=== PATIENT | female | born 1950 | race Hispanic/Latino ===

== ENCOUNTER 2017-04-10 12:55 | Day surgery (SDC) | payer MEDICARE, OTHER ==
[2017-04-10 13:43] LABS: ADD MANUAL DIFF? NO
[2017-04-10 13:45] LABS: BASO # 0.03 [, K/mm3] (0.0-2.0); BASO % 0.2 % (0.0-3.0); EOS # 0.1 (0.0-0.7); EOS % 0.6 % (1.5-5.0); GRAN # 14.48 (1.4-6.5); GRAN % 84.6 % (50.0-68.0); LYMPH # 0.8 (1.2-3.4); LYMPH % 4.8 % (22.0-35.0); MEAN CELL VOLUME 92.8 fL (80.0-105.0); MEAN CORPUSCULAR HEMOGLOBIN 30.5 pg (25.0-35.0); MEAN CORPUSCULAR HGB CONC 32.9 g/dl (31.0-37.0); MEAN PLATELET VOLUME 10.5 fl (7.0-11.0); MONO # 1.7 (0.1-0.6); MONO % 9.8 % (1.0-6.0); PLATELET COUNT 160 [, 10^3/uL] (120.0-450.0); WHITE BLOOD COUNT 17.1 [, 10^3/ul] (4.5-11.0)
[2017-04-10 13:48] VITALS: RESP 20; O2SAT 99
[2017-04-10 13:55] LABS: CALCIUM 8.4 mg/dL (8.4-10.5)
[2017-04-10 13:56] LABS: INR 1.18 (0.93-1.08)
[2017-04-10 16:37] VITALS: BMI 39.4
[2017-04-10 17:22] VITALS: PULSE 102; TEMP 97
--- NOTE | 2017-04-10 18:04 | US ---
PROCEDURE: Ultrasound guided paracentesis. HISTORY: Metastatic breast CA. New onset ascites. Evaluate for malignancy. Abdominal pain and distension. PHYSICIAN(S): Wilner Madrid MD. TECHNIQUE: The relative risks and indications for the procedure were explained to the patient and informed written consent obtained. Sonography of the abdomen was performed in a supine position. This revealed a moderate to large amount of non-loculated ascites, greatest in the right mid abdomen. A puncture site was selected and the area was prepped and draped in the usual sterile fashion. 1% Xylocaine was used to anesthetize the skin and soft tissues. A 7 Hungarian paracentesis catheter was trocared into the right mid abdomenand 9100 cc of yellow/green fluid aspirated. Cytology specimen was sent. IMPRESSION: Ultrasound-guided paracentesis in the right mid abdomen. 9100 cc of yellow green fluid was aspirated
[2017-04-10 19:03] VITALS: BP 142/68
== END 2017-04-10 19:00 | disposition home or self-care (01) ==
LOC: OPSURG 12:55
PROVIDERS: ATTEND Radiology Vascular & Interventional Radiology
DX: R18.8 Other ascites (principal); C50.919 Malignant neoplasm of unspecified site of unspecified female breast; I10 Essential (primary) hypertension; R10.9 Unspecified abdominal pain; R14.0 Abdominal distension (gaseous)

== ENCOUNTER 2017-04-19 08:24 | Day surgery (SDC) | payer MEDICARE, OTHER ==
[2017-04-19 09:04] VITALS: BMI 42.5
[2017-04-19 09:29] LABS: HEMATOCRIT 32.3 % (36.0-48.0); MEAN CELL VOLUME 93.4 fL (80.0-105.0); MEAN CORPUSCULAR HEMOGLOBIN 30.9 pg (25.0-35.0); MEAN CORPUSCULAR HGB CONC 33.1 g/dl (31.0-37.0); MEAN PLATELET VOLUME 10.6 fl (7.0-11.0); RED CELL DISTRIBUTION WIDTH 16.2 % (11.5-14.5); WHITE BLOOD COUNT 9.9 10^3/ul (4.5-11.0)
[2017-04-19 09:32] LABS: INR 1.09 (0.93-1.08); PARTIAL THROMBOPLASTIN TIME 28.9 Seconds (23.7-30.8)
--- NOTE | 2017-04-19 09:40 | CP.SDSHP ---
Same Day Surgery H & P - History Proposed Procedure: Ultrasound guided Paracentesis Pre-Op Diagnosis: Ascites - Previous Medical/Surgical History Cardiac: Hypertension Endocrine/Metabolic: Thyroid Disease (Hypothyroidism), Diabetes Misc: Other (Hypercholesterolemia,Breast Ca,crrently on chemo every 3 weeks) Pain: 0. No Pain Previous Surgical History: Appendectomy. R chest wall portacath. Breast biopsy. Paracentesis(last week) - Allergies Allergies: Allergies banana Allergy (Severe, Verified 12/05/16 12:59) RASH - Physical Exam General Appearance: Well nourished female Mental Status: Alert & Oriented x3 Neuro: WNL Heart: WNL Lungs: WNL - {Optional Preform as Required} Abdomen: Other (Distendid,Ascites+++) Other Pertinent Findings: bilateral 1+ pitting pedal edema noted - Impression Impression: Ascites - Date & Time Date: 04/19/17 Time: 09:40 Short Stay Discharge - Short Stay Discharge Admitting Diagnosis/Reason for Visit: ASCITES R18.8 Disposition: HOME/ ROUTINE Referrals: Yahir Love MD [Primary Care Provider] -
[2017-04-19 09:56] LABS: POTASSIUM 4.8 mmol/L (3.6-5.0)
[2017-04-19] MEDS ORDERED: Oxycodone/Acetaminophen 5/325 mg Tab PO PRN (11:08)
[2017-04-19 11:40] VITALS: RESP 20; TEMP 98; O2SAT 98
[2017-04-19 12:19] VITALS: BP 110/65; PULSE 94
--- NOTE | 2017-04-23 19:55 | US ---
PROCEDURE: Ultrasound guided paracentesis. HISTORY: Metastatic breast CA. Recurrent malignant ascites with abdominal pain and distension. Needs repeat paracentesis PHYSICIAN(S): Wilner Madrid MD. TECHNIQUE: The relative risks and indications for the procedure were explained to the patient and informed written consent obtained. Sonography of the abdomen was performed in a supine position. This revealed a moderate to large amount of non-loculated ascites, greatest in the right mid abdomen. A puncture site was selected and the area was prepped and draped in the usual sterile fashion. 1% Xylocaine was used to anesthetize the skin and soft tissues. A 7 Indonesian paracentesis catheter was trocared into the right mid abdomenand 7000 cc of aleman fluid aspirated. A cytology specimen was sent IMPRESSION: Ultrasound-guided paracentesis in the right mid abdomen. 7000 cc of fluid were aspirated. A cytology specimen was sent.
== END 2017-04-19 12:50 | disposition home or self-care (01) ==
LOC: OPSURG 08:24
PROVIDERS: ATTEND Internal Medicine Hematology & Oncology
DX: R18.8 Other ascites (principal); I10 Essential (primary) hypertension; E11.9 Type 2 diabetes mellitus without complications; E03.9 Hypothyroidism, unspecified; E78.00 Pure hypercholesterolemia, unspecified; C50.919 Malignant neoplasm of unspecified site of unspecified female breast

== ENCOUNTER 2017-05-05 13:00 | Inpatient (IN) | payer MEDICARE, OTHER ==
[2017-05-05] MEDS ORDERED: Sodium Chloride 0.9% 1,000 ML IV STA ×3 (13:52→17:05)
--- NOTE | 2017-05-05 13:53 | ED PDOC ---
Arrival/HPI - General Chief Complaint: Abdominal Pain Time Seen by Provider: 05/05/17 13:22 Historian: Patient - Critical Care Critical Care Minutes: 30 minutes - History of Present Illness Narrative History of Present Illness (Text): 05/05/17 13:56 A 67 year old female, whose past medical history includes diabetes, hypertension , and breast cancer presents to the emergency department complaining of vomiting since yesterday and diarrhea for the past week. Patient also reports to chest discomfort today, worse with deep breathing as well as sob. Patient also reports chemotherapy for breast cancer, last session on 04/24/17. Patient denies fever, chills, abdominal pain, runny nose or any other complaints at this time. She said she had an outpatient CT chest/abd/pelvis yesterday in [place] with IV contrast. PMD: Dr. Love Oncology: Dr. Cook Symptom Onset: Sudden Symptom Course: Unchanged Activities at Onset: Rest Context: Home Past Medical History - Provider Review Nursing Documentation Reviewed: Yes - Infectious Disease Hx of Infectious Diseases: None - Reproductive Menopause: Yes - Cardiac Hx Cardiac Disorders: Yes Hx Hypertension: Yes - Pulmonary Hx Respiratory Disorders: No - Neurological Hx Neurological Disorder: Yes Hx Dizziness: Yes Hx Paralysis: No - HEENT Hx HEENT Disorder: Yes Other/Comment: glasses - Renal Hx Renal Disorder: No - Endocrine/Metabolic Hx Endocrine Disorders: Yes Hx Diabetes Mellitus Type 2: Yes - Hematological/Oncological Hx Blood Transfusions: No Hx Blood Transfusion Reaction: No Hx Cancer: Yes (L sided) Hx Chemotherapy: Yes (last was 04/10/2017) - Integumentary Hx Dermatological Disorder: No - Musculoskeletal/Rheumatological Hx Musculoskeletal Disorders: Yes - Gastrointestinal Hx Gastrointestinal Disorders: No - Genitourinary/Gynecological Hx Genitourinary Disorders: No - Psychiatric Hx Psychophysiologic Disorder: No Hx Emotional Abuse: No Hx Physical Abuse: No Hx Substance Use: No - Surgical History Hx Appendectomy: Yes Other/Comment: Port in R chest, - Anesthesia Hx Anesthesia: Yes Hx Anesthesia Reactions: No Hx Malignant Hyperthermia: No - Suicidal Assessment Feels Threatened In Home Enviroment: No Family/Social History - Physician Review Nursing Documentation Reviewed: Yes Family/Social History: No Known Family HX Smoking Status: Never Smoked Hx Alcohol Use: No Hx Substance Use: No Allergies/Home Meds Allergies/Adverse Reactions: Allergies banana Allergy (Severe, Verified 05/05/17 13:13) RASH Home Medications: Home Meds Medication Instructions Recorded Confirmed Aspirin [Ecotrin] 81 mg PO DAILY 12/05/16 05/05/17 Cholecalciferol (Vitamin D3) 2,000 unit PO DAILY 12/05/16 05/05/17 [Vitamin D3] Exenatide Microspheres [Bydureon 2 mg SC SUN 12/05/16 05/05/17 Pen] Insulin Regular [HumuLIN R] 13 unit SC ACLD 12/05/16 05/05/17 Insulin Regular [HumuLIN R] 15 unit SC ACB 12/05/16 05/05/17 Levothyroxine [Synthroid] 50 mcg PO DAILY 12/05/16 05/05/17 Simvastatin 40 mg PO DAILY 12/05/16 05/05/17 Valsartan [Diovan] 160 mg PO DAILY 12/05/16 05/05/17 Ciprofloxacin [Cipro] 500 mg PO BID 05/05/17 05/05/17 Review of Systems - Physician Review All systems were reviewed & negative as marked: Yes - Review of Systems Constitutional: absent: Fevers, Other (chills) Eyes: absent: Vision Changes ENT: absent: Rhinorrhea Respiratory: SOB Cardiovascular: Chest Pain (discomfort) Gastrointestinal: Diarrhea, Vomiting. absent: Abdominal Pain Genitourinary Female: absent: Dysuria Skin: absent: Rash Neurological: absent: Headache, Dizziness Physical Exam Vital Signs Reviewed: Yes Vital Signs Temp Pulse Resp BP Pulse Ox 05/05/17 16:00 74 18 113/59 L 96 05/05/17 13:30 115 H 05/05/17 13:19 97.7 F 211 H 18 91/66 L 96 Temperature: Afebrile Blood Pressure: Hypotensive Pulse: Tachycardic Respiratory Rate: Tachypneic Appearance: Positive for: Ill-Appearing, Other (Patient with tremor) Pain Distress: None Mental Status: Positive for: Alert and Oriented X 3 - Systems Exam Head: Present: Atraumatic, Normocephalic Pupils: Present: PERRL Conjunctiva: Present: Normal Mouth: Present: Dry Pharnyx: Present: Normal. No: ERYTHEMA, EXUDATE Neck: Present: Normal Range of Motion Respiratory/Chest: Present: Clear to Auscultation, Good Air Exchange. No: Respiratory Distress, Accessory Muscle Use Cardiovascular: Present: Murmurs, Normal S1, S2, Tachycardic Abdomen: Present: Distention, Normal Bowel Sounds. No: Tenderness, Peritoneal Signs Back: Present: Normal Inspection Upper Extremity: Present: Normal Inspection. No: Cyanosis, Edema Lower Extremity: Present: Normal Inspection. No: Edema Neurological: Present: GCS=15, CN II-XII Intact, Speech Normal Skin: Present: Warm, Dry, Normal Color. No: Rashes Psychiatric: Present: Alert, Oriented x 3, Normal Concentration Medical Decision Making ED Course and Treatment: 05/05/17 13:51 Impression: A 67 year old female with vomiting and diarrhea with history of breast CA Differential: Dehydration due to gastroenteritis vs. sepsis with possible neutropenia vs. PE vs electrolyte abdnormality vs ACS Plan: -- EKG -- US lower extremity -- chest xray -- labs -- Urinalysis -- Protonix, IV fluids, Zofran, Zosyn, Vancomycin, Heparin -- Reassess and disposition Progress Notes: Patient with noted history. Initial BP low with tachycardia. WBC is 2.0 and lactic acid is 2.4. 05/05/17 14:28 Code sepsis called. IVF ordered to give a total of 3 liters, per protocol as well as iv antibiotics. EKG: Ordered, reviewed, and independently interpreted the EKG. Rate : 115 BPM Rhythm : Sinus tachycardic Interpretation : left axis deviation, poor R wave progression, normal intervals , no ST/T changes Comparison : No previous EKG for comparison. Chest xray: Creator : Flynn Sullivan MD 05/05/2017 15:19 IMPRESSION: No active disease. Extremity Ultrasound: Creator : Wilner Serna MD 05/05/2017 15:16 FINDINGS: There is acute occlusive thrombus in the left popliteal vein and visualized left tibial veins. The left femoral vein and left common femoral vein are patent and compressible. There is no sonographic evidence for deep venous thrombosis in the visualized segments of the right lower extremity. IMPRESSION: Acute, occlusive thrombus in left popliteal and visualized tibial veins Addendum created by Benton Garcia MD on 05/05/2017 4:56 PM Eastern Time ([place] & [place]) Addendum: THIS REPORT CONTAINS FINDINGS THAT MAY BE CRITICAL TO PATIENT CARE. The findings were verbally communicated via telephone conference with Faheem Nava at 4:55 PM EDT on 05/05/2017. The findings were acknowledged and understood. Initial Report created on 05/05/2017 4:44 PM Eastern Time ([place] & [place]) NM Lung Perfusion and Ventilation Scan FINDINGS: Ventilation: The ventilation scan is heterogeneous with trapping of radionucleotide in the central airways. Perfusion: Moderate to large segmental mismatched perfusion defects in the bilateral upper and lower lobes. The chest x-ray demonstrates no airspace disease or pleural effusion. IMPRESSION: High probability scan for pulmonary embolism. Dictated and Authenticated by: Benton Garcia MD 05/05/2017 4:44 PM Eastern Time ([place] & [place]) Patient's vitals have stabilized after IVF and abx. Findings as above showing PE as well as the neutropenia with likely sepsis. Spoke with Dr. Cleveland, ICU attending, who will evaluate patient. Case discussed with Dr. Rivas for admission under Dr. Ngo's service. 05/05/17 17:59 The case was accepted by Dr. Demarco for ICU admission. - Lab Interpretations Lab Results: 05/05/17 14:00 05/05/17 14:00 Lab Results 05/05/17 14:00: Lipase 35 05/05/17 14:00: pO2 66 H, VBG pH 7.29 L, VBG pCO2 33.0 L, VBG HCO3 15.9 L, VBG Total CO2 16.9 L, VBG O2 Sat (Calc) 95.9 H, VBG Base Excess -9.7 L, VBG Potassium 5.1, Sodium 133.0, Chloride 104.0, Glucose 231 H, Lactate 2.4 H, FiO2 21.0, Venous Blood Potassium 5.1 05/05/17 14:00: Sodium 132, Chloride 104, Potassium 4.9, Carbon Dioxide 15 L, Anion Gap 18, BUN 40 H, Creatinine 1.4, Est GFR ( Amer) 45, Est GFR (Non- Af Amer) 38, Random Glucose 211 H, Calcium 7.9 L, Magnesium 1.7, Total Bilirubin 1.1, AST 29, ALT 33, Alkaline Phosphatase 76, Lactate Dehydrogenase 484, Total Creatine Kinase 65, Troponin I 0.07, Total Protein 6.2, Albumin 2.6 L , Globulin 3.6, Albumin/Globulin Ratio 0.7 L 05/05/17 14:00: PT 14.0 H, INR 1.30 H, APTT 34.8 H 05/05/17 14:00: WBC 2.0 L* D, RBC 3.17 L, Hgb 9.7 L, Hct 28.5 L, MCV 89.9, MCH 30.6, MCHC 34.0, RDW 14.8 H, Plt Count 114 L, MPV 10.2, Neutrophils % (Manual) 27 L, Lymphocytes % (Manual) 35, Monocytes % (Manual) 38 H 05/05/17 13:29: POC Glucose (mg/dL) 250 H I have reviewed the lab results: Yes - RAD Interpretation Radiology Orders: 05/05/17 13:50 CHEST PORTABLE [RAD] Stat DUPLEX LOWER EXTRM VEIN BILAT [US] Stat 05/05/17 15:01 LUNG PERF & VENT SCAN [NM] Stat - EKG Interpretation Interpreted by ED Physician: Yes Type: 12 lead EKG - Medication Orders Current Medication Orders: Sodium Chloride (Sodium Chloride 0.9%) 1,000 mls @ 999 mls/hr IV .Q1H1M STA Stop: 05/05/17 18:05 Last Admin: 05/05/17 17:54 Dose: 999 mls/hr Heparin Sodium/Sodium Chloride (Heparin 73219 Units/250ml 1/2 Normal Saline) 25 ,000 units in 250 mls @ 18.06 mls/hr IV .[id number] PRN; Protocol; 18 UNITS/KG/HR PRN Reason: ADJUST RATE PER PROTOCOL Discontinued Medications Heparin Sodium (Porcine) (Heparin) 8,200 units 80 units/kg (8200 units) IV ONCE ONE PRN Reason: Protocol Stop: 05/05/17 15:00 Last Admin: 05/05/17 16:28 Dose: 8,200 units Sodium Chloride (Sodium Chloride 0.9%) 1,000 mls @ 999 mls/hr IV .Q1H1M STA Stop: 05/05/17 14:52 Last Admin: 05/05/17 14:00 Dose: 999 mls/hr Vancomycin HCl 1 gm/ Sodium (Chloride) 250 mls @ 133.333 mls/hr IV STAT STA PRN Reason: Protocol Stop: 05/05/17 16:19 Last Admin: 05/05/17 15:27 Dose: 133.333 mls/hr Piperacillin Sod/Tazobactam Sod (Zosyn 3.375 In Ns 100ml) 100 mls @ 200 mls/hr IVPB STAT STA PRN Reason: Protocol Stop: 05/05/17 14:55 Last Admin: 05/05/17 15:00 Dose: 200 mls/hr Sodium Chloride (Sodium Chloride 0.9%) 1,000 mls @ 999 mls/hr IV .Q1H1M STA Stop: 05/05/17 15:27 Last Admin: 05/05/17 15:21 Dose: 999 mls/hr Heparin Sodium/Sodium Chloride (Heparin 82109 Units/250ml 1/2 Normal Saline) 25 ,000 units in 250 mls @ 18.37 mls/hr IV .[id number] PRN; Protocol; 18 UNITS/KG/HR PRN Reason: ADJUST RATE PER PROTOCOL Heparin Sodium/Sodium Chloride (Heparin 18626 Units/250ml 1/2 Normal Saline) 25 ,000 units in 250 mls @ 18.06 mls/hr IV .[id number] PRN; Protocol; 18 UNITS/KG/HR PRN Reason: ADJUST RATE PER PROTOCOL Last Titration: 05/05/17 17:46 Dose: 18 units/kg/hr, 18.06 mls/hr Ondansetron HCl (Zofran Inj) 4 mg IVP STAT STA Stop: 05/05/17 13:52 Last Admin: 05/05/17 13:59 Dose: 4 mg Pantoprazole Sodium (Protonix Inj) 40 mg IVP ONCE STA Stop: 05/05/17 13:52 Last Admin: 05/05/17 13:59 Dose: 40 mg - Scribe Statement The provider has reviewed the documentation as recorded by the Varsha Madrigal Provider Scribe Attestation: All medical record entries made by the Varsha were at my direction and personally dictated by me. I have reviewed the chart and agree that the record accurately reflects my personal performance of the history, physical exam, medical decision making, and the department course for this patient. I have also personally directed, reviewed, and agree with the discharge instructions and disposition. Disposition/Present on Arrival - Present on Arrival Any Indicators Present on Arrival: Yes History of DVT/PE: No History of Uncontrolled Diabetes: Yes Urinary Catheter: No History of Decub. Ulcer: No History Surgical Site Infection Following: None - Disposition Have Diagnosis and Disposition been Completed?: Yes Diagnosis: Neutropenia, Sepsis, Pulmonary embolism Disposition: HOSPITALIZED Disposition Time: 16:37 Patient Plan: Admission, ICU Patient Problems: Current Active Problems Problem Status Onset Neutropenia Acute Pulmonary embolism Acute Sepsis Acute Condition: CRITICAL
[2017-05-05 14:06] LABS: HEMATOCRIT 28.5 % (36.0-48.0); MEAN CELL VOLUME 89.9 fL (80.0-105.0); MEAN CORPUSCULAR HEMOGLOBIN 30.6 pg (25.0-35.0); MEAN PLATELET VOLUME 10.2 fl (7.0-11.0); PLATELET COUNT 114 10^3/uL (120.0-450.0); RED CELL DISTRIBUTION WIDTH 14.8 % (11.5-14.5); VENOUS BLOOD GAS BASE EXCESS -9.7 mmol/L (0.0-2.0); VENOUS BLOOD PH 7.29 (7.32-7.43)
[2017-05-05 14:11] LABS: ADD MANUAL DIFF? YES
[2017-05-05 14:15] LABS: INR 1.3 (0.93-1.08); PARTIAL THROMBOPLASTIN TIME 34.8 Seconds (23.7-30.8)
[2017-05-05 14:16] LABS: ALB/GLOB RATIO 0.7 (1.1-1.8); BILIRUBIN,TOTAL 1.1 mg/dL (0.2-1.3); CALCIUM 7.9 mg/dL (8.4-10.5); MAGNESIUM 1.7 mg/dL (1.7-2.2); POTASSIUM 4.9 mmol/L (3.6-5.0); TOTAL PROTEIN 6.2 g/dL (5.8-8.3)
[2017-05-05] MEDS ORDERED: Piperacillin/Tazobact 3.375 gm 100 ML IVPB STA (14:26)
[2017-05-05 14:27] LABS: TROPONIN I 0.07 ng/mL
[2017-05-05 14:33] LABS: NEUTROPHIL 27 % (50.0-70.0)
[2017-05-05] MEDS ORDERED: Heparin25000 units/250ml 1/2NS 25,000 UNITS/250 ML BAG IV PRN ×2 (14:59→15:28)
--- NOTE | 2017-05-05 15:14 | US ---
HISTORY: Leg pain and swelling. Evaluate for DVT PHYSICIAN(S): Wilner Madrid MD. TECHNIQUE: Duplex sonography and color-flow Doppler with graded compression were used to evaluate the deep venous systems of both lower extremities. FINDINGS: There is acute occlusive thrombus in the left popliteal vein and visualized left tibial veins. The left femoral vein and left common femoral vein are patent and compressible. There is no sonographic evidence for deep venous thrombosis in the visualized segments of the right lower extremity. IMPRESSION: Acute, occlusive thrombus in left popliteal and visualized tibial veins
--- NOTE | 2017-05-05 15:18 | RAD ---
HISTORY: chest pain COMPARISON: No prior. FINDINGS: LUNGS: No active pulmonary disease. PLEURA: No significant pleural effusion identified, no pneumothorax apparent. CARDIOVASCULAR: Normal. OSSEOUS STRUCTURES: No significant abnormalities. VISUALIZED UPPER ABDOMEN: Normal. OTHER FINDINGS: Right CVP line with tip overlying the right atrium. IMPRESSION: No active disease.
[2017-05-05] MEDS ORDERED: Enoxaparin 100 mg Syringe SC STA (17:04)
[2017-05-05 17:46] LABS: VENOUS BLOOD GAS BASE EXCESS -9.6 mmol/L (0.0-2.0); VENOUS BLOOD PH 7.29 (7.32-7.43)
[2017-05-05] MEDS: Heparin25000 units/250ml 1/2NS 25,000 UNITS/250 ML BAG IV PRN (17:46)
--- NOTE | 2017-05-05 18:12 | PCM.SEPTIC ---
Sepsis Progress Note - Reassessment Type Reassessment Type: Non-invasive reassessment - Non Invasive Reassessment Were the most recent vital sign reviewed: Yes Vital Sign (Latest): Temp Pulse Resp BP Pulse Ox 97.7 F 74 18 113/59 L 96 05/05/17 13:19 05/05/17 16:00 05/05/17 16:00 05/05/17 16:00 05/05/17 16:00 Cardiovascular: Yes: Regular Rate, Rhythm Respiratory: Yes: Normal Breath Sounds Capillary Refill: Delayed Pulses: Decreased Radial, Decreased Dorsalis Pedis, Decreased Posterior Tibialis Skin: Normal Color
[2017-05-05 18:14] VITALS: BMI 39.1
--- NOTE | 2017-05-05 18:48 | CARD ---
APPROVED REPORT EKG Measurement Heart [id number] TN 126P2 [id number] <Conclusion> Sinus tachycardia Low voltage QRS Possible Anterolateral infarct, age undetermined Abnormal ECG
[2017-05-05] MEDS: Albumin Human 25% (12.5 gm/50 ml) IV SCH ×2 (18:52→22:20)
--- NOTE | 2017-05-05 19:44 | CON ---
DATE: 05/05/2017 HISTORY OF PRESENT ILLNESS: This is a 67-year-old lady with history of hypothyroidism, hypertension, diabetes, breast cancer, status post chemotherapy , of which last cycle was on 04/24 (11 days ago) who presented this time with 1 week duration of non-bloody diarrhea. The patient had about 3-4 bowel movements a day, copious amount. Initially, patient also had nausea and vomiting and vomited about 3 times a day as well which, however, improved afterward and returned yesterday. The patient also had some pleuritic chest pain as well. She also noted increased shortness of breath on exertion. No fever, no chills, no sweats. PAST MEDICAL HISTORY: Diabetes, hypertension, hypothyroidism, breast cancer, ascites, status post paracentesis several times of a large amount. Of note, patient was worked up for potential ovarian cancer; however, results of this workup are not back yet. The patient did have PET scan on Saturday and again results of this PET scan is not available. ALLERGIES: NKDA. SOCIAL HISTORY: The patient is a lifelong nonsmoker, no alcohol or illicit drug abuse. No tobacco smoking. MEDICATIONS AT HOME: Losartan, simvastatin, Synthroid, insulin, Cipro, vitamin D, exenatide. FAMILY HISTORY: The patient has daughter with ovarian cancer. REVIEW OF SYSTEMS: Review of 12 organ system other than mentioned in history of present illness is negative. PHYSICAL EXAMINATION: VITAL SIGNS: Heart rate 74, temperature 97.7, blood pressure 113/59, respiratory rate 18, oxygen saturation 96% on room air. HEAD AND NECK: Atraumatic. LUNGS: Clear to auscultation bilaterally. HEART: Regular rate and rhythm. S1, S2 normal. ABDOMEN: Soft, distended with a shift to dullness. EXTREMITIES: 1-2+ bilateral pedal edema, left more than right, and left ankle tender on palpation. SKIN: Moist. PSYCHOLOGIC: The patient is alert and oriented x 3, comfortable. LABORATORY DATA: Sodium 132, potassium 4.9, chloride 104, carbon dioxide 15, BUN 40, creatinine 1.4, glucose 211, calcium 7.9. AST 29, ALT 33, lipase 35. Albumin 2.6. VBG showed pH 7.29, lactic acid 1.5. WBC 2, hemoglobin 9.7, platelet count 114. INR 1.3. VQ scan was positive for high probability for PE. Extremity ultrasound preliminary report positive for left popliteal DVT. EKG showed no specific ischemic changes and chest x-ray showed no active pulmonary disease. Port in the right atrium. ASSESSMENT AND PLAN: This is a 67-year-old lady with history of breast cancer on chemotherapy, last cycle on 04/24, who presented with neutropenia and severe diarrhea. Initially, she was found to be hypotensive and dehydrated. She received IV fluid boluses and her lactic acid improved substantially. At present time, she is hemodynamically stable. Septic workup was initiated, blood culture, urine culture, procalcitonin were sent. The patient was started on broad-spectrum antibiotics. ID consult was requested. CAT scan of the abdomen and pelvis will be done. The patient probably has large ascites which will be tapped. In terms of the patient at present time, we will be on heparin drip until paracentesis is performed and then will be switched to Lovenox. It was discussed with Dr. Cook who agreed. The patient will be started on granulocyte colony stimulating factor. Dr. Cook will be following her from that perspective as well. We will continue to target euvolemia, euglycemia, normothermia and oxygen saturation more than 90%. We will continue with deep venous thrombosis and gastrointestinal prophylaxis. We will continue with therapeutic anticoagulation, echocardiogram. ccm time 40 min Rainer Demarco MD cc: [id number] TT: 05/05/2017 19:43:31 Confirmation # [id number] Dictation # [id number] angelina ALEXANDER
[2017-05-05] MEDS: Meropenem 1g/NS 100mL IVPB 1 GM/100 ML PIGGYBACK IVPB SCH (22:26)
--- NOTE | 2017-05-05 22:35 | PCM.SEPTIC ---
<Taylor Sandoval - Last Filed: 05/05/17 22:34> Sepsis Progress Note - Reassessment Type Date of Evaluation: 05/05/17 Time of Evaluation: 22:00 Reassessment Type: Non-invasive reassessment - Non Invasive Reassessment Were the most recent vital sign reviewed: Yes Vital Sign (Latest): Temp Pulse Resp BP Pulse Ox 97.7 F 88 18 120/58 L 98 05/05/17 13:19 05/05/17 19:57 05/05/17 19:57 05/05/17 19:57 05/05/17 19:57 Cardiovascular: Yes: Regular Rate, Rhythm. No: Murmur Respiratory: Yes: Normal Breath Sounds. No: Respiratory Distress Capillary Refill: Delayed Skin: Normal Color, Dry <Stefan Wheatley - Last Filed: 05/06/17 03:18> Sepsis Progress Note - Non Invasive Reassessment Vital Sign (Latest): Temp Pulse Resp BP Pulse Ox 98.2 F 93 H 16 104/50 L 96 05/06/17 00:00 05/06/17 01:20 05/06/17 01:20 05/06/17 01:00 05/06/17 01:20 Attending/Attestation - Attestation I have personally seen and examined this patient.: Yes I have fully participated in the care of the patient.: Yes I have reviewed all pertinent clinical information, including history, physical exam and plan: Yes Notes (Text): 05/06/17 03:[address] Vazquez.
--- NOTE | 2017-05-05 23:12 | CT ---
EXAM: CT Chest Without Intravenous Contrast CLINICAL HISTORY: 67 years old, female; Pain; Abdominal pain; Acute; Chest pain; Type not specified; Additional info: Neutropenia, diarrhea, ascitis, breast cancer TECHNIQUE: Axial computed tomography images of the chest without intravenous contrast. This CT exam was performed using one or more of the following dose reduction techniques: automated exposure control, adjustment of the mA and/or kV according to patient size, and/or use of iterative reconstruction technique. Coronal and sagittal reformatted images were created and reviewed. COMPARISON: There are no prior studies for comparison. FINDINGS: Lungs and pleural spaces: Trachea and main bronchi are patent. There small bilateral pleural effusions. There is elevation of both hemidiaphragms. Lung volumes are are low. There is compressive atelectasis in the right middle lobe. There is subsegmental atelectasis in the lower lobes right greater than left. There is patchy airspace disease at both lung bases. Heart: The heart is mildly enlarged.There is fluid in the pericardial recesses. There are coronary artery calcifications. Aorta and main pulmonary artery are normal in caliber. There are calcifications in the aortic wall. Mediastinum: There is a hiatal hernia. Esophagus is unremarkable. There are no pathologically enlarged mediastinal nodes.Kika are not optimally evaluated without contrast material. Thyroid: Thyroid is not optimally demonstrated. Bones/joints: There are degenerative changes in the osseus structures. Soft tissues: unremarkable Upper abdomen: Please refer to following report for abdominal findings Tubes, lines and devices: There is a Port-A-Cath in the right chest wall. Catheter tip is in the low superior vena cava. IMPRESSION: Low lung volumes with atelectasis at both lung bases and small effusions; mild cardiomegaly and atherosclerotic disease; Port-A-Cath EXAM: CT Abdomen and Pelvis Without Intravenous Contrast CLINICAL HISTORY: 67 years old, female; Pain; Abdominal pain; Acute; Chest pain; Type not specified; Additional info: Neutropenia, diarrhea, ascitis, breast cancer TECHNIQUE: Axial computed tomography images of the abdomen and pelvis without intravenous contrast. This CT exam was performed using one or more of the following dose reduction techniques: automated exposure control, adjustment of the mA and/or kV according to patient size, and/or use of iterative reconstruction technique. Coronal and sagittal reformatted images were created and reviewed. EXAM DATE/TIME: 05/05/2017 8:28 PM COMPARISON: There are no prior studies for comparison. FINDINGS: Lower thorax: Refer to prior report for chest findings ABDOMEN: Liver: Hepatic contours are nodular. There is prominence of the left and caudate lobes. Gallbladder and bile ducts: Gallbladder is distended. There are small stones. Common bile duct is difficult to identify. Pancreas: Pancreas is atrophic. Spleen: Spleen is normal in size. Adrenals: unremarkable Kidneys and ureters: unremarkable Stomach and bowel: Stomach is incompletely distended. Bowel rotation is normal. There are mildly distended small bowel loops in the right upper quadrant with mild wall and fold thickening. There is no obstruction. There is mild terminal ileal wall thickening.Appendix is not visualized.Colon is incompletely distended which limits evaluation. Appendix: See stomach and bowel PELVIS: Bladder: Bladder is partially distended. Reproductive: The uterus and adnexa ABDOMEN and PELVIS: Intraperitoneal space: There is no free air. There is large volume ascites in the abdomen and pelvis. There is ascites and an umbilical hernia Bones/joints: Bony structures are osteopenic.There are degenerative changes in the osseus structures. Soft tissues: There is a an umbilical hernia containing ascitic fluid. There is body wall edema. Vasculature: There are vascular calcifications. Lymph nodes: There is no pathologic adenopathy. IMPRESSION: Large volume ascites; possible cirrhosis, limited evaluation of liver due to lack of contrast material; possible gallstones; possible enteritis, no obstruction; no focal colonic abnormality Additional findings as described above.
[2017-05-05] MEDS: Sodium Chloride 0.45% 1,000 ML IV SCH (23:35)
[2017-05-06] MEDS: Insulin Regular 1 UNITS/0.01 ML ML SC SCH ×2 (00:16→06:15)
[2017-05-06] MEDS: Albumin Human 25% (12.5 gm/50 ml) IV SCH ×6 (01:57→22:13)
[2017-05-06 06:36] LABS: CALCIUM 7.4 mg/dL (8.4-10.5); MAGNESIUM 1.7 mg/dL (1.7-2.2); PHOSPHOROUS 3.2 mg/dL (2.5-4.5); POTASSIUM 4.5 mmol/L (3.6-5.0)
[2017-05-06 06:41] LABS: MEAN CELL VOLUME 89.5 fL (80.0-105.0); MEAN CORPUSCULAR HEMOGLOBIN 29.7 pg (25.0-35.0); MEAN CORPUSCULAR HGB CONC 33.2 g/dl (31.0-37.0); MEAN PLATELET VOLUME 11.1 fl (7.0-11.0); PLATELET COUNT 71 10^3/uL (120.0-450.0); RED CELL DISTRIBUTION WIDTH 14.9 % (11.5-14.5)
[2017-05-06 06:47] LABS: ADD MANUAL DIFF? YES; HEMATOCRIT 22.9 % (36.0-48.0); WHITE BLOOD COUNT 1.8 10^3/ul (4.5-11.0)
[2017-05-06 08:47] LABS: BAND 1 % (0-2); NEUTROPHIL 40 % (50.0-70.0)
[2017-05-06 08:48] LABS: ATYPICAL LYMPHOCYTE 2 % (0.0-0.0); METAMYELOCYTE 1 %; PLATELET ESTIMATE LOW (NORMAL)
[2017-05-06 08:49] LABS: ANISOCYTOSIS 1+; HYPOCHROMIA 2+; OVALOCYTES SLIGHT; POIKILOCYTOSIS SLIGHT; POLYCHROMASIA 1+; TEAR DROP CELLS SLIGHT
--- NOTE | 2017-05-06 08:58 | CP.PCM.CON ---
History of Present Illness - History of Present Illness History of Present Illness: 67 year old female with PMH of HTN, DM, breast cancer with last chemotherapy session on April 24, 2017, S/P right port-a-cath placement, obesity with BMI 39 came in to [facility] because of episodes of nausea, vomiting and loose bowel movement for about a week, with associated generalized weakness which has worsened over the past day. She denies fever or chills, no headache or dizziness, no chest pain, no SOB, has some abdominal pain, no dysuria, no sore throat, no cough or colds. She denies travel outside of [place] in the past 3 months[address] She had a CT chest, abdomen and pelvis yesterday which showed large volume abdominal ascites as well as possible enteritis. Infectious diseases consult is requested to further evaluate and manage. Review of Systems - Review of Systems All systems: reviewed and no additional remarkable complaints except (as per HPI ) Past Patient History - Infectious Disease Hx of Infectious Diseases: None - Past Social History Smoking Status: Never Smoked - CARDIAC Hx Cardiac Disorders: Yes Hx Hypertension: Yes - PULMONARY Hx Respiratory Disorders: No - NEUROLOGICAL Hx Neurological Disorder: Yes Hx Dizziness: Yes - HEENT Hx HEENT Problems: Yes Other/Comment: glasses - RENAL Hx Chronic Kidney Disease: No - ENDOCRINE/METABOLIC Hx Endocrine Disorders: Yes Hx Diabetes Mellitus Type 2: Yes - HEMATOLOGICAL/ONCOLOGICAL Hx Cancer: Yes (L sided) Hx Chemotherapy: Yes (last was 04/10/2017) - INTEGUMENTARY Hx Dermatological Problems: No - MUSCULOSKELETAL/RHEUMATOLOGICAL Hx Musculoskeletal Disorders: Yes - GASTROINTESTINAL Hx Gastrointestinal Disorders: No - GENITOURINARY/GYNECOLOGICAL Hx Genitourinary Disorders: No - PSYCHIATRIC Hx Psychophysiologic Disorder: No Hx Emotional Abuse: No Hx Physical Abuse: No - SURGICAL HISTORY Hx Appendectomy: Yes Other/Comment: Port in R chest, - ANESTHESIA Hx Anesthesia: Yes Hx Anesthesia Reactions: No Hx Malignant Hyperthermia: No Meds Allergies/Adverse Reactions: Allergies Allergy/AdvReac Type Severity Reaction Status Date / Time banana Allergy Severe RASH Verified 05/05/17 13:13 - Medications Medications: Current Medications Albumin Human (Albumin Human 25% (12.5 Gm/50 Ml)) 12.5 gm IV Q4H [facility] Last Admin: 05/06/17 01:57 Dose: 12.5 gm Aspirin (Ecotrin) 81 mg PO DAILY [facility] Atorvastatin Calcium (Lipitor) 20 mg PO HS [facility] Heparin Sodium/Sodium Chloride (Heparin 14633 Units/250ml 1/2 Normal Saline) 25 ,000 units in 250 mls @ 18.06 mls/hr IV .[id number] PRN; Protocol; 18 UNITS/KG/HR PRN Reason: ADJUST RATE PER PROTOCOL Last Admin: 05/05/17 17:46 Dose: 18 units/kg/hr, 18.06 mls/hr Meropenem 1g/NS 100mL IVPB (Meropenem 1g/Ns 100ml Ivpb) 1 gm in 100 mls @ 100 mls/hr IVPB Q12 [facility] PRN Reason: Protocol Stop: 05/12/17 22:01 Last Admin: 05/05/17 22:26 Dose: 100 mls/hr Vancomycin HCl (Vancomycin 1gm) 1 gm in 250 mls @ 167 mls/hr IVPB DAILY [facility] PRN Reason: Protocol Sodium Chloride (Sodium Chloride 0.45%) 1,000 mls @ 80 mls/hr IV .[id number] [facility] Last Admin: 05/05/17 23:35 Dose: 80 mls/hr Insulin Human Regular (Humulin R) 0 units SC Q6 [facility] PRN Reason: Protocol Last Admin: 05/06/17 00:16 Dose: Not Given Levothyroxine Sodium (Synthroid) 50 mcg PO ACB [facility] Physical Exam - Constitutional Appears: Non-toxic, No Acute Distress - Head Exam Head Exam: NORMAL INSPECTION - ENT Exam ENT Exam: Mucous Membranes Moist - Neck Exam Neck exam: Negative for: Lymphadenopathy, Meningismus - Respiratory Exam Respiratory Exam: Decreased Breath Sounds Additional comments: right anterior chest wall port-a-cath site clean, intact and non-tender - Cardiovascular Exam Cardiovascular Exam: +S1, +S2 - GI/Abdominal Exam GI & Abdominal Exam: Distended, Soft, Tenderness (diffuse). absent: Firm, Guarding, Rigid Results - Vital Signs Recent Vital Signs: Last Vital Signs Temp 98.5 F 05/06/17 04:00 Pulse 90 05/06/17 04:20 Resp 15 05/06/17 04:20 BP 112/57 L 05/06/17 04:00 Pulse Ox 95 05/06/17 04:20 - Labs Result Diagrams: 05/06/17 05:45 05/06/17 05:45 Labs: Laboratory Results - last 24 hr 05/05/17 05/05/17 17:10 23:48 APTT > 180.0 H* pO2 145 H VBG pH 7.29 L VBG pCO2 33.0 L VBG HCO3 15.9 L VBG Total CO2 16.9 L VBG O2 Sat (Calc) 99.4 H VBG Base Excess -9.6 L VBG Potassium 5.2 Sodium 133.0 Chloride 106.0 Glucose 215 H Lactate 1.5 FiO2 21.0 Venous Blood Potassium 5.2 Assessment & Plan - Assessment and Plan (Free Text) Plan: Assessment Consider severe sepsis with leukopenia and acute renal failure, consider due to acute enteritis R/O spontaneous bacterial peritonitis HTN DM breast cancer with last chemotherapy session on April 24, 2017 S/P right port-a-cath placement obesity with BMI 39 Plan Follow up blood cx, urine cx, PCT; reviewed CT chest, abdomen and pelvis; would recommend paracentesis for ascitic fluid analysis and cultures when feasible Will monitor clinically
--- NOTE | 2017-05-06 09:05 | CP.PCM.PN ---
<Lian Duenas - Last Filed: 05/06/17 12:33> Subjective - Date & Time of Evaluation Date of Evaluation: 05/06/17 Time of Evaluation: 09:02 - Subjective Subjective: ICU Progress Note This is a 67Y F with PMH HTN, DM, hypothyroidism, breast cancer s/p chemotherapy 04/24/17 and ascites s/p drainage 2 weeks ago. Here for pancytopenia , ascites, diarrhea, and L lower extremity DVT. Patient seen and examined at beside. There were no acute overnight events. Patient reports having diffuse abdominal pain and diarrhea. She reports her diarrhea has improved since yesterday. She denies CP, SOB, n/v/d, numbness/tingling, fever or chills. Patient reports having some dysphagia after regular diet. Objective - Vital Signs/Intake and Output Vital Signs (last 24 hours): Temp Pulse Resp BP Pulse Ox 98.5 F 101 H 20 141/72 97 05/06/17 04:00 05/06/17 08:30 05/06/17 08:30 05/06/17 08:03 05/06/17 08:30 Intake and Output: 05/06/17 05/06/17 06:59 18:59 Intake Total 1210 Balance 1210 - Medications Medications: Current Medications Albumin Human (Albumin Human 25% (12.5 Gm/50 Ml)) 12.5 gm IV Q4H [facility] Last Admin: 05/06/17 06:15 Dose: 12.5 gm Aspirin (Ecotrin) 81 mg PO DAILY [facility] Atorvastatin Calcium (Lipitor) 20 mg PO HS [facility] Heparin Sodium/Sodium Chloride (Heparin 60320 Units/250ml 1/2 Normal Saline) 25 ,000 units in 250 mls @ 18.06 mls/hr IV .[id number] PRN; Protocol; 18 UNITS/KG/HR PRN Reason: ADJUST RATE PER PROTOCOL Last Admin: 05/05/17 17:46 Dose: 18 units/kg/hr, 18.06 mls/hr Meropenem 1g/NS 100mL IVPB (Meropenem 1g/Ns 100ml Ivpb) 1 gm in 100 mls @ 100 mls/hr IVPB Q12 [facility] PRN Reason: Protocol Stop: 05/12/17 22:01 Last Admin: 05/05/17 22:26 Dose: 100 mls/hr Vancomycin HCl (Vancomycin 1gm) 1 gm in 250 mls @ 167 mls/hr IVPB DAILY [facility] PRN Reason: Protocol Sodium Chloride (Sodium Chloride 0.45%) 1,000 mls @ 80 mls/hr IV .[id number] [facility] Last Admin: 05/05/17 23:35 Dose: 80 mls/hr Insulin Human Regular (Humulin R) 0 units SC Q6 [facility] PRN Reason: Protocol Last Admin: 05/06/17 06:15 Dose: Not Given Insulin Human Regular (Humulin R Low) 0 units SC ACHS [facility] PRN Reason: Protocol Levothyroxine Sodium (Synthroid) 50 mcg PO ACB [facility] - Labs Labs: 05/06/17 05:45 05/06/17 05:45 PT 14.0 Seconds (9.9-11.8) H 05/05/17 14:00 INR 1.30 (0.93-1.08) H 05/05/17 14:00 APTT > 180.0 Seconds (23.7-30.8) H* 05/05/17 23:48 - Constitutional Appears: No Acute Distress, Chronically Ill - Head Exam Head Exam: ATRAUMATIC, NORMAL INSPECTION, NORMOCEPHALIC - Eye Exam Eye Exam: EOMI, Normal appearance, PERRL Pupil Exam: NORMAL ACCOMODATION, PERRL - ENT Exam ENT Exam: Mucous Membranes Moist - Neck Exam Neck Exam: Full ROM - Respiratory Exam Respiratory Exam: Clear to Ausculation Bilateral, NORMAL BREATHING PATTERN. absent: Rales, Rhonchi, Wheezes - Cardiovascular Exam Cardiovascular Exam: Tachycardia, REGULAR RHYTHM, +S1, +S2. absent: Gallop, Rubs, Murmur - GI/Abdominal Exam GI & Abdominal Exam: Distended, Tenderness (diffuse), Diminished Bowel Sounds. absent: Guarding, Rigid, Mass - Extremities Exam Extremities Exam: Full ROM, Pedal Edema (bilaterally ), Tenderness (L lower extremity) - Neurological Exam Neurological Exam: Alert, Awake, CN II-XII Intact, Oriented x3 - Psychiatric Exam Psychiatric exam: Normal Affect, Normal Mood - Skin Skin Exam: Dry, Intact, Normal Color, Warm Assessment and Plan - Assessment and Plan (Free Text) Assessment: This is a 67Y F with PMH HTN, DM, hypothyroidism, breast cancer s/p chemotherapy 04/24/17 and ascites s/p drainage 2 weeks ago. Here for pancytopenia , ascites, diarrhea, and L lower extremity DVT. Plan: Neuro: Patient A&O x 3. Resting comfortably. Maintain normothermia CV: Maintain MAP>65 Continue IV fluids Echo ordered Resp: V/Q scan showed high probability for PE On Heparin drip Maintain SpO2>90% GI: Patient noted to have recurrent ascites IR consulted for drainage Absolute neutrophil count <600, will want paracentesis when neutrophil count improves Will analyze peritoneal fluid for metastasis and peritonitis versus cirrhosis GI consulted- Dr. Prieto Abdominal U/S ordered as per GI Pt noted to have dysphagia-switched to Full liquid diet Nystatin swish and swallow added Renal: Continue to monitor I&O Continue to monitor electrolytes and will replace as needed. Heme: Pancytopenia Hgb: 7.6 Ordered 2U PRBC Folate ordered Heme consulted-Dr. Cook- will follow up with PET Scan results L LE DVT- on Heparin drip Continue to monitor CBC ID: ID consulted- Dr. Hicks Blood culture, urine culture pending Will obtain peritoneal culture once pt has paracentesis Stool studies (including C.diff pending) PCT noted to be 0.62 Continue Merrem and Vanc Endo: on ISS Continue BGM ACHS Maintain euglycemia PPX: DVT: on Heparin Drip GI: Protonix Dispo: Prognosis is guarded. Palliative care consulted. Case seen, discussed and reviewed with attending. Leeann Duenas PGY1 <Lars GONZALES,Brennamaster - Last Filed: 05/06/17 15:10> Objective - Vital Signs/Intake and Output Vital Signs (last 24 hours): Temp Pulse Resp BP Pulse Ox 97 F L 95 H 24 110/61 96 05/06/17 08:00 05/06/17 12:00 05/06/17 12:00 05/06/17 12:00 05/06/17 12:00 Intake and Output: 05/06/17 05/06/17 06:59 18:59 Intake Total 1210 250 Balance 1210 250 - Medications Medications: Current Medications Albumin Human (Albumin Human 25% (12.5 Gm/50 Ml)) 12.5 gm IV Q4H [facility] Last Admin: 05/06/17 11:55 Dose: 12.5 gm Aspirin (Ecotrin) 81 mg PO DAILY [facility] Last Admin: 05/06/17 09:50 Dose: 81 mg Atorvastatin Calcium (Lipitor) 20 mg PO HS [facility] Heparin Sodium/Sodium Chloride (Heparin 15996 Units/250ml 1/2 Normal Saline) 25 ,000 units in 250 mls @ 18.06 mls/hr IV .[id number] PRN; Protocol; 18 UNITS/KG/HR PRN Reason: ADJUST RATE PER PROTOCOL Last Titration: 05/06/17 10:11 Dose: 15 units/kg/hr, 15.05 mls/hr Meropenem 1g/NS 100mL IVPB (Meropenem 1g/Ns 100ml Ivpb) 1 gm in 100 mls @ 100 mls/hr IVPB Q12 [facility] PRN Reason: Protocol Stop: 05/12/17 22:01 Last Admin: 05/06/17 10:06 Dose: 100 mls/hr Vancomycin HCl (Vancomycin 1gm) 1 gm in 250 mls @ 167 mls/hr IVPB DAILY [facility] PRN Reason: Protocol Last Admin: 05/06/17 10:07 Dose: 167 mls/hr Sodium Chloride (Sodium Chloride 0.45%) 1,000 mls @ 80 mls/hr IV .[id number] [facility] Last Admin: 05/05/17 23:35 Dose: 80 mls/hr Insulin Human Regular (Humulin R Low) 0 units SC ACHS [facility] PRN Reason: Protocol Last Admin: 05/06/17 11:53 Dose: Not Given Levothyroxine Sodium (Synthroid) 50 mcg PO ACB [facility] Last Admin: 05/06/17 09:11 Dose: 50 mcg Nystatin (Nystatin Oral Susp) 5 ml PO QID [facility] Pantoprazole Sodium (Protonix Ec Tab) 40 mg PO ACB [facility] - Labs Labs: 05/06/17 05:45 05/06/17 05:45 PT 14.5 Seconds (9.9-11.8) H 05/06/17 11:45 INR 1.34 (0.93-1.08) H 05/06/17 11:45 APTT 122.0 Seconds (23.7-30.8) H* 05/06/17 11:45 Attending/Attestation - Attestation I have personally seen and examined this patient.: Yes I have fully participated in the care of the patient.: Yes I have reviewed all pertinent clinical information, including history, physical exam and plan: Yes Notes (Text): 05/06/17 15:06 67 y/o F w/ Presumed Breast CA w/ new onset ascites w/ pancytopenia Found to have Increased abdominal size w/o resp distress or ACS w/ decreased urine output Keep Platelets> 20k, INR < 2 and HGB >7 Plan for paracentesis w/ IR. d/w GI reccs waiting ntil ANC is improved. . Will need all diagnostic studies to be sent including cytology . Heparin drip will need to be stopped 4 hrs prior. Need to review new ECHO to find cause for liver congestion and possible ascites , if malignancy isn't found. Clinically improving today w/o any distress. Plans for supportive care w/ Oncologist's plans . New VTE on heparin drip w/o any new hemodynamic instability . ppi cc time 55 min
[2017-05-06] MEDS: Levothyroxine 50 MCG TAB PO SCH (09:11)
[2017-05-06] MEDS: Heparin25000 units/250ml 1/2NS 25,000 UNITS/250 ML BAG IV PRN (09:12)
--- NOTE | 2017-05-06 09:23 | NM ---
COMPARISON: May 05, 2017. Lower extremity Venous Doppler study. Summary of findings on the comparison examination: Acute, occlusive thrombus in left popliteal and visualized tibial veins May 05, 2017. CT chest abdomen and pelvis. Summary of findings on the comparison examination: Low lung volumes with atelectasis at both lung bases and small effusions; mild cardiomegaly and atherosclerotic disease; Port-A-Cath TECHNIQUE: 33.0 mCi technetium 99-m DTPA aerosol. 5.3 mCI technetium 99-m MAA administered intravenously. FINDINGS: VENTILATION COMPONENT: Mildly heterogeneous ventilation particularly of the right lung. PERFUSION COMPONENT: Peripheral wedge-shaped defects left lower lobe right upper lobe IMPRESSION: High probability ventilation perfusion scan for pulmonary embolism. Concordant results (preliminary interpretation) provided by [facility]. Procedure Completed: 16:05. Preliminary ([facility]) Report: Dictated and Authenticated: 16:44. Final Interpretation: 09:21. May 06, 2017.
[2017-05-06] MEDS: Meropenem 1g/NS 100mL IVPB 1 GM/100 ML PIGGYBACK IVPB SCH ×2 (10:06→22:12)
[2017-05-06] MEDS: Vancomycin 1gm in NS 250ml 1 GM/250 ML BAG IVPB SCH (10:07)
--- NOTE | 2017-05-06 10:45 | CON ---
DATE: 05/06/2017 This is a 67-year-old woman who presented with left breast cancer, ER/NV negative, HER negative. Cig arettes negative, alcohol negative. The patient's daughter has ovarian cancer, she is about 37 years old, BRCA negative, and has been treated for this. The patient developed her breast cancer under Dr Linh Berman and it was felt that we would give her neoadjuvant chemotherapy first followed by lumpectomy and radiation therapy. She took the Cytoxan and Adriamycin every 3 weeks x 4 with reasonable blood counts and was doing well, and we were about to start her on Taxotere when only about 3 weeks ago she started developing ascites. In retrospect, the son says maybe a week or 2, he could notice her abdo nithya girth was growing; she says maybe for a couple of days. Dr. Berman happened to see her in the office 3 weeks ago and noted the ascites. When I saw her, it was rather very, very obvious and so fo r the last 3 weeks we did peritoneal tap 2 times, each time taking out about 5 and the other time 8 l iters worth of fluid, and it grew right back again. The cytology was negative in both cases. Fredrick r, her CA-125 was 500. At this point, I spoke with the patient and the daughter and I explained that my suspicion is that this is an ovarian cancer, but we cannot operate on her. We will do a CAT/PET scan, but in the meantime we are going to give her Taxotere, so I gave her attenuated doses of Taxote re and carboplatin about a week and a half ago to start the chemotherapy while we were waiting for re sults. However, she continues to get weaker and weaker. She has been having a diarrhea; this is non bloody, no melena. She is not eating well and the ascites just grows very rapidly. I spoke to her o n Saturday and I told her she would probably have to be in the hospital, but she was going for a CAT/PE T scan on Saturday. So she went for CAT/PET scan on Saturday, drinking a lot of fluids and then real ized she could not; she was getting weaker and came in to the hospital. PHYSICAL EXAMINATION: SKIN: No petechiae, no bruises. GENERAL: The patient is completely alert. HEENT: Anicteric. NODES: None palpable in the axillary, cervical, supraclavicular or inguinal regions. BREAST: Shows no mass in the breast. LUNGS: At present are pretty clear. No wheezing, no rhonchi, no rales, and no rubs. HEART: S1, S2. ABDOMEN: Shows massive ascites. This is double to triple the amount that she had only a week ago. EXTREMITIES: Show some edema. No tenderness in the legs. Homans' negative. CENTRAL NERVOUS SYSTEM: No focal finding. IMPRESSION: So at present, we have multiple problems: 1. We have the phlebitis shown. It is unclear to me whether it traveled to the lungs as a pulmonary embolism because she has so much atelectasis in the lungs; however, she was started on heparin as of yesterday. 2. The problem of the pancytopenia. Her white count is down to about 1.8, hemoglobin 7.6, platelet count is 71. However, I do not really think the chemotherapy is the cause of this; it has been about a week and a half ago. These were very much lower doses of the chemo and she was able to tolerate t he Cytoxan and Adriamycin very well, 4 cycles, however. So I spoke to the residents; they should cer tainly give folic acid and consider giving the Neupogen and transfuse to keep the hemoglobin above 8 and closer to 9, so we will transfuse her as well as give her the folic acid and the Neupogen daily f or at least 3-5 days. 3. Third of all is the abdomen. She is developing a very rapid onset of ascites and massive ascites . It is almost as soon as you take it out, it gets put back in again. The CAT scan, interestingly e nough, shows some nodularity in the contours of the liver which imply cirrhosis but without hypersple nism. But even with cirrhosis, that would not usually account for such massive and rapid onset of as cites, so it is not clear what the diagnosis is here, and a CA-125 can be cause for any peritoneal di sease. But, in view of the fact that the chemotherapy worked for the breast cancer, it is hard to be lieve that the breast cancer is metastatic to the peritoneum and yet resolved in the breast itself on the chemotherapy. She has the diarrhea and so we have to rule out an infection and consider GI cons ultation for that. She will go for interventional radiology to have the ascites removed because she is in so much discomfort and it is causing so much atelectasis in the lungs, and we will send it off for cytology as well. Her prognosis is very poor. She has rapidly deteriorating overall condition f or the last 3 weeks. I started talking to the patient about that and how that she is very, very sick , we will have to have some conversations about prognosis once we have more information as to the asc ites and the other consultants. Garrett Joyce GONZALES cc: [id number] TT: 05/06/2017 10:44:41 Confirmation # [id number] Dictation # [id number] mn
--- NOTE | 2017-05-06 11:07 | HP ---
CHIEF COMPLAINT AND HISTORY OF PRESENT ILLNESS: This is a 67-year-old female who is coming into the hospital with a past medical history of breast cancer, hypothyroidism, hypertension. She has been ge tting treatment for her breast cancer with chemotherapy by Dr. Cook. Her last chemotherapy treatmen t was on 04/24/2017. She said that over the last week she has been having nonbloody diarrhea. She kelley s not been able to eat. She has been having nausea and vomiting as well that mostly started the day before coming into the hospital. She said that she had a paracentesis done by Dr. Wilner Madrid about 3 weeks ago. This was the second paracentesis. She does have abdominal pain. She has no fevers, no chills, no nausea, no dysuria, no frequency, no nocturia. She does have difficulty walking. She do es complain of abdominal distention. The pain in the abdomen is diffuse and mild. It is about 3/10. REVIEW OF SYMPTOMS: All others are within normal limits except as mentioned. ALLERGIES: BANANA. HOME MEDICATIONS: Aspirin, vitamin D, exenatide, insulin Humulin 13 units at dinner and 15 units at breakfast, Synthroid, simvastatin, valsartan. SOCIAL HISTORY: The patient does not smoke. She denies alcohol or drug use. She has 3 children. S he lives at home with her son. She has no advanced directives. FAMILY HISTORY: The patient's daughter had ovarian cancer. Mother had Alzheimer's and at 78. Father was an alcoholic and also had throat cancer, at 69. PAST MEDICAL HISTORY: 1. As above. 2. Diabetes type 2. 3. Hypertension. 4. Osteoarthritis. 5. Breast cancer. 6. Ascites. PAST SURGICAL HISTORY: 1. Appendectomy. 2. Right port insertion. PHYSICAL EXAMINATION: VITAL SIGNS: Temperature is 98.5, pulse of 96, blood pressure is 137/72, respirations 19, O2 saturat ion 96%. Height is 5 feet 3 inches, weight is 221 pounds, BMI is 39.1. GENERAL: The patient lying in bed, flat, and in no apparent distress. HEAD AND NECK EXAM: Atraumatic, normocephalic. Conjunctivae are pink. Throat clear and mouth with moist mucosa. Oropharynx benign. EYES: Extraocular movements are intact. PERRLA. NECK: Supple. No JVD, thyromegaly, or adenopathy. No bruits. HEART: S1 and S2 regular rate and rhythm. No murmurs, rubs, or gallops. LUNGS: Clear to auscultation bilaterally. No wheezing rales or rhonchi appreciated. No retraction s on exam. ABDOMEN: Bowel sounds are positive. She is distended. She has a thrill in the abdomen secondary to ascites. She has diffuse abdominal pain on palpation. She has no rebound, no guarding. No hepatos plenomegaly due to the abdominal distention can be palpated. EXTREMITIES: There is trace edema. No cyanosis, clubbing. NEUROLOGIC: No facial asymmetry, tongue is midline, no uvula deviation. Power is 5/5 in upper extr emity and 5/5 in lower extremity. Sensation is normal in upper extremity and lower extremity. PSYCHIATRIC: Awake, alert, oriented x 3. No anxiety or depression symptoms. Good insight. Jazmine l affect. GENITOURINARY: No CVA tenderness VASCULAR: 2+ pulses in carotid and pedal pulses. SKIN: No erythema or abnormal nodules noted. SPINE: Normal curvature. LYMPHADENOPATHY: No anterior cervical or posterior cervical adenopathy. No inguinal adenopathy. LABORATORIES: White count of 2.0, hemoglobin 9.7, repeat is 7.6, platelet count is 114, repeat is 71 . INR is 1.3. ABG done shows a pH of 7.29, a pCO2 of 33, PaO2 of 66. The patient's bicarb is 15. The anion gap is 18. Sodium 132, potassium is 4.9, calcium is 7.9, albumin is 2.6. Procalcitonin 0. 62. Lung scan nuclear is pending. Lower extremity Dopplers shows acute occlusive thrombus in the left po pliteal. CT of the chest, abdomen and pelvis done shows large volume ascites. There is possible cirrhosis. T here is a small effusion, mild cardiomegaly. There is a port that is in place. ASSESSMENT: 1. Abdominal pain. 2. Diabetes type 2. 3. Hypertension. 4. Breast cancer. 5. Chronic diarrhea. 6. Ascites. 7. Right Port-A-Cath. 8. Anemia. 9. Neutropenia. 10. Thrombocytopenia. 11. Left leg deep venous thrombosis. PLAN: The patient is going to be admitted to the hospital. She has a deep venous thrombosis with br east cancer. She has been started on heparin. She will need further evaluation by Dr. Cook, who is her oncologist. I will get Dr. Crum to evaluate for sepsis. Dr. Prieto will see the patien t for the ascites. The patient is on IV fluids, is going to be on Lipitor for dyslipidemia. She was given multiple bags of normal saline. She is on Synthroid for hypothyroidism. The patient has a VQ scan that is pending. An echo has been ordered. She is currently in the ICU. She is going to need physical therapy. I will also get evaluation by palliative care for advanced directives. Will cont inue following closely. Overall, prognosis is guarded. Rangel Ngo MD cc: [id number] TT: 05/06/2017 11:06:54 en
[2017-05-06] MEDS: Insulin Reg-LOW-Coverage SC SCH ×3 (11:53→22:04)
[2017-05-06 12:17] LABS: INR 1.34 (0.93-1.08)
--- NOTE | 2017-05-06 15:56 | CON ---
DATE: 05/06/2017 Seen and examined at the bedside earlier today. The chart was reviewed. REQUEST FOR CONSULT: Chemo enteritis. HISTORY OF PRESENT ILLNESS: This is a 67-year-old female with a past medical history of breast cance r, hypertension and hypothyroidism, currently receiving chemotherapy with Dr. Cook. The patient com plains over the last week of nonbloody diarrhea and decreased appetite. She has been having nausea a nd vomiting as well. The patient apparently had a paracentesis about [address] Madrid. Brigette gonzalez initially had a paracentesis on 04/10 for ascites and 9000 mL of straw color fluid was removed. She then had one on 04/22 and at that time had 7000 clear and very yellowish fluid removed. The patient denies any current nausea, vomiting. No fever or chills. She is complaining of abdominal distention and painful swallowing. She had a CT scan of her chest, abdomen and pelvis done on admission and th at showed large volume ascites, possible cirrhosis but it is limited evaluation due to lack of contra st material. Possible gallstones, enteritis. No obstruction or no focal colonic abnormality. She d oes recall having a colonoscopy a few years ago. She had an endoscopy on 03/05/2012 and gastric and esophageal biopsies were negative for H. pylori and negative for fungus with minimal squamous mucosa inflammation. Colonoscopy was 01/2012, found to have a tubular adenoma, ascending polyp which was neg ative for high-grade dysplasia. PAST MEDICAL HISTORY: As stated above, includes osteoarthritis, hypertension, diabetes mellitus type 2. SURGICAL HISTORY: She had a right port insertion and an appendectomy. FAMILY HISTORY: Mother with Alzheimer disease. Father was an alcoholic and had throat cancer and he r daughter has had ovarian cancer. SOCIAL HISTORY: Denies smoking, ETOH, or substance abuse. ALLERGIES: BANANA. MEDICATIONS: Reviewed as per MAR. REVIEW OF SYSTEMS: Systems reviewed with positive findings, see HPI. VITAL SIGNS: Temperature is 97, blood pressure is 103/46, pulse is 98, respirations 23, 98 on room a ir. LABORATORY DATA: WBC is 1.8. Her hemoglobin is 7.6, hematocrit is 22.9, platelets of 71. PT is 14. 5, INR is 1.34, PTT is 122. Her sodium is 134, K 4.5, BUN 41, creatinine is 1.4, mag is 1.7. Liver enzymes from 05/05 were all within normal limits. She had a lung scan and that showed a high probabili ty of ventilation perfusion scan for PE. She also had extremity ultrasound and that showed acute occ lusive thrombus in the left popliteal and visualized tibial veins. The patient is currently on hepar in drip. PHYSICAL EXAMINATION: HEENT: Sclera is anicteric. NECK: Supple. CARDIAC: S1, S2. LUNGS: Sounds with decreased breath sounds but good air entry. No rales or wheeze. ABDOMEN: With bowel sounds. Positive distention, positive ascites with some diffuse tenderness. No rebound, guarding. EXTREMITIES: Have trace edema positive. NEUROLOGIC: Awake, alert, and oriented. ASSESSMENT: The patient came with abdominal pain, is being treated for breast cancer, has ascites, h istory of 2 previous paracentesis done in April, thrombocytopenia. It looks like she has a probable pu lmonary embolism and she has a left leg deep venous thrombosis. The patient is also noticed to be an emic, neutropenic and with thrombocytopenia. The patient is also complaining of throat discomfort. Could be esophagitis or ____ esophagitis. PLAN: The patient is on heparin drip per protocol. We will request for a hepatitis panel as well as an abdominal ultrasound and also abdominal Doppler to check the portal vein and request for a parace ntesis when patient is more optimal to go and request for ascitic cytology and labs. The patient is on albumin, aspirin, on IV antibiotics as per ID. The patient's diet has been changed to a liquid di et for now and start patient on nystatin. Thank you for this consult and for allowing us to participate in your patient's care. We will make f urther recommendations based upon patient's clinical course. The patient was seen and case discussed with Dr. Prieto. Also discussed with ICU team. Lindsay PARDO cc: [id number] TT: 05/06/2017 15:55:38 Confirmation # [id number] Dictation # [id number] sn
[2017-05-06] MEDS: Nystatin 100,000 Units/ml Oral Susp 5 ml UD PO SCH ×3 (17:48→22:12)
--- NOTE | 2017-05-06 18:08 | US ---
HISTORY: Elevated LFT and sepsis. COMPARISON: 11/02/2016. TECHNIQUE: Sonographic evaluation of the abdomen. FINDINGS: LIVER: Measures 8.7 x 15.1 cm. Hepatopedal blood flow. Fatty infiltration manifest ultrasonographically as increased echogenicity of the liver parenchyma. No mass. No intrahepatic bile duct dilatation. GALLBLADDER: Cholelithiasis and gallbladder wall edema. Negative sonographic Rhodes's sign. COMMON BILE DUCT: Measures 3.4 mm. No stones. No dilatation. PANCREAS: Unremarkable as visualized. No mass. No ductal dilatation. RIGHT KIDNEY: Measures 4.6 x 11.4cm. Normal echogenicity. No calculus, mass, or hydronephrosis. LEFT KIDNEY: Measures 5.3 x 10.5cm. Normal echogenicity. No calculus, mass, or hydronephrosis. SPLEEN: Splenomegaly. Cephalocaudal dimension 13.7 cm and orthogonal dimension 5.1 cm. AORTA: No aneurysmal dilatation. IVC: Unremarkable. OTHER FINDINGS: None. IMPRESSION: Hepatic steatosis common normal size liver on the current study. Stable splenomegaly. Cholelithiasis/ gallbladder wall edema a suggestive of acute cholecystitis.
--- NOTE | 2017-05-06 18:44 | US ---
PROCEDURE: Portal vein duplex ultrasound. CLINICAL HISTORY: Cirrhosis. Deteriorating liver function. Evaluate for portal vein thrombosis. PHYSICIAN(S): Wilner Madrid M.D. FINDINGS: The liver parenchyma is heterogeneous with a nodular contour. There is a moderate amount of ascites in the upper abdomen. The extrahepatic portal vein is patent with hepatopetal flow. The hepatic artery is enlarged and patent. The spleen is enlarged. IMPRESSION: 1. Patent portal vein with hepatopetal flow.
[2017-05-07] MEDS: Albumin Human 25% (12.5 gm/50 ml) IV SCH ×6 (02:02→22:09)
[2017-05-07] MEDS: Sodium Chloride 0.45% 1,000 ML IV SCH ×2 (02:05→17:30)
[2017-05-07 06:39] LABS: ADD MANUAL DIFF? NO
[2017-05-07 06:44] LABS: BASO # 0.03 K/mm3 (0.0-2.0); BASO % 0.3 % (0.0-3.0); GRAN # 7.93 (1.4-6.5); GRAN % 77.5 % (50.0-68.0); HEMATOCRIT 24.3 % (36.0-48.0); LYMPH # 0.8 (1.2-3.4); LYMPH % 7.9 % (22.0-35.0); MEAN CELL VOLUME 91.4 fL (80.0-105.0); MEAN CORPUSCULAR HEMOGLOBIN 30.1 pg (25.0-35.0); MEAN CORPUSCULAR HGB CONC 32.9 g/dl (31.0-37.0); MEAN PLATELET VOLUME 10.6 fl (7.0-11.0); MONO # 1.5 (0.1-0.6); MONO % 14.3 % (1.0-6.0); PLATELET COUNT 80 10^3/uL (120.0-450.0); RED CELL DISTRIBUTION WIDTH 15.3 % (11.5-14.5); WHITE BLOOD COUNT 10.2 10^3/ul (4.5-11.0)
--- NOTE | 2017-05-07 06:44 | CON ---
DATE: 05/06/2017 This patient was seen and evaluated earlier today. This is an addendum to the GI consultation report dictated by Lindsay Macedo APN. This 67-year-old patient with breast cancer, status post chemotherapy, admitted with severe diarrhea and also complains of abdominal discomfort. The patient also has developed increased ascites. She had twice paracentesis done last month. First initially as per the patient 9 L of fluid taken out. Second, another 7 L of fluid taken out. The fluid was sent for cytology which was negative and also tumor marker studies that were also negative. I did review the CT. The patient has recurrence of ascites again and plan to have another paracentesis now. The patient is on neutropenic precautions with ANC now only. CT scan was reviewed. It is ____ and cirrhotic appearance. I did review Dr. Cook's notes and the patient's CEA 125 is elevated. The possibility of ovarian cancer also should be considered in this situation. The patient's ANCA , absolute neutrophil count earlier was only around 700. PHYSICAL EXAMINATION: VITAL SIGNS: Stable. ABDOMEN: Distended with large ascites present. IMPRESSION: This 67-year-old patient with recurrent large volume of the recent arthritis. Twice large volume paracentesis done, has increased CEA 123 elevated. The patient also is status post chemotherapy for breast cancer. The patient also has liver appearance more suggestive of cirrhotic pattern. Would recommend at this point: 1. Hepatitis profile. 2. Doppler of the abdomen to evaluate the portal and hepatic vein. 3. Would recommend to have the fluid sent for SAAG ratio. We will continue to closely FU the ascitic fluid paracentesis until the absolute neutrophil count improves. Thank you very much for allowing us to participate in the care of the patient. Lea Prieto MD cc: [id number] TT: 05/07/2017 06:43:07 Confirmation # [id number] Dictation # [id number] tracee ALEXANDER
[2017-05-07 07:01] LABS: BILIRUBIN,TOTAL 0.9 mg/dL (0.2-1.3); CALCIUM 7.9 mg/dL (8.4-10.5); POTASSIUM 4.2 mmol/L (3.6-5.0); TOTAL PROTEIN 5.4 g/dL (5.8-8.3)
[2017-05-07 07:03] LABS: INR 1.29 (0.93-1.08)
[2017-05-07 07:15] LABS: PARTIAL THROMBOPLASTIN TIME 81.6 Seconds (23.7-30.8)
[2017-05-07] MEDS: Heparin25000 units/250ml 1/2NS 25,000 UNITS/250 ML BAG IV PRN (07:51)
[2017-05-07] MEDS: Insulin Reg-LOW-Coverage SC SCH ×4 (07:57→22:22)
[2017-05-07] MEDS: Pantoprazole 40 mg EC Tab PO SCH (07:58)
[2017-05-07] MEDS: Levothyroxine 50 MCG TAB PO SCH (07:58)
--- NOTE | 2017-05-07 08:44 | CP.PCM.PN ---
<HenriqueLian - Last Filed: 05/07/17 10:49> Subjective - Date & Time of Evaluation Date of Evaluation: 05/07/17 Time of Evaluation: 08:41 - Subjective Subjective: ICU Progress Note Patient seen and examined at bedside. There were no acute overnight events. Patient reports she feels better today. She has some abdominal pain, but denies n/v/d, fever, chills, CP, SOB, numbness/tingling. It is noted that there were multiple attempts to start an IV line without success. Patient did not receive PRBC because of this. PICC line will be needed. Objective - Vital Signs/Intake and Output Vital Signs (last 24 hours): Temp Pulse Resp BP Pulse Ox 98.1 F 102 H 20 128/65 96 05/07/17 08:00 05/07/17 08:30 05/07/17 08:30 05/07/17 08:02 05/07/17 08:30 Intake and Output: 05/07/17 05/07/17 06:59 18:59 Intake Total 1752 100 Balance 1752 100 - Medications Medications: Current Medications Albumin Human (Albumin Human 25% (12.5 Gm/50 Ml)) 12.5 gm IV Q4H [facility] Last Admin: 05/07/17 05:25 Dose: 12.5 gm Aspirin (Ecotrin) 81 mg PO DAILY [facility] Last Admin: 05/06/17 09:50 Dose: 81 mg Atorvastatin Calcium (Lipitor) 20 mg PO HS [facility] Last Admin: 05/06/17 22:12 Dose: 20 mg Heparin Sodium/Sodium Chloride (Heparin 33901 Units/250ml 1/2 Normal Saline) 25 ,000 units in 250 mls @ 18.06 mls/hr IV .[id number] PRN; Protocol; 18 UNITS/KG/HR PRN Reason: ADJUST RATE PER PROTOCOL Last Admin: 05/07/17 07:51 Dose: 9 units/kg/hr, 9.03 mls/hr Meropenem 1g/NS 100mL IVPB (Meropenem 1g/Ns 100ml Ivpb) 1 gm in 100 mls @ 100 mls/hr IVPB Q12 [facility]THA PRN Reason: Protocol Stop: 05/12/17 22:01 Last Admin: 05/06/17 22:12 Dose: 100 mls/hr Vancomycin HCl (Vancomycin 1gm) 1 gm in 250 mls @ 167 mls/hr IVPB DAILY [facility] PRN Reason: Protocol Last Admin: 05/06/17 10:07 Dose: 167 mls/hr Sodium Chloride (Sodium Chloride 0.45%) 1,000 mls @ 80 mls/hr IV .[id number] [facility] Last Admin: 05/07/17 02:05 Dose: 80 mls/hr Insulin Human Regular (Humulin R Low) 0 units SC ACHS [facility] PRN Reason: Protocol Last Admin: 05/07/17 07:57 Dose: Not Given Levothyroxine Sodium (Synthroid) 50 mcg PO ACB [facility] Last Admin: 05/07/17 07:58 Dose: 50 mcg Nystatin (Nystatin Oral Susp) 5 ml PO QID [facility] Last Admin: 05/06/17 22:12 Dose: 5 ml Pantoprazole Sodium (Protonix Ec Tab) 40 mg PO ACB [facility] Last Admin: 05/07/17 07:58 Dose: 40 mg - Labs Labs: 05/07/17 06:20 05/07/17 06:20 PT 13.9 Seconds (9.9-11.8) H 05/07/17 06:20 INR 1.29 (0.93-1.08) H 05/07/17 06:20 APTT 81.6 Seconds (23.7-30.8) H* 05/07/17 06:20 - Constitutional Appears: No Acute Distress, Chronically Ill - Head Exam Head Exam: ATRAUMATIC, NORMAL INSPECTION, NORMOCEPHALIC - Eye Exam Eye Exam: Normal appearance Pupil Exam: NORMAL ACCOMODATION - ENT Exam ENT Exam: Mucous Membranes Moist - Neck Exam Neck Exam: Full ROM - Respiratory Exam Respiratory Exam: Clear to Ausculation Bilateral, NORMAL BREATHING PATTERN. absent: Rales, Rhonchi, Wheezes, Stridor - Cardiovascular Exam Cardiovascular Exam: REGULAR RHYTHM, +S1, +S2. absent: Gallop, Rubs, Murmur - GI/Abdominal Exam GI & Abdominal Exam: Distended, Soft, Normal Bowel Sounds. absent: Guarding, Tenderness, Mass, Rebound - Extremities Exam Extremities Exam: Full ROM, Pedal Edema (+ 3 bilaterally ) - Neurological Exam Neurological Exam: Alert, Awake, CN II-XII Intact, Oriented x3 - Psychiatric Exam Psychiatric exam: Normal Affect, Normal Mood - Skin Skin Exam: Dry, Intact, Normal Color, Warm Assessment and Plan - Assessment and Plan (Free Text) Assessment: This is a 67Y F with PMH HTN, DM, hypothyroidism, breast cancer s/p chemotherapy 04/24/17 and ascites s/p drainage 2 weeks ago. Here for pancytopenia , ascites, diarrhea, and L lower extremity DVT. Plan: Neuro: Patient A&O x 3. Continue to maintain normothermia CV: Echo done- final report pending Maintain MAP>65 Continue IV fluids Resp: Resting comfortably. Not in respiratory distress Pt suspected to have PE Continue Heparin drip Maintain SpO2>90% GI: Patient noted to have recurrent ascites IR consulted for drainage Absolute neutrophil count improved to 8000 Paracentesis pending- will stop heparin drip 4hrs prior to procedure Will analyze peritoneal fluid for SAAG score GI consulted- Dr. Prieto Abdominal U/S showed patent portal vein, hepatic steatosis, stable splenomegaly, gallbladder wall edema consistent with cholecystitis Nystatin swish and swallow Full liquid diet Hep panel negative Renal: Continue to monitor electrolytes and will replace as needed. Heme: Pancytopenia- slightly improved Hgb: 8.0, PLT: 71, INR: 1.3 Maintain Hgb >7, Platelets >20, INR <2 PRBC ordered to give once PICC is placed Heme consulted-Dr. Joyce METZGER DVT Continue Heparin drip Continue to monitor CBC ID: ID consulted- recs appreciated. Blood culture, urine culture pending Will obtain peritoneal culture with Paracentesis Diarrhea improved- stool studies pending Continue Merrem and Vanc Endo: Continue ISS Continue BGM ACHS Maintain euglycemia PPX: DVT: Heparin Drip GI: Protonix Dispo: Prognosis is guarded and palliative care consulted. Patient stable and will be transferred to med/surg floor. Case seen, discussed and reviewed with attending. Leeann Duenas PGY1 <Rainer Demarco - Last Filed: 05/07/17 17:23> Objective - Vital Signs/Intake and Output Vital Signs (last 24 hours): Temp Pulse Resp BP Pulse Ox 97.9 F 96 H 18 129/60 99 05/07/17 12:00 05/07/17 16:30 05/07/17 16:30 05/07/17 16:08 05/07/17 16:30 Intake and Output: 05/07/17 05/07/17 06:59 18:59 Intake Total 1752 100 Balance 1752 100 - Medications Medications: Current Medications Albumin Human (Albumin Human 25% (12.5 Gm/50 Ml)) 12.5 gm IV Q4H [facility] Last Admin: 05/07/17 14:37 Dose: 12.5 gm Aspirin (Ecotrin) 81 mg PO DAILY [facility]THA Last Admin: 05/07/17 10:16 Dose: 81 mg Atorvastatin Calcium (Lipitor) 20 mg PO HS [facility] Last Admin: 05/06/17 22:12 Dose: 20 mg Heparin Sodium/Sodium Chloride (Heparin 54397 Units/250ml 1/2 Normal Saline) 25 ,000 units in 250 mls @ 18.06 mls/hr IV .[id number] PRN; Protocol; 18 UNITS/KG/HR PRN Reason: ADJUST RATE PER PROTOCOL Last Admin: 05/07/17 07:51 Dose: 9 units/kg/hr, 9.03 mls/hr Meropenem 1g/NS 100mL IVPB (Meropenem 1g/Ns 100ml Ivpb) 1 gm in 100 mls @ 100 mls/hr IVPB Q12 [facility] PRN Reason: Protocol Stop: 05/12/17 22:01 Last Admin: 05/07/17 10:17 Dose: 100 mls/hr Vancomycin HCl (Vancomycin 1gm) 1 gm in 250 mls @ 167 mls/hr IVPB DAILY [facility] PRN Reason: Protocol Last Admin: 05/07/17 11:30 Dose: 167 mls/hr Sodium Chloride (Sodium Chloride 0.45%) 1,000 mls @ 80 mls/hr IV .[id number] [facility] Last Admin: 05/07/17 02:05 Dose: 80 mls/hr Insulin Human Regular (Humulin R Low) 0 units SC ACHS [facility] PRN Reason: Protocol Last Admin: 05/07/17 12:00 Dose: 1 units Levothyroxine Sodium (Synthroid) 50 mcg PO ACB [facility] Last Admin: 05/07/17 07:58 Dose: 50 mcg Nystatin (Nystatin Oral Susp) 5 ml PO QID [facility] Last Admin: 05/07/17 14:17 Dose: 5 ml Pantoprazole Sodium (Protonix Ec Tab) 40 mg PO ACB [facility] Last Admin: 05/07/17 07:58 Dose: 40 mg - Labs Labs: 05/07/17 06:20 05/07/17 06:20 PT 13.9 Seconds (9.9-11.8) H 05/07/17 06:20 INR 1.29 (0.93-1.08) H 05/07/17 06:20 APTT 70.2 Seconds (23.7-30.8) H* 05/07/17 14:17 Addendum Addendum: 05/07/17 17:20 patient was seen, examined and discussed at bedside with Dr. Feliz. Her note reflects my exam, assessment and plan, except as below. meds/Labs/ONE reviewed. 67 yo female with breast CA, s/p chemo complicated by pancytopenia, now with enteritis/colitis. Rebound her wbc, cont abx, ivf, tolerated oral nutrition. hemodynamically and respiratory stable. ok to downgrade to medsurg. Therapeutic AC for VTE, therapeutic thoracenthesis, idiopathic cirrhosis workup, GI follow up ccm time 40 min
[2017-05-07 08:47] LABS: NEUTROPHIL 70 % (50.0-70.0)
[2017-05-07 08:48] LABS: ANISOCYTOSIS 1+; BAND 11 % (0-2); HYPOCHROMIA 1+; OVALOCYTES SLIGHT; PLATELET ESTIMATE LOW (NORMAL); POIKILOCYTOSIS SLIGHT; POLYCHROMASIA SLIGHT; TEAR DROP CELLS SLIGHT; TOXIC GRANULATION 1+
--- NOTE | 2017-05-07 09:02 | CON ---
DATE: 05/07/2017 Today she feels much better. She is lying in bed flat and reading the paper. She is smiling. She i s feeling somewhat better. She, today, will probably get her abdominal tap and she will get a unit o f blood today. Her hemoglobin is about 8. We are still unclear as to the nature of this ascites. I will put into the chart the PET scan that she had done on 05/04/2017, but basically what shows is t he following. On the prior exam, the hypermetabolic mass in the left breast has completely resolved. On prior exam, the multiple hypermetabolic lymph nodes demonstrated in the left axillary region have completely resolved, and the small hypermetabolic lymph nodes in the left side of the superior media stinum and left internal mammary chain have also completely resolved. There are no spots in the lung . There are no lesions in the liver. The gallbladder, pancreas, adrenal glands, aorta and kidneys w ere unremarkable. There were no enlarged or hypermetabolic lymph nodes in the abdomen or pelvis. Es ophagus, stomach, small bowel and colon are unremarkable. There is a large ametabolic cyst at the pe lvis, the largest located in the right measures up to 9 cm in diameter. The margins of the cyst are obscured by the increased amount of free fluid, so it is unclear what the nature of the cyst is. The re are degenerative changes of the spine; no obvious destructive lesions. We may want to get a medical microbiologist to see and evaluate this cystic mass. Perhaps it is ovarian tumor, although the BRCA has been negative. Regardless, the chemotherapy has caused a complete response to the breast cancer. The nature of this ascites is unclear. Could it be from that cyst, could it be Budd-Chiari with a blood clot to the portal vessels? Unclear. She may need an MRI of the pancreatic liver region. So, in summary, I will put this in the chart. I would advise possibly having a gynecology evaluation for that cystic lesion. Garrett Cook MD cc: [id number] TT: 05/07/2017 09:01:51 Confirmation # [id number] Dictation # [id number] mn
--- NOTE | 2017-05-07 09:25 | CARD ---
APPROVED REPORT EXAM: Two-dimensional and M-mode echocardiogram with Doppler and color Doppler. Other Information Quality : PoorRhythm : INDICATION Infection:Rule out subacute bacterial endocarditis 2D DIMENSIONS Left Atrium (2D)4.0 (1.6-4.0cm)IVSd1.2 (0.7-1.1cm) LVDd4.5 (3.9-5.9cm)PWd1.2 (0.7-1.1cm) LVDs3.3 (2.5-4.0cm)FS (%) 26.2 % LVEF (%)51.0 (>50%) M-Mode DIMENSIONS Aortic Root2.20 (2.2-3.7cm)Aortic Cusp Exc.1.60 (1.5-2.0cm) Aortic Valve AoV Peak Whxctcwq626.0cm/s Mitral Valve MV E Fdzwoqlm77.5cm/sMV A Ybdmvqrv65.2cm/sE/A ratio0.9 TDI E/Lateral E'0.0E/Medial E'0.0 Tricuspid Valve TR Peak [id number]/sRAP [id number] Peak Gr.34mmHg [id number] LEFT VENTRICLE The left ventricle is normal size. There is normal left ventricular wall thickness. The left ventricular function is normal. The left ventricular ejection fraction is within the normal range. There is normal LV segmental wall motion. RIGHT VENTRICLE The right ventricle is normal size. ATRIA The left atrium size is normal. The right atrium size is normal. AORTIC VALVE The aortic valve is normal in structure. MITRAL VALVE The mitral valve is normal in structure. Mitral regurgitation is mild. TRICUSPID VALVE The tricuspid valve is normal in structure. There is trace to mild tricuspid regurgitation. PULMONIC VALVE The pulmonic valve is not well visualized. GREAT VESSELS The aortic root is normal in size. PERICARDIAL EFFUSION There is no pericardial effusion. <Conclusion> Very Limited Study. The left ventricle is normal size. There is normal left ventricular wall thickness. The left ventricular function is normal. Mitral regurgitation is mild. There is trace to mild tricuspid regurgitation.
--- NOTE | 2017-05-07 10:12 | CP.PCM.PN ---
Subjective - Date & Time of Evaluation Date of Evaluation: 05/07/17 Time of Evaluation: 08:20 - Subjective Subjective: Patient has less pain in the abdomen, no diarrhea, no nausea currently, no fevers overnight. Objective - Vital Signs/Intake and Output Vital Signs (last 24 hours): Temp Pulse Resp BP Pulse Ox 98.7 F 96 H 34 H 114/51 L 96 05/07/17 04:00 05/07/17 07:30 05/07/17 07:30 05/07/17 07:00 05/07/17 07:30 Intake and Output: 05/07/17 05/07/17 06:59 18:59 Intake Total 1352 100 Balance 1352 100 - Medications Medications: Current Medications Albumin Human (Albumin Human 25% (12.5 Gm/50 Ml)) 12.5 gm IV Q4H [facility] Last Admin: 05/07/17 05:25 Dose: 12.5 gm Aspirin (Ecotrin) 81 mg PO DAILY [facility] Last Admin: 05/06/17 09:50 Dose: 81 mg Atorvastatin Calcium (Lipitor) 20 mg PO HS [facility] Last Admin: 05/06/17 22:12 Dose: 20 mg Heparin Sodium/Sodium Chloride (Heparin 59308 Units/250ml 1/2 Normal Saline) 25 ,000 units in 250 mls @ 18.06 mls/hr IV .[id number] PRN; Protocol; 18 UNITS/KG/HR PRN Reason: ADJUST RATE PER PROTOCOL Last Admin: 05/07/17 07:51 Dose: 9 units/kg/hr, 9.03 mls/hr Meropenem 1g/NS 100mL IVPB (Meropenem 1g/Ns 100ml Ivpb) 1 gm in 100 mls @ 100 mls/hr IVPB Q12 [facility] PRN Reason: Protocol Stop: 05/12/17 22:01 Last Admin: 05/06/17 22:12 Dose: 100 mls/hr Vancomycin HCl (Vancomycin 1gm) 1 gm in 250 mls @ 167 mls/hr IVPB DAILY [facility] PRN Reason: Protocol Last Admin: 05/06/17 10:07 Dose: 167 mls/hr Sodium Chloride (Sodium Chloride 0.45%) 1,000 mls @ 80 mls/hr IV .[id number] [facility] Last Admin: 05/07/17 02:05 Dose: 80 mls/hr Insulin Human Regular (Humulin R Low) 0 units SC ACHS [facility] PRN Reason: Protocol Last Admin: 05/06/17 22:04 Dose: Not Given Levothyroxine Sodium (Synthroid) 50 mcg PO ACB [facility] Last Admin: 05/06/17 09:11 Dose: 50 mcg Nystatin (Nystatin Oral Susp) 5 ml PO QID [facility] Last Admin: 05/06/17 22:12 Dose: 5 ml Pantoprazole Sodium (Protonix Ec Tab) 40 mg PO ACB [facility] - Labs Labs: 05/07/17 06:20 05/07/17 06:20 PT 13.9 Seconds (9.9-11.8) H 05/07/17 06:20 INR 1.29 (0.93-1.08) H 05/07/17 06:20 APTT 81.6 Seconds (23.7-30.8) H* 05/07/17 06:20 - Constitutional Appears: Non-toxic, No Acute Distress - Head Exam Head Exam: NORMAL INSPECTION - ENT Exam ENT Exam: Mucous Membranes Moist - Neck Exam Neck Exam: absent: Lymphadenopathy, Meningismus - Respiratory Exam Respiratory Exam: Decreased Breath Sounds Additional comments: right anterior chest wall port site clean and non-tender - Cardiovascular Exam Cardiovascular Exam: +S1, +S2 - GI/Abdominal Exam GI & Abdominal Exam: Distended, Soft, Tenderness (mild). absent: Guarding, Rigid, Rebound Assessment and Plan - Assessment and Plan (Free Text) Plan: Assessment Consider severe sepsis with leukopenia and acute renal failure, consider due to acute enteritis, possible acute cholecystitis R/O spontaneous bacterial peritonitis HTN DM breast cancer with last chemotherapy session on April 24, 2017 S/P right port-a-cath placement obesity with BMI 39 Plan blood cx are negative x 1 day, follow up urine cx; reviewed CT chest, abdomen and pelvis and ultrasound of the abdomen; would recommend paracentesis for ascitic fluid analysis and cultures when feasible Will continue to monitor clinically
[2017-05-07] MEDS: Nystatin 100,000 Units/ml Oral Susp 5 ml UD PO SCH ×4 (10:16→21:21)
[2017-05-07] MEDS: Meropenem 1g/NS 100mL IVPB 1 GM/100 ML PIGGYBACK IVPB SCH ×2 (10:17→21:20)
[2017-05-07] MEDS: Vancomycin 1gm in NS 250ml 1 GM/250 ML BAG IVPB SCH (11:30)
[2017-05-07 11:48] LABS: CA 19-9 24.6 U/mL (0-37)
--- NOTE | 2017-05-07 13:40 | PN ---
DATE: 05/07/2017 SUBJECTIVE: The patient has no complaints of any chest pain, no shortness of breath, no headaches. PHYSICAL EXAMINATION: VITAL SIGNS: Temperature is 97.9, pulse of 98, blood pressure is 115/63, respirations 20. GENERAL: The patient comfortable, in no acute distress. HEENT: Anicteric sclerae. Moist mucosa. NECK: No JVD or adenopathy. CARDIAC: S1/S2. No murmurs. No rubs. Regular. RESPIRATORY: Clear to auscultation bilaterally. No wheezes, rales, or rhonchi. Good air entry. ABDOMEN: Bowel sounds are positive, soft, nontender, and nondistended. EXTREMITIES: No edema. Has 1+ pulses. LABORATORIES: White count of 10.2, hemoglobin of 8. Creatinine 1.3. Abdominal ultrasound done shows a patent portal vein with hepatic flow. There is hepatic steatosis. Common, normal sized liver on the current study. ASSESSMENT: 1. Sepsis. 2. Diabetes type 2. 3. Hypotension. 4. Enteritis. 5. Ascites. 6. Chronic diarrhea. 7. Right Port-A-Cath. 8. Anemia. 9. Neutropenia, improved. 10. Thrombocytopenia. 11. Left leg deep venous thrombosis. 12. Breast Ca PLAN: The patient is currently comfortable. Blood cultures have been negative. The patient is receiving antibiotics, being followed by Dr. Hicks from ID. She is also being followed by Dr. Cook from heme/onc. The patient has a large cystic lesions in the pelvis, the largest located in the right measuring up to 9 cm. This is according to the notes from Dr. Cook. This was seen on a PET scan that was done on 05/04/2017. The patient is going to be transferred out of the ICU, is on vancomycin, is going to continue with Synthroid for hypothyroidism, is on Protonix daily. The patient is on Lipitor for dyslipidemia. Rangel Ngo MD cc: [id number] TT: 05/07/2017 13:39:39 Confirmation # [id number] Dictation # [id number] en MTDD
[2017-05-07] MEDS ORDERED: Lidocaine 2% Inj (20ml) ONE (14:08)
--- NOTE | 2017-05-07 16:04 | CP.PCM.PN ---
Subjective - Date & Time of Evaluation Date of Evaluation: 05/07/17 Time of Evaluation: 10:20 - Subjective Subjective: Seen and examined earlier today. Tolerating liquids, throat discomfort better, started on Nystatin. No N/V, SOB or CP. Abdominal discomfort with distention. Had formed BM, no overt GI bleed. No acute overnight events. Abdominal doppler: patent protal vein Abdominal US: GB stone, GB wall edema, ? acute cholecystitis Objective - Vital Signs/Intake and Output Vital Signs (last 24 hours): Temp Pulse Resp BP Pulse Ox 97.9 F 104 H 32 H 119/58 L 97 05/07/17 12:00 05/07/17 14:30 05/07/17 14:30 05/07/17 14:00 05/07/17 14:30 Intake and Output: 05/07/17 05/07/17 06:59 18:59 Intake Total 1752 100 Balance 1752 100 - Medications Medications: Current Medications Albumin Human (Albumin Human 25% (12.5 Gm/50 Ml)) 12.5 gm IV Q4H [facility] Last Admin: 05/07/17 14:37 Dose: 12.5 gm Aspirin (Ecotrin) 81 mg PO DAILY [facility] Last Admin: 05/07/17 10:16 Dose: 81 mg Atorvastatin Calcium (Lipitor) 20 mg PO HS [facility] Last Admin: 05/06/17 22:12 Dose: 20 mg Heparin Sodium/Sodium Chloride (Heparin 20074 Units/250ml 1/2 Normal Saline) 25 ,000 units in 250 mls @ 18.06 mls/hr IV .[id number] PRN; Protocol; 18 UNITS/KG/HR PRN Reason: ADJUST RATE PER PROTOCOL Last Admin: 05/07/17 07:51 Dose: 9 units/kg/hr, 9.03 mls/hr Meropenem 1g/NS 100mL IVPB (Meropenem 1g/Ns 100ml Ivpb) 1 gm in 100 mls @ 100 mls/hr IVPB Q12 [facility] PRN Reason: Protocol Stop: 05/12/17 22:01 Last Admin: 05/07/17 10:17 Dose: 100 mls/hr Vancomycin HCl (Vancomycin 1gm) 1 gm in 250 mls @ 167 mls/hr IVPB DAILY [facility] PRN Reason: Protocol Last Admin: 05/07/17 11:30 Dose: 167 mls/hr Sodium Chloride (Sodium Chloride 0.45%) 1,000 mls @ 80 mls/hr IV .[id number] [facility] Last Admin: 05/07/17 02:05 Dose: 80 mls/hr Insulin Human Regular (Humulin R Low) 0 units SC ACHS [facility] PRN Reason: Protocol Last Admin: 05/07/17 12:00 Dose: 1 units Levothyroxine Sodium (Synthroid) 50 mcg PO ACB [facility] Last Admin: 05/07/17 07:58 Dose: 50 mcg Nystatin (Nystatin Oral Susp) 5 ml PO QID [facility] Last Admin: 05/07/17 14:17 Dose: 5 ml Pantoprazole Sodium (Protonix Ec Tab) 40 mg PO ACB [facility] Last Admin: 05/07/17 07:58 Dose: 40 mg - Labs Labs: 05/07/17 06:20 05/07/17 06:20 PT 13.9 Seconds (9.9-11.8) H 05/07/17 06:20 INR 1.29 (0.93-1.08) H 05/07/17 06:20 APTT 70.2 Seconds (23.7-30.8) H* 05/07/17 14:17 - Constitutional Appears: No Acute Distress - Head Exam Head Exam: NORMOCEPHALIC - Eye Exam Eye Exam: Normal appearance. absent: Scleral icterus - ENT Exam ENT Exam: Mucous Membranes Moist - Neck Exam Neck Exam: Normal Inspection - Respiratory Exam Respiratory Exam: Clear to Ausculation Bilateral, NORMAL BREATHING PATTERN. absent: Respiratory Distress - Cardiovascular Exam Cardiovascular Exam: +S1 - GI/Abdominal Exam GI & Abdominal Exam: Distended, Soft, Tenderness, Normal Bowel Sounds. absent: Guarding (difuse tenderness from ascites), Rebound - Extremities Exam Extremities Exam: Pedal Edema. absent: Calf Tenderness - Neurological Exam Neurological Exam: Alert, Awake, Oriented x3 - Skin Skin Exam: Dry, Warm Assessment and Plan - Assessment and Plan (Free Text) Assessment: ASSESSMENT: Breast cancer Abdominal Ascites, h/o recent paracentesis Thrombocytopenia DVT, left leg High probablity of PE Anemia Esophagitis, monilial, improved Elevated CEA, Ca125 s/p Neutropenia Cholelithiasis, abdominal US GB wall edema,? acute cholecystitis maybe secondary to low albumin level, pt clinically ok, will monitor PLAN: Heparin drip per protocol Paracentesis when optimal, with fluid analysis on clear liquid, advance diet to soft diet on Albumin on IV antibiotic as per oncology Seen and discuss with Dr. Prieto.
--- NOTE | 2017-05-07 18:25 | US ---
PROCEDURE: Ultrasound guided paracentesis. HISTORY: Breast CA. Recurrent ascites with abdominal distention. No history liver disease P PHYSICIAN(S): Wilner Madrid MD. TECHNIQUE: The relative risks and indications for the procedure were explained to the patient and informed written consent obtained. Sonography of the abdomen was performed in a supine position. This revealed a moderate amount of non-loculated ascites, greatest in the right lower quadrant. A puncture site was selected and the area was prepped and draped in the usual sterile fashion. 1% Xylocaine was used to anesthetize the skin and soft tissues. A 7 [place] paracentesis catheter was trocared into the right lower quadrantand 6200 cc of clear, straw-colored aspirated. The requested labs were sent. IMPRESSION: Ultrasound-guided paracentesis in the right lower quadrant. 6200 cc of fluid were aspirated. Labs were sent
[2017-05-07 18:56] LABS: BODY FLUID TYPE PERITONEAL/ASCITES
[2017-05-07 19:06] LABS: BF GROSS APPEARANCE CLEAR (CLEAR); BODY FLUID TOTAL COUNT 100 (0-0)
--- NOTE | 2017-05-07 19:25 | PN ---
DATE: 05/07/2017 SUBJECTIVE: This patient was seen and evaluated earlier. This is an addendum to the GI progress report dictated by the Lindsay Macedo APN. The patient's ANC count has improved. Her diarrhea has improved. The patient still has significant ascites and the patient is due to have a PICC line and also a paracentesis. I requested the IR to se nd the ascitic fluid for albumin to evaluate SAAG ratio. This is a 67-year-old patient who has breast cancer status post chemo with pancytopenia, admitted wit h colitis. The patient did have a large ascites and had an elevated CA 125 before, but the cytology fluid analysis was negative for malignancy. Clinically, was suspected to have a possible ovarian car cinoma, however, clinically. I did review the CT of the abdomen, but the liver contour also appears irregular; need to rule out even underlying chronic liver disease. It is reasonable to request for a hepatitis profile. Also, ultrasound scan of the abdomen with Doppler done, which showed a patent po rtal vein. The gallbladder wall showed some thickening. This could be due to low hypoalbuminemia. The patient also has gallstones. Clinically, the patient does not have any tenderness. The likely c ause for the gallbladder wall thickening is due to the edema. The patient is already on broad spectr um antibiotic coverage as per ID. I will continue to closely follow up her care. Thank you very much for allowing us to participate in the care of the patient. Lea Prieto MD cc: [id number] TT: 05/07/2017 19:24:54 Confirmation # [id number] Dictation # [id number] leslie
[2017-05-08] MEDS: Albumin Human 25% (12.5 gm/50 ml) IV SCH ×4 (02:40→05:17)
[2017-05-08 07:18] LABS: BASO # 0.07 K/mm3 (0.0-2.0); BASO % 0.3 % (0.0-3.0); GRAN # 23.81 (1.4-6.5); GRAN % 90.2 % (50.0-68.0); HEMATOCRIT 32.1 % (36.0-48.0); LYMPH # 0.9 (1.2-3.4); LYMPH % 3.2 % (22.0-35.0); MEAN CELL VOLUME 89.2 fL (80.0-105.0); MEAN CORPUSCULAR HEMOGLOBIN 28.9 pg (25.0-35.0); MEAN CORPUSCULAR HGB CONC 32.4 g/dl (31.0-37.0); MEAN PLATELET VOLUME 10.7 fl (7.0-11.0); MONO # 1.7 (0.1-0.6); MONO % 6.3 % (1.0-6.0); PLATELET COUNT 77 10^3/uL (120.0-450.0)
--- NOTE | 2017-05-08 07:19 | PN ---
DATE: 05/08/2017 SUBJECTIVE: The patient has no complaints of any chest pain or shortness of breath, no headaches or dizziness. PHYSICAL EXAMINATION: VITAL SIGNS: Temperature is 98.9, pulse of 88, blood pressure 102/50, respirations 20. GENERAL: The patient comfortable, in no acute distress. HEENT: Anicteric sclerae. Moist mucosa. NECK: No JVD or adenopathy. CARDIAC: S1/S2. No murmurs. No rubs. Regular. RESPIRATORY: Clear to auscultation bilaterally. No wheezes, rales, or rhonchi. Good air entry. ABDOMEN: Bowel sounds are positive, soft, nontender, and nondistended. EXTREMITIES: No edema. Has 1+ pulses. LABORATORY DATA: Yesterday, creatinine was 1.3. Hemoglobin was 8.0. ASSESSMENT: 1. Sepsis. 2. Ascites, status post paracentesis of 6.2 L. 3. Diabetes type 2. 4. Hypertension. 5. Enteritis, improving. 6. Chronic diarrhea, improving. 7. Right Port-A-Cath. 8. Anemia. 9. Neutropenia, improved. 10. Thrombocytopenia. 11. Acute anemia secondary to chemotherapy for breast cancer status, post transfusion of 2 units of packed red blood cells. 12. Left leg deep venous thrombosis, on anticoagulation. PLAN: The patient is currently comfortable. She is on the medical floor at this time. Her ascites is better. The patient had blood cultures done which were negative. She is on IV fluids. I will di scontinue the patient's IV fluid at this point. She is tolerating her diet. The patient is on aspir in. This will be continued. She is on heparin for anticoagulation. She is on Lipitor for dyslipide kendall. She is going to be on meropenem for antibiotics. She is on Synthroid for hypothyroidism. I wi ll advance her diet to a regular diet. The patient was seen by physical therapy and the patient may go home with services. Rangel Ngo MD cc: [id number] TT: 05/08/2017 07:18:15 Confirmation # [id number] Dictation # [id number] tn
[2017-05-08 07:23] LABS: ADD MANUAL DIFF? NO
[2017-05-08 07:30] LABS: WHITE BLOOD COUNT 26.4 10^3/ul (4.5-11.0)
[2017-05-08 08:05] LABS: ALB/GLOB RATIO 1.1 (1.1-1.8); BILIRUBIN,TOTAL 1.3 mg/dL (0.2-1.3); CALCIUM 7.9 mg/dL (8.4-10.5); POTASSIUM 4.2 mmol/L (3.6-5.0); TOTAL PROTEIN 5.2 g/dL (5.8-8.3)
[2017-05-08] MEDS: Levothyroxine 50 MCG TAB PO SCH (09:06)
[2017-05-08] MEDS: Vancomycin 1gm in NS 250ml 1 GM/250 ML BAG IVPB SCH (09:06)
[2017-05-08] MEDS: Nystatin 100,000 Units/ml Oral Susp 5 ml UD PO SCH ×4 (09:06→21:49)
[2017-05-08] MEDS: Pantoprazole 40 mg EC Tab PO SCH (09:06)
[2017-05-08] MEDS: Insulin Reg-LOW-Coverage SC SCH ×4 (09:07→21:47)
[2017-05-08 09:08] LABS: BODY FLUID TYPE PERITONEAL/ASCITES
[2017-05-08 09:36] LABS: BF GROSS APPEARANCE CLEAR (CLEAR)
[2017-05-08 09:37] LABS: BODY FLUID TOTAL COUNT 100 (0-0)
[2017-05-08] MEDS: Heparin25000 units/250ml 1/2NS 25,000 UNITS/250 ML BAG IV PRN (09:39)
--- NOTE | 2017-05-08 10:09 | PN ---
DATE: 05/08/2017 Seen and examined at the bedside earlier this morning. The patient had a paracentesis and 6200 mL was removed and labs sent. The patient does report improved abdominal distention. Denies abdominal pain, no nausea or vomiting. Throat discomfort is much improved, requesting increase in diet. VITAL SIGNS: Temperature is 98.8, blood pressure is 117/59, pulse rate 98, respirations 18, 95 O2 saturation. LABORATORY DATA: WBC is 26.4, hemoglobin 10.4, hematocrit is 32.1, platelets of 77. Her sodium is 135, K is 4.2, BUN is 27, creatinine is 1.1. LFTs are within normal limits. Peritoneal fluid WBC is 28.0. That is okay. No RBCs noted. Total cell count is 100. Fluid neutrophils are 35.7 and fluid lymphocytes are 64.3. PHYSICAL EXAMINATION: HEENT: Sclerae are anicteric. NECK: Supple. CARDIAC: S1, S2. LUNGS: Clear, no rales or wheeze. ABDOMEN: With bowel sounds, soft. It is notable less distention, status post paracentesis. The pressure dressing site is dry and intact. EXTREMITIES: No edema. NEUROLOGIC: Awake, alert, and oriented. ASSESSMENT: The patient with abdominal distention secondary to ascites, status post paracentesis, sepsis. The patient is status post neutropenia. The patient has breast cancer, anemia likely secondary to the chemotherapy. She is status post blood transfusion. Deep venous thrombosis on left leg, on heparin drip. Thrombocytopenia and improving enteritis. PLAN: Diet has been advanced. Follow up paracentesis fluid analysis, albumin, amylase, cell count. Multiple other tests are pending. The patient is on a heparin drip. She is on IV antibiotics. Continue the ____ and continue PPI. Seen and discussed w/ Dr. Prieto. Lindsay PARDO cc: [id number] TT: 05/08/2017 10:09:08 Confirmation # [id number] Dictation # [id number] tracee ALEXANDER
--- NOTE | 2017-05-08 10:51 | CP.PCM.CON ---
History of Present Illness - History of Present Illness History of Present Illness: Palliative consult requested by Dr Kylah Ngo Reason: advance care planning 67 year old female who presented with complaints of abdominal distention, weakness and diarrhea. She has a history of breast cancer (ER/IN negative/HER2 negative) for which she is undergoing chemotherapy treatment. The ascites developed over the past few weeks. She's had the fluid tapped twice as an out patient, cytology reports were negative. Her CA125 was elevated(500).The patient had PET scan(05/04/17) prior to admission. Dr. Cook reports these findings; the hypermetabolc mass in left breast, left axillary region, left internal mammary chain and mediastinum completely resolved. There is a large ametobolic cyst in the pelvis measuring 9cm. The margins of the cyst obscured by free fluid. During this admission she was found to be pancytopenic,septic. Left lower extremity duplex was positive for acute occlusive thombus in the popliteal and tibial veins. Ventilation perfusion scan showed high probability of PE. She is receiving heparin therapy. PMHx: triple negative breast cancer, HTN,HLD,DM, hyothyroidism,ascites. Family History: Daughter was treated for ovarian cancer, (BRCA negative) Social History: Non smoker, no alcohol or drug use. Lives with her son. Advance Care Planning: The patient states she has an Advance Directive at home. Review of Systems: Weakness, abdominal distention, all other systems reviewed and are negative. Past Patient History - Infectious Disease Hx of Infectious Diseases: None - Past Social History Smoking Status: Never Smoked - CARDIAC Hx Cardiac Disorders: Yes Hx Hypertension: Yes - PULMONARY Hx Respiratory Disorders: No - NEUROLOGICAL Hx Neurological Disorder: Yes Hx Dizziness: Yes - HEENT Hx HEENT Problems: Yes Other/Comment: glasses - RENAL Hx Chronic Kidney Disease: No - ENDOCRINE/METABOLIC Hx Diabetes Mellitus Type 2: Yes - HEMATOLOGICAL/ONCOLOGICAL Hx Cancer: Yes (L sided) Hx Chemotherapy: Yes (last was 04/10/2017) - INTEGUMENTARY Hx Dermatological Problems: No - MUSCULOSKELETAL/RHEUMATOLOGICAL Hx Musculoskeletal Disorders: Yes - GASTROINTESTINAL Hx Gastrointestinal Disorders: No - GENITOURINARY/GYNECOLOGICAL Hx Genitourinary Disorders: No - PSYCHIATRIC Hx Psychophysiologic Disorder: No Hx Emotional Abuse: No Hx Physical Abuse: No - SURGICAL HISTORY Hx Appendectomy: Yes Other/Comment: Port in R chest, - ANESTHESIA Hx Anesthesia: Yes Hx Anesthesia Reactions: No Hx Malignant Hyperthermia: No Meds Allergies/Adverse Reactions: Allergies Allergy/AdvReac Type Severity Reaction Status Date / Time banana Allergy Severe RASH Verified 05/05/17 13:13 - Medications Medications: Current Medications Albumin Human (Albumin Human 25% (12.5 Gm/50 Ml)) 12.5 gm IV Q4H [facility] Last Admin: 05/08/17 05:17 Dose: Not Given Aspirin (Ecotrin) 81 mg PO DAILY [facility] Last Admin: 05/08/17 09:06 Dose: 81 mg Atorvastatin Calcium (Lipitor) 20 mg PO HS [facility] Last Admin: 05/07/17 21:22 Dose: 20 mg Heparin Sodium/Sodium Chloride (Heparin 86436 Units/250ml 1/2 Normal Saline) 25 ,000 units in 250 mls @ 18.06 mls/hr IV .[id number] PRN; Protocol; 18 UNITS/KG/HR PRN Reason: ADJUST RATE PER PROTOCOL Last Admin: 05/08/17 09:39 Dose: 9 units/kg/hr, 9.03 mls/hr Meropenem 1g/NS 100mL IVPB (Meropenem 1g/Ns 100ml Ivpb) 1 gm in 100 mls @ 100 mls/hr IVPB Q12 [facility] PRN Reason: Protocol Stop: 05/12/17 22:01 Last Admin: 05/07/17 21:20 Dose: 100 mls/hr Vancomycin HCl (Vancomycin 1gm) 1 gm in 250 mls @ 167 mls/hr IVPB DAILY [facility] PRN Reason: Protocol Last Admin: 05/08/17 09:06 Dose: 167 mls/hr Insulin Human Regular (Humulin R Low) 0 units SC ACHS [facility] PRN Reason: Protocol Last Admin: 05/08/17 09:07 Dose: Not Given Levothyroxine Sodium (Synthroid) 50 mcg PO ACB [facility] Last Admin: 05/08/17 09:06 Dose: 50 mcg Nystatin (Nystatin Oral Susp) 5 ml PO QID [facility] Last Admin: 05/08/17 09:06 Dose: 5 ml Pantoprazole Sodium (Protonix Ec Tab) 40 mg PO ACB [facility] Last Admin: 05/08/17 09:06 Dose: 40 mg Physical Exam - Constitutional Appears: Chronically Ill - Head Exam Head Exam: NORMAL INSPECTION - Eye Exam Eye Exam: Normal appearance, PERRL - ENT Exam ENT Exam: Mucous Membranes Moist, Normal Oropharynx - Neck Exam Neck exam: Positive for: Normal Inspection - Respiratory Exam Respiratory Exam: Clear to Auscultation Bilateral, NORMAL BREATHING PATTERN Additional comments: right chest Port A Cath site dry, no redness or drainage - Cardiovascular Exam Cardiovascular Exam: REGULAR RHYTHM, +S1 - GI/Abdominal Exam GI & Abdominal Exam: Distended, Normal Bowel Sounds, Soft - Extremities Exam Extremities exam: Positive for: pedal pulses present (lwer e) - Neurological Exam Neurological exam: Alert, Oriented x3 - Skin Skin Exam: Dry, Pallor, Warm - Additional Findings Additional findings: Palliative performance scale rating 50 % Results - Vital Signs Recent Vital Signs: Last Vital Signs Temp 98.8 F 05/08/17 06:00 Pulse 98 H 05/08/17 06:00 Resp 18 05/08/17 06:00 BP 117/59 L 05/08/17 06:00 Pulse Ox 95 05/08/17 06:00 - Labs Result Diagrams: 05/08/17 05:00 05/08/17 05:00 Labs: Laboratory Results - last 24 hr 05/06/17 05/07/17 05/07/17 14:05 06:30 11:10 WBC RBC Hgb Hct MCV MCH MCHC RDW Plt Count MPV Gran % Lymph % (Auto) [place] % (Auto) Eos % (Auto) Baso % (Auto) Gran # Lymph # [place] # Eos # Baso # APTT Sodium Potassium Chloride Carbon Dioxide Anion Gap BUN Creatinine Est GFR ( Amer) Est GFR (Non-Af Amer) POC Glucose (mg/dL) Random Glucose Calcium Total Bilirubin AST ALT Alkaline Phosphatase Total Protein Albumin Globulin Albumin/Globulin Ratio Carcinoembryonic Ag 5.8 H CA 19-9 Antigen 24.6 CA 125 Antigen 222 H Fluid Source Fluid Appearance Fluid WBC Fluid RBC Fluid Tot Cell Count Fluid Neutrophils Fluid Lymphocytes Fld Monocyte/Macrophag Fluid Comment Thoracentesis Fluid pH Blood Type O POSITIVE Antibody Screen Negative Crossmatch See Detail BBK History Checked No verified bt 05/07/17 05/07/17 05/07/17 11:23 14:17 16:07 WBC RBC Hgb Hct MCV MCH MCHC RDW Plt Count MPV Gran % Lymph % (Auto) [place] % (Auto) Eos % (Auto) Baso % (Auto) Gran # Lymph # [place] # Eos # Baso # APTT 70.2 H* Sodium Potassium Chloride Carbon Dioxide Anion Gap BUN Creatinine Est GFR ( Amer) Est GFR (Non-Af Amer) POC Glucose (mg/dL) 160 H 157 H Random Glucose Calcium Total Bilirubin AST ALT Alkaline Phosphatase Total Protein Albumin Globulin Albumin/Globulin Ratio Carcinoembryonic Ag CA 19-9 Antigen CA 125 Antigen Fluid Source Fluid Appearance Fluid WBC Fluid RBC Fluid Tot Cell Count Fluid Neutrophils Fluid Lymphocytes Fld Monocyte/Macrophag Fluid Comment Thoracentesis Fluid pH Blood Type Antibody Screen Crossmatch BBK History Checked 05/07/17 05/07/17 05/07/17 16:55 16:55 21:37 WBC RBC Hgb Hct MCV MCH MCHC RDW Plt Count MPV Gran % Lymph % (Auto) [place] % (Auto) Eos % (Auto) Baso % (Auto) Gran # Lymph # [place] # Eos # Baso # APTT 52.5 H Sodium Potassium Chloride Carbon Dioxide Anion Gap BUN Creatinine Est GFR ( Amer) Est GFR (Non-Af Amer) POC Glucose (mg/dL) Random Glucose Calcium Total Bilirubin AST ALT Alkaline Phosphatase Total Protein Albumin Globulin Albumin/Globulin Ratio Carcinoembryonic Ag CA 19-9 Antigen CA 125 Antigen Fluid Source Peritoneal/ascites Fluid Appearance Clear Fluid WBC 135.0 Fluid RBC 0.0 Fluid Tot Cell Count 100 H Fluid Neutrophils 14.8 H Fluid Lymphocytes 85.2 H Fld Monocyte/Macrophag 0 Fluid Comment TEST NOT PERFORMED Thoracentesis Fluid pH 7.0 Blood Type Antibody Screen Crossmatch BBK History Checked 05/07/17 05/07/17 05/08/17 21:41 22:00 05:00 WBC 26.4 H* D RBC 3.60 Hgb 10.4 L Hct 32.1 L MCV 89.2 MCH 28.9 MCHC 32.4 RDW 16.0 H Plt Count 77 L MPV 10.7 Gran % 90.2 H Lymph % (Auto) 3.2 L [place] % (Auto) 6.3 H Eos % (Auto) 0.0 L Baso % (Auto) 0.3 Gran # 23.81 H Lymph # 0.9 L [place] # 1.7 H Eos # 0.0 Baso # 0.07 APTT Sodium Potassium Chloride Carbon Dioxide Anion Gap BUN Creatinine Est GFR ( Amer) Est GFR (Non-Af Amer) POC Glucose (mg/dL) 120 H Random Glucose Calcium Total Bilirubin AST ALT Alkaline Phosphatase Total Protein Albumin Globulin Albumin/Globulin Ratio Carcinoembryonic Ag CA 19-9 Antigen CA 125 Antigen Fluid Source Peritoneal/ascites Fluid Appearance Clear Fluid WBC 28.0 Fluid RBC 0.0 Fluid Tot Cell Count 100 H Fluid Neutrophils 35.7 H Fluid Lymphocytes 64.3 H Fld Monocyte/Macrophag 0 Fluid Comment TEST NOT PERFORMED Thoracentesis Fluid pH Blood Type Antibody Screen Crossmatch BBK History Checked 05/08/17 05/08/17 05:00 07:00 WBC RBC Hgb Hct MCV MCH MCHC RDW Plt Count MPV Gran % Lymph % (Auto) [place] % (Auto) Eos % (Auto) Baso % (Auto) Gran # Lymph # [place] # Eos # Baso # APTT 56.9 H Sodium 135 Potassium 4.2 Chloride 109 H Carbon Dioxide 19 L Anion Gap 11 BUN 27 H Creatinine 1.1 Est GFR ( Amer) 60 Est GFR (Non-Af Amer) 50 POC Glucose (mg/dL) Random Glucose 102 Calcium 7.9 L Total Bilirubin 1.3 AST 25 ALT 32 Alkaline Phosphatase 97 Total Protein 5.2 L Albumin 2.7 L Globulin 2.5 Albumin/Globulin Ratio 1.1 Carcinoembryonic Ag CA 19-9 Antigen CA 125 Antigen Fluid Source Fluid Appearance Fluid WBC Fluid RBC Fluid Tot Cell Count Fluid Neutrophils Fluid Lymphocytes Fld Monocyte/Macrophag Fluid Comment Thoracentesis Fluid pH Blood Type Antibody Screen Crossmatch BBK History Checked Assessment & Plan - Assessment and Plan (Free Text) Assessment: 76 year old female with history of breast cancer admitted with sepsis, ascites, pancytopenia, enteritis and left lower extremity DVT. The patient is alert, oriented and of pleasant demeanor. She denies pain, nausea , shortness of breath, diarrhea. She states she is feeling better and eating better after having fluid drained form her abdomen. She intends to continue treatment of her breast cancer. She understands that it is unknown as to what is causing the fluid in her abdomen to accumulate. She will follow up with her doctors in order to identify the cause once discharged. She is optimistic about the future and states she has a good support system of family and friends. When asked if she had an Advanced Directive, she stated that she did. There is a copy at home. She stated that she does not want aggressive resuscitation, meaning CPR/intubation if her condition worsens. Her children, Clara Trotter and Simone Florez are her health care proxy's. I explained the purpose of a POLST and offered to initiate one with her. She is considering this. I will follow up with her tomorrow. 30 minutes spent in goals of care discussion and advance care planning with patient. Plan: Advance care planning - Date & Time Date: 05/08/17 Time: 11:00
[2017-05-08] MEDS: Meropenem 1g/NS 100mL IVPB 1 GM/100 ML PIGGYBACK IVPB SCH ×2 (11:37→21:48)
--- NOTE | 2017-05-08 15:56 | CP.PCM.PN ---
Subjective - Date & Time of Evaluation Date of Evaluation: 05/08/17 Time of Evaluation: 10:05 - Subjective Subjective: Comfortable in bed, not in distress, no diarrhea, improved abdominal pain. The patient had paracentesis yesterday. No fevers overnight. Objective - Vital Signs/Intake and Output Vital Signs (last 24 hours): Temp Pulse Resp BP Pulse Ox 98.9 F 88 20 102/50 L 95 05/08/17 04:30 05/08/17 04:30 05/08/17 04:30 05/08/17 04:30 05/07/17 23:00 Intake and Output: 05/08/17 05/08/17 06:59 18:59 Intake Total 1118 Output Total 600 Balance 518 - Medications Medications: Current Medications Albumin Human (Albumin Human 25% (12.5 Gm/50 Ml)) 12.5 gm IV Q4H [facility] Last Admin: 05/08/17 05:17 Dose: Not Given Aspirin (Ecotrin) 81 mg PO DAILY [facility] Last Admin: 05/07/17 10:16 Dose: 81 mg Atorvastatin Calcium (Lipitor) 20 mg PO HS [facility] Last Admin: 05/07/17 21:22 Dose: 20 mg Heparin Sodium/Sodium Chloride (Heparin 29084 Units/250ml 1/2 Normal Saline) 25 ,000 units in 250 mls @ 18.06 mls/hr IV .[id number] PRN; Protocol; 18 UNITS/KG/HR PRN Reason: ADJUST RATE PER PROTOCOL Last Admin: 05/07/17 07:51 Dose: 9 units/kg/hr, 9.03 mls/hr Meropenem 1g/NS 100mL IVPB (Meropenem 1g/Ns 100ml Ivpb) 1 gm in 100 mls @ 100 mls/hr IVPB Q12 [facility] PRN Reason: Protocol Stop: 05/12/17 22:01 Last Admin: 05/07/17 21:20 Dose: 100 mls/hr Vancomycin HCl (Vancomycin 1gm) 1 gm in 250 mls @ 167 mls/hr IVPB DAILY [facility] PRN Reason: Protocol Last Admin: 05/07/17 11:30 Dose: 167 mls/hr Insulin Human Regular (Humulin R Low) 0 units SC ACHS [facility] PRN Reason: Protocol Last Admin: 05/07/17 22:22 Dose: Not Given Levothyroxine Sodium (Synthroid) 50 mcg PO ACB [facility] Last Admin: 05/07/17 07:58 Dose: 50 mcg Nystatin (Nystatin Oral Susp) 5 ml PO QID [facility] Last Admin: 05/07/17 21:21 Dose: 5 ml Pantoprazole Sodium (Protonix Ec Tab) 40 mg PO ACB [facility] Last Admin: 05/07/17 07:58 Dose: 40 mg - Labs Labs: 05/08/17 05:00 05/08/17 05:00 PT 13.9 Seconds (9.9-11.8) H 05/07/17 06:20 INR 1.29 (0.93-1.08) H 05/07/17 06:20 APTT 56.9 Seconds (23.7-30.8) H 05/08/17 07:00 - Constitutional Appears: Non-toxic, No Acute Distress - Head Exam Head Exam: NORMAL INSPECTION - ENT Exam ENT Exam: Mucous Membranes Moist - Neck Exam Neck Exam: absent: Meningismus - Respiratory Exam Respiratory Exam: Decreased Breath Sounds Additional comments: right anterior chest wall port-a-cath site clean, intact, non-tender, no discharge - Cardiovascular Exam Cardiovascular Exam: +S1, +S2 - GI/Abdominal Exam GI & Abdominal Exam: Soft. absent: Tenderness Assessment and Plan - Assessment and Plan (Free Text) Plan: Assessment Consider severe sepsis with leukopenia and acute renal failure, consider due to acute enteritis, less likely acute cholecystitis R/O spontaneous bacterial peritonitis HTN DM breast cancer with last chemotherapy session on April 24, 2017 S/P right port-a-cath placement obesity with BMI 39 Plan blood cx are negative x 1 day, follow up urine cx; follow up ascitic fluid analysis and cultures; reviewed CT chest, abdomen and pelvis and ultrasound of the abdomen; reviewed Dr. Prieto's evaluation of the gallbladder thickening ( which could just be from edema - clinically the patient does not have right upper quadrant tenderness) Will continue to monitor clinically
--- NOTE | 2017-05-08 18:01 | CON ---
DATE: 05/08/2017 This is a 67-year-old woman with breast cancer and several other issues. I spoke with the patient an d the 2 sons at the bedside today for about 45 minutes and several things: The patient feels better. She feels her leg is better. Her abdomen of course is better after the paracentesis and she is feel ing somewhat better no fevers and able to eat now without the diarrhea. I explained that there are 3 problems: 1. The breast cancer and in retrospect now the original PET scan showed that there were multiple axi llary lymph nodes, but there were some questionable lymph nodes in the internal mammary area and the left side of the superior mediastinum. These have all gone away, so the Adriamycin, Cytoxan treatmen t caused resolution of the triple negative cancer. 2. We have the blood clot in the leg and this is feeling better. She is on the Lovenox. I explain ed that we have 3 ways of treating this with either the Coumadin, new pills like Eliquis or the Loven ox. Now she is on the Coumadin. She is on Coumadin 500 one a day. She has diabetes and was able to take the Lovenox, but if she is on Coumadin we can give her the Coumadin as well. I prefer Lovenox because she will need continued paracenteses in the near future. Certainly by next week we are going to have to do the paracentesis again. She has been getting a paracentesis every week and they are t aking out about 9 liters worth of fluid. At this point, she can either get the Lovenox or continue t he Coumadin. What we are going to do, is I am going to give her prescription for the Lovenox, which she can take twice a day because she is on insulin, checking the dose now, but I believe it is 60 twi ce a day and send home without the Coumadin. 3. The third problem is rapid progression of ascites in her abdomen. In retrospect, they all agree d that she saw Dr. Berman about 3 weeks ago and that is when Dr. Berman picked it up, and I spoke to Dr. Berman today and she said she was pretty sure that it was ascites. She was not 100% sure. I am going to give her Lovenox 40 mg subcutaneous q. 12 hours. The third thing was the ascites, we all ag ree maybe a week before. She saw Dr. Berman 3 weeks ago. In any event, to this point it is rapidly progressive. She said that she has had weekly paracenteses. The first time 9 liters, the second elisa e 7 liters and yesterday 6 liters. She has tolerated this well, but it shows that it is rapidly prog ressive. The CAT/PET scan shows possible cirrhosis; however, this really does not make sense to me. She has never had any liver problems before and never drank, no hepatitis, etc. I am not so convinc ed that she has such a rapidly progressive, especially with normal liver function tests. Furthermore , there is a large cyst in the right pelvis about 9 cm in diameter. However, this is ametabolic and was ametabolic before. Before it was around 7.5 cm, but probably around the same size. There are no other lymph nodes. The gallbladder, pancreas, adrenal glands and the kidneys were unremarkable. Th ere are no lymph nodes anywhere. The stomach, small bowel and colon are unremarkable on the PET scan . It is not clear to me why she has this ascites and so I said to her that we want to get the opinio n of a gynecologic oncologist to evaluate and see if we have to go for surgery. Now I spoke with Dr. Berman today. I informed her of everything and sent her a note and advised that patient [facility] gynecologic oncologist who works in Dr. Berman's building and knows Dr. Berman and Dr. Berman know this doctor, Dr. Enamorado and her phone number is . I have asked the son to get the Lovenox 40 mg q. 12 and start giving it to mom and to call this Dr. Enamorado for an evaluation. I gave them a copy of the PET scan report. I will speak with them certainly by Saturday, although I sloan l be contract paralegal over the weekend and will certainly make arrangements for her to get a paracentesis some time next week as an outpatient while she is seeing a gynecologic oncologist. Garrett Joyce GONZALES cc: [phone] TT: 05/08/2017 18:00:14 Confirmation # [id number] Dictation # [id number] mn
--- NOTE | 2017-05-08 20:05 | PN ---
DATE: 05/08/2017 ADDENDUM This is an addendum to the GI progress report dictated by Lindsay Macedo APN. The patient did have large volume paracentesis done yesterday. The patient did have about 6200 mL of fluid drained. Fluid was sent for only the cell count, and the cell count was sent for albumin. I could not find the lab to calculate the SAAG ratio. This patient had large volume ascites. I did review Dr. Cook' s note. Radiology possible cirrhosis to be considered. However, even though I agree with him that transaminase is normal with total bilirubin, which can occur in cirrhosis of the liver also. We will with the prior lab regarding the SAAG ratio. If it is a malignant ascites the SAAG ratio should be less than 1.1. If it is about 1.1 is more suggestive of malignancy, other etiology can be considered. With the high SAAG ratio more than 1.1, cirrhosis should be strongly considered. The patient is also on Lovenox for DVT. Another problem is about the gallbladder wall thickening. The patient does not have any tenderness in the right upper quadrant area and the patient's albumin is low, that could be due to . CT does not show any inflammatory changes surrounding the gallbladder area. The patient is also on antibiotics, which cover at the present time. Thank you very much for allowing us to participate in the care of the patient. Lea Prieto MD cc: [phone] TT: 05/08/2017 20:04:39 Confirmation # [id number] Dictation # [id number] mn BENJAMIN
[2017-05-09 07:00] LABS: ALB/GLOB RATIO 0.9 (1.1-1.8); ALKALINE PHOSPHATASE 140 U/L (38-133); ALT/SGPT 30 U/L (7-56); AST/SGOT 27 U/L (15-39); BILIRUBIN,TOTAL 0.8 mg/dL (0.2-1.3); BLOOD UREA NITROGEN 25 mg/dL (7-21); CARBON DIOXIDE 20 mmol/L (21-33); CHLORIDE 110 mmol/L (98-107); GFR AFRICAN-AMERICAN > 60; GLUCOSE,RANDOM 155 mg/dL (70-110); POTASSIUM 4.1 mmol/L (3.6-5.0); SODIUM 136 mmol/L (132-148); TOTAL PROTEIN 5.2 g/dL (5.8-8.3)
[2017-05-09 07:08] LABS: HEMATOCRIT 33.5 % (36.0-48.0); MEAN CELL VOLUME 89.1 fL (80.0-105.0); MEAN CORPUSCULAR HEMOGLOBIN 29.3 pg (25.0-35.0); MEAN CORPUSCULAR HGB CONC 32.8 g/dl (31.0-37.0); MEAN PLATELET VOLUME 10.7 fl (7.0-11.0); PLATELET COUNT 75 10^3/uL (120.0-450.0); RED CELL DISTRIBUTION WIDTH 16.6 % (11.5-14.5)
[2017-05-09 07:21] LABS: WHITE BLOOD COUNT 31.1 10^3/ul (4.5-11.0)
[2017-05-09 07:34] LABS: ADD MANUAL DIFF? NO; GRAN # 28.32 (1.4-6.5); GRAN % 90.3 % (50.0-68.0); LYMPH % 3.3 % (22.0-35.0); MONO % 6.1 % (1.0-6.0)
[2017-05-09 07:35] LABS: BASO # 0.08 K/mm3 (0.0-2.0); BASO % 0.3 % (0.0-3.0); LYMPH # 1.1 (1.2-3.4); MONO # 1.9 (0.1-0.6)
[2017-05-09 07:59] VITALS: BP 124/79; PULSE 94; RESP 20; TEMP 98.2; O2SAT 97
[2017-05-09] MEDS: Insulin Reg-LOW-Coverage SC SCH (08:35)
[2017-05-09] MEDS: Pantoprazole 40 mg EC Tab PO SCH (09:21)
[2017-05-09] MEDS: Nystatin 100,000 Units/ml Oral Susp 5 ml UD PO SCH (09:21)
[2017-05-09] MEDS: Levothyroxine 50 MCG TAB PO SCH (09:22)
[2017-05-09] MEDS: Vancomycin 1gm in NS 250ml 1 GM/250 ML BAG IVPB SCH (09:22)
[2017-05-09] MEDS ORDERED: Enoxaparin 40 mg Syringe SC SCH (10:00)
--- NOTE | 2017-05-09 10:55 | DS ---
This is a 67-year-old female who came in to the hospital. The patient had initially come to the hosp ital with sepsis. She did not have any cultures that were positive. She had been on IV antibiotics. Her white count had increased after she was given medication to increase her white cell count. The patient had a paracentesis. She tolerated that well. She is eating better. She has no pain. She has a DVT that was diagnosed and was going to be started on Lovenox, as she may require frequent para centeses. We will see if ID is okay to clear the patient to go home. PHYSICAL EXAMINATION: VITAL SIGNS: Temperature is 98.2, pulse of 94. Blood pressure 124/79, respirations 20, O2 saturatio n 97% GENERAL: The patient is comfortable, in no acute distress. HEENT: Anicteric sclerae. Moist mucosa. NECK: No JVD or adenopathy. CARDIAC: S1/S2. No murmurs. No rubs. Regular. RESPIRATORY: Clear to auscultation bilaterally. No wheezes, rales, or rhonchi. Good air entry. ABDOMEN: Bowel sounds are positive, soft, nontender, and nondistended. EXTREMITIES: No edema. Has 1+ pulses. ASSESSMENT: 1. Sepsis, improved. 2. Ascites status post paracentesis of 6.2 liters. 3. Diabetes type 2. 4. Hypertension. 5. Enteritis. 6. Chronic diarrhea. 7. Right Port-A-Cath. 8. Anemia. 9. Neutropenia. 10. Thrombocytopenia. 11. Acute anemia, multifactorial, status post 2 units of packed red blood cells. 12. Left leg deep venous thrombosis, on Lovenox. PLAN: The patient is currently comfortable. I will discontinue the patient's Coumadin. Dr. Cook h as recommended the patient stay on Lovenox. I will discontinue the patient's heparin, so she can get Lovenox shots. DIET: A 2-gram sodium. ACTIVITIES: Increase as tolerated. She is on meropenem. She is going to continue with Lipitor for dyslipidemia. She is on Synthroid for hypothyroidism. She is going to follow up with Dr. Cook and her other consultants. She is going to see Dr. Berman and Dr. Enamorado. CONDITION: Stable. Rangel Ngo MD cc: [phone] TT: 05/09/2017 10:54:44 jn
--- NOTE | 2017-05-09 11:35 | CP.PCM.PN ---
Subjective - Date & Time of Evaluation Date of Evaluation: 05/09/17 Time of Evaluation: 11:00 - Subjective Subjective: Picc line removed per PMD's orders. Sterile dressing and local pressure applied. Objective - Vital Signs/Intake and Output Vital Signs (last 24 hours): Temp Pulse Resp BP Pulse Ox 98.2 F 94 H 20 124/79 97 05/09/17 07:58 05/09/17 07:58 05/09/17 07:58 05/09/17 07:58 05/09/17 07:58 Intake and Output: 05/09/17 05/09/17 06:59 18:59 Intake Total 360 Balance 360 - Medications Medications: Current Medications Aspirin (Ecotrin) 81 mg PO DAILY [facility] Last Admin: 05/09/17 09:15 Dose: 81 mg Atorvastatin Calcium (Lipitor) 20 mg PO HS [facility] Last Admin: 05/08/17 21:49 Dose: 20 mg Enoxaparin Sodium (Lovenox) 40 mg SC Q12 [facility] PRN Reason: Protocol Last Admin: 05/09/17 09:20 Dose: 40 mg Meropenem 1g/NS 100mL IVPB (Meropenem 1g/Ns 100ml Ivpb) 1 gm in 100 mls @ 100 mls/hr IVPB Q12 [facility] PRN Reason: Protocol Stop: 05/12/17 22:01 Last Admin: 05/08/17 21:48 Dose: 100 mls/hr Vancomycin HCl (Vancomycin 1gm) 1 gm in 250 mls @ 167 mls/hr IVPB DAILY [facility] PRN Reason: Protocol Last Admin: 05/09/17 09:22 Dose: 167 mls/hr Insulin Human Regular (Humulin R Low) 0 units SC ACHS [facility] PRN Reason: Protocol Last Admin: 05/09/17 08:35 Dose: 1 units Levothyroxine Sodium (Synthroid) 50 mcg PO ACB [facility] Last Admin: 05/09/17 09:22 Dose: 50 mcg Nystatin (Nystatin Oral Susp) 5 ml PO QID [facility] Last Admin: 05/09/17 09:21 Dose: 5 ml Pantoprazole Sodium (Protonix Ec Tab) 40 mg PO ACB [facility] Last Admin: 05/09/17 09:21 Dose: 40 mg - Labs Labs: 05/09/17 06:00 05/09/17 06:00 PT 13.9 Seconds (9.9-11.8) H 05/07/17 06:20 INR 1.29 (0.93-1.08) H 05/07/17 06:20 APTT 86.8 Seconds (23.7-30.8) H* 05/09/17 06:00
--- NOTE | 2017-05-09 11:52 | CP.PCM.PN ---
Subjective - Date & Time of Evaluation Date of Evaluation: 05/09/17 Time of Evaluation: 11:00 - Subjective Subjective: Alert, ambulating at will. No complaints Objective - Vital Signs/Intake and Output Vital Signs (last 24 hours): Temp Pulse Resp BP Pulse Ox 98.2 F 94 H 20 124/79 97 05/09/17 07:58 05/09/17 07:58 05/09/17 07:58 05/09/17 07:58 05/09/17 07:58 Intake and Output: 05/09/17 05/09/17 06:59 18:59 Intake Total 360 Balance 360 - Medications Medications: Current Medications Aspirin (Ecotrin) 81 mg PO DAILY ON LICENSE OF [facility] Last Admin: 05/09/17 09:15 Dose: 81 mg Atorvastatin Calcium (Lipitor) 20 mg PO HS ON LICENSE OF [facility] Last Admin: 05/08/17 21:49 Dose: 20 mg Enoxaparin Sodium (Lovenox) 40 mg SC Q12 MARTHA PRN Reason: Protocol Last Admin: 05/09/17 09:20 Dose: 40 mg Meropenem 1g/NS 100mL IVPB (Meropenem 1g/Ns 100ml Ivpb) 1 gm in 100 mls @ 100 mls/hr IVPB Q12 MARTHA PRN Reason: Protocol Stop: 05/12/17 22:01 Last Admin: 05/08/17 21:48 Dose: 100 mls/hr Vancomycin HCl (Vancomycin 1gm) 1 gm in 250 mls @ 167 mls/hr IVPB DAILY MARTHA PRN Reason: Protocol Last Admin: 05/09/17 09:22 Dose: 167 mls/hr Insulin Human Regular (Humulin R Low) 0 units SC ACHS MARTHA PRN Reason: Protocol Last Admin: 05/09/17 08:35 Dose: 1 units Levothyroxine Sodium (Synthroid) 50 mcg PO ACB MARTHA Last Admin: 05/09/17 09:22 Dose: 50 mcg Nystatin (Nystatin Oral Susp) 5 ml PO QID MARTHA Last Admin: 05/09/17 09:21 Dose: 5 ml Pantoprazole Sodium (Protonix Ec Tab) 40 mg PO ACB MARTHA Last Admin: 05/09/17 09:21 Dose: 40 mg - Labs Labs: 05/09/17 06:00 05/09/17 06:00 PT 13.9 Seconds (9.9-11.8) H 05/07/17 06:20 INR 1.29 (0.93-1.08) H 05/07/17 06:20 APTT 86.8 Seconds (23.7-30.8) H* 05/09/17 06:00 - Constitutional Appears: No Acute Distress, Chronically Ill - Eye Exam Eye Exam: Normal appearance, PERRL - ENT Exam ENT Exam: Mucous Membranes Moist - Respiratory Exam Respiratory Exam: Clear to Ausculation Bilateral, NORMAL BREATHING PATTERN - Cardiovascular Exam Cardiovascular Exam: REGULAR RHYTHM, +S1, +S2 - GI/Abdominal Exam GI & Abdominal Exam: Distended, Soft, Normal Bowel Sounds - Extremities Exam Extremities Exam: Pedal Edema - Back Exam Back Exam: NORMAL INSPECTION - Neurological Exam Neurological Exam: Alert, Oriented x3 - Skin Skin Exam: Dry, Pallor Assessment and Plan - Assessment and Plan (Free Text) Assessment: 67 year old female admitted with sepsis, ascites, DVT LLE. History of breast cancer. Offer no complaints.Patient discharged to home today. Advance care planning discussed at length. POLST explained to patient and son. Questions answered. POLST: DNR/DNI completed. Psychosocial support given. Time spent in advance care planning discussion with patient and son, 30 minutes Plan: POLST: DNR/DNI
--- NOTE | 2017-05-09 12:49 | PN ---
DATE: 05/09/2017 Seen and examined at the bedside earlier this morning. The patient denies any nausea, vomiting, no abdominal pain. She is tolerating oral intake and no complaints of difficulty swallowing or burning. No reports of any diarrhea. VITAL SIGNS: Temperature is 98.2, blood pressure is 124/79, pulse is 94, respirations 20, 97% room air. LABORATORIES: Sodium 136, K 4.1, BUN 25, creatinine is 1.0. Total bilirubin is 0.8, AST 27, ALT is 30, alkaline phosphatase is 140. PHYSICAL EXAMINATION: HEENT: Sclera is anicteric. NECK: Supple. CARDIAC: S1, S2. LUNG SOUNDS: With decreased breath sounds at the bases, but good air entry, no rales or wheeze. ABDOMEN: With bowel sounds, soft, less distended, no tenderness on palpation. EXTREMITIES: Positive pulses, trace edema. NEUROLOGIC: Awake, alert, oriented. ASSESSMENT: Improving sepsis. The patient came with increased distention, secondary to ascites, status post paracentesis, enteritis. We did abdominal Doppler, which was negative for any thrombosis. She was found to have a distended gallbladder. She was found to have some gallstones and gallbladder edema, question of acute cholecystitis. The patient is clinically doing well. No abdominal pain. Likely, that may be secondary to the low albumin. The patient did also have a CT scan, which did not report any inflammatory changes around the gallbladder. Breast cancer, anemia, status post blood transfusion, deep venous thrombosis of left leg, thrombocytopenia. Consider cirrhosis versus malignancy. PLAN: Continue diet as tolerated. The patient is going to follow up with , who is her oncologist. We are waiting for albumin of her peritoneal fluid. We will call the lab regarding this. The patient is discussed with Dr. Ngo. The patient is going to be discharged today and to follow up outpatient with Dr. Cook and Dr Ngo, and she is going to be discharged with Lovenox injections. The patient was seen and case discussed with Dr. Prieto. Lindsay PARDO cc: [id number] TT: 05/09/2017 12:48:43 Confirmation # [id number] Dictation # [id number] en [facility]Mary
[2017-05-09 18:06] LABS: CHOLESTEROL PERITONEAL FLUID 19 mg/dL (<48); GLUCOSE PERITONEAL FLUID 155 mg/dL; LDH PERITONEAL FLUID 61 U/L (<63); TOTAL PROTEIN PERITONEAL FLUID <3.0 g/dL; TRIGLYCERIDES PERITONEAL FLUID 21 mg/dL (<65)
--- NOTE | 2017-05-10 01:24 | PN ---
DATE: 05/09/2017 HISTORY OF PRESENT ILLNESS: The patient is seen earlier this morning in room 363, bed 1. No fevers, no chills. She is doing well. There is no abdominal pain, no diarrhea or constipation, no chest pa in. PHYSICAL EXAMINATION: VITAL SIGNS: Temperature is 98, blood pressure is 120/70, respiratory rate of 16. HEENT: Unremarkable. NECK: Supple. LUNGS: Have decreased breath sounds. HEART: Normal S1, S2. ABDOMEN: Soft, nontender. LABORATORY EXAMINATION: Reviewed. Dr. Ngo's discharge summary noted. Case was discussed with Dr. Ngo earlier this morning. ASSESSMENT AND PLAN: This is a 67-year-old female seen earlier this morning in 363, bed 1 with sever e sepsis with leukopenia, now with leukocytosis secondary to factors in a patient with hyperten lea and diabetes, breast cancer with chemotherapy and with negative blood cultures and complete ther apy with p.o. doxycycline and p.o. Augmentin as discussed with Dr. Ngo this morning. She is to follow up with primary medical doctor and the oncologist as outpatient. Arnaldo Crum MD cc: [id number] TT: 05/10/2017 01:23:41 Confirmation # [id number] Dictation # [id number] veronika
[2017-05-10 06:21] LABS: AMYLASE PERITONEAL FLUID <10 U/L
--- NOTE | 2017-05-10 08:11 | PN ---
DATE: 05/09/2017 This patient was seen and evaluated earlier today. The patient did have . I have discussed with Dr. Ngo earlier today. This is a patient with breast cancer with status post chemo, admitted with enteritis, sepsis, enteritis , sepsis. The patient had multiple episodes paracentesis with large ascites, status post large volume paracentesis done. The patient has mildly thickened gallbladder wall, appeared to be secondary to the hypoalbuminemia. The etiology of the ascites unclear, however, cirrhosis should be considered as a differential diagnosis in view of this nodularity of the liver area on the CAT scan and the ascitic fluid. Unfortunately, I am not able to still find the ascitic fluid, albumin to calculate the SAAG ratio. The patient is due to be followed up. The patient is planned to be discharged today and followed up with her oncologist. ADDENDUM: I did find the ascitic fluid total protein, which is less than 3, peritoneal total protein. I could not find the albumin, was still pending. We will follow up on that. Thank you very much for allowing us to participate in the care of the patient. Lea Prieto MD cc: [id number] TT: 05/10/2017 08:10:55 Confirmation # [id number] Dictation # [id number] en MTD[facility]
--- NOTE | 2017-05-22 15:51 | VASCULAR ---
PROCEDURE: Ultrasound and fluoroscopically placed left upper extremity PICC line. HISTORY: Sepsis. Long-term IV antibiotics. Needs PICC line PHYSICIAN(S): Wilner Madrid MD. TECHNIQUE: The relative risks and indications of the procedure were explained to the patient's family and consent obtained. The patient was placed supine on the arteriogram table and the left arm prepped and draped in the usual sterile fashion. A tourniquet was applied to the left axilla. 1% Xylocaine was used to anesthetize the skin and soft tissues at the puncture site above the elbow. The left basilic vein was punctured under direct ultrasound guidance with a micropuncture set. A 0.018 guidewire was advanced centrally and used to measure the length to the SVC/RA junction. A 5 Vietnamese dual lumen PICC line 41 cm long was advanced to the SVC/RA junction. The catheter was flushed and secured. The patient tolerated the procedure well. IMPRESSION: 1. Ultrasound and fluoroscopically placed left upper extremity PICC line. A 5 Vietnamese dual lumen PICC line 41 cm long was advanced to the SVC/RA junction.
== END 2017-05-09 14:02 | disposition home or self-care (01) | DRG 871 ==
LOC: ED 13:00 → ERH 16:37 → CCU 20:21 → 3RNO 05-07 22:42
PROVIDERS: ADMIT Internal Medicine Nephrology; ATTEND Internal Medicine Nephrology
PROC: 0W9G3ZX Drainage of Peritoneal Cavity, Percutaneous Approach, Diagnostic (ICD-10-PCS; principal; 2017-05-07)
PROC: 30233N1 Transfusion of Nonautologous Red Blood Cells into Peripheral Vein, Percutaneous Approach (ICD-10-PCS; 2017-05-07)
DX: A41.9 Sepsis, unspecified organism (principal); I26.99 Other pulmonary embolism without acute cor pulmonale; N17.9 Acute kidney failure, unspecified; D61.818 Other pancytopenia; B37.81 Candidal esophagitis; I82.432 Acute embolism and thrombosis of left popliteal vein; R18.8 Other ascites; K80.00 Calculus of gallbladder with acute cholecystitis without obstruction; I95.9 Hypotension, unspecified; C50.912 Malignant neoplasm of unspecified site of left female breast; D70.3 Neutropenia due to infection; R13.10 Dysphagia, unspecified; R65.20 Severe sepsis without septic shock; I10 Essential (primary) hypertension; E03.9 Hypothyroidism, unspecified; K52.9 Noninfective gastroenteritis and colitis, unspecified; E11.9 Type 2 diabetes mellitus without complications; M19.90 Unspecified osteoarthritis, unspecified site; D64.81 Anemia due to antineoplastic chemotherapy; T45.1X5A Adverse effect of antineoplastic and immunosuppressive drugs, initial encounter; E78.5 Hyperlipidemia, unspecified; Z66 Do not resuscitate; E86.0 Dehydration; E66.9 Obesity, unspecified; Z68.39 Body mass index [BMI] 39.0-39.9, adult; Z17.1 Estrogen receptor negative status [ER-]; Z79.01 Long term (current) use of anticoagulants; Z79.4 Long term (current) use of insulin; Z79.82 Long term (current) use of aspirin

== ENCOUNTER 2017-05-28 10:11 | Day surgery (SDC) | payer MEDICARE, OTHER ==
[2017-05-24 10:04] VITALS: BMI 40.5
[2017-05-28 10:50] LABS: ADD MANUAL DIFF? NO
[2017-05-28 10:58] LABS: BASO # 0.03 K/mm3 (0.0-2.0); BASO % 0.5 % (0.0-3.0); EOS # 0.2 (0.0-0.7); EOS % 3.2 % (1.5-5.0); GRAN # 4.01 (1.4-6.5); GRAN % 72.4 % (50.0-68.0); HEMATOCRIT 35.9 % (36.0-48.0); LYMPH # 0.8 (1.2-3.4); LYMPH % 14.2 % (22.0-35.0); MEAN CELL VOLUME 94.7 fL (80.0-105.0); MEAN CORPUSCULAR HEMOGLOBIN 30.1 pg (25.0-35.0); MEAN CORPUSCULAR HGB CONC 31.8 g/dl (31.0-37.0); MEAN PLATELET VOLUME 11.4 fl (7.0-11.0); MONO # 0.5 (0.1-0.6); MONO % 9.7 % (1.0-6.0); PLATELET COUNT 112 10^3/uL (120.0-450.0); RED CELL DISTRIBUTION WIDTH 17.2 % (11.5-14.5); WHITE BLOOD COUNT 5.6 10^3/ul (4.5-11.0)
[2017-05-28 11:05] LABS: POTASSIUM 4.8 mmol/L (3.6-5.0)
[2017-05-28 11:09] LABS: INR 1.13 (0.93-1.08); PARTIAL THROMBOPLASTIN TIME 31.2 Seconds (23.7-30.8)
--- NOTE | 2017-05-28 11:32 | CP.SDSHP ---
Same Day Surgery H & P - History Proposed Procedure: liver Bx and paracentesis. Pre-Op Diagnosis: liver cirrhosis, ascitis. - Previous Medical/Surgical History Cardiac: Hypertension Endocrine/Metabolic: Thyroid Disease, Diabetes, Obesity Neuro: Backaches Pain: 0. No Pain Previous Surgical History: BX left breast/paracentesis. - Allergies Allergies: Allergies banana Allergy (Severe, Verified 05/05/17 13:13) RASH - Physical Exam General Appearance: WNL. Vital Signs: Vital Signs 05/28/17 11:07 Temperature 97.8 F Pulse Rate 114 H Respiratory 22 Rate Blood Pressure 141/77 O2 Sat by Pulse 93 L Oximetry Mental Status: Alert & Oriented x3 Neuro: WNL Heart: WNL Lungs: WNL GI: Other (distended abdomen) - {Optional Preform as Required} Other Pertinent Findings: left breast cancer .hiatal hernia,pleural effusion. - Impression Impression: liver cirrhosis/large volume ascitis. - Date & Time Date: 05/28/17 Time: 11:30 Short Stay Discharge - Short Stay Discharge Admitting Diagnosis/Reason for Visit: BREAST CA C50.919 Disposition: HOME/ ROUTINE Referrals: Yahir Love MD [Primary Care Provider] -
[2017-05-28] MEDS ORDERED: Midazolam 2 MG/2 ML VIAL ONE (13:04)
[2017-05-28] MEDS ORDERED: Oxycodone/Acetaminophen 5/325 mg Tab PO PRN (13:45)
[2017-05-28] MEDS ORDERED: Sodium Chloride 0.45% 1,000 ML IV SCH (13:45)
--- NOTE | 2017-05-28 15:04 | CT ---
PROCEDURE: CT guided paracentesis HISTORY: Recurrent ascites with abdominal pain and distention. Cirrhosis. History breast CA. Needs paracentesis prior to liver biopsy. PHYSICIAN(S): Wilner Madrid MD. TECHNIQUE: The relative risks and indications of the procedure were explained to the patient and consent obtained. The patient was placed supine on the CT scanner and preliminary images through the lower abdomen obtained. A moderate amount of ascites is seen in the low abdomen. A right lateral approach was selected. The skin was prepped and draped usual sterile fashion. 1 percent xylocaine was used to anesthetize the skin soft tissues. A 7 Serbian paracentesis catheter was trocar into the peritoneal cavity in the right lower quadrant. Unfortunately, only 550 cc of clear yellow fluid was obtained. Presumably this is due to loculation in the lower abdomen. A specimen was sent for cytology. IMPRESSION: 1. CT guided paracentesis. Due to loculations, only 550 cc of clear yellow fluid was aspirated. A cytology specimen was sent.
--- NOTE | 2017-05-28 15:05 | CT ---
PROCEDURE: CT guided liver biopsy. 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 Needs liver biopsy. PHYSICIAN(S): Wilner Madrid MD. TECHNIQUE: The relative risks and indications of the procedure were explained to the patient and consent obtained. The patient was placed supine on the CT scanner and preliminary images through the liver obtained. Conscious sedation and monitoring were provided throughout the procedure by a nurse. The liver is shrunken and nodular in appearance, consistent with cirrhosis.. A subxyphoid approach was selected and the area prepped and draped in the usual sterile fashion. 1% Xylocaine was used to anesthetize the skin and soft tissues. A 17-gauge guiding needle was advanced into the lateral segment of the left lobe of the liver. Its position was confirmed with CT. Using coaxial technique, multiple core biopsies were obtained. The postprocedure images show no evidence of significant hemorrhage. IMPRESSION: 1. CT-guided liver biopsy as described above.
[2017-05-28 15:09] VITALS: TEMP 97.6
[2017-05-28 15:42] VITALS: BP 124/73; PULSE 99; RESP 20; O2SAT 97
== END 2017-05-28 16:20 | disposition home or self-care (01) ==
LOC: SDS 10:11
PROVIDERS: ATTEND Radiology Vascular & Interventional Radiology
DX: R18.8 Other ascites (principal); K74.69 Other cirrhosis of liver; Z85.3 Personal history of malignant neoplasm of breast; E11.9 Type 2 diabetes mellitus without complications; I10 Essential (primary) hypertension; E66.9 Obesity, unspecified; E07.9 Disorder of thyroid, unspecified; Z68.41 Body mass index [BMI] 40.0-44.9, adult; N83.9 Noninflammatory disorder of ovary, fallopian tube and broad ligament, unspecified
CPT/HCPCS: 36415; 47000; 49083; 77012; 80048; 85025; 85610; 85730; 88108; 88307; 88313; J1642; J2250; J2405; J3010; J7030

== ENCOUNTER 2017-07-10 11:49 | Day surgery (SDC) | payer MEDICARE, OTHER ==
[2017-05-24 10:04] VITALS: BMI 40.5
[2017-07-10 12:21] VITALS: RESP 18
[2017-07-10 15:54] VITALS: TEMP 97.6
[2017-07-10 16:13] VITALS: BP 114/59; PULSE 97; O2SAT 93
--- NOTE | 2017-07-10 17:25 | US ---
PROCEDURE: Ultrasound guided paracentesis. HISTORY: Metastatic breast CA. Cirrhosis related to PRO. Recurrent ascites with abdominal pain and distension. Needs paracentesis. PHYSICIAN(S): Wilner Madrid MD. TECHNIQUE: The relative risks and indications for the procedure were explained to the patient and informed written consent obtained. Sonography of the abdomen was performed in a supine position. This revealed a moderate to large amount of non-loculated ascites, greatest in the right mid abdomen. A puncture site was selected and the area was prepped and draped in the usual sterile fashion. 1% Xylocaine was used to anesthetize the skin and soft tissues. A 7 Italian paracentesis catheter was trocared into the right mid abdomenand 10,700 cc of clear, straw-colored fluid aspirated. No labs were sent. IMPRESSION: Ultrasound-guided paracentesis in the right mid abdomen. 10,700 cc of fluid was aspirated
== END 2017-07-10 17:15 | disposition home or self-care (01) ==
LOC: OPSURG 11:49
PROVIDERS: ATTEND Radiology Vascular & Interventional Radiology
DX: R18.8 Other ascites (principal); K75.81 Nonalcoholic steatohepatitis (NASH); K74.60 Unspecified cirrhosis of liver; C50.919 Malignant neoplasm of unspecified site of unspecified female breast

== ENCOUNTER 2017-08-06 13:03 | Day surgery (SDC) | payer MEDICARE, OTHER ==
[2017-08-06 13:44] VITALS: BMI 37.3
[2017-08-06 13:47] LABS: BASO # 0.02 K/mm3 (0.0-2.0); BASO % 0.8 % (0.0-3.0); GRAN # 1.86 (1.4-6.5); GRAN % 76.3 % (50.0-68.0); HEMATOCRIT 34.1 % (36.0-48.0); LYMPH # 0.5 (1.2-3.4); LYMPH % 21.7 % (22.0-35.0); MEAN CORPUSCULAR HEMOGLOBIN 29.8 pg (25.0-35.0); MEAN CORPUSCULAR HGB CONC 33.1 g/dl (31.0-37.0); MEAN PLATELET VOLUME 12.2 fl (7.0-11.0); MONO % 1.2 % (1.0-6.0); RED CELL DISTRIBUTION WIDTH 13.7 % (11.5-14.5)
[2017-08-06 13:48] VITALS: O2SAT 96
[2017-08-06 13:50] LABS: BLOOD UREA NITROGEN 27 mg/dL (7-21); CALCIUM 8.2 mg/dL (8.4-10.5); CARBON DIOXIDE 21 mmol/L (21-33); CHLORIDE 113 mmol/L (98-107); GFR AFRICAN-AMERICAN > 60; GLUCOSE,RANDOM 133 mg/dL (70-110); POTASSIUM 4.4 mmol/L (3.6-5.0); SODIUM 140 mmol/L (132-148)
[2017-08-06 13:57] LABS: WHITE BLOOD COUNT 2.4 10^3/ul (4.5-11.0)
[2017-08-06 14:02] LABS: INR 2.55 (0.93-1.08); PARTIAL THROMBOPLASTIN TIME 41.4 Seconds (23.7-30.8)
[2017-08-06 17:09] VITALS: BP 135/77; PULSE 96; RESP 20; TEMP 98.4
--- NOTE | 2017-08-06 17:14 | US ---
PROCEDURE: Ultrasound guided paracentesis. HISTORY: PRO cirrhosis metastatic breast carcinoma. Recurrent ascites with abdominal pain and distension. PHYSICIAN(S): Wilner Madrid MD. TECHNIQUE: The relative risks and indications for the procedure were explained to the patient and informed written consent obtained. Sonography of the abdomen was performed in a supine position. This revealed a moderate amount of non-loculated ascites, greatest in the right mid abdomen. A puncture site was selected and the area was prepped and draped in the usual sterile fashion. 1% Xylocaine was used to anesthetize the skin and soft tissues. A 7 Urdu paracentesis catheter was trocared into the right mid abdomenand 9200 cc of clear yellow fluid aspirated. No labs were sent. IMPRESSION: Ultrasound-guided paracentesis in the right mid abdomen. 9200 cc of fluid were aspirated.
== END 2017-08-06 17:50 | disposition home or self-care (01) ==
LOC: OPSURG 13:03
PROVIDERS: ATTEND Radiology Vascular & Interventional Radiology
DX: R18.8 Other ascites (principal); K75.81 Nonalcoholic steatohepatitis (NASH); K74.60 Unspecified cirrhosis of liver; C50.919 Malignant neoplasm of unspecified site of unspecified female breast

== ENCOUNTER 2017-08-23 11:18 | Day surgery (SDC) | payer MEDICARE, OTHER ==
[2017-08-23 11:52] VITALS: O2SAT 98
[2017-08-23 12:41] LABS: BASO # 0.06 K/mm3 (0.0-2.0); BASO % 0.2 % (0.0-3.0); EOS % 0.1 % (1.5-5.0); GRAN # 32.83 (1.4-6.5); GRAN % 97.1 % (50.0-68.0); HEMATOCRIT 34.3 % (36.0-48.0); LYMPH # 0.6 (1.2-3.4); LYMPH % 1.8 % (22.0-35.0); MEAN CELL VOLUME 89.1 fl (80.0-105.0); MEAN CORPUSCULAR HEMOGLOBIN 29.6 pg (25.0-35.0); MEAN CORPUSCULAR HGB CONC 33.2 g/dl (31.0-37.0); MEAN PLATELET VOLUME 11.5 fl (7.0-11.0); MONO # 0.3 (0.1-0.6); MONO % 0.8 % (1.0-6.0); PLATELET COUNT 78 10^3/uL (120.0-450.0); RED CELL DISTRIBUTION WIDTH 14.5 % (11.5-14.5)
[2017-08-23 12:42] LABS: CALCIUM 7.6 mg/dL (8.4-10.5); POTASSIUM 4.6 mmol/L (3.6-5.0)
[2017-08-23 12:43] LABS: INR 3.17 (0.93-1.08); PARTIAL THROMBOPLASTIN TIME 42.9 Seconds (23.7-30.8)
[2017-08-23 13:02] LABS: WHITE BLOOD COUNT 33.8 10^3/ul (4.5-11.0)
[2017-08-23 13:17] LABS: MYELOCYTE 3 %; NEUTROPHIL 95 % (50.0-70.0); PLATELET ESTIMATE LOW (NORMAL)
[2017-08-23 15:26] VITALS: BP 114/56; PULSE 111; RESP 96; TEMP 98
--- NOTE | 2017-08-23 17:58 | US ---
PROCEDURE: Ultrasound guided paracentesis. HISTORY: Metastatic breast CA. PRO cirrhosis. Recurrent ascites with abdominal pain and shortness of breath. Needs paracentesis. PHYSICIAN(S): Wilner Madrid MD. TECHNIQUE: The relative risks and indications for the procedure were explained to the patient and informed written consent obtained. Sonography of the abdomen was performed in a supine position. This revealed a moderate to large amount of non-loculated ascites, greatest in the right mid abdomen. A puncture site was selected and the area was prepped and draped in the usual sterile fashion. 1% Xylocaine was used to anesthetize the skin and soft tissues. A 7 Tunisian paracentesis catheter was trocared into the right mid abdomenand 12122 cc of slightly turbid yellow fluid aspirated. No labs were sent. IMPRESSION: Ultrasound-guided paracentesis in the right mid abdomen. 82988 cc of fluid were aspirated.
== END 2017-08-23 15:45 | disposition home or self-care (01) ==
LOC: OPSURG 11:18
PROVIDERS: ATTEND Radiology Vascular & Interventional Radiology
DX: K74.60 Unspecified cirrhosis of liver (principal); R18.8 Other ascites; C50.919 Malignant neoplasm of unspecified site of unspecified female breast; K75.81 Nonalcoholic steatohepatitis (NASH)

== ENCOUNTER 2017-09-17 07:55 | Emergency (ER) | payer MEDICARE, OTHER ==
[2017-09-17 08:06] VITALS: TEMP 98.7; O2SAT 100; BMI 37.5
[2017-09-17] MEDS ORDERED: Lidocaine/Epi 1% 1:100000 20 ML IJ ONE (08:13)
--- NOTE | 2017-09-17 08:32 | ED PDOC ---
Arrival/HPI - General Chief Complaint: Medical Clearance Time Seen by Provider: 09/17/17 08:08 Historian: Patient, Family - History of Present Illness Time/Duration: Other (Last night) Symptom Onset: Sudden Symptom Course: Worsening Severity Level: Moderate Activities at Onset: Rest Associated Symptoms (Text): 09/17/17 08:30 Patient had a left lower quadrant paracentesis 4 days ago for ascites. The wound began to leak ascitic fluid last night. No fever. No erythema. Past Medical History - Infectious Disease Hx of Infectious Diseases: None - Cardiac Hx Pacemaker: No - Pulmonary Hx Respiratory Disorders: No - Neurological Hx Paralysis: No - HEENT Hx HEENT Disorder: Yes Other/Comment: glasses - Renal Hx Renal Disorder: No - Endocrine/Metabolic Hx Diabetes Mellitus Type 2: Yes - Hematological/Oncological Hx Blood Transfusions: No Hx Blood Transfusion Reaction: No Other/Comment: breast and skin ca - Integumentary Hx Dermatological Disorder: No - Musculoskeletal/Rheumatological Hx Musculoskeletal Disorders: Yes - Gastrointestinal Hx Gastrointestinal Disorders: No - Genitourinary/Gynecological Hx Genitourinary Disorders: No - Psychiatric Hx Emotional Abuse: No Hx Physical Abuse: No Hx Substance Use: No - Surgical History Hx Appendectomy: Yes Other/Comment: Port in R chest, - Anesthesia Hx Anesthesia Reactions: No Hx Malignant Hyperthermia: No - Suicidal Assessment Feels Threatened In Home Enviroment: No Family/Social History - Physician Review Nursing Documentation Reviewed: Yes Family/Social History: Unknown Family HX Smoking Status: Never Smoked Hx Alcohol Use: No Hx Substance Use: No Allergies/Home Meds Allergies/Adverse Reactions: Allergies banana Allergy (Severe, Verified 05/05/17 13:13) RASH Home Medications: Home Meds Medication Instructions Recorded Confirmed Aspirin [Ecotrin] 81 mg PO DAILY 12/05/16 08/23/17 Cholecalciferol (Vitamin D3) 2,000 unit PO DAILY 12/05/16 08/23/17 [Vitamin D3] Insulin Regular [HumuLIN R] 10 unit SC ACB 12/05/16 08/23/17 Levothyroxine [Synthroid] 50 mcg PO DAILY 12/05/16 08/23/17 Simvastatin 40 mg PO DAILY 12/05/16 08/23/17 Warfarin [Coumadin] 3 mg PO DAILY 08/06/17 08/23/17 Insulin Human Regular [HumuLIN R] 5 units SC ACD 08/23/17 08/23/17 Insulin Human Regular [HumuLIN R] 9 units SC ACL 08/23/17 08/23/17 Review of Systems - Physician Review All systems were reviewed & negative as marked: Yes Physical Exam Vital Signs Temp Pulse Resp BP Pulse Ox 09/17/17 08:02 98.7 F 100 H 18 141/68 100 Temperature: Afebrile Blood Pressure: Normal Pulse: Regular Respiratory Rate: Normal Appearance: Positive for: Non-Toxic, Comfortable, Other (Chronically ill- appearing) Pain Distress: None Mental Status: Positive for: Alert and Oriented X 3 - Systems Exam Skin: Present: Warm, Dry, Normal Color, Other (Puncture wound left lower quadrant draining ascitic fluid. No erythema or signs of infection). No: Rashes Medical Decision Making ED Course and Treatment: 09/17/17 08:31 Wound closure. The puncture was prepped and draped in usual sterile fashion using Betadine and normal saline solution. One percent with epinephrine local lidocaine anesthesia was instilled. The puncture was closed with 2 5-0 Prolene sutures. Sterile pressure dressing was applied. The leakage was markedly diminished. Patient tolerated procedure well. - Medication Orders Current Medication Orders: Discontinued Medications Lidocaine/Epinephrine (Lidocaine/Epi 1% 1:752735 20 Ml) 0 ml IJ ONCE ONE Stop: 09/17/17 08:14 Last Admin: 09/17/17 08:20 Dose: 20 ml Comments: provided to ER MD Disposition/Present on Arrival - Present on Arrival Any Indicators Present on Arrival: No History of DVT/PE: No History of Uncontrolled Diabetes: Yes Urinary Catheter: No History of Decub. Ulcer: No History Surgical Site Infection Following: None - Disposition Have Diagnosis and Disposition been Completed?: Yes Diagnosis: Ascites, Delayed postoperative wound closure Disposition: HOME/ ROUTINE Disposition Time: 08:32 Patient Plan: Discharge Condition: IMPROVED Discharge Instructions (ExitCare): Care For Your Stitches (ED) Additional Instructions: Follow-up with PMD. Wound check in 2 days. Suture removal in 7-10 days.
[2017-09-17 08:39] VITALS: BP 125/83; PULSE 97; RESP 20
== END 2017-09-17 08:40 | disposition home or self-care (01) ==
LOC: ED 07:55
DX: Z48.1 Encounter for planned postprocedural wound closure (principal); R18.8 Other ascites; E11.9 Type 2 diabetes mellitus without complications; Z79.01 Long term (current) use of anticoagulants

== ENCOUNTER 2017-11-01 09:32 | Day surgery (SDC) | payer MEDICARE, OTHER ==
[2017-10-30 08:13] VITALS: BMI 40.0
[2017-11-01 10:32] LABS: INR 1.74 (0.93-1.08)
[2017-11-01 10:42] LABS: PARTIAL THROMBOPLASTIN TIME 150.6 Seconds (25.1-36.5)
[2017-11-01] MEDS ORDERED: Lidocaine 2% Inj (20ml) ONE (10:42)
[2017-11-01] MEDS ORDERED: Midazolam 2 MG/2 ML VIAL ONE ×3 (10:42→13:15)
[2017-11-01] MEDS ORDERED: Iodixanol 320 MG/ML 100 ML BOTTLE IV ONE (10:43)
[2017-11-01] MEDS ORDERED: Oxycodone/Acetaminophen 5/325 mg Tab PO PRN (13:40)
[2017-11-01] MEDS ORDERED: Sodium Chloride 0.45% 1,000 ML IV SCH (13:45)
[2017-11-01 14:38] VITALS: RESP 18; TEMP 98.1
[2017-11-01] MEDS ORDERED: Oxycodone/Acetaminophen 5/325 mg Tab ONE (15:00)
[2017-11-01 15:03] VITALS: BP 112/59; PULSE 91; O2SAT 100
--- NOTE | 2017-11-01 20:39 | VASCULAR ---
PROCEDURE: Ultrasound and fluoroscopic tunneled peritoneal catheter placement HISTORY: Metastatic breast CA. PRO with cirrhosis. Recurrent severe ascites with abdominal distention and shortness of breath. Multiple recent paracentesis. Needs tunneled catheter PHYSICIAN(S): Wilner Madrid MD. TECHNIQUE: The relative risks and indications for the procedure were explained to the patient and informed consent obtained. The patient was placed in a supine position on the arteriography table and preliminary sonography of the abdomen performed. This revealed a large amount of ascites and a puncture site was selected in the right mid abdomen. The area was prepped and draped in the usual sterile fashion. Conscious sedation monitoring were provided throughout the procedure by a nurse. Peritoneal cavity was punctured with a 19 gauge needle. A 0.035 glidewire was advanced posteriorly and superiorly. Sequential dilatation was performed with subsequent placement of a peel-away sheath. 15.5 Peruvian Aspira catheter was advanced over the Glidewire. The catheter was tunneled along the right abdomen. The catheter was secured. Paracentesis was performed. 91852 cc of turbid O fluid was removed. No labs were sent. IMPRESSION: 1. Ultrasound and fluoroscopically placed tunneled peritoneal catheter. 2. 13,500 cc of turbid yellow fluid were removed. 3. The patient should be drained once a week. Up to 2000 cc of fluid removed. Schedule can be adjusted accordingly
== END 2017-11-01 16:30 | disposition home or self-care (01) ==
LOC: SDSVAS 09:32
PROVIDERS: ATTEND Radiology Vascular & Interventional Radiology
DX: C50.919 Malignant neoplasm of unspecified site of unspecified female breast (principal); K74.60 Unspecified cirrhosis of liver; R18.8 Other ascites; K75.81 Nonalcoholic steatohepatitis (NASH)
CPT/HCPCS: 32550; 36415; 75989; 85610; 85730; 99152; 99153; C1760; C1769; J1642; J1644; J2250; J2405; J3010; J7030 ×2

== ENCOUNTER 2017-12-30 12:42 | Inpatient (IN) | payer MEDICARE, OTHER ==
[2017-12-30 12:54] VITALS: BMI 33.0
--- NOTE | 2017-12-30 13:29 | ED PDOC ---
Arrival/HPI - General Chief Complaint: GI Problem Time Seen by Provider: 12/30/17 12:52 Historian: Patient - History of Present Illness Narrative History of Present Illness (Text): 12/30/17 12:55 Terri Florez is a 67 year old female, whose past medical history includes Breast cancer on chemotherapy, hypertension, PE, Hypothyroid, chronic bilateral leg swelling, ascites, and diabetes, who presents to the emergency department complaining of generalized weakness and shortness of breath for 3-4 days. Patient states that she was upstairs getting her abdomen drained when she began to feel more short of breath, weak, and lightheadedness. Patient also notes that she also experiences nausea and vomiting for the past 2 days. Patient denies ant fever, body aches, nasal congestion, abdominal pain, or any other complaints at this time. PMD: Dr. Love Oncologist: Dr. Cook Past Medical History - Provider Review Nursing Documentation Reviewed: Yes - Infectious Disease Hx of Infectious Diseases: None - Cardiac Hx Pacemaker: No - Pulmonary Hx Respiratory Disorders: No - Neurological Hx Paralysis: No - HEENT Hx HEENT Disorder: Yes Other/Comment: glasses - Renal Hx Renal Disorder: No - Endocrine/Metabolic Hx Diabetes Mellitus Type 2: Yes - Hematological/Oncological Hx Blood Transfusions: No Hx Blood Transfusion Reaction: No Hx Cirrhosis: Yes - Integumentary Hx Dermatological Disorder: No - Musculoskeletal/Rheumatological Hx Musculoskeletal Disorders: Yes - Gastrointestinal Hx Gastrointestinal Disorders: No Other/Comment: Ascitis - Genitourinary/Gynecological Hx Genitourinary Disorders: No Other/Comment: Breast Cancer - Psychiatric Hx Emotional Abuse: No Hx Physical Abuse: No Hx Substance Use: No - Surgical History Hx Appendectomy: Yes Other/Comment: Port in R chest, - Anesthesia Hx Anesthesia Reactions: No Hx Malignant Hyperthermia: No - Suicidal Assessment Feels Threatened In Home Enviroment: No Family/Social History - Physician Review Nursing Documentation Reviewed: Yes Family/Social History: No Known Family HX Smoking Status: Never Smoked Hx Alcohol Use: No Hx Substance Use: No Allergies/Home Meds Allergies/Adverse Reactions: Allergies banana Allergy (Severe, Verified 12/30/17 12:54) RASH Home Medications: Home Meds Medication Instructions Recorded Confirmed Aspirin [Ecotrin] 81 mg PO DAILY 12/05/16 12/30/17 Cholecalciferol (Vitamin D3) 2,000 unit PO DAILY 12/05/16 12/30/17 [Vitamin D3] Insulin Regular [HumuLIN R] 10 unit SC ACB 12/05/16 12/30/17 Levothyroxine [Synthroid] 50 mcg PO DAILY 12/05/16 12/30/17 Simvastatin 40 mg PO DAILY 12/05/16 12/30/17 Warfarin [Coumadin] 3 mg PO DAILY 08/06/17 12/30/17 Insulin Human Regular [HumuLIN R] 5 units SC ACD 08/23/17 12/30/17 Insulin Human Regular [HumuLIN R] 9 units SC ACL 08/23/17 12/30/17 Ciprofloxacin [Cipro] 500 mg PO Q12 12/23/17 12/30/17 Home Med [Home Med] 1 unit PO PRN PRN 12/23/17 12/30/17 Silver Sulfadiazine 1% [Silvadene 1 unit TOP BID 12/23/17 12/30/17 1%] eriBULin Mesylate [Halaven] 1 gm IV QWK 12/23/17 12/30/17 Review of Systems - Physician Review All systems were reviewed & negative as marked: Yes - Review of Systems Constitutional: Other (generalized weakness, lightheaded and syncopal). absent : Fevers, Night Sweats Eyes: absent: Vision Changes ENT: absent: Hearing Changes Respiratory: SOB Cardiovascular: absent: Chest Pain Gastrointestinal: absent: Abdominal Pain Genitourinary Female: absent: Dysuria, Frequency Musculoskeletal: absent: Arthralgias Skin: absent: Rash, Pruritis Endocrine: absent: Diaphoresis, Polyuria Hemo/Lymphatic: absent: Adenopathy Psychiatric: absent: Anxiety, Depression Physical Exam Vital Signs Reviewed: Yes Vital Signs Temp Pulse Resp BP Pulse Ox 12/30/17 19:11 96 H 18 107/54 L 100 12/30/17 17:49 99 H 16 98/66 L 100 12/30/17 17:47 100 H 16 95/61 L 100 12/30/17 15:37 98 H 18 105/64 100 12/30/17 14:10 97.2 F L 12/30/17 13:10 100 H 18 115/62 100 Temperature: Afebrile Blood Pressure: Normal Pulse: Tachycardic Respiratory Rate: Normal Appearance: Positive for: Well-Appearing, Non-Toxic, Comfortable Pain Distress: None Mental Status: Positive for: Alert and Oriented X 3 - Systems Exam Head: Present: Atraumatic, Normocephalic Pupils: Present: PERRL Extroacular Muscles: Present: EOMI Conjunctiva: Present: Normal Mouth: Present: Moist Mucous Membranes Pharnyx: Present: Normal. No: ERYTHEMA, EXUDATE Neck: Present: Normal Range of Motion Respiratory/Chest: Present: Clear to Auscultation, Good Air Exchange. No: Respiratory Distress, Accessory Muscle Use Cardiovascular: Present: Regular Rate and Rhythm, Normal S1, S2. No: Murmurs Abdomen: Present: Tenderness (epigastric tenderness with mild guarding, no rebound), Distention Back: Present: Normal Inspection Upper Extremity: Present: Normal Inspection. No: Cyanosis, Edema Lower Extremity: Present: Edema (bilateral +2 pitting edema) Neurological: Present: GCS=15, CN II-XII Intact, Speech Normal Skin: Present: Warm, Dry, Normal Color. No: Rashes Psychiatric: Present: Alert, Oriented x 3, Normal Insight, Normal Concentration Medical Decision Making ED Course and Treatment: 12/30/17 13:32 Impression: 67 year old female complaining of generalized weakness and shortness of breath today. Differential Diagnosis included but are not limited to: Ascites with shortness of breath, r/o pneumonia; Lightheadednesss/Near Syncope Plan: -- EKG -- Chest X-ray -- VBG and Blood Culture -- Labs -- Reassess and disposition Prior Visits: Notes and results from previous visits were reviewed. Patient was last seen in the emergency department on 09/17/17 for a wound that began to leak ascitic fluid. Patient was discharged home. Progress Notes: EKG: Ordered, reviewed, and independently interpreted the EKG. Rate : 99 BPM Rhythm : NSR Interpretation : Q waves in anterior leads, low voltage. Non-specific ST changes. Comparison : No change from previous on 05/05/17 12/30/17 13:50 Chest X-ray: Creator : Eric Hassan MD FINDINGS: LUNGS:No active pulmonary disease. PLEURA:No significant pleural effusion identified. No pneumothorax apparent. CARDIOVASCULAR:Normal. OSSEOUS STRUCTURES:No significant abnormalities. VISUALIZED UPPER ABDOMEN:Normal. OTHER FINDINGS:None. IMPRESSION: No active disease. 12/30/17 15:34 CXR with no acute findings. Lungs clear. Glucose elevated with low pH, elevated BUN and elevated potassium. Will hydrated and give Insulin IV. Case was discussed with Dr. James who recommends Telemetry. Case discussed with Dr. Ngo who will accept the patient to his service. 12/30/17 17:51 Patient's glucose improved through ED stay. pH 7.27 on ABG. BMP was ordered and pending. Patient received Zofran IV for nausea x 2. 12/30/17 18:47 Labs improving. Glucose 310. Will give Regular insulin 10 units IV and IVF. Patient is stable. Lungs clear. 12/30/17 20:30 Patient's glucose with significant improvement. - Critical Care Critical Care Minutes: 60 minutes - Lab Interpretations Lab Results: 12/30/17 13:00 12/30/17 13:00 Lab Results 12/30/17 14:58: POC Glucose (mg/dL) 396 H 12/30/17 13:00: Serum Osmolality 321 H 12/30/17 13:00: Sodium 127 L, Chloride 105, Potassium 5.8 H* D, Carbon Dioxide 16 L, Anion Gap 12, BUN 79 H, Creatinine 2.1 H, Est GFR ( Amer) 28, Est GFR (Non-Af Amer) 23, Random Glucose 496 H* D, Calcium 8.5, Total Bilirubin 0.9 , AST 61 H, ALT 51, Alkaline Phosphatase 184 H, Lactate Dehydrogenase 590, Total Creatine Kinase 42, Troponin I < 0.01 D, NT-Pro-B Natriuret Pep 584 H, Total Protein 6.6, Albumin 2.5 L, Globulin 4.1, Albumin/Globulin Ratio 0.6 L, Lipase 98 12/30/17 13:00: pO2 28 L, VBG pH 7.16 L*, VBG pCO2 43.0, VBG HCO3 15.3 L, VBG Total CO2 16.6 L, VBG O2 Sat (Calc) 65.9 H, VBG Base Excess -13.0 L, VBG Potassium 5.9 H, Sodium 127.0 L, Chloride 101.0, Glucose TNP, Lactate 1.8, FiO2 21.0, Venous Blood Potassium 5.9 H 12/30/17 13:00: PT 15.4 H, INR 1.33 H, APTT 26.5 12/30/17 13:00: WBC 5.0 D, RBC 4.20, Hgb 12.6, Hct 37.4, MCV 89.0, MCH 30.0, MCHC 33.7, RDW 14.3, Plt Count 105 L, MPV 11.4 H, Gran % 70.2 H, Lymph % (Auto) 8.8 L, [place] % (Auto) 20.6 H, Eos % (Auto) 0.0 L, Baso % (Auto) 0.4, Gran # 3.52 , Lymph # 0.4 L, [place] # 1.0 H, Eos # 0.0, Baso # 0.02, Neutrophils % (Manual) 74 H, Lymphocytes % (Manual) 10 L, Monocytes % (Manual) 16 H 12/30/17 11:00: TSH 3rd Generation 4.83 H I have reviewed the lab results: Yes - RAD Interpretation Radiology Orders: 12/30/17 13:10 CHEST PORTABLE [RAD] Stat - Medication Orders Current Medication Orders: Aspirin (Ecotrin) 81 mg PO DAILY MARTHA Atorvastatin Calcium (Lipitor) 20 mg PO HS MARTHA Insulin Human Regular (Humulin R) 10 units SC ACB MARTHA Insulin Human Regular (Humulin R) 10 units SC AC MARTHA PRN Reason: Protocol Levothyroxine Sodium (Synthroid) 50 mcg PO DAILY MARTHA Discontinued Medications Sodium Chloride (Sodium Chloride 0.9%) 500 mls @ 999 mls/hr IV .Q31M STA Stop: 12/30/17 14:48 Last Admin: 12/30/17 14:29 Dose: Sodium Chloride (Sodium Chloride 0.9%) 1,000 mls @ 999 mls/hr IV .Q1H1M STA Stop: 12/30/17 15:26 Last Admin: 12/30/17 14:29 Dose: 999 mls/hr eMAR Start Stop Document 12/30/17 14:29 SE (Rec: 12/30/17 14:29 SE [id number]) Intravenous Solution Start Date 12/30/17 Start Time 14:29 Sodium Chloride (Sodium Chloride 0.9%) 1,000 mls @ 999 mls/hr IV .Q1H1M STA Stop: 12/30/17 16:23 Last Admin: 12/30/17 15:40 Dose: 999 mls/hr eMAR Start Stop Document 12/30/17 15:40 SE (Rec: 12/30/17 15:40 SE [id number]) Intravenous Solution Start Date 12/30/17 Start Time 15:40 Sodium Chloride (Sodium Chloride 0.9%) 1,000 mls @ 999 mls/hr IV .Q1H1M STA Stop: 12/30/17 19:46 Last Admin: 12/30/17 18:58 Dose: 999 mls/hr eMAR Start Stop Document 12/30/17 18:58 SE (Rec: 12/30/17 18:58 SE [id number]) Intravenous Solution Start Date 12/30/17 Start Time 18:58 Insulin Human Regular (Humulin R) 10 units IVP STAT STA Stop: 12/30/17 14:15 Last Admin: 12/30/17 14:21 Dose: 10 units MAR Blood Glucose Document 12/30/17 14:21 SE (Rec: 12/30/17 14:21 SE [id number]) Blood Glucose Finger Stick Blood Glucose (70-120) 445 IVP Administration Document 12/30/17 14:21 SE (Rec: 12/30/17 14:21 SE [id number]) Charges for Administration # of IVP Administrations 1 Insulin Human Regular (Humulin R) 10 units IVP STAT STA Stop: 12/30/17 16:50 Last Admin: 12/30/17 16:57 Dose: 10 units MAR Blood Glucose Document 12/30/17 16:57 SE (Rec: 12/30/17 16:57 SE [id number]) Blood Glucose Finger Stick Blood Glucose (70-120) 323 IVP Administration Document 12/30/17 16:57 SE (Rec: 12/30/17 16:57 SE [id number]) Charges for Administration # of IVP Administrations 1 Insulin Human Regular (Humulin R) 10 units IVP STAT STA Stop: 12/30/17 18:47 Last Admin: 12/30/17 18:58 Dose: 10 units MAR Blood Glucose Document 12/30/17 18:58 SE (Rec: 12/30/17 18:58 SE [id number]) Blood Glucose Finger Stick Blood Glucose (70-120) 299 IVP Administration Document 12/30/17 18:58 SE (Rec: 12/30/17 18:58 SE [id number]) Charges for Administration # of IVP Administrations 1 Ondansetron HCl (Zofran Inj) 4 mg IVP STAT STA Stop: 12/30/17 14:22 Last Admin: 12/30/17 14:25 Dose: 4 mg IVP Administration Document 12/30/17 14:25 SE (Rec: 12/30/17 14:25 SE [id number]) Charges for Administration # of IVP Administrations 1 Ondansetron HCl (Zofran Inj) 4 mg IVP STAT STA Stop: 12/30/17 17:04 Last Admin: 12/30/17 17:04 Dose: 4 mg IVP Administration Document 12/30/17 17:04 SE (Rec: 12/30/17 17:04 SE [id number]) Charges for Administration # of IVP Administrations 1 - Scribe Statement The provider has reviewed the documentation as recorded by the Scribe Gely Dahl Provider Scribe Attestation: All medical record entries made by the Scribe were at my direction and personally dictated by me. I have reviewed the chart and agree that the record accurately reflects my personal performance of the history, physical exam, medical decision making, and the department course for this patient. I have also personally directed, reviewed, and agree with the discharge instructions and disposition. Disposition/Present on Arrival - Present on Arrival Any Indicators Present on Arrival: Yes History of DVT/PE: No History of Uncontrolled Diabetes: Yes Urinary Catheter: No History of Decub. Ulcer: No History Surgical Site Infection Following: None - Disposition Have Diagnosis and Disposition been Completed?: Yes Diagnosis: Hyperglycemia, Acidosis due to secondary diabetes, Acidosis, Acute renal failure, Ascites Disposition: HOSPITALIZED Disposition Time: 15:34 Patient Plan: Admission Patient Problems: Current Active Problems Problem Status Onset Hyperglycemia Acute Acidosis due to secondary diabetes Acute Acidosis Acute Acute renal failure Acute Ascites Acute Condition: GUARDED
[2017-12-30 13:42] LABS: VENOUS BLOOD GAS PO2 28 mm/Hg (30-55)
[2017-12-30 13:43] LABS: BASO # 0.02 K/mm3 (0.0-2.0); BASO % 0.4 % (0.0-3.0); GRAN # 3.52 (1.4-6.5); GRAN % 70.2 % (50.0-68.0); HEMOGLOBIN 12.6 g/dL (12.0-16.0); LYMPH # 0.4 (1.2-3.4); LYMPH % 8.8 % (22.0-35.0); MEAN CORPUSCULAR HGB CONC 33.7 g/dl (31.0-37.0); MEAN PLATELET VOLUME 11.4 fl (7.0-11.0); MONO % 20.6 % (1.0-6.0); PLATELET COUNT 105 10^3/uL (120.0-450.0); RED CELL DISTRIBUTION WIDTH 14.3 % (11.5-14.5)
--- NOTE | 2017-12-30 13:50 | RAD ---
HISTORY: sob r/o pna vs chf COMPARISON: 05/05/2017 TECHNIQUE: Chest PA and lateral FINDINGS: LUNGS: No active pulmonary disease. PLEURA: No significant pleural effusion identified. No pneumothorax apparent. CARDIOVASCULAR: Normal. OSSEOUS STRUCTURES: No significant abnormalities. VISUALIZED UPPER ABDOMEN: Normal. OTHER FINDINGS: None. IMPRESSION: No active disease.
[2017-12-30 13:52] LABS: VENOUS BLOOD PH 7.16 (7.32-7.43)
[2017-12-30 13:59] LABS: INR 1.33 (0.93-1.08); PARTIAL THROMBOPLASTIN TIME 26.5 Seconds (25.1-36.5); PROTHROMBIN TIME 15.4 SECONDS (9.4-12.5)
[2017-12-30 14:11] LABS: ALB/GLOB RATIO 0.6 (1.1-1.8); ALBUMIN 2.5 g/dL (3.0-4.8); ALT/SGPT 51 U/L (7-56); AST/SGOT 61 U/L (14-36); BLOOD UREA NITROGEN 79 mg/dL (7-21); CALCIUM 8.5 mg/dL (8.4-10.5); GFR AFRICAN-AMERICAN 28; GFR NON-AFRICAN AMERICAN 23; LIPASE 98 U/L (23-300)
[2017-12-30] MEDS ORDERED: Insulin Regular 1 UNITS/0.01 ML ML IVP STA ×3 (14:14→18:46)
[2017-12-30 14:15] LABS: LYMPHOCYTE 10 % (22.0-35.0); MONOCYTE 16 % (1.0-6.0); NEUTROPHIL 74 % (50.0-70.0)
[2017-12-30] MEDS: Sodium Chloride 0.9% 500 ML IV STA ×2 (14:21→14:29)
[2017-12-30] MEDS ORDERED: Sodium Chloride 0.9% 1,000 ML IV STA ×3 (14:26→18:46)
--- NOTE | 2017-12-30 15:18 | CP.PCM.CON ---
<HenriqueLian - Last Filed: 12/30/17 14:59> History of Present Illness - History of Present Illness History of Present Illness: ICU consult for Leeann Leonard PGY2 Reason for consult: Hyperglycemia This is a 67yo female with PMH HTN, OA, hypothyroidism, HTN, breast cancer on chemotherapy, cirrhosis, recurrent ascites with regular paracentesis (twice per week) who came to ED for shortness of breath and weakness. Patient was getting her ascites drained in house when she started to feel and SOB. She had 5L drained from her abdomen today. As per patient and family, for the past 2 days she has been having nausea/vomiting and poor appetite. She was checking her blood sugar and it was in the 300s. Patient reports she was still taking her insulin at the time. Patient also reports having dysuria, but her nausea has improved after her abdomen was drained. Patient also states she has new numbness /tingling which can be secondary to her new chemotherapy. She was just started on Halaven 2 weeks ago. She denies chest pain, nausea/diarrhea, fever/chills, hematuria, headache or dizziness. In ED, patient was found to be acidotic with elevated blood glucose and AFUA. As per patient she said she was told she had issues with her kidney when she was admitted to [facility] last month, but is not sure of the exact diagnosis. PMH: HTN, OA, hypothyroidism, HTN, breast cancer on chemotherapy, cirrhosis, ascites PSH: appendectomy, R cath insertion Home meds: As per MAR All: Banana SH: Denies EtOH, drug or tobacco use. Lives with family PMD: Dr. Love Oncologist: Dr. Cook Review of Systems - Review of Systems All systems: reviewed and no additional remarkable complaints except Review of Systems: 12 point ROS reviewed as per HPI Past Patient History - Infectious Disease Hx of Infectious Diseases: None - Past Social History Smoking Status: Never Smoked - CARDIAC Hx Pacemaker: No - PULMONARY Hx Respiratory Disorders: No - NEUROLOGICAL Hx Paralysis: No - HEENT Hx HEENT Problems: Yes Other/Comment: glasses - RENAL Hx Chronic Kidney Disease: No - ENDOCRINE/METABOLIC Hx Diabetes Mellitus Type 2: Yes - HEMATOLOGICAL/ONCOLOGICAL Hx Blood Transfusions: No Hx Blood Transfusion Reaction: No Hx Cirrhosis: Yes - INTEGUMENTARY Hx Dermatological Problems: No - MUSCULOSKELETAL/RHEUMATOLOGICAL Hx Musculoskeletal Disorders: Yes - GASTROINTESTINAL Hx Gastrointestinal Disorders: No Other/Comment: Ascitis - GENITOURINARY/GYNECOLOGICAL Hx Genitourinary Disorders: No Other/Comment: Breast Cancer - PSYCHIATRIC Hx Emotional Abuse: No Hx Physical Abuse: No Hx Substance Use: No - SURGICAL HISTORY Hx Appendectomy: Yes Other/Comment: Port in R chest, - ANESTHESIA Hx Anesthesia Reactions: No Hx Malignant Hyperthermia: No Meds Allergies/Adverse Reactions: Allergies Allergy/AdvReac Type Severity Reaction Status Date / Time banana Allergy Severe RASH Verified 12/30/17 12:54 - Medications Medications: Current Medications Sodium Chloride (Sodium Chloride 0.9%) 1,000 mls @ 999 mls/hr IV .Q1H1M STA Stop: 12/30/17 15:26 Last Admin: 12/30/17 14:29 Dose: 999 mls/hr Physical Exam - Constitutional Appears: Chronically Ill - Head Exam Head Exam: ATRAUMATIC, NORMAL INSPECTION, NORMOCEPHALIC - Eye Exam Eye Exam: Normal appearance, PERRL Pupil Exam: NORMAL ACCOMODATION, PERRL - ENT Exam ENT Exam: Mucous Membranes Dry - Respiratory Exam Respiratory Exam: Clear to Auscultation Bilateral, NORMAL BREATHING PATTERN. absent: Rales, Rhonchi, Wheezes - Cardiovascular Exam Cardiovascular Exam: REGULAR RHYTHM, +S1, +S2. absent: Gallop, Rubs, Systolic Murmur - GI/Abdominal Exam GI & Abdominal Exam: Distended, Normal Bowel Sounds, Soft. absent: Rigid, Tenderness Additional comments: dressing in R abdomen in place s/p paracentesis- clean and dry - Extremities Exam Extremities exam: Positive for: pedal edema (+ 4 pedal edema bilaterally ) Additional comments: chronic wound on L ankle with dressing in place- draining serosanginous fluid - Neurological Exam Neurological exam: Alert, CN II-XII Intact, Oriented x3 - Psychiatric Exam Psychiatric exam: Normal Affect, Normal Mood - Skin Skin Exam: Dry, Warm Results - Vital Signs Recent Vital Signs: Last Vital Signs Temp 97.2 F L 12/30/17 14:10 Pulse 100 H 12/30/17 13:10 Resp 18 12/30/17 13:10 BP 115/62 12/30/17 13:10 Pulse Ox 100 12/30/17 13:10 - Labs Result Diagrams: 12/30/17 13:00 12/30/17 13:00 Labs: Laboratory Results - last 24 hr 12/30/17 12/30/17 12/30/17 13:00 13:00 13:00 WBC 5.0 D RBC 4.20 Hgb 12.6 Hct 37.4 MCV 89.0 MCH 30.0 MCHC 33.7 RDW 14.3 Plt Count 105 L MPV 11.4 H Gran % 70.2 H Lymph % (Auto) 8.8 L [place] % (Auto) 20.6 H Eos % (Auto) 0.0 L Baso % (Auto) 0.4 Gran # 3.52 Lymph # 0.4 L Turner # 1.0 H Eos # 0.0 Baso # 0.02 Neutrophils % (Manual) 74 H Lymphocytes % (Manual) 10 L Monocytes % (Manual) 16 H PT 15.4 H INR 1.33 H APTT 26.5 pO2 28 L VBG pH 7.16 L* VBG pCO2 43.0 VBG HCO3 15.3 L VBG Total CO2 16.6 L VBG O2 Sat (Calc) 65.9 H VBG Base Excess -13.0 L VBG Potassium 5.9 H Sodium 127.0 L Chloride 101.0 Glucose TNP Lactate 1.8 FiO2 21.0 Potassium Carbon Dioxide Anion Gap BUN Creatinine Est GFR ( Amer) Est GFR (Non-Af Amer) Random Glucose Calcium Total Bilirubin AST ALT Alkaline Phosphatase Lactate Dehydrogenase Total Creatine Kinase Total Protein Albumin Globulin Albumin/Globulin Ratio Lipase Venous Blood Potassium 5.9 H 12/30/17 13:00 WBC RBC Hgb Hct MCV MCH MCHC RDW Plt Count MPV Gran % Lymph % (Auto) [place] % (Auto) Eos % (Auto) Baso % (Auto) Gran # Lymph # Turner # Eos # Baso # Neutrophils % (Manual) Lymphocytes % (Manual) Monocytes % (Manual) PT INR APTT pO2 VBG pH VBG pCO2 VBG HCO3 VBG Total CO2 VBG O2 Sat (Calc) VBG Base Excess VBG Potassium Sodium 127 L Chloride 105 Glucose Lactate FiO2 Potassium 5.8 H* D Carbon Dioxide 16 L Anion Gap 12 BUN 79 H Creatinine 2.1 H Est GFR ( Amer) 28 Est GFR (Non-Af Amer) 23 Random Glucose 496 H* D Calcium 8.5 Total Bilirubin 0.9 AST 61 H ALT 51 Alkaline Phosphatase 184 H Lactate Dehydrogenase 590 Total Creatine Kinase 42 Total Protein 6.6 Albumin 2.5 L Globulin 4.1 Albumin/Globulin Ratio 0.6 L Lipase 98 Venous Blood Potassium Assessment & Plan - Assessment and Plan (Free Text) Assessment: This is a 67yo female with PMH HTN, OA, hypothyroidism, HTN, breast cancer on chemotherapy, cirrhosis, recurrent ascites with regular paracentesis (twice per week) who was found to weak and short of breath after outpatient paracentesis today. Patient was found to be hyperglycemic with non-anion gap acidosis and acute kidney injury secondary to dehydration and poor PO intake. It is recommended to hydrate patient with 2-3L of IV fluid, insulin SC as well as renal ultrasound. She is hemodynamically stable and spO2 is 100% on room air. She does not require ICU at this time. If patient's condition were to worsen, please call ICU for re-evaluation. Thank you for this consultation. Case seen, discussed and reviewed with attending. Leeann Duenas PGY2 <Rory James - Last Filed: 12/30/17 15:42> Meds - Medications Medications: Current Medications Sodium Chloride (Sodium Chloride 0.9%) 1,000 mls @ 999 mls/hr IV .Q1H1M STA Stop: 12/30/17 16:23 Results - Vital Signs Recent Vital Signs: Last Vital Signs Temp 97.2 F L 12/30/17 14:10 Pulse 98 H 12/30/17 15:37 Resp 18 12/30/17 15:37 BP 105/64 12/30/17 15:37 Pulse Ox 100 12/30/17 15:37 - Labs Result Diagrams: 12/30/17 13:00 12/30/17 13:00 Labs: Laboratory Results - last 24 hr 12/30/17 12/30/17 12/30/17 13:00 13:00 13:00 WBC 5.0 D RBC 4.20 Hgb 12.6 Hct 37.4 MCV 89.0 MCH 30.0 MCHC 33.7 RDW 14.3 Plt Count 105 L MPV 11.4 H Gran % 70.2 H Lymph % (Auto) 8.8 L [place] % (Auto) 20.6 H Eos % (Auto) 0.0 L Baso % (Auto) 0.4 Gran # 3.52 Lymph # 0.4 L Turner # 1.0 H Eos # 0.0 Baso # 0.02 Neutrophils % (Manual) 74 H Lymphocytes % (Manual) 10 L Monocytes % (Manual) 16 H PT 15.4 H INR 1.33 H APTT 26.5 pO2 28 L VBG pH 7.16 L* VBG pCO2 43.0 VBG HCO3 15.3 L VBG Total CO2 16.6 L VBG O2 Sat (Calc) 65.9 H VBG Base Excess -13.0 L VBG Potassium 5.9 H Sodium 127.0 L Chloride 101.0 Glucose TNP Lactate 1.8 FiO2 21.0 Potassium Carbon Dioxide Anion Gap BUN Creatinine Est GFR ( Amer) Est GFR (Non-Af Amer) Random Glucose Calcium Total Bilirubin AST ALT Alkaline Phosphatase Lactate Dehydrogenase Total Creatine Kinase Total Protein Albumin Globulin Albumin/Globulin Ratio Lipase Venous Blood Potassium 5.9 H 12/30/17 13:00 WBC RBC Hgb Hct MCV MCH MCHC RDW Plt Count MPV Gran % Lymph % (Auto) [place] % (Auto) Eos % (Auto) Baso % (Auto) Gran # Lymph # Turner # Eos # Baso # Neutrophils % (Manual) Lymphocytes % (Manual) Monocytes % (Manual) PT INR APTT pO2 VBG pH VBG pCO2 VBG HCO3 VBG Total CO2 VBG O2 Sat (Calc) VBG Base Excess VBG Potassium Sodium 127 L Chloride 105 Glucose Lactate FiO2 Potassium 5.8 H* D Carbon Dioxide 16 L Anion Gap 12 BUN 79 H Creatinine 2.1 H Est GFR ( Amer) 28 Est GFR (Non-Af Amer) 23 Random Glucose 496 H* D Calcium 8.5 Total Bilirubin 0.9 AST 61 H ALT 51 Alkaline Phosphatase 184 H Lactate Dehydrogenase 590 Total Creatine Kinase 42 Total Protein 6.6 Albumin 2.5 L Globulin 4.1 Albumin/Globulin Ratio 0.6 L Lipase 98 Venous Blood Potassium Attending/Attestation - Attestation I have personally seen and examined this patient.: Yes I have fully participated in the care of the patient.: Yes I have reviewed all pertinent clinical information: Yes Notes (Text): 12/30/17 15:38 The patient was seen and examined at the bedside. Patient care was discussed with resident Medical records, lab studies, and imaging were reviewed and management issues were discussed and formulated. Agree with above treatment plans as outlined in 's note with addition of the following: Uncontrolled DM \ AFUA \ Elevated LFT \ Hyperkalemia \ Dehydration \ -hemodynamic monitoring to maintain MAP>65; currently stable -f\u ECho to assess baseline LV function -o2 supplementation to maintain Spo2>90 Pao2>60; currently comfortable on room air -CXR reviewed , and shows no visible opacification -f\u Bun\Cr and U\o; IVF with NS; f\u repeat K+; renal team following -continue SQ Insulin and BGM monitoring -PO diet (diabetic) and aspiration precautions -f\u HbA1c -consider endocrine eval -f\u serial LFT -consider abdominal US -heme\onc eval -DVT prophylaxis CCM eval time 40min
[2017-12-30 15:55] LABS: ARTERIAL BLOOD GAS HCO3 11.5 mmol/L (21-28); ARTERIAL BLOOD GAS HEMOGLOBIN 11.5 g/dL (11.7-17.4); ARTERIAL BLOOD GAS O2 CAPACITY 15.8 mL/dl (16-24); ARTERIAL BLOOD GAS O2 CONTENT 15.7 ML/dl (15-23); ARTERIAL BLOOD GAS O2 SAT 99.3 % (95-98); ARTERIAL BLOOD GAS PCO2 25 mm/Hg (35-45); ARTERIAL BLOOD GAS PH 7.27 (7.35-7.45); ARTERIAL BLOOD GAS TCO2 12.3 mmol.L (22-28)
[2017-12-30 16:11] LABS: B-TYPE NATRIURETIC PEPTIDE 584 pg/mL (0-450); TROPONIN I < 0.01 ng/mL
--- NOTE | 2017-12-30 18:07 | CARD ---
APPROVED REPORT EKG Measurement Heart [id number] <Conclusion> Normal sinus rhythm Left axis deviation Low voltage QRS Septal infarct, age undetermined Possible Lateral infarct, age undetermined Abnormal ECG
[2017-12-30 18:28] LABS: CALCIUM 8.2 mg/dL (8.4-10.5)
[2017-12-30] MEDS ORDERED: Non Formulary Medication (Simvastatin [Simvastatin] 40 MG) PO SCH (22:00)
[2017-12-30] MEDS ORDERED: Influenza Vaccine 60 mcg/0.5 mL SYR (4YR UP) IM ONE (22:21)
[2017-12-30] MEDS ORDERED: Pneumococcal 23-Valent Vaccine IM ONE (22:21)
--- NOTE | 2017-12-31 01:55 | CON ---
DATE: ENDOCRINOLOGY CONSULTATION LOCATION: Room 271. HISTORY OF PRESENT ILLNESS: This is a 67-year-old female with known history of type 2 insulin-requiring diabetes presenting here with progressive shortness of breath and associated generalized body weakness and hypersomnolence and is now being referred for diabetic evaluation because of persistent hyperglycemic accelerations as noted thereof. PAST MEDICAL HISTORY: As mentioned above, history of type 2 insulin-requiring diabetes on Humulin regular insulin given 10 units a.c. breakfast, 9 units a.c. lunch and 5 units a.c. dinner as given. History of hypothyroidism on levothyroxine at 50 mcg once daily, history of hypertension and dyslipidemia, history of breast cancer currently with on going chemotherapy followed closely by oncologist. History of liver cirrhosis with progressively worsening ascites and multiple paracentesis procedures undertaken thereof. She is being followed closely at the liver [place] at [facility] in [place], [place]. FAMILY HISTORY: Positive for hypertension and heart disease. SOCIAL HISTORY: The patient has supportive family. No known substance use. REVIEW OF SYSTEMS: Admits to generalized body weakness with easy fatigability and tiredness and suboptimal energy level with recent bouts of hypersomnolence and lethargy. Also admits to visual blurring and bifrontal headaches with progressive bouts of dizziness and lightheadedness worse on the day of admission. No chest pains, but admits to progressive shortness of breath, initially on exertion and then at rest with paroxysmal nocturnal dyspnea. Her oral intake is very poor and suboptimal with variable oral intake as noted with nausea, dyspepsia and progressively worsening abdominal distention as noted. Also admits to marked polyuria and nocturia as noted. Also admits to lower extremity swelling and edema. PHYSICAL EXAMINATION: GENERAL: This is an overweight female in no apparent distress. VITAL SIGNS: Blood pressure of 140/80, pulse of 100 beats per minute regular, temperature 99, respirations 20, height is 5 feet 3 inches, weight is 186 pounds. HEENT: Head normocephalic. Eyes anicteric with pink conjunctivae. Funduscopy not possible at this time. Ears, nose and throat otherwise normal. NECK: Supple. Thyroid gland is normal in size. No carotid bruits or cervical adenopathy. CARDIOPULMONARY: Has some adynamic precordium. S1, S2 is rapid and regular. LUNGS: Showed bibasilar dullness with scattered rhonchi. ABDOMEN: Distended, firm and nontender with positive bowel sounds. EXTREMITIES: +2 bipedal edema. LABORATORY DATA: Chemistry showed a BUN of 78, sodium 130, potassium 5.5, chloride 108, CO2 15, glucose 310, creatinine 1.9. Her glucose levels have ranged from 275 to 299 and 396 mg/dL. ASSESSMENT: This is a 67-year-old female with uncontrolled and decompensated type 2 insulin-requiring diabetes with marked hyperglycemic accelerations clearly related to a subtherapeutic insulin regimen at this time as noted.. She also has diabetic microvascular complications of retinopathy and polyneuropathy and also nephropathy with diabetic microvascular complications of coronary artery disease and peripheral arterial disease and vasculopathy with significant history of liver cirrhosis with abdominal distention from recurrent ascites as noted. She also has ongoing chemotherapy for breast carcinoma as noted. PLAN OF MANAGEMENT: We will modify her current insulin regimen and switch her to a more physiologic basal and bolus insulin drug combination as ordered. We will start her with Levemir given as 24 units subcu at bedtime daily as ordered. We will also add Humalog given as 12 units subcu t.i.d. before meals as given. We will modify the coverage scale using low-dose Humalog to obviate hypoglycemia and detailed orders have been given. Hemoglobin A1c will be obtained to confirm her prior poor glycemic control and baseline thyroid function studies will be ordered. We will adjust her levothyroxine dose accordingly. We will also obtain a lipid panel and serial chemistries and supplement accordingly as needed. We will follow and advise accordingly. Dorcas Galvin MD
[2017-12-31 06:51] LABS: BASO # 0.02 K/mm3 (0.0-2.0); BASO % 0.3 % (0.0-3.0); GRAN # 4.15 (1.4-6.5); GRAN % 71.2 % (50.0-68.0); HEMOGLOBIN 11.8 g/dL (12.0-16.0); LYMPH # 0.7 (1.2-3.4); LYMPH % 12.2 % (22.0-35.0); MEAN CELL VOLUME 87.8 fl (80.0-105.0); MEAN CORPUSCULAR HEMOGLOBIN 29.4 pg (25.0-35.0); MEAN CORPUSCULAR HGB CONC 33.4 g/dl (31.0-37.0); MEAN PLATELET VOLUME 10.8 fl (7.0-11.0); MONO % 16.3 % (1.0-6.0); RBC 4.02 10^6/uL (3.5-6.1); RED CELL DISTRIBUTION WIDTH 14.2 % (11.5-14.5); WHITE BLOOD COUNT 5.8 10^3/ul (4.5-11.0)
[2017-12-31 07:19] LABS: ALB/GLOB RATIO 0.6 (1.1-1.8); ALBUMIN 2.2 g/dL (3.0-4.8); CALCIUM 7.8 mg/dL (8.4-10.5)
[2017-12-31 07:29] LABS: T4 5.8 ug/dL (5.5-11.0)
[2017-12-31] MEDS ORDERED: Insulin Regular 1 UNITS/0.01 ML ML SC SCH ×2 (07:30)
[2017-12-31] MEDS ORDERED: Insulin Lispro 1 UNITS/0.01 ML SC SCH (07:30)
[2017-12-31] MEDS ORDERED: Insulin Reg-MEDIUM-Coverage SC SCH (07:30)
[2017-12-31] MEDS: Insulin Lispro (humaLOG) LOW Coverage SC SCH ×3 (07:49→17:55)
[2017-12-31] MEDS: Insulin Lispro 1 UNITS/0.01 ML SC SCH ×3 (07:54→17:58)
[2017-12-31] MEDS ORDERED: Enoxaparin 80 mg Syringe SC SCH (08:15)
[2017-12-31] MEDS ORDERED: Levothyroxine 50 MCG TAB PO SCH (10:00)
[2017-12-31] MEDS ORDERED: Vancomycin 2 GM in Sodium Chloride 0.9% 500 ML IVPB ONE (11:22)
[2017-12-31] MEDS: Meropenem IV 1 gm in NS 50 ML IVPB SCH ×2 (12:32→22:31)
[2017-12-31] MEDS ORDERED: Sodium Chloride 0.9% 500 ML IV STA (13:28)
[2017-12-31] MEDS: Sodium Chloride 0.9% 1,000 ML IV SCH (13:41)
--- NOTE | 2017-12-31 15:00 | CP.PCM.CON ---
History of Present Illness - History of Present Illness History of Present Illness: GENERAL SURGERY CONSULT NOTE FOR DR. DAILEY Patient is 67 YO female with PMH of left breast cancer presents to the [facility] ED with generalized weakness, lightheadedness and SOB. Patient reports SOB started 4 days ago but symptoms became worse yesterday while she was having her peritoneal catheter drained on the 1st floor. Patient had peritoneal catheter placed by Dr. Madrid about 1 month ago for recurrent ascites secondary to PRO cirrhosis. Patient comes to [facility] twice a week for drainage. Due to her worsening symptoms patient went to ER and was admitted. GI consulted for cirrhosis and ascites. Surgery consulted today for left breast wound with watery sometimes bloody drainage. Patient has been applying silvadine BID outpatient. Patient seen at bedside. Currently patient is resting in bed. Patient first noticed wound a month ago. States the wound started as a small scab but has now spread to the entire breast and part of the axilla. She never had radiation to the area. Patient denies pain. Patient admits to nausea, and chills. Denies fever, pain, SOB, change in bowel habits. Case was discussed with Dr. Cook. Per Dr. Cook, the chest wall has been biopsied and was positive for cancer. PMH: Left breast CA currently on chemotherapy, DM, HTN, PE on wafarin, hypothyroid, B/L Lower extremity edema, ascites secondary to PRO cirrhosis PSHx: open appendectomy, R portacath, [facility] Allergies: NKDA Social hx: denies Review of Systems - Review of Systems All systems: reviewed and no additional remarkable complaints except (as per HPI ) Past Patient History - Infectious Disease Hx of Infectious Diseases: None - Past Medical History & Family History Past Medical History?: Yes - Past Social History Smoking Status: Never Smoked Alcohol: None Drugs: Denies - CARDIAC Hx Cardiac Disorders: No Hx Hypertension: Yes Hx Peripheral Edema: Yes (right +2 weeping pitting/ Left +3 weep/pitting) - PULMONARY Hx Respiratory Disorders: Yes Hx Pulmonary Embolism: Yes - NEUROLOGICAL Hx Neurological Disorder: No - HEENT Hx HEENT Problems: Yes Other/Comment: glasses - RENAL Hx Chronic Kidney Disease: No - ENDOCRINE/METABOLIC Hx Diabetes Mellitus Type 2: Yes Hx Hypothyroidism: Yes - HEMATOLOGICAL/ONCOLOGICAL Hx Cancer: Yes (breast cancer, dx 11/2016) Hx Chemotherapy: Yes (last chemo 2 wks ago) Hx Cirrhosis: Yes (ascites) Other/Comment: peritoneal drain to right abd for ascites, drained 2x's a week at infusion center - INTEGUMENTARY Hx Dermatological Problems: No - GASTROINTESTINAL Hx Gastrointestinal Disorders: Yes (cirrhosis , ascites ) Other/Comment: Ascitis - GENITOURINARY/GYNECOLOGICAL Hx Genitourinary Disorders: No Other/Comment: Breast Cancer - PSYCHIATRIC Hx Substance Use: No - SURGICAL HISTORY Hx Appendectomy: Yes (open ) Other/Comment: Port in R chest, - ANESTHESIA Hx Anesthesia Reactions: No Hx Malignant Hyperthermia: No Meds Allergies/Adverse Reactions: Allergies Allergy/AdvReac Type Severity Reaction Status Date / Time banana Allergy Severe RASH Verified 12/30/17 12:54 - Medications Medications: Current Medications Aspirin (Ecotrin) 81 mg PO DAILY [facility] Last Admin: 12/31/17 09:27 Dose: 81 mg Atorvastatin Calcium (Lipitor) 20 mg PO [facility] Last Admin: 12/30/17 22:56 Dose: 20 mg Enoxaparin Sodium (Lovenox) 80 mg SC DAILY [facility] PRN Reason: Protocol Meropenem (Merrem Iv 1 Gm Premix) 50 mls @ 100 mls/hr IVPB Q12 [facility] PRN Reason: Protocol Stop: 01/08/18 11:31 Last Admin: 12/31/17 12:32 Dose: 100 mls/hr Sodium Chloride (Sodium Chloride 0.9%) 1,000 mls @ 100 mls/hr IV .Q10H [facility] Last Admin: 12/31/17 13:41 Dose: 100 mls/hr Insulin Detemir (Levemir) 24 unit SC HS [facility] Insulin Human Lispro (Humalog Low) 0 units SC ACHS [facility] PRN Reason: Protocol Last Admin: 12/31/17 11:56 Dose: Not Given Insulin Human Lispro (Humalog) 14 units SC AC [facility] Levothyroxine Sodium (Synthroid) 50 mcg PO DAILY [facility] Last Admin: 12/31/17 09:27 Dose: 50 mcg Ondansetron HCl (Zofran Inj) 4 mg IVP Q4H [facility] PRN Reason: Nausea/Vomiting Sodium Bicarbonate (Sodium Bicarbonate Tab) 650 mg PO BID [facility] Last Admin: 12/31/17 09:27 Dose: 650 mg Warfarin Sodium (Coumadin) 4 mg PO HS [facility] PRN Reason: Protocol Physical Exam - Constitutional Appears: Non-toxic, No Acute Distress, Chronically Ill - Head Exam Head Exam: ATRAUMATIC, NORMOCEPHALIC - Eye Exam Eye Exam: Normal appearance - Neck Exam Additional comments: Right portacath. - Respiratory Exam Respiratory Exam: Clear to Auscultation Bilateral, NORMAL BREATHING PATTERN. absent: Accessory Muscle Use, Rales, Rhonchi, Wheezes, Respiratory Distress - Cardiovascular Exam Cardiovascular Exam: RRR, +S1, +S2. absent: Tachycardia - GI/Abdominal Exam GI & Abdominal Exam: Distended, Hernia (nontender reducible umbilical hernia ), Soft. absent: Firm, Guarding, Rebound, Rigid, Tenderness Additional comments: Peritoneal drainage catheter in place. Right lower quadrant open appendectomy scar well healed. - Extremities Exam Extremities exam: Positive for: pedal edema Additional comments: 2+ pitting edema B/L lower extremities - Neurological Exam Neurological exam: Alert, Oriented x3 - Psychiatric Exam Psychiatric exam: Normal Affect, Normal Mood - Skin Skin Exam: Normal Color, Warm Additional comments: Left large ulcerative breast lesion with small necrotic area. No drainage noted. Malodorous. Results - Vital Signs Recent Vital Signs: Last Vital Signs Temp 97.9 F 12/31/17 09:00 Pulse 95 H 12/31/17 09:00 Resp 18 12/31/17 09:00 BP 102/66 12/31/17 09:00 Pulse Ox 100 12/31/17 09:00 - Labs Result Diagrams: 01/01/18 07:30 01/01/18 07:30 Labs: Laboratory Results - last 24 hr 12/30/17 12/30/17 12/30/17 15:45 16:43 18:00 WBC RBC Hgb Hct MCV MCH MCHC RDW Plt Count MPV Gran % Lymph % (Auto) Barnes % (Auto) Eos % (Auto) Baso % (Auto) Gran # Lymph # Barnes # Eos # Baso # ESR pCO2 25 L pO2 100.0 HCO3 11.5 L ABG pH 7.27 L ABG Total CO2 12.3 L ABG O2 Saturation 99.3 H ABG O2 Content 15.7 ABG Base Excess -13.8 L ABG Hemoglobin 11.5 L ABG Carboxyhemoglobin 1.7 H POC ABG HHb (Measured) 0.7 ABG Methemoglobin 1.2 ABG O2 Capacity 15.8 L Hgb O2 Saturation 96.5 FiO2 21.0 Sodium 130 L Potassium 5.5 H Chloride 108 H Carbon Dioxide 15 L Anion Gap 12 BUN 78 H Creatinine 1.9 H Est GFR ( Amer) 32 Est GFR (Non-Af Amer) 26 POC Glucose (mg/dL) 323 H Random Glucose 310 H* D Hemoglobin A1c Calcium 8.2 L Total Bilirubin AST ALT Alkaline Phosphatase Total Protein Albumin Globulin Albumin/Globulin Ratio Triglycerides Cholesterol LDL Cholesterol Direct HDL Cholesterol Lipase 25-OH Vitamin D Total Thyroxine (T4) TSH 3rd Generation 12/30/17 12/30/17 12/31/17 18:55 22:24 05:15 WBC 5.8 RBC 4.02 Hgb 11.8 L Hct 35.3 L MCV 87.8 MCH 29.4 MCHC 33.4 RDW 14.2 Plt Count 93 L MPV 10.8 Gran % 71.2 H Lymph % (Auto) 12.2 L Barnes % (Auto) 16.3 H Eos % (Auto) 0.0 L Baso % (Auto) 0.3 Gran # 4.15 Lymph # 0.7 L Barnes # 1.0 H Eos # 0.0 Baso # 0.02 ESR pCO2 pO2 HCO3 ABG pH ABG Total CO2 ABG O2 Saturation ABG O2 Content ABG Base Excess ABG Hemoglobin ABG Carboxyhemoglobin POC ABG HHb (Measured) ABG Methemoglobin ABG O2 Capacity Hgb O2 Saturation FiO2 Sodium Potassium Chloride Carbon Dioxide Anion Gap BUN Creatinine Est GFR ( Amer) Est GFR (Non-Af Amer) POC Glucose (mg/dL) 299 H 275 H Random Glucose Hemoglobin A1c Calcium Total Bilirubin AST ALT Alkaline Phosphatase Total Protein Albumin Globulin Albumin/Globulin Ratio Triglycerides Cholesterol LDL Cholesterol Direct HDL Cholesterol Lipase 25-OH Vitamin D Total Thyroxine (T4) TSH 3rd Generation 12/31/17 12/31/17 12/31/17 05:15 05:15 05:15 WBC RBC Hgb Hct MCV MCH MCHC RDW Plt Count MPV Gran % Lymph % (Auto) Barnes % (Auto) Eos % (Auto) Baso % (Auto) Gran # Lymph # Barnes # Eos # Baso # ESR pCO2 pO2 HCO3 ABG pH ABG Total CO2 ABG O2 Saturation ABG O2 Content ABG Base Excess ABG Hemoglobin ABG Carboxyhemoglobin POC ABG HHb (Measured) ABG Methemoglobin ABG O2 Capacity Hgb O2 Saturation FiO2 Sodium 131 L Potassium 5.5 H Chloride 113 H Carbon Dioxide 14 L Anion Gap 10 BUN 71 H Creatinine 1.9 H Est GFR ( Amer) 32 Est GFR (Non-Af Amer) 26 POC Glucose (mg/dL) Random Glucose 242 H Hemoglobin A1c 8.9 H Calcium 7.8 L Total Bilirubin 0.7 AST 62 H ALT 51 Alkaline Phosphatase 144 H D Total Protein 5.9 Albumin 2.2 L Globulin 3.7 Albumin/Globulin Ratio 0.6 L Triglycerides 90 Cholesterol 89 L LDL Cholesterol Direct 42 HDL Cholesterol 30 Lipase 82 25-OH Vitamin D Total Thyroxine (T4) 5.8 TSH 3rd Generation 3.67 12/31/17 12/31/17 12/31/17 05:15 06:45 07:12 WBC RBC Hgb Hct MCV MCH MCHC RDW Plt Count MPV Gran % Lymph % (Auto) Barnes % (Auto) Eos % (Auto) Baso % (Auto) Gran # Lymph # Barnes # Eos # Baso # ESR 40 H pCO2 pO2 HCO3 ABG pH ABG Total CO2 ABG O2 Saturation ABG O2 Content ABG Base Excess ABG Hemoglobin ABG Carboxyhemoglobin POC ABG HHb (Measured) ABG Methemoglobin ABG O2 Capacity Hgb O2 Saturation FiO2 Sodium Potassium Chloride Carbon Dioxide Anion Gap BUN Creatinine Est GFR ( Amer) Est GFR (Non-Af Amer) POC Glucose (mg/dL) 232 H Random Glucose Hemoglobin A1c Calcium Total Bilirubin AST ALT Alkaline Phosphatase Total Protein Albumin Globulin Albumin/Globulin Ratio Triglycerides Cholesterol LDL Cholesterol Direct HDL Cholesterol Lipase 25-OH Vitamin D Total 18.7 L Thyroxine (T4) TSH 3rd Generation 12/31/17 11:23 WBC RBC Hgb Hct MCV MCH MCHC RDW Plt Count MPV Gran % Lymph % (Auto) Barnes % (Auto) Eos % (Auto) Baso % (Auto) Gran # Lymph # Barnes # Eos # Baso # ESR pCO2 pO2 HCO3 ABG pH ABG Total CO2 ABG O2 Saturation ABG O2 Content ABG Base Excess ABG Hemoglobin ABG Carboxyhemoglobin POC ABG HHb (Measured) ABG Methemoglobin ABG O2 Capacity Hgb O2 Saturation FiO2 Sodium Potassium Chloride Carbon Dioxide Anion Gap BUN Creatinine Est GFR ( Amer) Est GFR (Non-Af Amer) POC Glucose (mg/dL) 212 H Random Glucose Hemoglobin A1c Calcium Total Bilirubin AST ALT Alkaline Phosphatase Total Protein Albumin Globulin Albumin/Globulin Ratio Triglycerides Cholesterol LDL Cholesterol Direct HDL Cholesterol Lipase 25-OH Vitamin D Total Thyroxine (T4) TSH 3rd Generation Assessment & Plan - Assessment and Plan (Free Text) Assessment: 67 YO female with PMHx of left breast cancer, DM, HTN, ascites secondary to cirrhosis. Surgery consulted for left breast wound with drainage. Plan: - Local wound care with xeroform, possible bedside debridement, then wet to dry dressings - FU oncology Dr. Joyce Adams - Discussed plan with Dr. Mack Pollard PGY-3
[2017-12-31] MEDS: Insulin Detemir 100 units/ml Vial (Levemir) SC SCH (22:29)
--- NOTE | 2017-12-31 22:44 | CON ---
DATE: 12/31/2017 LOCATION: The patient was seen earlier today in room 271, bed 2. CHIEF COMPLAINT: Weakness times several days. HISTORY OF PRESENT ILLNESS: This is a 67-year-old female with past medical history significant for hypertension; diabetes; breast cancer, status post chemotherapy in 2017 and a Port-A-Cath, with a history of obesity with BMI of 39, who is admitted now to the emergency room with diagnosis of uncontrolled diabetes, hyperkalemia and near syncope. The patient is complaining of weakness. She denies any fevers. She is complaining of abdominal discomfort and she was seen in the emergency room by Dr. Piero Marie. In the emergency room, the patient is complaining of abdominal pain, GI problem, shortness of breath, and she does have abdominal drainage for her ascites. PAST MEDICAL HISTORY: Significant for hypertension, diabetes, breast cancer with chemotherapy, the patient has obesity with BMI of 34, and does have ascites. PAST SURGICAL HISTORY: Significant for appendectomy, right chest wall Port-A-Cath placement. ALLERGIES: THE PATIENT IS ALLERGIC TO BANANAS, TYPE OF ALLERGY IS NOT ENTIRELY CLEAR. The patient has recurrent ascites, has paracentesis twice per week. MEDICATIONS: Reviewed and include Coumadin, simvastatin, levothyroxine, insulin and aspirin. PHYSICAL EXAMINATION: GENERAL/VITAL SIGNS: The patient is in bed, in no acute distress; however, weak with a temperature of 97.2, heart rate of 99 up to 100, respiratory rate of 18 with a blood pressure of 98/61. HEENT: Examination of HEENT is unremarkable. NECK: Supple. LUNGS: Have decreased breath sounds bilaterally. HEART: Normal S1 and S2. ABDOMEN: Mild tenderness. No rebound or guarding. BREASTS: Examination of the left breast has erythema and necrotic area on top of acute erythema of the left breast. The right breast is within normal limits. LABORATORY EXAMINATION: Reveals a white count of 5000, hemoglobin of 12, platelets of 105, 70% granulocytosis, and coagulation is noted. BUN of 78, creatinine is 1.9. The last admission in August, the patient's creatinine was 1.3. Alkaline phosphatase is 144. ASSESSMENT AND PLAN: This is a 67-year-old female with hypertension, diabetes, breast cancer, has had chemotherapy two weeks ago, obesity, recurrent ascites with paracentesis fluid with spontaneous bacterial peritonitis. The patient with left breast cellulitis, acute kidney injury on top of chronic kidney disease. Creatinine is changed from 1.3 to 2.1, must rule out spontaneous bacterial peritonitis. We will treat the patient with meropenem, adjusted for renal insufficiency gm q.12 and pending blood cultures, urine cultures, should send for ascitic paracentesis for cell count, Gram stain and ascitic fluid cultures. The patient does have a Port-A-Cath, must consider bacteremia, although she has not had any fevers. We will give one dose of vancomycin at 2 gm, pending campuzano-culture initial workup results. Chest x-ray is reported to be negative. We will make further recommendations. Arnaldo Crum MD
--- NOTE | 2017-12-31 23:30 | HP ---
CHIEF COMPLAINT AND HISTORY OF PRESENT ILLNESS: This is a 67-year-old female, who is coming into the hospital complaining of shortness of breath, weakness, and lightheadedness. She had come in to the hospital for elective paracentesis, which she has been getting because of her history of cirrhosis. The patient was seen in the emergency room and evaluated by the emergency room doctor, she was admitted for further evaluation. She was found to have sugars that were quickly elevated, not well controlled, the patient does have a history of diabetes. She had a history of breast cancer, has been getting chemotherapy by Dr. Cook. She has hypertension and hypothyroidism. She states that she has been taking her medications. She complains of weakness and she states she has been noticing drainage over the last month from her left breast as well. She has not had surgery for her breast cancer because I was felt that she was a not a good surgical candidate because of her multiple comorbidities. The patient had no nausea. No vomiting. No dysuria. No weakness in the legs. REVIEW OF SYSTEMS: All other review of symptoms are within normal limits except that was mentioned. ALLERGIES: TO BANANA, SHE USUALLY GETS RASH. HOME MEDICATIONS: Aspirin, vitamin D, Synthroid, simvastatin, Humulin R 5 units at dinner, Humulin R 9 units at lunch. PAST MEDICAL HISTORY: 1. Sepsis. 2. Cirrhosis with ascites. 3. Diabetes type 2. 4. Hypertension. 5. Port-A-Cath. 6. Anemia. 7. Thrombocytopenia. 8. Left leg DVT. SOCIAL HISTORY: The patient does not smoke. She denies alcohol or drugs. She has three children, and she lives with her son. She has no advance directive. FAMILY HISTORY: The patient's daughter had ovarian cancer, mother had Alzheimer's and at 78. Father was alcoholic and developed throat cancer, at 69. PAST SURGICAL HISTORY: 1. Appendectomy. 2. Port-A-Cath placement. PHYSICAL EXAMINATION: VITAL SIGNS: Temperature is 97.9, pulse is 95, blood pressure is 102/66, respirations 18, and O2 saturation 100%. Height is 5 feet 3 inches, weight is 295 pounds, and BMI is 34. GENERAL: The patient lying in bed, uncomfortable, and in no acute distress. HEENT: Atraumatic and normocephalic. Anicteric sclerae. Moist mucosa. [place] conjunctivae. No oral lesions. NECK: No JVD, anterior and posterior adenopathy, thyromegaly, or bruits. CHEST: In the left breast area, she has a large area on the skin, that has stage 2 ulcer. There are areas of drainage. It is covering the whole left side of her chest. CARDIOVASCULAR: S1 and S2 regular. No murmur, rubs, or gallop. LUNGS: Clear to auscultation bilaterally. No wheezes, rales, or rhonchi. ABDOMEN: Bowel sounds are positive. Soft, nontender and nondistended. No hepatosplenomegaly. No rebound and no guarding EXTREMITIES: No cyanosis, clubbing, or edema. In the left leg, there are also small areas of ulcers, less than one centimeter of four that could be seen. They are not draining. They are stage 2 ulcers. NEUROLOGIC: No facial asymmetry. Tongue is midline. No uvula deviation. Power is 5/5 upper extremity and lower extremity. Sensation intact in upper extremity and lower extremity. PSYCHIATRIC: She is awake, alert and oriented x3. No anxiety or depression. She has normal affect. GENITOURINARY: No CVA tenderness. VASCULAR: 2+ pulses in the carotid pulses and pedal pulses. SKIN: No erythema or nodules SPINE: Shows normal curvature. LABORATORY DATA: White count 5.0, hemoglobin 12.6, platelets count is 105. Repeat CBC showed hemoglobin of 11.8 with a platelet count of 93. INR is 1.3, pH of 7.27 with a pCO2 of 25. The patient's bicarb is 14. Sodium is 131, potassium is 5.5. AST is 62, ALT is 51, TSH is 3.67. EKG done shows sinus tachycardia with a heart rate of 99. There is a low voltage QRS, nonspecific ST changes. Chest x-ray done shows no active disease. ASSESSMENT: 1. Diabetes type 2, uncontrolled with hypoglycemia. 2. Hyponatremia. 3. Hyperkalemia. 4. Metabolic acidosis. 5. Acute kidney injury with baseline creatinine of 1.3. 6. Left chest wound. 7. Left leg wound. 8. Cirrhosis. 9. Breast cancer. 10. Osteoarthritis. 11. Ascites. 12. Thrombocytopenia. 13. Left leg deep venous thrombosis, on anticoagulation. 14. Hypertension. 15. Port-A-Cath. PLAN: The patient is going to be admitted to the hospital. She is going to need a further management with Endocrinology for hyperglycemia. The patient also has been getting chemotherapy for breast cancer by Dr. Cook who evaluated the patient. The patient's blood cultures and urine cultures have been drawn, results are pending. I will get Dr. Crum from Infectious Disease to evaluate the patient. I have placed the patient on Lovenox for the DVT, she is subtherapeutic on her Coumadin. I will increase the patient's Coumadin to 4 mg. The patient is on Lovenox as well. She is on antibiotics with meropenem. I will start her on sodium bicarb for her metabolic acidosis. I suspect that the patient may have underlying CKD that is causing her creatinine to be elevated. The patient is on Synthroid for hypothyroidism. She is going to need physical therapy. I discontinued the patient's telemetry. I will get an urine study to see if she has any proteinuria. Overall prognosis is guarded. I will also get surgical evaluation to evaluate for the large wound if there is any surgical debridement needs to be done. Rangel Ngo MD
--- NOTE | 2017-12-31 23:38 | PN ---
DATE: ENDOCRINOLOGY FOLLOWUP NOTE LOCATION: Room 574. SUBJECTIVE: This is a 67-year-old female with recent uncontrolled type 2 insulin-requiring diabetes, now being followed closely for metabolic management. Her glycemic levels are fluctuating, but improved and today's glucose values have ranged from 212 to 232 mg/dL. Her hemoglobin A1c is 8.9%, which is elevated and indicative of suboptimal metabolic control of her diabetic condition. Her latest chemistry showed a BUN of 71, sodium 131, potassium 5.5, chloride 113, CO2 is 14, glucose is 242 and creatinine is 1.9. ASSESSMENT: This is a 67-year-old female with uncontrolled and decompensated type 2 insulin-requiring diabetes with recent hyperglycemic accelerations as noted thereof. She also has diabetic microvascular complications of retinopathy, polyneuropathy and nephropathy as noted thereof. PLAN OF MANAGEMENT: As discussed with the patient's staff, we will modify once again her basal and bolus insulin regimen and increase the Humalog to 14 units subcu t.i.d. before meals as ordered. We will also titrate her basal insulin and Levemir will be increased to 24 units subcu at bedtime daily to start tonight. We will continue the modified low-dose correction scale using Humalog insulin as given. We will obtain serial chemistries and supplement accordingly needed. We will follow. Dorcas Galvin MD
[2018-01-01 07:53] LABS: HEMOGLOBIN 11.9 g/dL (12.0-16.0); MEAN CELL VOLUME 87.9 fl (80.0-105.0); MEAN CORPUSCULAR HEMOGLOBIN 29.3 pg (25.0-35.0); MEAN CORPUSCULAR HGB CONC 33.3 g/dl (31.0-37.0); MEAN PLATELET VOLUME 10.6 fl (7.0-11.0); RBC 4.06 10^6/uL (3.5-6.1); RED CELL DISTRIBUTION WIDTH 14.5 % (11.5-14.5); WHITE BLOOD COUNT 5.9 10^3/ul (4.5-11.0)
[2018-01-01 08:24] LABS: ALB/GLOB RATIO 0.6 (1.1-1.8); ALBUMIN 2.1 g/dL (3.0-4.8); CALCIUM 7.7 mg/dL (8.4-10.5); MAGNESIUM 1.6 mg/dL (1.7-2.2)
[2018-01-01] MEDS ORDERED: Sod Polystyrene Sulf 15 gm/60 ml Susp PO ONE (08:29)
--- NOTE | 2018-01-01 08:32 | CON ---
ONCOLOGY CONSULTATION DATE: 12/31/2017 HISTORY OF PRESENT ILLNESS: This is a 67-year-old woman with two major medical problems; 1. She has severe cirrhosis for which she has recurrent massive ascites and she now is having an indwelling catheter and she looked for the outpatient to be drained about 5 L every Saturday and every Saturday in the outpatient area. This has been going up for many, many months. She is being followed by Dr. Prieto for her liver problems. 2. The patient has left mastectomy, status post mastectomy and chemotherapy and then the cancer recurred along the whole chest wall, this is stage IV locally advanced metastatic breast cancer. She has been on multiple agents of chemotherapy. Most recently, she has been put on Halaven chemotherapy out of every 3 weeks. She was due for the chemotherapy today, but we are holding off till next week and finally she also has other medical problems including severe diabetes for which her sugars have been running elevated between 250 to 400 range. She was getting her ascites tapped and she became very weak and was admitted. PHYSICAL EXAMINATION: GENERAL: The patient is sitting up in a chair. She is comfortable. SKIN: No petechiae. No bruises. HEENT: Anicteric. NODES: Nonpalpable in the axillary, cervical, supraclavicular or inguinal regions. LUNGS: Clear at present. No vertebral tenderness. HEART: S1 and S2. BREAST: Shows right-sided mastectomy site with metastatic cancer. I think this may be improving. There is less redness and it seems clear and we both think that she may be responding to the Halaven. ABDOMEN: Shows massive ascites, but no tenderness, no masses. EXTREMITIES: Slight edema. DIRECT OF REAL ESTATE: No focal finding. LABORATORY FINDINGS: Shows white count 5.8, hemoglobin 11.8 and platelet count has been running around 190,000, this is unstable. She has a creatinine of 2 with a BUN of 17, this is due to the Lasix and removing of her ascites. PLAN: At this point, she is feeling somewhat better after the hydration and soon after some hydration should be discharged and she knows to see me in the office on Saturday for chemotherapy. Garrett Cook MD
[2018-01-01] MEDS: Insulin Lispro 1 UNITS/0.01 ML SC SCH ×3 (09:10→16:59)
[2018-01-01] MEDS: Levothyroxine 75 MCG TAB PO SCH (09:10)
[2018-01-01] MEDS: Insulin Lispro (humaLOG) LOW Coverage SC SCH ×4 (09:11→22:07)
--- NOTE | 2018-01-01 09:59 | PN ---
DATE: 01/01/2018 SUBJECTIVE: The patient has no complaints of any chest pain or shortness of breath. She says she feels well. PHYSICAL EXAMINATION VITAL SIGNS: Temperature is 97.8, pulse of 101, blood pressure is 97/64, respirations 18. GENERAL: The patient is lying in bed, flat, comfortable. HEENT: No oral lesion. Anicteric sclerae. Moist mucosa. NECK: No JVD, adenopathy, or thyromegaly. CARDIOVASCULAR: S1 and S2, regular. No murmurs, rubs, or gallops. LUNGS: Clear to auscultation bilaterally. No wheeze, rales, or rhonchi. ABDOMEN: Bowel sounds are positive. Soft, nontender and nondistended. EXTREMITIES: No cyanosis, clubbing or edema. LABORATORY DATA: White count of 5.9, hemoglobin of 11.9, platelet count is 83,000. Creatinine is 2.0, potassium is 5.3. ASSESSMENT 1. Diabetes type 2, uncontrolled. 2. Hyponatremia. 3. Hyperkalemia. 4. Metabolic acidosis. 5. Acute kidney injury. 6. Left chest wound, chronic. 7. Cirrhosis. 8. Thrombocytopenia. 9. Breast cancer. 10. Osteoarthritis. 11. Ascites. 12. Left leg deep venous thrombosis, on anticoagulation. 13. Hypertension. 14. Port-A-Cath. PLAN: The patient is currently comfortable. She has been followed by Dr. Galvin from Endocrinology. The patient is on Humalog. She is being titrated. She is on Levemir as well. The patient is on a sliding scale. I appreciate Dr. Galvin's input. She was seen by Dr. Giron. The patient has multiple comorbidities. She has been undergoing frequent paracentesis. She is going to get local wound care for her breast wound. She is being followed by ID as well. The patient is on Coumadin for anticoagulation, is on Lipitor for dyslipidemia. She is on meropenem for antibiotics. The patient's cultures are negative. The patient is going to continue with Zofran as needed, is on a diabetic diet. The patient was seen by Physical Therapy and they have recommended transitional care. I did offer this to her. She is going to think about whether she wants to go to Transitional Care. She is agreeable and she is accepted. She can be discharged to Transitional Care. Rangel Ngo MD
[2018-01-01] MEDS: Meropenem IV 1 gm in NS 50 ML IVPB SCH ×2 (11:08→21:46)
[2018-01-01] MEDS: Enoxaparin 80 mg Syringe SC SCH (11:10)
--- NOTE | 2018-01-01 12:32 | CP.PCM.PN ---
Subjective - Date & Time of Evaluation Date of Evaluation: 01/01/18 Time of Evaluation: 07:00 - Subjective Subjective: GENERAL SURGERY PROGRESS NOTE FOR DR. DAILEY Patient seen and examined at bedside. She is doing well with no complaints. She was seen by wound care nurse yesterday. Dressing was changed this morning. Objective - Vital Signs/Intake and Output Vital Signs (last 24 hours): Temp Pulse Resp BP Pulse Ox 98.7 F 100 H 18 95/64 L 97 01/01/18 08:00 01/01/18 08:00 01/01/18 08:00 01/01/18 08:00 01/01/18 08:00 - Medications Medications: Current Medications Aspirin (Ecotrin) 81 mg PO DAILY [facility] Last Admin: 01/01/18 11:10 Dose: 81 mg Atorvastatin Calcium (Lipitor) 20 mg PO HS [facility] Last Admin: 12/31/17 22:30 Dose: 20 mg Enoxaparin Sodium (Lovenox) 80 mg SC DAILY [facility] PRN Reason: Protocol Last Admin: 01/01/18 11:10 Dose: 80 mg Meropenem (Merrem Iv 1 Gm Premix) 50 mls @ 100 mls/hr IVPB Q12 [facility] PRN Reason: Protocol Stop: 01/08/18 11:31 Last Admin: 01/01/18 11:08 Dose: 100 mls/hr Sodium Chloride (Sodium Chloride 0.9%) 1,000 mls @ 100 mls/hr IV .Q10H [facility] Last Admin: 12/31/17 13:41 Dose: 100 mls/hr Insulin Detemir (Levemir) 24 unit SC HS [facility] Last Admin: 12/31/17 22:29 Dose: 24 unit Insulin Human Lispro (Humalog Low) 0 units SC ACHS [facility] PRN Reason: Protocol Last Admin: 01/01/18 09:11 Dose: Not Given Insulin Human Lispro (Humalog) 14 units SC AC [facility] Last Admin: 01/01/18 09:10 Dose: 14 units Levothyroxine Sodium (Synthroid) 75 mcg PO ACB [facility] Last Admin: 01/01/18 09:10 Dose: 75 mcg Ondansetron HCl (Zofran Inj) 4 mg IVP Q4H PRN PRN Reason: Nausea/Vomiting Sodium Bicarbonate (Sodium Bicarbonate Tab) 650 mg PO BID [facility] Last Admin: 01/01/18 11:10 Dose: 650 mg Warfarin Sodium (Coumadin) 4 mg PO HS [facility] PRN Reason: Protocol Last Admin: 12/31/17 22:30 Dose: 4 mg - Labs Labs: 01/01/18 07:30 01/01/18 07:30 PT 15.4 SECONDS (9.4-12.5) H 12/30/17 13:00 INR 1.33 (0.93-1.08) H 12/30/17 13:00 APTT 26.5 Seconds (25.1-36.5) 12/30/17 13:00 - Constitutional Appears: Non-toxic, No Acute Distress - Head Exam Head Exam: NORMAL INSPECTION - Respiratory Exam Respiratory Exam: NORMAL BREATHING PATTERN. absent: Respiratory Distress - Cardiovascular Exam Cardiovascular Exam: +S1, +S2 - Neurological Exam Neurological Exam: Alert, Awake, Oriented x3 - Psychiatric Exam Psychiatric exam: Normal Affect, Normal Mood - Skin Additional comments: Dressing changed on left breast. Assessment and Plan - Assessment and Plan (Free Text) Assessment: 67yo female with PMHx of left breast cancer, DM, HTN, ascites secondary to cirrhosis. Surgery consulted for left breast wound with drainage. Plan: - Local wound care with xeroform, possible bedside debridement today, then wet to dry dressings - Discussed case with Stoney Quintana (wound care nurse) - Discussed plan with Dr. Mack Pollard PGY-3
--- NOTE | 2018-01-01 13:57 | PN ---
DATE: LOCATION: Room 574. SUBJECTIVE: This is a 67-year-old female with recent uncontrolled type 2 insulin-requiring diabetes now being followed closely for metabolic management. Her glycemic levels are fluctuating, but much improved at this time and the glucose levels have ranged from 195 mg/dL to 172 mg/dL. Her hemoglobin A1c is 8.9% as noted. The latest chemistry showed BUN of 71, sodium of 131, potassium of 5.5, chloride of 113, CO2 is 14, glucose is 242, and creatinine is 1.9. Her thyroid study showed T4 of 5.8 with TSH of 3.67 indicative of subclinical hypothyroidism as noted. ASSESSMENT: This is a 67-year-old female with uncontrolled and decompensated type 2 insulin-requiring diabetes with improving glycemic fluctuations as noted thereof. She also has diabetic microvascular complications of retinopathy, polyneuropathy, and nephropathy as noted. Moreover, she also has subclinical hypothyroidism as mentioned, currently on levothyroxine replacement therapy as given. PLAN: Plan of management as discussed with the patient and staff. We will titrate her levothyroxine dosing to a higher dose of 75 mcg once daily in the morning as ordered. We will also modify her basal and bolus insulin regimen and increase the Humalog to 14 units subcu t.i.d. before meals as ordered. We will also continue her Levemir given as 24 units subcu at bedtime daily as given. We will continue the low-dose correction scale using Humalog insulin as ordered. We will follow and advice accordingly. Dorcas Galvin MD
[2018-01-01 16:47] VITALS: RESP 20
--- NOTE | 2018-01-01 20:27 | PN ---
DATE: 01/01/2018 SUBJECTIVE: The patient is in bed, was seen early this morning in 574, bed 2. PHYSICAL EXAMINATION: VITAL SIGNS: The patient's temperature is 97, blood pressure is 85/50, respiratory rate of 20, heart rate of 72. HEENT: Examination of HEENT is unremarkable. NECK: Supple. LUNGS: Have decreased breath sounds. HEART: Normal S1 and S2. ABDOMEN: Soft. LABORATORY DATA: Laboratory examination reveals a white count of 5.9, hemoglobin of 11. Chemistries reveal a BUN of 67, creatinine of 2.0. Procalcitonin 0.7. In the breast, left breast, there is a gram-positive cocci Chromobacterium. In the leg is a gram-positive cocci. ASSESSMENT AND PLAN: This is a 67-year-old female who has hypertension, diabetes, breast cancer, had chemotherapy 2 weeks ago, obesity, recurrent ascites, paracentesis, who is with spontaneous bacterial peritonitis in this admission. The patient had left breast cellulitis with acute kidney injury on top of chronic kidney injury and the patient was given a dose of vancomycin and the left breast is improved. The patient is also on meropenem. We are waiting for identification of the gram-positive cocci from the breast and the leg. The patient's left leg with cellulitis also. We will follow with you. Arnaldo Crum MD
[2018-01-01] MEDS: Insulin Detemir 100 units/ml Vial (Levemir) SC SCH (22:17)
[2018-01-02] MEDS: Sodium Chloride 0.9% 1,000 ML IV SCH (00:40)
[2018-01-02] MEDS: Levothyroxine 75 MCG TAB PO SCH (08:14)
[2018-01-02] MEDS: Insulin Lispro (humaLOG) LOW Coverage SC SCH ×4 (08:14→21:38)
[2018-01-02] MEDS: Insulin Lispro 1 UNITS/0.01 ML SC SCH ×3 (08:14→17:27)
[2018-01-02 08:26] LABS: HEMOGLOBIN 11.4 g/dL (12.0-16.0); MEAN CELL VOLUME 87.8 fl (80.0-105.0); MEAN CORPUSCULAR HEMOGLOBIN 29.1 pg (25.0-35.0); MEAN CORPUSCULAR HGB CONC 33.1 g/dl (31.0-37.0); MEAN PLATELET VOLUME 11.1 fl (7.0-11.0); RBC 3.92 10^6/uL (3.5-6.1); RED CELL DISTRIBUTION WIDTH 14.8 % (11.5-14.5); WHITE BLOOD COUNT 6.8 10^3/ul (4.5-11.0)
[2018-01-02 09:00] LABS: ALB/GLOB RATIO 0.6 (1.1-1.8); CALCIUM 7.7 mg/dL (8.4-10.5)
[2018-01-02] MEDS: Meropenem IV 1 gm in NS 50 ML IVPB SCH ×2 (10:01→22:31)
[2018-01-02] MEDS: Enoxaparin 80 mg Syringe SC SCH (10:01)
--- NOTE | 2018-01-02 10:47 | CP.PCM.CON ---
History of Present Illness - History of Present Illness History of Present Illness: Palliative consult requested by Dr Kylah Ngo Reason: Goals of care/advance care planning 67 year old female with history of Stage IV locally advanced breast cancer undergoing chemotherapy who presented with shortness of breath weakness and lightheadedness. Her symptoms increased while in the process of having ascites drained. Found to have bacterial peritonitis and LLE cellulitis. Labs indicative of hyperglycemia, hyponatremia, hyperkalemia, thrombocytopenia and AFUA. PMHx: Metastatic breast cancer, DM, PRO, cirrhosis, ascites,breast cellulitis. , DVT on anticoagulation,OA,HTN. Social History:Non smoker, no alcohol or drug use. Lives with her son. Family History: Non contributory. Advance Care Planning: The patient has a POLST: DNR/DNI. Review of Systems: As per HPI, otherwise negative 12 point review. Past Patient History - Infectious Disease Hx of Infectious Diseases: None - Past Medical History & Family History Past Medical History?: Yes - Past Social History Smoking Status: Never Smoked Alcohol: None Drugs: Denies - CARDIAC Hx Cardiac Disorders: No Hx Hypertension: Yes Hx Peripheral Edema: Yes (right +2 weeping pitting/ Left +3 weep/pitting) - PULMONARY Hx Respiratory Disorders: Yes Hx Pulmonary Embolism: Yes - NEUROLOGICAL Hx Neurological Disorder: No - HEENT Hx HEENT Problems: Yes Other/Comment: glasses - RENAL Hx Chronic Kidney Disease: No - ENDOCRINE/METABOLIC Hx Diabetes Mellitus Type 2: Yes Hx Hypothyroidism: Yes - HEMATOLOGICAL/ONCOLOGICAL Hx Cancer: Yes (breast cancer, dx 11/2016) Hx Chemotherapy: Yes (last chemo 2 wks ago) Hx Cirrhosis: Yes (ascites) Other/Comment: peritoneal drain to right abd for ascites, drained 2x's a week at infusion center - INTEGUMENTARY Hx Dermatological Problems: No - MUSCULOSKELETAL/RHEUMATOLOGICAL Hx Falls: No - GASTROINTESTINAL Hx Gastrointestinal Disorders: Yes (cirrhosis , ascites ) Other/Comment: Ascitis - GENITOURINARY/GYNECOLOGICAL Hx Genitourinary Disorders: No Other/Comment: Breast Cancer - PSYCHIATRIC Hx Substance Use: No - SURGICAL HISTORY Hx Appendectomy: Yes (open ) Other/Comment: Port in R chest, - ANESTHESIA Hx Anesthesia Reactions: No Hx Malignant Hyperthermia: No Meds Home Medications: Home Medication List Medication Instructions Recorded Confirmed Type Acetaminophen [Tylenol 325mg tab] 650 mg PO Q4H PRN tab 01/03/18 Rx Atorvastatin [Lipitor] 20 mg PO HS tab 01/03/18 Rx Gabapentin [Neurontin] 300 mg PO DAILY cap 01/03/18 Rx Ibuprofen [Motrin Tab] 600 mg PO Q6H PRN tab 01/03/18 Rx Insulin Detemir [Levemir] 20 unit SC HS unit 01/03/18 Rx Insulin Lispro [humALOG] 10 units SC AC ml 01/03/18 Rx Insulin Lispro-LOW [humALOG LOW] 0 units SC ACHS ml 01/03/18 Rx Levothyroxine [Synthroid] 75 mcg PO ACB tab 01/03/18 Rx Ondansetron [Zofran Inj] 4 mg IVP Q4H PRN vial 01/03/18 Rx Sodium Bicarbonate Tab 650 mg PO BID tab 01/03/18 Rx Warfarin [Coumadin] 4 mg PO HS tab 01/03/18 Rx traMADol [Ultram] 25 mg PO Q6H PRN tab 01/03/18 Rx Allergies/Adverse Reactions: Allergies Allergy/AdvReac Type Severity Reaction Status Date / Time banana Allergy Severe RASH Verified 12/30/17 12:54 - Medications Medications: Current Medications Aspirin (Ecotrin) 81 mg PO DAILY [facility] Last Admin: 01/02/18 10:04 Dose: 81 mg Atorvastatin Calcium (Lipitor) 20 mg PO HS [facility] Last Admin: 01/01/18 22:16 Dose: 20 mg Enoxaparin Sodium (Lovenox) 80 mg SC DAILY [facility] PRN Reason: Protocol Last Admin: 01/02/18 10:01 Dose: 80 mg Meropenem (Merrem Iv 1 Gm Premix) 50 mls @ 100 mls/hr IVPB Q12 [facility] PRN Reason: Protocol Stop: 01/08/18 11:31 Last Admin: 01/02/18 10:01 Dose: 100 mls/hr Sodium Chloride (Sodium Chloride 0.9%) 1,000 mls @ 100 mls/hr IV .Q10H [facility] Last Admin: 01/02/18 00:40 Dose: 100 mls/hr Insulin Detemir (Levemir) 24 unit SC HS [facility] Last Admin: 01/01/18 22:17 Dose: 24 unit Insulin Human Lispro (Humalog Low) 0 units SC ACHS [facility] PRN Reason: Protocol Last Admin: 01/02/18 08:14 Dose: Not Given Insulin Human Lispro (Humalog) 14 units SC AC [facility] Last Admin: 01/02/18 08:14 Dose: Not Given Levothyroxine Sodium (Synthroid) 75 mcg PO ACB [facility] Last Admin: 01/02/18 08:14 Dose: 75 mcg Ondansetron HCl (Zofran Inj) 4 mg IVP Q4H [facility] PRN Reason: Nausea/Vomiting Sodium Bicarbonate (Sodium Bicarbonate Tab) 650 mg PO BID [facility] Last Admin: 01/02/18 10:01 Dose: 650 mg Warfarin Sodium (Coumadin) 4 mg PO HS [facility] PRN Reason: Protocol Last Admin: 01/01/18 22:16 Dose: 4 mg Physical Exam - Constitutional Appears: Chronically Ill - Head Exam Head Exam: NORMOCEPHALIC - Eye Exam Eye Exam: Normal appearance, PERRL - ENT Exam ENT Exam: Mucous Membranes Moist, Normal Oropharynx - Respiratory Exam Respiratory Exam: Clear to Auscultation Bilateral, NORMAL BREATHING PATTERN - Cardiovascular Exam Cardiovascular Exam: REGULAR RHYTHM, +S1, +S2 - GI/Abdominal Exam GI & Abdominal Exam: Distended, Soft - Extremities Exam Additional comments: pitting edema of both lower extremities - Back Exam Back exam: NORMAL INSPECTION - Neurological Exam Neurological exam: Alert, Oriented x3 - Skin Skin Exam: Dry, Pallor - Additional Findings Additional findings: palliative performance scale rating 60% Results - Vital Signs Recent Vital Signs: Last Vital Signs Temp 97.7 F 01/02/18 08:00 Pulse 99 H 01/02/18 08:00 Resp 20 01/02/18 08:00 BP 100/59 L 01/02/18 08:00 Pulse Ox 97 01/02/18 08:00 - Labs Result Diagrams: 01/03/18 05:45 01/03/18 05:45 Labs: Laboratory Results - last 24 hr 01/01/18 01/01/18 01/01/18 11:34 16:11 21:56 WBC RBC Hgb Hct MCV MCH MCHC RDW Plt Count MPV Sodium Potassium Chloride Carbon Dioxide Anion Gap BUN Creatinine Est GFR ( Amer) Est GFR (Non-Af Amer) POC Glucose (mg/dL) 236 H 124 H 126 H Random Glucose Calcium Total Bilirubin AST ALT Alkaline Phosphatase Total Protein Albumin Globulin Albumin/Globulin Ratio 01/02/18 01/02/18 01/02/18 07:25 08:10 08:10 WBC 6.8 RBC 3.92 Hgb 11.4 L Hct 34.4 L MCV 87.8 MCH 29.1 MCHC 33.1 RDW 14.8 H Plt Count 92 L MPV 11.1 H Sodium 136 Potassium 4.3 Chloride 114 H Carbon Dioxide 17 L Anion Gap 9 L BUN 64 H Creatinine 2.0 H Est GFR ( Amer) 30 Est GFR (Non-Af Amer) 25 POC Glucose (mg/dL) 62 L Random Glucose 66 L Calcium 7.7 L Total Bilirubin 0.5 AST 129 H ALT 84 H Alkaline Phosphatase 177 H Total Protein 5.3 L Albumin 2.0 L Globulin 3.3 Albumin/Globulin Ratio 0.6 L Assessment & Plan - Assessment and Plan (Free Text) Assessment: 67 year old female with history of metastatic breast cancer, PRO, cirrhosis, ascites who is admitted with bacterial peritonitis, left leg cellulitis, hyperglycemia,hyponatremia, AK, . The patient is known to me from previous admission. She is alert and oriented. Offers no complaints. States she is wishes to continue chemotherapy treatment but unsure if she will be able to do so because of her current infection status. This worries her to some degree. She understands that treatment may be on hold, and this is in her best interest. She is coping with this aspect "one day at the time". Psychosocial support given. She and I had completed a POLST in the past. The patient states that POLST is active and that she wants to remain DNR/DNI. Time spent in goals of care and advance care planning discussion, 30 minutes Plan: Palliative support with psychosocial support, will follow POLST: DNR/DNI
--- NOTE | 2018-01-02 11:58 | PCM.PROC ---
Procedures Attestation:: I certify that I have explained the specified Operation(s) or Procedure(s), risks, benefits and reasonable alternatives to the Patient and/or other person responsible. The opportunity was given to ask questions and all questions answered - Paracentesis Time Out Performed: Yes Indication: Ascites Location: RLQ (via aspira catheter. Obtained affluent, nonbloody, nonpurulent, clear yellow 5L fluid. Pt tolerated well. Site cleaned and dressing changed.)
--- NOTE | 2018-01-02 12:51 | CP.PCM.PN ---
Subjective - Date & Time of Evaluation Date of Evaluation: 01/02/18 Time of Evaluation: 07:30 - Subjective Subjective: Patient seen and examined at bedside. No adverse events overnight. Patient denies any fevers, chills, nausea, vomiting, but does complain of pain in her lateral chest where the left breast skin wound extends into her axilla. Objective - Vital Signs/Intake and Output Vital Signs (last 24 hours): Temp Pulse Resp BP Pulse Ox 97.7 F 99 H 20 100/59 L 97 01/02/18 08:00 01/02/18 08:00 01/02/18 08:00 01/02/18 08:00 01/02/18 08:00 Intake and Output: 01/02/18 01/02/18 06:59 18:59 Intake Total 1560 Output Total 7 Balance 1553 - Medications Medications: Current Medications Aspirin (Ecotrin) 81 mg PO DAILY [facility] Last Admin: 01/02/18 10:04 Dose: 81 mg Atorvastatin Calcium (Lipitor) 20 mg PO HS [facility] Last Admin: 01/01/18 22:16 Dose: 20 mg Enoxaparin Sodium (Lovenox) 80 mg SC DAILY [facility] PRN Reason: Protocol Last Admin: 01/02/18 10:01 Dose: 80 mg Meropenem (Merrem Iv 1 Gm Premix) 50 mls @ 100 mls/hr IVPB Q12 [facility] PRN Reason: Protocol Stop: 01/08/18 11:31 Last Admin: 01/02/18 10:01 Dose: 100 mls/hr Insulin Detemir (Levemir) 24 unit SC HS [facility] Last Admin: 01/01/18 22:17 Dose: 24 unit Insulin Human Lispro (Humalog Low) 0 units SC ACHS [facility] PRN Reason: Protocol Last Admin: 01/02/18 12:29 Dose: 1 units Insulin Human Lispro (Humalog) 14 units SC AC [facility] Last Admin: 01/02/18 12:29 Dose: Not Given Levothyroxine Sodium (Synthroid) 75 mcg PO ACB [facility] Last Admin: 01/02/18 08:14 Dose: 75 mcg Ondansetron HCl (Zofran Inj) 4 mg IVP Q4H PRN PRN Reason: Nausea/Vomiting Sodium Bicarbonate (Sodium Bicarbonate Tab) 650 mg PO BID [facility] Last Admin: 01/02/18 10:01 Dose: 650 mg Warfarin Sodium (Coumadin) 4 mg PO HS [facility] PRN Reason: Protocol Last Admin: 01/01/18 22:16 Dose: 4 mg - Labs Labs: 01/02/18 08:10 01/02/18 08:10 PT 15.4 SECONDS (9.4-12.5) H 12/30/17 13:00 INR 1.33 (0.93-1.08) H 12/30/17 13:00 APTT 26.5 Seconds (25.1-36.5) 12/30/17 13:00 - Additional Findings Additional findings: - Constitutional Appears: Well, Non-toxic, In Acute Distress - Head Exam Head Exam: ATRAUMATIC, NORMOCEPHALIC - Eye Exam Eye Exam: Normal appearance - ENT Exam ENT Exam: Mucous Membranes Moist - Respiratory Exam Respiratory Exam: NORMAL BREATHING PATTERN. absent: Accessory Muscle Use, Respiratory Distress - Cardiovascular Exam Cardiovascular Exam: REGULAR RHYTHM - GI/Abdominal Exam GI & Abdominal Exam: absent: Distended - Extremities Exam Additional comments: 2+ edema of the left hand and arm - Neurological Exam Neurological Exam: Alert, Awake, Oriented x3 - Psychiatric Exam Psychiatric exam: Normal Affect, Normal Mood - Skin Skin Exam: Normal Color, Warm Additional comments: Superficial skin excoriation over the left breast extending to the left mid axillary line with scattered small areas of scabbing and discolored tissue. no purulent drainage or surrounding erythema Assessment and Plan - Assessment and Plan (Free Text) Assessment: 67yo female with PMHx of left inflammatory breast cancer with superficial skin wound Plan: -bedside debridement of necrotic tissue - Local wound care with xeroform dressing - May consider adding gabapentin for neuropathic pain - No indication for further surgical intervention at this time Seen and examined with Dr. Mack Jackson, PGY2
--- NOTE | 2018-01-02 17:28 | CP.PCM.PN ---
Subjective - Date & Time of Evaluation Date of Evaluation: 01/02/18 Time of Evaluation: 13:00 - Subjective Subjective: Feeling better, no fevers, not in distress. Less pain in the left leg. Objective - Vital Signs/Intake and Output Vital Signs (last 24 hours): Temp Pulse Resp BP Pulse Ox 97.7 F 99 H 20 100/59 L 97 01/02/18 08:00 01/02/18 08:00 01/02/18 08:00 01/02/18 08:00 01/02/18 08:00 Intake and Output: 01/02/18 01/02/18 06:59 18:59 Intake Total 1560 Output Total 7 Balance 1553 - Medications Medications: Current Medications Aspirin (Ecotrin) 81 mg PO DAILY [facility] Last Admin: 01/02/18 10:04 Dose: 81 mg Atorvastatin Calcium (Lipitor) 20 mg PO [facility] Last Admin: 01/01/18 22:16 Dose: 20 mg Enoxaparin Sodium (Lovenox) 80 mg SC DAILY [facility] PRN Reason: Protocol Last Admin: 01/02/18 10:01 Dose: 80 mg Meropenem (Merrem Iv 1 Gm Premix) 50 mls @ 100 mls/hr IVPB Q12 [facility] PRN Reason: Protocol Stop: 01/08/18 11:31 Last Admin: 01/02/18 10:01 Dose: 100 mls/hr Sodium Chloride (Sodium Chloride 0.9%) 1,000 mls @ 100 mls/hr IV .Q10H [facility] Last Admin: 01/02/18 00:40 Dose: 100 mls/hr Insulin Detemir (Levemir) 24 unit SC HS [facility] Last Admin: 01/01/18 22:17 Dose: 24 unit Insulin Human Lispro (Humalog Low) 0 units SC ACHS [facility] PRN Reason: Protocol Last Admin: 01/02/18 08:14 Dose: Not Given Insulin Human Lispro (Humalog) 14 units SC AC [facility] Last Admin: 01/02/18 08:14 Dose: Not Given Levothyroxine Sodium (Synthroid) 75 mcg PO ACB [facility] Last Admin: 01/02/18 08:14 Dose: 75 mcg Ondansetron HCl (Zofran Inj) 4 mg IVP Q4H PRN PRN Reason: Nausea/Vomiting Sodium Bicarbonate (Sodium Bicarbonate Tab) 650 mg PO BID [facility] Last Admin: 01/02/18 10:01 Dose: 650 mg Warfarin Sodium (Coumadin) 4 mg PO HS [facility] PRN Reason: Protocol Last Admin: 01/01/18 22:16 Dose: 4 mg - Labs Labs: 01/02/18 08:10 01/02/18 08:10 PT 15.4 SECONDS (9.4-12.5) H 12/30/17 13:00 INR 1.33 (0.93-1.08) H 12/30/17 13:00 APTT 26.5 Seconds (25.1-36.5) 12/30/17 13:00 - Constitutional Appears: Non-toxic, Chronically Ill - Head Exam Head Exam: NORMAL INSPECTION - Neck Exam Neck Exam: absent: Meningismus - Respiratory Exam Respiratory Exam: Decreased Breath Sounds - Cardiovascular Exam Cardiovascular Exam: +S1, +S2 - GI/Abdominal Exam GI & Abdominal Exam: Soft. absent: Tenderness Assessment and Plan - Assessment and Plan (Free Text) Plan: Assessment left breast and left leg cellulitis, slowly improving history of severe sepsis with leukopenia and acute renal failure, consider due to acute enteritis, less likely acute cholecystitis R/O spontaneous bacterial peritonitis HTN DM breast cancer with last chemotherapy session on April 24, 2017 S/P right port-a-cath placement obesity with BMI 39 Plan continue Merrem day 3 and will monitor clinically
--- NOTE | 2018-01-02 20:02 | PN ---
DATE: ENDOCRINOLOGY FOLLOWUP NOTE LOCATION: In room 574. SUBJECTIVE: This is a 67-year-old female with recent uncontrolled type 2 insulin requiring diabetes, presenting here with hyperosmolar hyperglycemic state and dehydration and is now being followed closely for metabolic management. She has also ongoing chemotherapy for left breast carcinoma as noted. Her glycemic levels are fluctuating but much improved at this time. Her oral intake remains quite variable and also suboptimal after . Her glucose levels are ranging from 62 to 126 and 152 mg/dL. Her latest chemistry showed BUN of 64, sodium 136, potassium 4.3, chloride 140, CO2 of 17, glucose 56 and creatinine 2.0. So at this time, we will modify her current basal and bolus insulin regimen and lower the Levemir to 20 units subcutaneous at bedtime daily to start tonight. We will also lower the Humalog to 10 units subcutaneous t.i.d. before meals as ordered. We will continue also the levothyroxine modified to 75 mcg once daily in the morning as ordered. We will obtain serial chemistries and supplement accordingly as needed. We will follow. Dorcas Galvin MD
--- NOTE | 2018-01-02 21:43 | PN ---
DATE: SUBJECTIVE: The patient has no complaints of any chest pain or shortness of breath. No headaches or dizziness. PHYSICAL EXAMINATION VITAL SIGNS: Temperature is 97.7, pulse of 99, blood pressure Is 100/59, respirations 20. GENERAL: The patient is lying in bed, flat, comfortable. HEENT: No oral lesion. Anicteric sclerae. Moist mucosa. NECK: No JVD, adenopathy, or thyromegaly. CARDIOVASCULAR: S1 and S2, regular. No murmurs, rubs, or gallops. LUNGS: Clear to auscultation bilaterally. No wheeze, rales, or rhonchi. ABDOMEN: Bowel sounds are positive, soft, nontender and nondistended. EXTREMITIES: no cyanosis, clubbing or edema. LABORATORY DATA: White count is 6.8, hemoglobin 11.4, creatinine is 2.0. ASSESSMENT: 1. Diabetes type 2, now controlled. 2. Hyponatremia, improved. 3. Hypokalemia, improved. 4. Metabolic acidosis. 5. Chronic kidney disease stage 3/4. 6. Cirrhosis. 7. Thrombocytopenia. 8. Breast cancer. 9. Osteoarthritis. 10. Ascites with catheter, chronic. 11. Left leg deep venous thrombosis, on anticoagulation. 12. Hypertension. 13. Port-A-Cath. PLAN: The patient is currently comfortable. I did review the notes from Surgery. There is bedside deployment that is planned. The patient is getting local wound care. The patient is going to continue with Coumadin for anticoagulation. Her INR is going to be checked tomorrow. I did increase the patient's Coumadin dosage. She is to be on her insulin for diabetes. She is on Lipitor for dyslipidemia. She is on Synthroid for her hypothyroidism. She did have drainage of ascitic fluid today. There are plans for her to go to Transition Care Unit. Rangel Ngo MD
[2018-01-02] MEDS ORDERED: Insulin Detemir 100 units/ml Vial (Levemir) SC SCH (22:00)
[2018-01-02] MEDS ORDERED: Enoxaparin 80 mg Syringe SC SCH (22:00)
[2018-01-03 06:26] LABS: HEMOGLOBIN 11.8 g/dL (12.0-16.0); MEAN CELL VOLUME 87.5 fl (80.0-105.0); MEAN CORPUSCULAR HEMOGLOBIN 29.4 pg (25.0-35.0); MEAN CORPUSCULAR HGB CONC 33.6 g/dl (31.0-37.0); MEAN PLATELET VOLUME 12.3 fl (7.0-11.0); RBC 4.01 10^6/uL (3.5-6.1); RED CELL DISTRIBUTION WIDTH 14.7 % (11.5-14.5); WHITE BLOOD COUNT 6.9 10^3/ul (4.5-11.0)
[2018-01-03 06:31] LABS: INR 2.04 (0.93-1.08); PROTHROMBIN TIME 23.8 SECONDS (9.4-12.5)
[2018-01-03 06:44] LABS: ALB/GLOB RATIO 0.6 (1.1-1.8); CALCIUM 7.6 mg/dL (8.4-10.5)
[2018-01-03] MEDS: Levothyroxine 75 MCG TAB PO SCH (07:50)
[2018-01-03] MEDS: Insulin Lispro (humaLOG) LOW Coverage SC SCH ×3 (08:11→16:50)
[2018-01-03] MEDS: Insulin Lispro 1 UNITS/0.01 ML SC SCH ×3 (08:11→16:52)
--- NOTE | 2018-01-03 10:00 | CP.PCM.PN ---
Subjective - Date & Time of Evaluation Date of Evaluation: 01/03/18 Time of Evaluation: 09:53 - Subjective Subjective: GENERAL SURGERY CONSULT PROGRESS NOTE FOR DR. DAILEY Patient has been seen and examined. Patient stated that she was in severe pain last night from her breast wound till about 10 o'clock and received a medication to resolve it. Patient is a little anxious about receiving further debridement due to yesterday's pain. Patient denies any fevers, chills, nausea, and vomiting. Objective - Vital Signs/Intake and Output Vital Signs (last 24 hours): Temp Pulse Resp BP Pulse Ox 98.2 F 97 H 20 108/77 99 01/03/18 08:26 01/03/18 08:26 01/03/18 08:26 01/03/18 08:26 01/03/18 08:26 Intake and Output: 01/03/18 01/03/18 06:59 18:59 Intake Total 180 Balance 180 - Medications Medications: Current Medications Acetaminophen (Tylenol 325mg Tab) 650 mg PO Q4H PRN PRN Reason: Pain, Mild (1-3) Aspirin (Ecotrin) 81 mg PO DAILY [facility] [place] Last Admin: 01/02/18 10:04 Dose: 81 mg Atorvastatin Calcium (Lipitor) 20 mg PO HS [facility] Last Admin: 01/02/18 21:37 Dose: 20 mg Meropenem (Merrem Iv 1 Gm Premix) 50 mls @ 100 mls/hr IVPB Q12 [facility] PRN Reason: Protocol Stop: 01/08/18 11:31 Last Admin: 01/02/18 22:31 Dose: 100 mls/hr Ibuprofen (Motrin Tab) 600 mg PO Q6H PRN PRN Reason: Pain, moderate (4-7) Insulin Detemir (Levemir) 20 unit SC HS [facility] [place] Last Admin: 01/02/18 21:38 Dose: 20 unit Insulin Human Lispro (Humalog Low) 0 units SC ACHS [facility] PRN Reason: Protocol Last Admin: 01/02/18 21:38 Dose: Not Given Insulin Human Lispro (Humalog) 10 units SC AC [facility] [place] Last Admin: 01/02/18 17:27 Dose: 10 units Levothyroxine Sodium (Synthroid) 75 mcg PO ACB [facility] [place] Last Admin: 01/02/18 08:14 Dose: 75 mcg Ondansetron HCl (Zofran Inj) 4 mg IVP Q4H PRN PRN Reason: Nausea/Vomiting Sodium Bicarbonate (Sodium Bicarbonate Tab) 650 mg PO BID [facility] [place] Last Admin: 01/02/18 17:31 Dose: 650 mg Tramadol HCl (Ultram) 25 mg PO Q6H PRN PRN Reason: Pain, severe (8-10) Last Admin: 01/02/18 16:18 Dose: 25 mg Warfarin Sodium (Coumadin) 4 mg PO HS [facility] PRN Reason: Protocol Last Admin: 01/02/18 21:37 Dose: 4 mg - Labs Labs: 01/03/18 05:45 01/03/18 05:45 PT 23.8 SECONDS (9.4-12.5) H 01/03/18 05:45 INR 2.04 (0.93-1.08) H 01/03/18 05:45 APTT 26.5 Seconds (25.1-36.5) 12/30/17 13:00 - Additional Findings Additional findings: - Additional Findings Additional findings: - Constitutional Appears: Well, Non-toxic, In Acute Distress - Head Exam Head Exam: ATRAUMATIC, NORMOCEPHALIC - Eye Exam Eye Exam: Normal appearance - ENT Exam ENT Exam: Mucous Membranes Moist - Respiratory Exam Respiratory Exam: NORMAL BREATHING PATTERN. absent: Accessory Muscle Use, Respiratory Distress - Cardiovascular Exam Cardiovascular Exam: REGULAR RHYTHM - GI/Abdominal Exam GI & Abdominal Exam: absent: Distended - Extremities Exam Additional comments: 2+ edema of the left hand and arm - Neurological Exam Neurological Exam: Alert, Awake, Oriented x3 - Psychiatric Exam Psychiatric exam: Normal Affect, Normal Mood - Skin Skin Exam: Normal Color, Warm Additional comments: Superficial skin excoriation over the left breast extending to the left mid axillary line with scattered small areas of scabbing and discolored tissue. no purulent drainage or surrounding erythema Assessment and Plan - Assessment and Plan (Free Text) Assessment: 67yo female with PMHx of left inflammatory breast cancer with superficial skin wound Plan: - patient may warrant further bedside debridement of necrotic tissue in the next couple of days. Deferring today due to pain. - Local wound care with xeroform dressing - Consider adding gabapentin for neuropathic pain - No indication for operative treatment. - Cont. to follow up with Heme/Onc for medical management. Patient seen and examined with Dr. Mack Williamsonibe, PGY1
[2018-01-03] MEDS ORDERED: Meropenem 1g/NS 100mL IVPB 1 GM/100 ML PIGGYBACK IVPB SCH (10:08)
[2018-01-03] MEDS ORDERED: Oxycodone/Acetaminophen 5/325 mg Tab PO PRN (10:08)
[2018-01-03] MEDS: Meropenem IV 1 gm in NS 50 ML IVPB SCH (11:10)
--- NOTE | 2018-01-03 12:23 | CP.PCM.PN ---
Subjective - Date & Time of Evaluation Date of Evaluation: 01/03/18 Time of Evaluation: 11:00 - Subjective Subjective: Alert. Complains of burning pain right axilla area which radiates to chest and back Objective - Vital Signs/Intake and Output Vital Signs (last 24 hours): Temp Pulse Resp BP Pulse Ox 98.2 F 97 H 20 108/77 99 01/03/18 08:26 01/03/18 08:26 01/03/18 08:26 01/03/18 08:26 01/03/18 08:26 Intake and Output: 01/03/18 01/03/18 06:59 18:59 Intake Total 180 Balance 180 - Medications Medications: Current Medications Acetaminophen (Tylenol 325mg Tab) 650 mg PO Q4H PRN PRN Reason: Pain, Mild (1-3) Aspirin (Ecotrin) 81 mg PO DAILY [facility] Last Admin: 01/03/18 10:12 Dose: 81 mg Atorvastatin Calcium (Lipitor) 20 mg PO HS [facility] Last Admin: 01/02/18 21:37 Dose: 20 mg Gabapentin (Neurontin) 300 mg PO DAILY [facility] PRN Reason: Protocol Last Admin: 01/03/18 11:09 Dose: 300 mg Meropenem/Sodium Chloride (Meropenem 1g/Ns 100ml Ivpb) 1 gm in 100 mls @ 100 mls/hr IVPB Q12 [facility] PRN Reason: Protocol Stop: 01/08/18 11:31 Ibuprofen (Motrin Tab) 600 mg PO Q6H PRN PRN Reason: Pain, moderate (4-7) Insulin Detemir (Levemir) 20 unit SC HS [facility] Last Admin: 01/02/18 21:38 Dose: 20 unit Insulin Human Lispro (Humalog Low) 0 units SC ACHS [facility] PRN Reason: Protocol Last Admin: 01/03/18 11:56 Dose: Not Given Insulin Human Lispro (Humalog) 10 units SC AC [facility] Last Admin: 01/03/18 11:57 Dose: 10 units Levothyroxine Sodium (Synthroid) 75 mcg PO ACB [facility] Last Admin: 01/02/18 08:14 Dose: 75 mcg Ondansetron HCl (Zofran Inj) 4 mg IVP Q4H PRN PRN Reason: Nausea/Vomiting Sodium Bicarbonate (Sodium Bicarbonate Tab) 650 mg PO BID [facility] Last Admin: 01/03/18 10:08 Dose: 650 mg Tramadol HCl (Ultram) 25 mg PO Q6H PRN PRN Reason: Pain, severe (8-10) Last Admin: 01/03/18 10:09 Dose: 25 mg Warfarin Sodium (Coumadin) 4 mg PO HS [facility] PRN Reason: Protocol Last Admin: 01/02/18 21:37 Dose: 4 mg - Labs Labs: 01/03/18 05:45 01/03/18 05:45 PT 23.8 SECONDS (9.4-12.5) H 01/03/18 05:45 INR 2.04 (0.93-1.08) H 01/03/18 05:45 APTT 26.5 Seconds (25.1-36.5) 12/30/17 13:00 - Constitutional Appears: Chronically Ill - Head Exam Head Exam: NORMOCEPHALIC - Eye Exam Eye Exam: Normal appearance, PERRL - ENT Exam ENT Exam: Mucous Membranes Moist, Normal Oropharynx - Neck Exam Neck Exam: Normal Inspection - Respiratory Exam Respiratory Exam: Decreased Breath Sounds, NORMAL BREATHING PATTERN - Cardiovascular Exam Cardiovascular Exam: REGULAR RHYTHM, +S1, +S2 - GI/Abdominal Exam GI & Abdominal Exam: Distended, Soft, Normal Bowel Sounds - Back Exam Back Exam: NORMAL INSPECTION - Neurological Exam Neurological Exam: Alert, Oriented x3 - Skin Skin Exam: Dry, Pallor Assessment and Plan - Assessment and Plan (Free Text) Assessment: 67 year old female with history of metastatic breast cancer, ascites who is admitted with bacterial peritonitis, LLE cellulitis,sepsis, and chronic ascites. The patient complains of persistent burning/ tingling pain in right axilla. The pain sometimes radiates to chest and back. She states that the pain escalates with movement. She describes it as being a level of 5 now but reaches a level of level of 10. No rashes/wounds, limitations found in this area. Plan: As discussed with Dr Kylah Ngo Neurontin 300 mg daily
[2018-01-03 14:17] LABS: URINE APPEARANCE CLEAR (CLEAR); URINE BILIRUBIN NEGATIVE (NEGATIVE); URINE BLOOD NEGATIVE (NEGATIVE); URINE COLOR YELLOW (YELLOW); URINE GLUCOSE (UA) NEGATIVE (NEGATIVE); URINE LEUKOCYTE ESTERASE NEGATIVE Leu/uL (NEGATIVE); URINE NITRATE NEGATIVE (NEGATIVE); URINE PROTEIN NEGATIVE mg/dL (<30 mg/dL); URINE UROBILINOGEN 0.2 E.U./dL (<1 E.U./dL)
--- NOTE | 2018-01-03 15:09 | PN ---
DATE: ENDOCRINOLOGY FOLLOWUP NOTE LOCATION: Room 574. SUBJECTIVE: This is a 67-year-old female with recent uncontrolled type 2 insulin-requiring diabetes with also ongoing chemotherapy for left breast carcinoma and is now being followed closely for metabolic management. Her glycemic levels are fluctuating, but improved and the latest glucose levels have ranged from 152 to 211 and 221 mg/dL. Her latest chemistry showed a BUN of 64, sodium 136, potassium 4.3, chloride 114, CO2 of 17, glucose 64 and creatinine 2.0. Her latest thyroid study showed a T4 of 5.8 with a TSH of 3.67. PLAN: So at this time, we will continue the modified and higher dose of levothyroxine given as 75 mcg once daily in the morning as ordered. We will also modify and continue the same basal and bolus insulin regimen as given with Humalog given as 10 units subcu t.i.d. before meals as ordered. We will continue the Levemir given as 20 units subcu at bedtime daily as given. We will titrate incrementally as indicated to optimize metabolic control. We will follow and advise accordingly. Dorcas Galvin MD
--- NOTE | 2018-01-03 15:19 | CP.PCM.PN ---
Subjective - Date & Time of Evaluation Date of Evaluation: 01/03/18 Time of Evaluation: 13:35 - Subjective Subjective: Less pain in the legs, no fevers. Objective - Vital Signs/Intake and Output Vital Signs (last 24 hours): Temp Pulse Resp BP Pulse Ox 98.2 F 97 H 20 108/77 99 01/03/18 08:26 01/03/18 08:26 01/03/18 08:26 01/03/18 08:26 01/03/18 08:26 Intake and Output: 01/03/18 01/03/18 06:59 18:59 Intake Total 180 Balance 180 - Medications Medications: Current Medications Acetaminophen (Tylenol 325mg Tab) 650 mg PO Q4H PRN PRN Reason: Pain, Mild (1-3) Aspirin (Ecotrin) 81 mg PO DAILY [facility] Last Admin: 01/03/18 10:12 Dose: 81 mg Atorvastatin Calcium (Lipitor) 20 mg PO HS [facility] Last Admin: 01/02/18 21:37 Dose: 20 mg Gabapentin (Neurontin) 300 mg PO DAILY [facility] PRN Reason: Protocol Last Admin: 01/03/18 11:09 Dose: 300 mg Meropenem/Sodium Chloride (Meropenem 1g/Ns 100ml Ivpb) 1 gm in 100 mls @ 100 mls/hr IVPB Q12 [facility] PRN Reason: Protocol Stop: 01/08/18 11:31 Ibuprofen (Motrin Tab) 600 mg PO Q6H PRN PRN Reason: Pain, moderate (4-7) Insulin Detemir (Levemir) 20 unit SC HS [facility] Last Admin: 01/02/18 21:38 Dose: 20 unit Insulin Human Lispro (Humalog Low) 0 units SC ACHS [facility] PRN Reason: Protocol Last Admin: 01/03/18 11:56 Dose: Not Given Insulin Human Lispro (Humalog) 10 units SC AC [facility] Last Admin: 01/03/18 11:57 Dose: 10 units Levothyroxine Sodium (Synthroid) 75 mcg PO ACB [facility] Last Admin: 01/02/18 08:14 Dose: 75 mcg Ondansetron HCl (Zofran Inj) 4 mg IVP Q4H PRN PRN Reason: Nausea/Vomiting Sodium Bicarbonate (Sodium Bicarbonate Tab) 650 mg PO BID [facility] Last Admin: 01/03/18 10:08 Dose: 650 mg Tramadol HCl (Ultram) 25 mg PO Q6H PRN PRN Reason: Pain, severe (8-10) Last Admin: 01/03/18 10:09 Dose: 25 mg Warfarin Sodium (Coumadin) 4 mg PO HS [facility] PRN Reason: Protocol Last Admin: 01/02/18 21:37 Dose: 4 mg - Labs Labs: 01/03/18 05:45 01/03/18 05:45 PT 23.8 SECONDS (9.4-12.5) H 01/03/18 05:45 INR 2.04 (0.93-1.08) H 01/03/18 05:45 APTT 26.5 Seconds (25.1-36.5) 12/30/17 13:00 - Constitutional Appears: Chronically Ill - Head Exam Head Exam: NORMAL INSPECTION - ENT Exam ENT Exam: Mucous Membranes Moist - Neck Exam Neck Exam: absent: Meningismus - Respiratory Exam Respiratory Exam: Decreased Breath Sounds - Cardiovascular Exam Cardiovascular Exam: +S1, +S2 - GI/Abdominal Exam GI & Abdominal Exam: Soft. absent: Tenderness Assessment and Plan - Assessment and Plan (Free Text) Plan: Assessment left breast and left leg cellulitis, slowly improving history of severe sepsis with leukopenia and acute renal failure, consider due to acute enteritis, less likely acute cholecystitis R/O spontaneous bacterial peritonitis HTN DM breast cancer with last chemotherapy session on April 24, 2017 S/P right port-a-cath placement obesity with BMI 39 Plan continue Merrem day 4 and will continue monitor clinically trend AST, ALT, Alk Phos and T. bili.
[2018-01-03 19:51] VITALS: BP 90/61; PULSE 96; TEMP 97.1; O2SAT 98
--- NOTE | 2018-01-06 08:51 | DS ---
SUBJECTIVE: This is a 67-year-old female, who had come into the hospital because of uncontrolled diabetes. The patient's sugars are better controlled. She is currently comfortable. She has a left breast cellulitis that is getting local wound care. She does not require any intervention. The patient is currently on meropenem for antibiotics. She had cultures that showed coagulase-negative staph. She has no headaches, dizziness. No nausea, no vomiting. PHYSICAL EXAMINATION: VITAL SIGNS: Temperature is 97.3, pulse of 105, blood pressure is 97/66, respirations 20. GENERAL: The patient is lying in bed, flat, comfortable. HEENT: No oral lesion. Anicteric sclerae. Moist mucosa. NECK: No JVD, adenopathy, or thyromegaly. CARDIOVASCULAR: S1 and S2, regular. No murmurs, rubs, or gallops. LUNGS: Clear to auscultation bilaterally. No wheeze, rales, or rhonchi. ABDOMEN: Bowel sounds are positive, soft, nontender and nondistended. EXTREMITIES: no cyanosis, clubbing or edema. BREASTS: Left breast has chronic cellulitis with skin changes on her breast. ASSESSMENT: 1. Diabetes type 2, controlled. 2. Hyponatremia, improved. 3. Hypokalemia, improved. 4. Metabolic acidosis secondary to chronic kidney disease. 5. Chronic kidney disease, stage III/IV. 6. Cirrhosis. 7. Thrombocytopenia. 8. Breast cancer. 9. Osteoarthritis. 10. Ascites with chronic catheter in place. 11. Left leg deep venous thrombosis, on anticoagulation. 12. Hypertension. 13. Port-A-Cath. 14. Do not resuscitate/do not intubate. PLAN: The patient is currently comfortable. Her INR was therapeutic yesterday at 2 with a Coumadin of 5 mg. She is continuing her diabetic regimen. She is going to be continued on recurrent diabetes regimen at home. She is on Lipitor for dyslipidemia. She is going to be on Levemir 20 units in the evening with lispro Humalog 10 units with meals. She is receiving ibuprofen as needed for pain. She is on Synthroid for hypothyroidism. She is on Ultram for pain as well. She is on diabetic diet. She is not sure if she wants to go to transitional care unit. I did offer her the transitional care unit. Rangel Ngo MD [facility] # [id number]
== END 2018-01-03 21:23 | DRG 622 ==
LOC: ED 12:42 → ERH 15:34 → 2RSO 21:50 → 5RSO 12-31 10:54
PROVIDERS: ADMIT Internal Medicine Nephrology; ATTEND Internal Medicine Nephrology
PROC: 0JB60ZZ Excision of Chest Subcutaneous Tissue and Fascia, Open Approach (ICD-10-PCS; principal; 2018-01-02)
PROC: 0W9G30Z Drainage of Peritoneal Cavity with Drainage Device, Percutaneous Approach (ICD-10-PCS; 2018-01-02)
DX: E11.65 Type 2 diabetes mellitus with hyperglycemia (principal); K65.2 Spontaneous bacterial peritonitis; N17.9 Acute kidney failure, unspecified; E87.2 Acidosis; D69.6 Thrombocytopenia, unspecified; L03.116 Cellulitis of left lower limb; B95.7 Other staphylococcus as the cause of diseases classified elsewhere; E11.22 Type 2 diabetes mellitus with diabetic chronic kidney disease; E87.5 Hyperkalemia; E11.42 Type 2 diabetes mellitus with diabetic polyneuropathy; C50.912 Malignant neoplasm of unspecified site of left female breast; E87.1 Hypo-osmolality and hyponatremia; N18.4 Chronic kidney disease, stage 4 (severe); R18.8 Other ascites; E86.0 Dehydration; E11.319 Type 2 diabetes mellitus with unspecified diabetic retinopathy without macular edema; E11.51 Type 2 diabetes mellitus with diabetic peripheral angiopathy without gangrene; E03.9 Hypothyroidism, unspecified; E66.9 Obesity, unspecified; E78.5 Hyperlipidemia, unspecified; E87.6 Hypokalemia; I12.9 Hypertensive chronic kidney disease with stage 1 through stage 4 chronic kidney disease, or unspecified chronic kidney disease; I25.10 Atherosclerotic heart disease of native coronary artery without angina pectoris; K74.60 Unspecified cirrhosis of liver; K75.81 Nonalcoholic steatohepatitis (NASH); M19.90 Unspecified osteoarthritis, unspecified site; N61.0 Mastitis without abscess; Z66 Do not resuscitate; Z68.39 Body mass index [BMI] 39.0-39.9, adult; Z79.01 Long term (current) use of anticoagulants; Z79.4 Long term (current) use of insulin; Z79.82 Long term (current) use of aspirin; Z79.899 Other long term (current) drug therapy; Z80.8 Family history of malignant neoplasm of other organs or systems; Z86.711 Personal history of pulmonary embolism; Z86.718 Personal history of other venous thrombosis and embolism; Z90.12 Acquired absence of left breast and nipple; Z90.49 Acquired absence of other specified parts of digestive tract; Z92.21 Personal history of antineoplastic chemotherapy

== ENCOUNTER 2018-01-03 21:24 | Inpatient (IN) | payer MEDICARE, OTHER ==
[2018-01-03] MEDS: Insulin Detemir 100 units/ml Vial (Levemir) SC SCH (23:47)
[2018-01-03] MEDS: Insulin Lispro (humaLOG) LOW Coverage SC SCH (23:47)
[2018-01-04 03:53] VITALS: BMI 34.5
[2018-01-04] MEDS: Meropenem 500 MG in Sodium Chloride 0.9% 100 ML IVPB SCH ×2 (06:12→18:26)
[2018-01-04] MEDS: Levothyroxine 75 MCG TAB PO SCH (06:12)
[2018-01-04] MEDS: Insulin Lispro 1 UNITS/0.01 ML SC SCH ×3 (06:52→17:29)
[2018-01-04] MEDS: Insulin Lispro (humaLOG) LOW Coverage SC SCH ×4 (06:56→22:22)
[2018-01-04 07:21] LABS: BASO # 0.01 K/mm3 (0.0-2.0); GRAN % 92.4 % (50.0-68.0); HEMOGLOBIN 12.5 g/dL (12.0-16.0); LYMPH # 0.8 (1.2-3.4); LYMPH % 3.6 % (22.0-35.0); MEAN CELL VOLUME 87.9 fl (80.0-105.0); MEAN CORPUSCULAR HEMOGLOBIN 29.6 pg (25.0-35.0); MEAN CORPUSCULAR HGB CONC 33.6 g/dl (31.0-37.0); MEAN PLATELET VOLUME 12.9 fl (7.0-11.0); MONO # 0.9 (0.1-0.6); PLATELET COUNT 122 10^3/uL (120.0-450.0); RBC 4.23 10^6/uL (3.5-6.1); RED CELL DISTRIBUTION WIDTH 15.1 % (11.5-14.5); WHITE BLOOD COUNT 21.1 10^3/ul (4.5-11.0)
[2018-01-04 07:27] LABS: ALB/GLOB RATIO 0.6 (1.1-1.8); ALBUMIN 2.1 g/dL (3.0-4.8); CALCIUM 8.1 mg/dL (8.4-10.5)
[2018-01-04 10:00] LABS: NEUTROPHIL 89 % (50.0-70.0)
[2018-01-04 10:01] LABS: ANISOCYTOSIS SLIGHT; BAND 10 % (0-2); HYPOCHROMIA SLIGHT; LYMPHOCYTE 4 % (22.0-35.0); MONOCYTE 2 % (1.0-6.0); PLATELET ESTIMATE LOW (NORMAL); POIKILOCYTOSIS SLIGHT
[2018-01-04 10:02] LABS: TEAR DROP CELLS SLIGHT
--- NOTE | 2018-01-04 12:09 | PN ---
DATE: LOCATION: Transferred to [facility], room 315. SUBJECTIVE: This is a 67-year-old female with recent uncontrolled type 2 insulin-requiring diabetes with ongoing chemotherapy for left breast carcinoma and is now being followed closely for metabolic management. Her glycemic levels are fluctuating, but much improved at this time and the latest glucose levels have ranged from 154 to 158 mg/dL. The latest chemistry showed a BUN of 74, sodium 136, potassium 4.9, chloride 110, CO2 16, glucose 158 and creatinine 2.2. So at this time, she has ongoing IV antibiotics for multiple wound infections as noted. We will also continue the same basal and bolus insulin regimen to allow for dose equilibration and keep her on the Humalog given as 10 units subcu t.i.d. before meals and Levemir given as 20 units subcu at bedtime daily as ordered. We will continue the low-dose correction scale using Humalog insulin as given. We will titrate incrementally as indicated to optimize metabolic control. We will obtain serial chemistries and supplement accordingly as needed. We will follow and advise accordingly. Dorcas Galvin MD
--- NOTE | 2018-01-04 16:30 | CP.PCM.PN ---
Subjective - Date & Time of Evaluation Date of Evaluation: 01/04/18 Time of Evaluation: 08:05 - Subjective Subjective: Surgery Progress note. Dr. Giron Patient has been actively followed in the acute care hospital and this is a continuing progress note after she was transferred to TCU. Pt seen and examined at bedside. No acute events overnight. Denies N/V/D. No F/ C. Tolerating diet. No new complaints. Left breast dressing clean, dry and intact. Left breast wound noted to have sanguinous oozing when current bandage was removed and replaced. INR is noted to be 2.04 yesterday. Objective - Vital Signs/Intake and Output Vital Signs (last 24 hours): Temp Pulse Resp BP Pulse Ox 97.6 F 101 H 16 85/56 L 98 01/04/18 10:17 01/04/18 10:17 01/04/18 10:17 01/04/18 10:17 01/04/18 10:17 - Medications Medications: Current Medications Acetaminophen (Tylenol 325mg Tab) 650 mg PO Q4H PRN; Protocol PRN Reason: Pain, Mild (1-3) Aspirin (Ecotrin) 81 mg PO DAILY [facility] PRN Reason: Protocol Last Admin: 01/04/18 10:27 Dose: 81 mg Atorvastatin Calcium (Lipitor) 20 mg PO HS [facility] Gabapentin (Neurontin) 300 mg PO DAILY [facility] PRN Reason: Protocol Last Admin: 01/04/18 10:27 Dose: 300 mg Meropenem 500 mg/ Sodium (Chloride) 100 mls @ 100 mls/hr IVPB 0600,1800 [facility] PRN Reason: Protocol Stop: 01/04/18 18:59 Last Admin: 01/04/18 06:12 Dose: 100 mls/hr Ibuprofen (Motrin Tab) 600 mg PO Q6H PRN; Protocol PRN Reason: Pain, moderate (4-7) Insulin Detemir (Levemir) 20 unit SC HS [facility] PRN Reason: Protocol Last Admin: 01/03/18 23:47 Dose: Not Given Insulin Human Lispro (Humalog) 10 units SC AC [facility] PRN Reason: Protocol Last Admin: 01/04/18 12:15 Dose: Not Given Insulin Human Lispro (Humalog Low) 0 units SC ACHS [facility] PRN Reason: Protocol Last Admin: 01/04/18 12:16 Dose: Not Given Levothyroxine Sodium (Synthroid) 75 mcg PO 0600 [facility] PRN Reason: Protocol Last Admin: 01/04/18 06:12 Dose: 75 mcg Ondansetron HCl (Zofran Inj) 4 mg IVP Q4H PRN; Protocol PRN Reason: Nausea/Vomiting Sodium Bicarbonate (Sodium Bicarbonate Tab) 650 mg PO BID [facility] PRN Reason: Protocol Last Admin: 01/04/18 10:28 Dose: 650 mg Tramadol HCl (Ultram) 25 mg PO Q6H PRN; Protocol PRN Reason: Pain, severe (8-10) Warfarin Sodium (Coumadin) 4 mg PO HS [facility] PRN Reason: Protocol Last Admin: 01/03/18 23:46 Dose: 4 mg - Labs Labs: 01/04/18 06:00 01/04/18 06:00 - Constitutional Appears: Non-toxic, No Acute Distress - Head Exam Head Exam: ATRAUMATIC, NORMAL INSPECTION, NORMOCEPHALIC - Eye Exam Eye Exam: EOMI, Normal appearance - ENT Exam ENT Exam: Mucous Membranes Moist - Respiratory Exam Respiratory Exam: NORMAL BREATHING PATTERN. absent: Accessory Muscle Use, Respiratory Distress - Cardiovascular Exam Cardiovascular Exam: absent: JVD - GI/Abdominal Exam GI & Abdominal Exam: Soft. absent: Distended, Firm, Guarding, Rigid, Tenderness , Rebound - Extremities Exam Extremities Exam: Normal Inspection. absent: Calf Tenderness - Neurological Exam Neurological Exam: Alert, Awake, Oriented x3 - Skin Additional comments: left breast to left mid axilla: superficial skin erythema, excoriated with some dried scab at the previous nipple site. No active purulent discharge noted. Mild sanguinous oozing noted when xerofoam dressing replaced. Current dressing clean, dry and intact. Assessment and Plan - Assessment and Plan (Free Text) Assessment: 67yo F w inflammatory breast CA being followed for superficial skin wound to left breast - Leukocytosis noted. - INR therapeutic Plan: - We will differ any further plans for sharp debridement - Continue local wound care with xeroform and abd. Removal and replacement of L breast dressing every day will continue to gently debride necrotic tissue. - Continue Abx as per ID - Continue Medical management, Heme/Onc management Further recs as per Dr. Mack Abdi PGY1 surgery pager: [phone]
[2018-01-04] MEDS ORDERED: Meropenem 500 MG in Sodium Chloride 0.9% 50 ML IVPB SCH (22:00)
[2018-01-04] MEDS ORDERED: Meropenem 500 MG in Sodium Chloride 0.9% 100 ML IVPB SCH (22:21)
[2018-01-04] MEDS: Insulin Detemir 100 units/ml Vial (Levemir) SC SCH (22:25)
--- NOTE | 2018-01-05 00:48 | PN ---
DATE: 01/04/2018 SUBJECTIVE: The patient was seen early this morning in room 315. No fevers, no chills. PHYSICAL EXAMINATION: VITAL SIGNS: Temperature is 97, blood pressure is 100/60, respiratory rate of 18, heart rate of 90. HEENT: Examination of HEENT is unremarkable. NECK: Supple. LUNGS: Have decreased breath sounds. HEART: Normal S1 and S2. ABDOMEN: Soft, nontender. . LABORATORY DATA: Laboratory examination reveals a white count of 21,000, hemoglobin of 12, platelets of 122, 89% granulocytosis, 10% bandemia. Chemistries are noted with BUN of 74, creatinine of 2.2, alkaline phosphatase is 244. ASSESSMENT AND PLAN: This is a 67-year-old female who is seen in transition care with left breast and left leg cellulitis, slowly improving, on meropenem day #5, in a patient with hypertension, diabetes, breast cancer. Review of orders reveals the patient to be on meropenem. We will follow with you. Review the cultures. Review of the microbiology reveals coagulase-negative Staph and Carnobacterium from the left breast and coagulase-negative from leg. Arnaldo Crum MD
--- NOTE | 2018-01-05 01:02 | HP ---
DATE OF EVALUATION: 01/04/2018 HISTORY OF PRESENT ILLNESS: Ms. Florez is a 67-year-old female with history of breast cancer and ascites who was admitted with uncontrolled diabetes mellitus, hyponatremia, and hypokalemia. She was admitted to the regular floor. Her general condition improved. She is admitted to Transitional Care Unit for deconditioning. Denies any chest pain. No shortness of breath. No cough with expectoration. PAST MEDICAL HISTORY: Diabetes mellitus type 2, chronic kidney disease, thrombocytopenia, anemia, history of breast panniculitis, and history of DVT, on anticoagulation. FAMILY HISTORY: Noncontributory. PERSONAL HISTORY: Nonsmoker. No history of alcohol abuse. ALLERGIES: NO KNOWN DRUG ALLERGIES. LABORATORY DATA: White count 21,000, hemoglobin 12.5, hematocrit 37, platelet count 122,000. Sodium 136, potassium 4.9, calcium 8.1. Total protein 5.6. MEDICATIONS: Tylenol 650 q.4h. p.r.n., aspirin 81 mg daily, Lipitor 20 mg daily, Neurontin 300 mg daily, Levemir insulin, Synthroid 75 mcg daily, meropenem q.12h., Zofran 4 mg q.4h., Ultram 25 mg q.6h. p.r.n., and Coumadin 4 mg at bedtime. PHYSICAL EXAMINATION: GENERAL: Comfortable in bed, in no acute distress. VITAL SIGNS: Temperature 97.7, heart rate is 90 per minute, blood pressure 100/60, respiratory rate 20 per minute. HEENT: Pallor positive. NECK: No lymphadenopathy. CHEST: Air entry present equal and bilateral. No added sounds. CARDIOVASCULAR: S1 and S2 normal. No murmur and no gallop. ABDOMEN: Soft, nontender, nondistended. EXTREMITIES: No edema. No cyanosis. CENTRAL NERVOUS SYSTEM: Alert and oriented x3. No focal sensory or motor deficits. ASSESSMENT: 1. Diabetes mellitus type 2. 2. Chronic kidney disease. 3. Hypertension. 4. Breast cancer. 5. Thrombocytopenia. 6. Ascites with catheter. 7. History of deep venous thrombosis, on anticoagulation. PLAN: Tylenol 650 q.4h. p.r.n., Lipitor 20 mg daily, aspirin 81 mg daily, Motrin p.r.n., Levemir and Humalog, Synthroid 75 mcg daily, IV antibiotic meropenem, Zofran p.r.n., Coumadin 4 mg daily. We will continue to monitor PT, INR. Consultation with Dr. Crum requested. Ivory Dan MD [facility]
[2018-01-05] MEDS: Levothyroxine 75 MCG TAB PO SCH (06:45)
[2018-01-05] MEDS: Insulin Lispro (humaLOG) LOW Coverage SC SCH ×4 (06:46→21:37)
[2018-01-05] MEDS: Insulin Lispro 1 UNITS/0.01 ML SC SCH ×3 (06:46→17:28)
--- NOTE | 2018-01-05 15:04 | PN ---
DATE: ENDOCRINOLOGY FOLLOWUP NOTE LOCATION: In room 315, [facility]. This is a 67-year-old female with recent uncontrolled type 2 insulin-requiring diabetes, now being followed closely for metabolic management. Her glucose levels are fluctuating, but much improved at this time and the glucose values have ranged from 187-195 mg/dL. Her latest chemistry showed a BUN of 74, sodium 136, potassium 4.9, chloride 110, CO2 of 16, glucose 158 and creatinine 2.2. So at this time, we will continue the same basal and bolus insulin regimen to allow for dose equilibration and keep her on the Humalog given as 10 units subcu t.i.d. before meals as ordered. We will continue also the Levemir given as 20 units subcu at bedtime daily as given. We will titrate incrementally as indicated to optimize metabolic control. We will follow. Dorcas Galvin MD
--- NOTE | 2018-01-05 17:25 | CP.PCM.PN ---
Subjective - Date & Time of Evaluation Date of Evaluation: 01/05/18 Time of Evaluation: 10:00 - Subjective Subjective: DATE OF EVALUATION: 01/05/2018 HISTORY OF PRESENT ILLNESS: Ms. Florez is a 67-year-old female with history of breast cancer and ascites who was admitted with uncontrolled diabetes mellitus, hyponatremia, and hypokalemia. She was admitted to the regular floor. Her general condition improved. She is admitted to Transitional Care Unit for deconditioning. Denies any chest pain. No shortness of breath. No cough with expectoration. ambulating with support. PAST MEDICAL HISTORY: Diabetes mellitus type 2, chronic kidney disease, thrombocytopenia, anemia, history of breast panniculitis, and history of DVT, on anticoagulation. FAMILY HISTORY: Noncontributory. PERSONAL HISTORY: Nonsmoker. No history of alcohol abuse. ALLERGIES: NO KNOWN DRUG ALLERGIES. LABORATORY DATA: White count 21,000, hemoglobin 12.5, hematocrit 37, platelet count 122,000. Sodium 136, potassium 4.9, calcium 8.1. Total protein 5.6. MEDICATIONS: Tylenol 650 q.4h. p.r.n., aspirin 81 mg daily, Lipitor 20 mg daily, Neurontin 300 mg daily, Levemir insulin, Synthroid 75 mcg daily, meropenem q.12h., Zofran 4 mg q.4h., Ultram 25 mg q.6h. p.r.n., and Coumadin 4 mg at bedtime. PHYSICAL EXAMINATION: GENERAL: Comfortable in bed, in no acute distress. VITAL SIGNS: reviewed. HEENT: Pallor positive. NECK: No lymphadenopathy. CHEST: Air entry present equal and bilateral. No added sounds. CARDIOVASCULAR: S1 and S2 normal. No murmur and no gallop. ABDOMEN: Soft, nontender, nondistended. EXTREMITIES: No edema. No cyanosis. CENTRAL NERVOUS SYSTEM: Alert and oriented x3. No focal sensory or motor deficits. ASSESSMENT: 1. Diabetes mellitus type 2. 2. Chronic kidney disease. 3. Hypertension. 4. Breast cancer. 5. Thrombocytopenia. 6. Ascites with catheter. 7. History of deep venous thrombosis, on anticoagulation. PLAN: Tylenol 650 q.4h. p.r.n., Lipitor 20 mg daily, aspirin 81 mg daily, Motrin p.r.n., Levemir and Humalog, Synthroid 75 mcg daily, IV antibiotic meropenem, Zofran p.r.n., Coumadin 4 mg daily. We will continue to monitor PT, INR. Consultation with Dr. Crum requested. Ivory Dan MD Objective - Vital Signs/Intake and Output Vital Signs (last 24 hours): Temp Pulse Resp BP Pulse Ox 97.5 F L 99 H 18 95/65 L 99 01/05/18 16:20 01/05/18 16:20 01/05/18 16:20 01/05/18 16:20 01/05/18 16:20 Intake and Output: 01/05/18 01/05/18 06:59 18:59 Intake Total 420 Balance 420 - Medications Medications: Current Medications Acetaminophen (Tylenol 325mg Tab) 650 mg PO Q4H PRN; Protocol PRN Reason: Pain, Mild (1-3) Aspirin (Ecotrin) 81 mg PO 0800 [facility] PRN Reason: Protocol Atorvastatin Calcium (Lipitor) 20 mg PO HS [facility] Last Admin: 01/04/18 21:37 Dose: 20 mg Gabapentin (Neurontin) 300 mg PO HS [facility] PRN Reason: Protocol Ibuprofen (Motrin Tab) 600 mg PO Q6H PRN; Protocol PRN Reason: Pain, moderate (4-7) Insulin Detemir (Levemir) 20 unit SC HS [facility] PRN Reason: Protocol Last Admin: 01/04/18 22:25 Dose: 20 unit Insulin Human Lispro (Humalog) 10 units SC AC [facility] PRN Reason: Protocol Last Admin: 01/05/18 12:15 Dose: 10 units Insulin Human Lispro (Humalog Low) 0 units SC ACHS [facility] PRN Reason: Protocol Last Admin: 01/05/18 11:46 Dose: Not Given Levothyroxine Sodium (Synthroid) 75 mcg PO 0600 [facility] PRN Reason: Protocol Last Admin: 01/05/18 06:45 Dose: 75 mcg Ondansetron HCl (Zofran Inj) 4 mg IVP Q4H PRN; Protocol PRN Reason: Nausea/Vomiting Last Admin: 01/05/18 01:26 Dose: 4 mg Sodium Bicarbonate (Sodium Bicarbonate Tab) 650 mg PO BID [facility] PRN Reason: Protocol Last Admin: 01/05/18 10:08 Dose: 650 mg Tramadol HCl (Ultram) 25 mg PO Q6H PRN; Protocol PRN Reason: Pain, severe (8-10) Vancomycin HCl (Vancocin 25 Mg/Ml (Oral Use)) 250 mg PO QID [facility] PRN Reason: Protocol Stop: 01/19/18 18:01 Warfarin Sodium (Coumadin) 4 mg PO 1800 [facility] PRN Reason: Protocol - Labs Labs: 01/04/18 06:00 01/04/18 06:00
[2018-01-05] MEDS: Vancomycin 25 MG/ML PO SCH ×2 (17:29→21:36)
[2018-01-05] MEDS ORDERED: Meropenem 500 MG in Sodium Chloride 0.9% 100 ML IVPB SCH (18:00)
--- NOTE | 2018-01-05 21:02 | PN ---
DATE: 01/05/2018 SUBJECTIVE: Patient is in bed, in no acute distress, nontoxic. PHYSICAL EXAMINATION: VITAL SIGNS: Temperature is 97, blood pressure is 103/60, respiratory rate of 18, heart rate of 97. HEENT: Unremarkable. NECK: Supple. LUNGS: Have decreased breath sounds. HEART: Normal S1 and S2. ABDOMEN: Soft. BREASTS: Reveals the two erythema resolved; there are just chronic changes. EXTREMITIES: Examination of leg, also shows completely resolved, just an open ulcer. LABORATORY DATA: Reveals a white count of 21,000; hemoglobin of 12, platelets of 122. BUN is 74,creatinine of 2.2. LFTs are noted. ASSESSMENT AND PLAN: This is a 67-year-old female who was seen earlier today in 315. Patient with left breast cellulitis and left leg cellulitis, which have been resolved. Today is day #6 of meropenem in a patient with hypertension, diabetes, breast cancer and we will discontinue meropenem, the infection is resolved. We will check with the stool for Clostridium difficile and starting empiric vancomycin p.o., pending Clostridium difficile antigen and toxin. Patient does have persistent leukocytosis with a white count of 21,000 from yesterday, which has increased from the day before which may go along with the Clostridium difficile. We will check on the Clostridium difficile and start empiric p.o. vancomycin, discontinue the meropenem. Patient's breast and leg have resolved. Arnaldo Crum MD
[2018-01-05] MEDS: Insulin Detemir 100 units/ml Vial (Levemir) SC SCH (21:35)
[2018-01-06] MEDS: Levothyroxine 75 MCG TAB PO SCH (06:08)
[2018-01-06] MEDS: Insulin Lispro (humaLOG) LOW Coverage SC SCH ×4 (06:51→22:28)
[2018-01-06] MEDS: Insulin Lispro 1 UNITS/0.01 ML SC SCH ×3 (06:56→17:30)
--- NOTE | 2018-01-06 09:22 | PN ---
ONCOLOGY CONSULTATION DATE: 01/04/2018 HISTORY OF PRESENT ILLNESS: This is a 67-year-old woman with several medical problems: 1. She has the breast cancer, metastatic, like inflammatory cancer into the left chest wall. She underwent some debridement yesterday, they were not able to debride it all; it is an open wound, and we have been giving [place], new chemotherapy, 2 out of 3 weeks. She is due for that chemotherapy next week. We think it may be helping; that we think it has improved the tumors, but she has been 2 weeks being in the hospital, we had to hold it. 2. She has massive ascites. We have been taping her abdomen twice a week and each time, taking about at least 5 L out. So, she had her last paracentesis on , and today I can see this just filling up again. This is secondary to cirrhosis. All the cytologies have been negative for this. She does have a cirrhotic liver of unclear reason. She has been followed by Dr. Prieto in the past. PHYSICAL EXAMINATION: SKIN: No petechiae. No bruises. HEENT: Anicteric. NODES: Nonpalpable in the axillary, cervical, supraclavicular, or inguinal regions. LUNGS: Clear at present. No vertebral tenderness. Patient is able to lie down flat with no problem. HEART: S1 and S2. The chest wall shows mastectomy on the left side. ABDOMEN: Shows massive ascites. EXTREMITIES: No edema. CENTRAL NERVOUS SYSTEM: No focal finding. ASSESSMENT AND PLAN: Patient needs a tap on Saturday. I will try to see if I can arrange for that. In the meantime, her BUN was 40 the other day. She will need IV fluids with the tap, but I will try to arrange for that on Saturday as an outpatient. Garrett Cook MD
[2018-01-06 09:53] LABS: BASO # 0.02 K/mm3 (0.0-2.0); BASO % 0.1 % (0.0-3.0); EOS % 0.1 % (1.5-5.0); GRAN # 12.21 (1.4-6.5); GRAN % 86.8 % (50.0-68.0); HEMOGLOBIN 12.1 g/dL (12.0-16.0); LYMPH % 6.7 % (22.0-35.0); MEAN CELL VOLUME 87.2 fl (80.0-105.0); MEAN CORPUSCULAR HEMOGLOBIN 29.2 pg (25.0-35.0); MEAN CORPUSCULAR HGB CONC 33.4 g/dl (31.0-37.0); MEAN PLATELET VOLUME 12.4 fl (7.0-11.0); MONO # 0.9 (0.1-0.6); MONO % 6.3 % (1.0-6.0); RBC 4.15 10^6/uL (3.5-6.1); WHITE BLOOD COUNT 14.1 10^3/ul (4.5-11.0)
[2018-01-06 10:10] LABS: PROTHROMBIN TIME 76.4 SECONDS (9.4-12.5)
[2018-01-06 10:11] LABS: INR 6.4 (0.93-1.08)
[2018-01-06 10:15] LABS: ALB/GLOB RATIO 0.6 (1.1-1.8); CALCIUM 7.8 mg/dL (8.4-10.5)
[2018-01-06] MEDS: Vancomycin 25 MG/ML PO SCH ×4 (11:00→22:54)
--- NOTE | 2018-01-06 12:36 | PN ---
DATE: 01/06/2018 SUBJECTIVE: The patient has no complaints of any chest pain. No shortness of breath, no headache, no dizziness. PHYSICAL EXAMINATION VITAL SIGNS: Temperature is 97.5, pulse is 99, blood pressure is 96/65, respirations 18. GENERAL: The patient is lying in bed, flat, comfortable. HEENT: No oral lesion. Anicteric sclerae. Moist mucosa. NECK: No JVD, adenopathy, or thyromegaly. CARDIOVASCULAR: S1 and S2, regular. No murmurs, rubs, or gallops. LUNGS: Clear to auscultation bilaterally. No wheeze, rales, or rhonchi. ABDOMEN: Bowel sounds are positive. Soft, nontender and nondistended. EXTREMITIES: No cyanosis, clubbing or edema. ASSESSMENT 1. Leukocytosis. 2. Diabetes type 2, controlled. 3. Metabolic acidosis secondary to chronic kidney disease. 4. Chronic kidney disease stage III/IV. 5. Cirrhosis. 6. Thrombocytopenia. 7. Osteoarthritis. 8. Ascites with catheter, chronic. 9. Breast cancer. 10. Left leg deep vein thrombosis, on anticoagulation. 11. Hypertension. 12. Port-A-Cath. PLAN: The patient is currently comfortable. She is on her Coumadin. The patient is on insulin for diabetes. She is receiving aspirin. She is on Levemir for her diabetes with lispro with meals, Lipitor for dyslipidemia. She is going to be on Motrin for pain as needed. She is on sodium bicarbonate. She is on Synthroid for hyperthyroidism. She is on tramadol for pain. She is receiving diabetic diet. She has a that has been ordered. I did review Dr. Crum's note. She is on vancomycin for possible C. diff. I will repeat her blood work. Rangel Ngo MD
--- NOTE | 2018-01-06 12:58 | CP.PCM.PN ---
Subjective - Date & Time of Evaluation Date of Evaluation: 01/06/18 Time of Evaluation: 12:00 - Subjective Subjective: No more diarrhea, no better left foot pain, no fevers. Objective - Vital Signs/Intake and Output Vital Signs (last 24 hours): Temp Pulse Resp BP Pulse Ox 97.5 F L 99 H 18 95/65 L 99 01/05/18 16:20 01/05/18 16:20 01/05/18 16:20 01/05/18 16:20 01/05/18 16:20 Intake and Output: 01/06/18 01/06/18 06:59 18:59 Intake Total 420 Balance 420 - Medications Medications: Current Medications Acetaminophen (Tylenol 325mg Tab) 650 mg PO Q4H PRN; Protocol PRN Reason: Pain, Mild (1-3) Aspirin (Ecotrin) 81 mg PO 0800 [facility] PRN Reason: Protocol Last Admin: 01/06/18 08:56 Dose: 81 mg Atorvastatin Calcium (Lipitor) 20 mg PO HS [facility] Last Admin: 01/05/18 21:35 Dose: 20 mg Gabapentin (Neurontin) 300 mg PO HS [facility] PRN Reason: Protocol Ibuprofen (Motrin Tab) 600 mg PO Q6H PRN; Protocol PRN Reason: Pain, moderate (4-7) Insulin Detemir (Levemir) 20 unit SC HS [facility] PRN Reason: Protocol Last Admin: 01/05/18 21:35 Dose: 20 unit Insulin Human Lispro (Humalog) 10 units SC AC [facility] PRN Reason: Protocol Last Admin: 01/06/18 06:56 Dose: 10 units Insulin Human Lispro (Humalog Low) 0 units SC ACHS [facility] PRN Reason: Protocol Last Admin: 01/06/18 06:51 Dose: Not Given Levothyroxine Sodium (Synthroid) 75 mcg PO 0600 [facility] PRN Reason: Protocol Last Admin: 01/06/18 06:08 Dose: 75 mcg Ondansetron HCl (Zofran Inj) 4 mg IVP Q4H PRN; Protocol PRN Reason: Nausea/Vomiting Last Admin: 01/05/18 01:26 Dose: 4 mg Sodium Bicarbonate (Sodium Bicarbonate Tab) 650 mg PO BID [facility] PRN Reason: Protocol Last Admin: 01/05/18 17:29 Dose: 650 mg Tramadol HCl (Ultram) 25 mg PO Q6H PRN; Protocol PRN Reason: Pain, severe (8-10) Vancomycin HCl (Vancocin 25 Mg/Ml (Oral Use)) 250 mg PO QID [facility] PRN Reason: Protocol Stop: 01/19/18 18:01 Last Admin: 01/05/18 21:36 Dose: 250 mg Warfarin Sodium (Coumadin) 4 mg PO 1800 [facility] PRN Reason: Protocol Last Admin: 01/05/18 17:29 Dose: 4 mg - Labs Labs: 01/04/18 06:00 01/04/18 06:00 - Constitutional Appears: Chronically Ill - Head Exam Head Exam: NORMAL INSPECTION - Neck Exam Neck Exam: absent: Meningismus - Respiratory Exam Respiratory Exam: Decreased Breath Sounds - Cardiovascular Exam Cardiovascular Exam: +S1, +S2 - GI/Abdominal Exam GI & Abdominal Exam: Soft. absent: Tenderness Assessment and Plan - Assessment and Plan (Free Text) Plan: Assessment diarrhea, R/O C. diff. associated S/P left breast and left leg cellulitis history of severe sepsis with leukopenia and acute renal failure, consider due to acute enteritis, less likely acute cholecystitis R/O spontaneous bacterial peritonitis HTN DM breast cancer with last chemotherapy session on April 24, 2017 S/P right port-a-cath placement obesity with BMI 39 Plan continue PO Vancomycin day 2 pending stool for C. diff.
--- NOTE | 2018-01-06 17:36 | CP.PCM.CON ---
<Wicho Currie - Last Filed: 01/06/18 17:31> History of Present Illness - History of Present Illness History of Present Illness: 67 year old female patient with PMHx of Left breast CA currently on chemotherapy , DM, HTN, PE on wafarin, hypothyroid, B/L Lower extremity edema, ascites was seen and evaluated at bedside for diffuse blisters and left 2nd digit subungual hematoma. Patient reports that she was stepped on by her grandchild which caused her to have bleeding under the 2nd toe. Patient also reports that she has little pain to the left heel because she has a crack there. Patient denies of any other pedal complains at this time. Patient denies of any recent F/N/V/C/ SOB/CP/headache/diarrhea. PMH: Left breast CA currently on chemotherapy, DM, HTN, PE on wafarin, hypothyroid, B/L Lower extremity edema, ascites PSHx: open appendectomy, R portacath, possible left mastectomy or lumpectomy at [facility] Allergies: NKDA Social hx: denies Review of Systems - Constitutional Constitutional: As Per HPI Past Patient History - Infectious Disease Hx of Infectious Diseases: None - Past Medical History & Family History Past Medical History?: Yes - Past Social History Smoking Status: Never Smoked - CARDIAC Hx Hypertension: Yes - PULMONARY Hx Respiratory Disorders: Yes Hx Pulmonary Embolism: Yes - NEUROLOGICAL Hx Neurological Disorder: No - HEENT Hx HEENT Problems: Yes Other/Comment: glasses - RENAL Hx Chronic Kidney Disease: No - ENDOCRINE/METABOLIC Hx Hypothyroidism: Yes - HEMATOLOGICAL/ONCOLOGICAL Hx Cancer: Yes (breast cancer, dx 11/2016) Hx Chemotherapy: Yes (last chemo 2 wks ago) Hx Cirrhosis: Yes (ascites) Other/Comment: peritoneal drain to right abd for ascites, drained 2x's a week at infusion center - INTEGUMENTARY Hx Dermatological Problems: No - MUSCULOSKELETAL/RHEUMATOLOGICAL Hx Falls: No - GASTROINTESTINAL Hx Gastrointestinal Disorders: Yes (cirrhosis , ascites ) Other/Comment: Ascitis - GENITOURINARY/GYNECOLOGICAL Hx Reproductive Disorders: No - PSYCHIATRIC Hx Substance Use: No - SURGICAL HISTORY Hx Appendectomy: Yes (open ) Other/Comment: Port in R chest, - ANESTHESIA Hx Anesthesia Reactions: No Hx Malignant Hyperthermia: No Meds Allergies/Adverse Reactions: Allergies Allergy/AdvReac Type Severity Reaction Status Date / Time banana Allergy Severe RASH Verified 01/04/18 02:53 - Medications Medications: Current Medications Acetaminophen (Tylenol 325mg Tab) 650 mg PO Q4H PRN; Protocol PRN Reason: Pain, Mild (1-3) Aspirin (Ecotrin) 81 mg PO 0800 [facility] PRN Reason: Protocol Last Admin: 01/06/18 08:56 Dose: 81 mg Atorvastatin Calcium (Lipitor) 20 mg PO HS [facility] Last Admin: 01/05/18 21:35 Dose: 20 mg Gabapentin (Neurontin) 300 mg PO HS [facility] PRN Reason: Protocol Ibuprofen (Motrin Tab) 600 mg PO Q6H PRN; Protocol PRN Reason: Pain, moderate (4-7) Insulin Detemir (Levemir) 24 unit SC HS [facility] PRN Reason: Protocol Insulin Human Lispro (Humalog Low) 0 units SC ACHS [facility] PRN Reason: Protocol Last Admin: 01/06/18 12:30 Dose: Not Given Insulin Human Lispro (Humalog) 12 units SC AC [facility] PRN Reason: Protocol Levothyroxine Sodium (Synthroid) 75 mcg PO 0600 [facility] PRN Reason: Protocol Last Admin: 01/06/18 06:08 Dose: 75 mcg Ondansetron HCl (Zofran Inj) 4 mg IVP Q4H PRN; Protocol PRN Reason: Nausea/Vomiting Last Admin: 01/05/18 01:26 Dose: 4 mg Sodium Bicarbonate (Sodium Bicarbonate Tab) 650 mg PO BID [facility] PRN Reason: Protocol Last Admin: 01/06/18 11:00 Dose: 650 mg Tramadol HCl (Ultram) 25 mg PO Q6H PRN; Protocol PRN Reason: Pain, severe (8-10) Vancomycin HCl (Vancocin 25 Mg/Ml (Oral Use)) 250 mg PO QID [facility] PRN Reason: Protocol Stop: 01/19/18 18:01 Last Admin: 01/06/18 14:36 Dose: 250 mg Warfarin Sodium (Coumadin) 4 mg PO 1800 [facility] PRN Reason: Protocol Last Admin: 01/05/18 17:29 Dose: 4 mg Physical Exam - Constitutional Appears: Well, Non-toxic, No Acute Distress - Extremities Exam Additional comments: Bilateral LE Exam: VASC: DP and PT pulses are non-palpable b/l, temperature gradient warm to cool from proximal to distal, Cap refill time: <3 seconds to digits, +2 pitting edema noted on the distal medial leg as well as the dorsum of the foot b/l Derm: posterior heel fissure noted on the left heel with multiple healed blisters noted on the legs bilaterally, no erythema, no clinical suspicion of active infection, subungual hematoma noted on the left foot second digit Neuro: gross and protective sensation diminished bilaterally Ortho: no pain with palpation to the LE, mild tenderness on palpation of the left heel, no pain with calf squeeze - Neurological Exam Neurological exam: Alert, Oriented x3 - Psychiatric Exam Psychiatric exam: Normal Affect, Normal Mood Results - Vital Signs Recent Vital Signs: Last Vital Signs Temp 97.3 F L 01/06/18 10:00 Pulse 77 01/06/18 10:00 Resp 20 01/06/18 10:00 BP 83/57 L 01/06/18 10:00 Pulse Ox 99 01/06/18 10:00 - Labs Result Diagrams: 01/06/18 09:30 01/06/18 09:30 Labs: Laboratory Results - last 24 hr 01/05/18 01/06/18 01/06/18 21:20 05:08 09:30 WBC 14.1 H D RBC 4.15 Hgb 12.1 Hct 36.2 MCV 87.2 MCH 29.2 MCHC 33.4 RDW 15.0 H Plt Count 118 L MPV 12.4 H Gran % 86.8 H Lymph % (Auto) 6.7 L Rich % (Auto) 6.3 H Eos % (Auto) 0.1 L Baso % (Auto) 0.1 Gran # 12.21 H Lymph # (Auto) 1.0 L Rich # (Auto) 0.9 H Eos # (Auto) 0.0 Baso # (Auto) 0.02 PT INR Sodium Potassium Chloride Carbon Dioxide Anion Gap BUN Creatinine Est GFR ( Amer) Est GFR (Non-Af Amer) POC Glucose (mg/dL) 201 H 167 H Random Glucose Calcium Total Bilirubin AST ALT Alkaline Phosphatase Total Protein Albumin Globulin Albumin/Globulin Ratio 01/06/18 01/06/18 01/06/18 09:30 09:30 11:35 WBC RBC Hgb Hct MCV MCH MCHC RDW Plt Count MPV Gran % Lymph % (Auto) Rich % (Auto) Eos % (Auto) Baso % (Auto) Gran # Lymph # (Auto) Rich # (Auto) Eos # (Auto) Baso # (Auto) PT 76.4 H INR 6.40 H* Sodium 130 L Potassium 4.7 Chloride 107 Carbon Dioxide 15 L Anion Gap 13 BUN 85 H Creatinine 2.4 H Est GFR ( Amer) 24 Est GFR (Non-Af Amer) 20 POC Glucose (mg/dL) 190 H Random Glucose 229 H Calcium 7.8 L Total Bilirubin 0.4 AST 80 H D ALT 71 H Alkaline Phosphatase 224 H Total Protein 5.4 L Albumin 2.0 L Globulin 3.4 Albumin/Globulin Ratio 0.6 L 01/06/18 16:50 WBC RBC Hgb Hct MCV MCH MCHC RDW Plt Count MPV Gran % Lymph % (Auto) Rich % (Auto) Eos % (Auto) Baso % (Auto) Gran # Lymph # (Auto) Rich # (Auto) Eos # (Auto) Baso # (Auto) PT INR Sodium Potassium Chloride Carbon Dioxide Anion Gap BUN Creatinine Est GFR ( Amer) Est GFR (Non-Af Amer) POC Glucose (mg/dL) 158 H Random Glucose Calcium Total Bilirubin AST ALT Alkaline Phosphatase Total Protein Albumin Globulin Albumin/Globulin Ratio Assessment & Plan - Assessment and Plan (Free Text) Assessment: 67 year old female patient evaluated for 1). left foot 2nd digit hematoma 2). Posterior heel fissures with diffuse healing blister on LLE Plan: Patient seen and evaluated Plan discussed with attending Dr. Maravilla Labs, vital, charts reviewed - afebrile, WBC @ 5.2 Arterial duplex ordered Multipodus boots ordered - to be worn at all times while in bed Optifoam applied to the left heel Podiatry will follow patient while in-house Thank you for the podiatry consult and allowing to take part in patient care - Date & Time Date: 01/06/18 Time: 17:44 <Ginny Maravilla - Last Filed: 01/13/18 14:54> Results - Vital Signs Recent Vital Signs: Last Vital Signs Temp 97.3 F L 01/10/18 17:22 Pulse 97 H 01/10/18 17:22 Resp 20 01/10/18 17:22 BP 77/43 L 01/10/18 17:22 Pulse Ox 94 L 01/10/18 17:22 - Labs Result Diagrams: 01/09/18 07:00 01/11/18 06:30 Attending/Attestation - Attestation I have personally seen and examined this patient.: Yes I have fully participated in the care of the patient.: Yes I have reviewed all pertinent clinical information: Yes
[2018-01-06] MEDS ORDERED: Insulin Detemir 100 units/ml Vial (Levemir) SC SCH (22:00)
--- NOTE | 2018-01-06 22:38 | PN ---
DATE: ENDOCRINOLOGY FOLLOWUP NOTE LOCATION: Room 315, CCU. SUBJECTIVE: This is a 67-year-old female with recent uncontrolled type 2 insulin requiring diabetes, now being followed closely for metabolic management. Her glycemic levels are fluctuating, but much improved at this time and the latest glucose levels have ranged from 167 to 190 mg/dL. . Her latest chemistry showed a BUN of 85, sodium 130, potassium 4.7, chloride 107, CO2 15, glucose and creatinine 3.4. So at this time, we will modify once again her basal and bolus insulin regimen and continue with Humalog given as 12 units subcu t.i.d. before meals and Levemir given as 24 units subcu at bedtime daily . We will continue also a low-dose correction scale using Humalog insulin as given. We will follow with you. Dorcas Galvin MD
[2018-01-07] MEDS: Insulin Lispro 1 UNITS/0.01 ML SC SCH ×3 (06:56→17:30)
[2018-01-07] MEDS: Insulin Lispro (humaLOG) LOW Coverage SC SCH ×4 (06:57→21:42)
[2018-01-07] MEDS: Levothyroxine 75 MCG TAB PO SCH (06:58)
[2018-01-07] MEDS: Vancomycin 25 MG/ML PO SCH ×4 (11:00→21:42)
--- NOTE | 2018-01-07 11:53 | CP.PCM.PN ---
<Wicho Currie - Last Filed: 01/07/18 11:50> Subjective - Date & Time of Evaluation Date of Evaluation: 01/07/18 Time of Evaluation: 11:50 - Subjective Subjective: 67 year old female patient with PMHx of Left breast CA currently on chemotherapy , DM, HTN, PE on wafarin, hypothyroid, B/L Lower extremity edema, ascites was seen and evaluated at bedside for diffuse blisters and left 2nd digit subungual hematoma. Patient reports that she is feeling weak today. Denies of any acute overnight events. Denies of any overnight F/N/V/C/SOB/CP/headache. Denies of having any pain in her extremity today. No new complains. Objective - Vital Signs/Intake and Output Vital Signs (last 24 hours): Temp Pulse Resp BP Pulse Ox 97.8 F 98 H 20 84/60 L 98 01/06/18 17:35 01/06/18 17:35 01/06/18 17:35 01/06/18 17:35 01/06/18 17:35 Intake and Output: 01/07/18 01/07/18 06:59 18:59 Intake Total 420 Balance 420 - Medications Medications: Current Medications Acetaminophen (Tylenol 325mg Tab) 650 mg PO Q4H PRN; Protocol PRN Reason: Pain, Mild (1-3) Aspirin (Ecotrin) 81 mg PO 0800 [facility] PRN Reason: Protocol Last Admin: 01/07/18 09:00 Dose: 81 mg Atorvastatin Calcium (Lipitor) 20 mg PO HS [facility] Last Admin: 01/06/18 22:53 Dose: 20 mg Gabapentin (Neurontin) 300 mg PO HS [facility] PRN Reason: Protocol Last Admin: 01/06/18 22:54 Dose: 300 mg Ibuprofen (Motrin Tab) 600 mg PO Q6H PRN; Protocol PRN Reason: Pain, moderate (4-7) Insulin Detemir (Levemir) 24 unit SC HS [facility] PRN Reason: Protocol Last Admin: 01/06/18 22:46 Dose: 24 unit Insulin Human Lispro (Humalog Low) 0 units SC ACHS [facility] PRN Reason: Protocol Last Admin: 01/07/18 06:57 Dose: Not Given Insulin Human Lispro (Humalog) 12 units SC AC [facility] PRN Reason: Protocol Last Admin: 01/07/18 06:56 Dose: 12 units Levothyroxine Sodium (Synthroid) 75 mcg PO 0600 [facility] PRN Reason: Protocol Last Admin: 01/07/18 06:58 Dose: 75 mcg Loperamide HCl (Imodium) 2 mg PO Q4H PRN PRN Reason: Diarrhea Last Admin: 01/07/18 06:58 Dose: 2 mg Ondansetron HCl (Zofran Inj) 4 mg IVP Q4H PRN; Protocol PRN Reason: Nausea/Vomiting Last Admin: 01/05/18 01:26 Dose: 4 mg Sodium Bicarbonate (Sodium Bicarbonate Tab) 650 mg PO BID [facility] PRN Reason: Protocol Last Admin: 01/07/18 11:00 Dose: 650 mg Tramadol HCl (Ultram) 25 mg PO Q6H PRN; Protocol PRN Reason: Pain, severe (8-10) Vancomycin HCl (Vancocin 25 Mg/Ml (Oral Use)) 250 mg PO QID [facility] PRN Reason: Protocol Stop: 01/19/18 18:01 Last Admin: 01/07/18 11:00 Dose: 250 mg - Labs Labs: 01/06/18 09:30 01/06/18 09:30 PT 76.4 SECONDS (9.4-12.5) H 01/06/18 09:30 INR 6.40 (0.93-1.08) H* 01/06/18 09:30 - Constitutional Appears: Well, Non-toxic, No Acute Distress - Extremities Exam Additional comments: Bilateral LE Exam: VASC: DP and PT pulses are non-palpable b/l, temperature gradient warm to cool from proximal to distal, Cap refill time: <3 seconds to digits, +2 pitting edema noted on the distal medial leg as well as the dorsum of the foot b/l Derm: posterior lateral heel fissure noted on the left heel with multiple diffusly healed blisters noted on the legs bilaterally, no erythema, no clinical suspicion of active infection, subungual hematoma noted on the left foot second digit Neuro: gross and protective sensation diminished bilaterally Ortho: no pain with palpation to the LE, mild tenderness on palpation of the left heel, no pain with calf squeeze - Neurological Exam Neurological Exam: Alert, Awake, Oriented x3 - Psychiatric Exam Psychiatric exam: Normal Affect, Normal Mood Assessment and Plan - Assessment and Plan (Free Text) Assessment: 67 year old female patient evaluated for 1). left foot 2nd digit hematoma 2). Posterior heel fissures with diffuse healing blisters on LLE Plan: Patient seen and evaluated Plan discussed with attending Dr. Maravilla Labs, vital, charts reviewed - afebrile, WBC @ 14.1 Arterial duplex ordered - Pending Multipodus boots ordered - to be worn at all times while in bed Optifoam applied to the left heel Podiatry will follow patient while in-house <Kyler Meza - Last Filed: 01/07/18 14:57> Objective - Vital Signs/Intake and Output Vital Signs (last 24 hours): Temp Pulse Resp BP Pulse Ox 97.8 F 98 H 20 84/60 L 98 01/06/18 17:35 01/06/18 17:35 01/06/18 17:35 01/06/18 17:35 01/06/18 17:35 Intake and Output: 01/07/18 01/07/18 06:59 18:59 Intake Total 420 Balance 420 - Medications Medications: Current Medications Acetaminophen (Tylenol 325mg Tab) 650 mg PO Q4H PRN; Protocol PRN Reason: Pain, Mild (1-3) Aspirin (Ecotrin) 81 mg PO 0800 [facility] PRN Reason: Protocol Last Admin: 01/07/18 09:00 Dose: 81 mg Atorvastatin Calcium (Lipitor) 20 mg PO HS [facility] Last Admin: 01/06/18 22:53 Dose: 20 mg Gabapentin (Neurontin) 300 mg PO HS [facility] PRN Reason: Protocol Last Admin: 01/06/18 22:54 Dose: 300 mg Ibuprofen (Motrin Tab) 600 mg PO Q6H PRN; Protocol PRN Reason: Pain, moderate (4-7) Insulin Detemir (Levemir) 24 unit SC HS [facility] PRN Reason: Protocol Last Admin: 01/06/18 22:46 Dose: 24 unit Insulin Human Lispro (Humalog Low) 0 units SC ACHS [facility] PRN Reason: Protocol Last Admin: 01/07/18 12:30 Dose: Not Given Insulin Human Lispro (Humalog) 12 units SC AC [facility] PRN Reason: Protocol Last Admin: 01/07/18 12:30 Dose: 12 units Levothyroxine Sodium (Synthroid) 75 mcg PO 0600 [facility] PRN Reason: Protocol Last Admin: 01/07/18 06:58 Dose: 75 mcg Loperamide HCl (Imodium) 2 mg PO Q4H PRN PRN Reason: Diarrhea Last Admin: 01/07/18 06:58 Dose: 2 mg Ondansetron HCl (Zofran Inj) 4 mg IVP Q4H PRN; Protocol PRN Reason: Nausea/Vomiting Last Admin: 01/05/18 01:26 Dose: 4 mg Sodium Bicarbonate (Sodium Bicarbonate Tab) 650 mg PO BID [facility] PRN Reason: Protocol Last Admin: 01/07/18 11:00 Dose: 650 mg Tramadol HCl (Ultram) 25 mg PO Q6H PRN; Protocol PRN Reason: Pain, severe (8-10) Vancomycin HCl (Vancocin 25 Mg/Ml (Oral Use)) 250 mg PO QID [facility] PRN Reason: Protocol Stop: 01/19/18 18:01 Last Admin: 01/07/18 14:18 Dose: 250 mg - Labs Labs: 01/06/18 09:30 01/06/18 09:30 PT 76.4 SECONDS (9.4-12.5) H 01/06/18 09:30 INR 6.40 (0.93-1.08) H* 01/06/18 09:30 Attending/Attestation - Attestation I have personally seen and examined this patient.: Yes I have fully participated in the care of the patient.: Yes I have reviewed all pertinent clinical information, including history, physical exam and plan: Yes
--- NOTE | 2018-01-07 12:51 | CP.PCM.PN ---
Subjective - Date & Time of Evaluation Date of Evaluation: 01/07/18 Time of Evaluation: 11:45 - Subjective Subjective: No more diarrhea, no fevers. Objective - Vital Signs/Intake and Output Vital Signs (last 24 hours): Temp Pulse Resp BP Pulse Ox 97.8 F 98 H 20 84/60 L 98 01/06/18 17:35 01/06/18 17:35 01/06/18 17:35 01/06/18 17:35 01/06/18 17:35 Intake and Output: 01/07/18 01/07/18 06:59 18:59 Intake Total 420 Balance 420 - Medications Medications: Current Medications Acetaminophen (Tylenol 325mg Tab) 650 mg PO Q4H PRN; Protocol PRN Reason: Pain, Mild (1-3) Aspirin (Ecotrin) 81 mg PO 0800 [facility] PRN Reason: Protocol Last Admin: 01/06/18 08:56 Dose: 81 mg Atorvastatin Calcium (Lipitor) 20 mg PO HS [facility] Last Admin: 01/06/18 22:53 Dose: 20 mg Gabapentin (Neurontin) 300 mg PO HS [facility] PRN Reason: Protocol Last Admin: 01/06/18 22:54 Dose: 300 mg Ibuprofen (Motrin Tab) 600 mg PO Q6H PRN; Protocol PRN Reason: Pain, moderate (4-7) Insulin Detemir (Levemir) 24 unit SC HS [facility] PRN Reason: Protocol Last Admin: 01/06/18 22:46 Dose: 24 unit Insulin Human Lispro (Humalog Low) 0 units SC ACHS [facility] PRN Reason: Protocol Last Admin: 01/07/18 06:57 Dose: Not Given Insulin Human Lispro (Humalog) 12 units SC AC [facility] PRN Reason: Protocol Last Admin: 01/07/18 06:56 Dose: 12 units Levothyroxine Sodium (Synthroid) 75 mcg PO 0600 [facility] PRN Reason: Protocol Last Admin: 01/07/18 06:58 Dose: 75 mcg Loperamide HCl (Imodium) 2 mg PO Q4H PRN PRN Reason: Diarrhea Last Admin: 01/07/18 06:58 Dose: 2 mg Ondansetron HCl (Zofran Inj) 4 mg IVP Q4H PRN; Protocol PRN Reason: Nausea/Vomiting Last Admin: 01/05/18 01:26 Dose: 4 mg Sodium Bicarbonate (Sodium Bicarbonate Tab) 650 mg PO BID [facility] PRN Reason: Protocol Last Admin: 01/06/18 18:33 Dose: 650 mg Tramadol HCl (Ultram) 25 mg PO Q6H PRN; Protocol PRN Reason: Pain, severe (8-10) Vancomycin HCl (Vancocin 25 Mg/Ml (Oral Use)) 250 mg PO QID [facility] PRN Reason: Protocol Stop: 01/19/18 18:01 Last Admin: 01/06/18 22:54 Dose: 250 mg - Labs Labs: 01/06/18 09:30 01/06/18 09:30 PT 76.4 SECONDS (9.4-12.5) H 01/06/18 09:30 INR 6.40 (0.93-1.08) H* 01/06/18 09:30 - Constitutional Appears: Chronically Ill - Head Exam Head Exam: NORMAL INSPECTION - Neck Exam Neck Exam: absent: Meningismus - Respiratory Exam Respiratory Exam: Decreased Breath Sounds - Cardiovascular Exam Cardiovascular Exam: +S1, +S2 - GI/Abdominal Exam GI & Abdominal Exam: Soft. absent: Tenderness Assessment and Plan - Assessment and Plan (Free Text) Plan: Assessment diarrhea, consider C. diff. associated S/P left breast and left leg cellulitis history of severe sepsis with leukopenia and acute renal failure, consider due to acute enteritis, less likely acute cholecystitis R/O spontaneous bacterial peritonitis HTN DM breast cancer with last chemotherapy session on April 24, 2017 S/P right port-a-cath placement obesity with BMI 39 Plan continue PO Vancomycin day 3 to complete 10 days of therapy
--- NOTE | 2018-01-07 14:38 | CP.PCM.PN ---
Subjective - Date & Time of Evaluation Date of Evaluation: 01/07/18 Time of Evaluation: 14:33 - Subjective Subjective: General Surgery Progress Note for Dr. Garland Patient seen and examined at bedside. Son also present during the encounter. Patient denies any fever, chills, but does admit to drainage from left breast. Contact precautions noted. Nurse reports no events overnight. Objective - Vital Signs/Intake and Output Vital Signs (last 24 hours): Temp Pulse Resp BP Pulse Ox 97.8 F 98 H 20 84/60 L 98 01/06/18 17:35 01/06/18 17:35 01/06/18 17:35 01/06/18 17:35 01/06/18 17:35 Intake and Output: 01/07/18 01/07/18 06:59 18:59 Intake Total 420 Balance 420 - Medications Medications: Current Medications Acetaminophen (Tylenol 325mg Tab) 650 mg PO Q4H PRN; Protocol PRN Reason: Pain, Mild (1-3) Aspirin (Ecotrin) 81 mg PO 0800 [facility] PRN Reason: Protocol Last Admin: 01/07/18 09:00 Dose: 81 mg Atorvastatin Calcium (Lipitor) 20 mg PO HS [facility] Last Admin: 01/06/18 22:53 Dose: 20 mg Gabapentin (Neurontin) 300 mg PO HS [facility] PRN Reason: Protocol Last Admin: 01/06/18 22:54 Dose: 300 mg Ibuprofen (Motrin Tab) 600 mg PO Q6H PRN; Protocol PRN Reason: Pain, moderate (4-7) Insulin Detemir (Levemir) 24 unit SC HS [facility] PRN Reason: Protocol Last Admin: 01/06/18 22:46 Dose: 24 unit Insulin Human Lispro (Humalog Low) 0 units SC ACHS [facility] PRN Reason: Protocol Last Admin: 01/07/18 12:30 Dose: Not Given Insulin Human Lispro (Humalog) 12 units SC AC [facility] PRN Reason: Protocol Last Admin: 01/07/18 12:30 Dose: 12 units Levothyroxine Sodium (Synthroid) 75 mcg PO 0600 [facility] PRN Reason: Protocol Last Admin: 01/07/18 06:58 Dose: 75 mcg Loperamide HCl (Imodium) 2 mg PO Q4H PRN PRN Reason: Diarrhea Last Admin: 01/07/18 06:58 Dose: 2 mg Ondansetron HCl (Zofran Inj) 4 mg IVP Q4H PRN; Protocol PRN Reason: Nausea/Vomiting Last Admin: 01/05/18 01:26 Dose: 4 mg Sodium Bicarbonate (Sodium Bicarbonate Tab) 650 mg PO BID [facility] PRN Reason: Protocol Last Admin: 01/07/18 11:00 Dose: 650 mg Tramadol HCl (Ultram) 25 mg PO Q6H PRN; Protocol PRN Reason: Pain, severe (8-10) Vancomycin HCl (Vancocin 25 Mg/Ml (Oral Use)) 250 mg PO QID [facility] PRN Reason: Protocol Stop: 01/19/18 18:01 Last Admin: 01/07/18 14:18 Dose: 250 mg - Labs Labs: 01/06/18 09:30 01/06/18 09:30 PT 76.4 SECONDS (9.4-12.5) H 01/06/18 09:30 INR 6.40 (0.93-1.08) H* 01/06/18 09:30 - Constitutional Appears: Well, Non-toxic - Head Exam Head Exam: ATRAUMATIC, NORMOCEPHALIC - Eye Exam Eye Exam: EOMI, Normal appearance - ENT Exam ENT Exam: Mucous Membranes Moist, Normal Oropharynx - Neck Exam Neck Exam: Normal Inspection - Respiratory Exam Respiratory Exam: NORMAL BREATHING PATTERN. absent: Accessory Muscle Use - GI/Abdominal Exam GI & Abdominal Exam: Soft, Normal Bowel Sounds. absent: Guarding, Rigid, Rebound - Extremities Exam Extremities Exam: Normal Inspection - Neurological Exam Neurological Exam: Alert, Awake, Oriented x3 - Psychiatric Exam Psychiatric exam: Normal Affect, Normal Mood - Skin Skin Exam: Dry, Normal Color, Warm Additional comments: left breast and ipsilateral axillary region shows yellow appearing skin; central eschar of areolar region still present; dressing was soaked in serous fluid, without purulence or blood. Assessment and Plan - Assessment and Plan (Free Text) Assessment: 67 year old female with left inflammatory breast cancer who surgery is managing a superficial skin wound of the left breast. Plan: - Continue local wound care with xeroform and abdominal pad placement. Removal and replacement of the left breast dressing every day will allow for gentle debridement of the necrotic tissue and also prevent infection. - Continue antibiotics as per Infectious Disease - Continue Medical management, Heme/Onc management Further recs as per Dr. Giron
--- NOTE | 2018-01-07 15:22 | US ---
PROCEDURE: Lower extremity DIPTI exam HISTORY: Peripheral vascular disease with pain and ulceration. Diabetes PHYSICIAN(S): Wilner Madrid MD. FINDINGS: The resting DIPIT's are abnormally elevated reflecting calcification of the arteries: Right, 1.85 and left, 2.53 The low thigh pressures and waveforms are relatively normal. The calf PVR waveforms augment normally. The ankle and metatarsal waveforms are relatively normal and symmetric. Distal pressures are limited by calcification IMPRESSION: 1. Relatively normal DIPTI and PVR examination at rest.
[2018-01-07] MEDS ORDERED: Insulin Detemir 100 units/ml Vial (Levemir) SC SCH (22:00)
[2018-01-08] MEDS: Levothyroxine 75 MCG TAB PO SCH (05:42)
[2018-01-08] MEDS ORDERED: Sodium Chloride 0.9% 300 ML IV SCH (07:00)
--- NOTE | 2018-01-08 07:55 | CP.PCM.PN ---
Subjective - Date & Time of Evaluation Date of Evaluation: 01/08/18 Time of Evaluation: 06:35 - Subjective Subjective: Patient seen stat at the request of her RN for observation of lethargy when they tried to change her this AM. She noticed pt to be oriented only to name and not following any commands. Her BP has dropped to 91/55 HR is 84 RR 20 Axillary temp is 96.1 O2 sat on O2 @ 2L/min is 98%,Accucheck is 216 Manual BP is 87/48.At this point Dr Ngo was contacted,a bolus of 300 ccs NS was ordered stat Patient is currently being treated for C Diff.yesterday she had 5 L of fluid removed removed from her abdomen. PMH: Hypothyroidism,Breast Ca.,HTN,Anemia,DVT,DM. Objective - Vital Signs/Intake and Output Vital Signs (last 24 hours): Temp Pulse Resp BP Pulse Ox 97.8 F 93 H 20 86/54 L 98 01/07/18 17:51 01/07/18 17:51 01/07/18 17:51 01/07/18 17:51 01/07/18 17:51 - Medications Medications: Current Medications Acetaminophen (Tylenol 325mg Tab) 650 mg PO Q4H PRN; Protocol PRN Reason: Pain, Mild (1-3) Aspirin (Ecotrin) 81 mg PO 0800 [facility] PRN Reason: Protocol Last Admin: 01/07/18 09:00 Dose: 81 mg Atorvastatin Calcium (Lipitor) 20 mg PO HS [facility] Last Admin: 01/07/18 21:42 Dose: 20 mg Gabapentin (Neurontin) 300 mg PO HS [facility] PRN Reason: Protocol Last Admin: 01/07/18 21:43 Dose: 300 mg Ibuprofen (Motrin Tab) 600 mg PO Q6H PRN; Protocol PRN Reason: Pain, moderate (4-7) Insulin Detemir (Levemir) 28 unit SC HS [facility] PRN Reason: Protocol Last Admin: 01/07/18 21:44 Dose: 28 unit Insulin Human Lispro (Humalog Low) 0 units SC ACHS [facility] PRN Reason: Protocol Last Admin: 01/07/18 21:42 Dose: Not Given Insulin Human Lispro (Humalog) 14 units SC AC [facility] PRN Reason: Protocol Last Admin: 01/07/18 17:30 Dose: 14 units Levothyroxine Sodium (Synthroid) 75 mcg PO 0600 [facility] PRN Reason: Protocol Last Admin: 01/08/18 05:42 Dose: 75 mcg Loperamide HCl (Imodium) 2 mg PO Q4H PRN PRN Reason: Diarrhea Last Admin: 01/07/18 06:58 Dose: 2 mg Ondansetron HCl (Zofran Inj) 4 mg IVP Q4H PRN; Protocol PRN Reason: Nausea/Vomiting Last Admin: 01/07/18 21:46 Dose: 4 mg Sodium Bicarbonate (Sodium Bicarbonate Tab) 650 mg PO BID [facility] PRN Reason: Protocol Last Admin: 01/07/18 17:53 Dose: 650 mg Tramadol HCl (Ultram) 25 mg PO Q6H PRN; Protocol PRN Reason: Pain, severe (8-10) Vancomycin HCl (Vancocin 25 Mg/Ml (Oral Use)) 250 mg PO QID [facility] PRN Reason: Protocol Stop: 01/19/18 18:01 Last Admin: 01/07/18 21:42 Dose: 250 mg - Labs Labs: 01/06/18 09:30 01/06/18 09:30 PT 76.4 SECONDS (9.4-12.5) H 01/06/18 09:30 INR 6.40 (0.93-1.08) H* 01/06/18 09:30 - Constitutional Appears: Other (Patient is lethargic) - Head Exam Head Exam: ATRAUMATIC, NORMAL INSPECTION, NORMOCEPHALIC - Eye Exam Eye Exam: PERRL (Pupils are equal,reactive but somewhat sluggish.) - ENT Exam ENT Exam: Mucous Membranes Moist - Neck Exam Neck Exam: Normal Inspection - Respiratory Exam Respiratory Exam: Decreased Breath Sounds (at both bases) Additional comments: Has a dressing on the L breast and a portacath in the R upper chest wall. - Cardiovascular Exam Cardiovascular Exam: REGULAR RHYTHM ( ) - GI/Abdominal Exam GI & Abdominal Exam: Distended (has an inspira catheter in place), Soft, Normal Bowel Sounds - Extremities Exam Extremities Exam: Pedal Edema - Neurological Exam Neurological Exam: Altered (Lethargic,oriented to name ,not to place and time.) Neuro motor strength exam: Left Upper Extremity: 2/1, Right Upper Extremity: 2/1 , Left Lower Extremity: 2/1, Right Lower Extremity: 2/1 - Psychiatric Exam Additional comments: Old blisters noted on the L lower leg. - Skin Skin Exam: Warm Assessment and Plan - Assessment and Plan (Free Text) Assessment: Lethargy Plan: Discussd with Dr Ngo,all work up to be done on the floor. Patient sent for Cat scan of the head stat,septic work up and other labs ordered stat.
[2018-01-08] MEDS: Insulin Lispro (humaLOG) LOW Coverage SC SCH ×4 (08:04→21:59)
[2018-01-08] MEDS: Insulin Lispro 1 UNITS/0.01 ML SC SCH ×3 (08:05→16:59)
[2018-01-08 08:26] LABS: BASO # 0.02 K/mm3 (0.0-2.0); BASO % 0.2 % (0.0-3.0); EOS % 0.5 % (1.5-5.0); GRAN # 6.75 (1.4-6.5); HEMOGLOBIN 11.7 g/dL (12.0-16.0); LYMPH # 0.6 (1.2-3.4); LYMPH % 7.1 % (22.0-35.0); MEAN CELL VOLUME 87.2 fl (80.0-105.0); MEAN CORPUSCULAR HEMOGLOBIN 29.5 pg (25.0-35.0); MEAN CORPUSCULAR HGB CONC 33.8 g/dl (31.0-37.0); MEAN PLATELET VOLUME 11.2 fl (7.0-11.0); MONO # 0.8 (0.1-0.6); MONO % 9.2 % (1.0-6.0); RBC 3.97 10^6/uL (3.5-6.1); WHITE BLOOD COUNT 8.1 10^3/ul (4.5-11.0)
[2018-01-08 08:32] LABS: ALB/GLOB RATIO 0.6 (1.1-1.8); ALBUMIN 1.9 g/dL (3.0-4.8); CALCIUM 7.5 mg/dL (8.4-10.5)
[2018-01-08 08:36] LABS: TROPONIN I 0.02 ng/mL
[2018-01-08] MEDS ORDERED: Lactulose 10 gm/15 ml (Rectal Use) PR ONE (08:59)
--- NOTE | 2018-01-08 09:05 | PN ---
DATE: 01/07/2018 ENDOCRINOLOGY FOLLOWUP NOTE LOCATION: In the CCU, room 315. SUBJECTIVE: This is a 67-year-old female with recent uncontrolled type 2 insulin-requiring diabetes, now being followed closely for metabolic management. Her glycemic levels are fluctuating, but improved and the glucose values are ranging from 203 to 204 mg/dL. LABORATORY DATA: Her latest chemistry shows a BUN of 85, sodium 130, potassium 4.7, chloride 107, CO2 of 15, glucose 229, and creatinine 2.4. PLAN: So, at this time, we will modify once again her basal and bolus insulin regimen and increase the Humalog to 14 units subcu t.i.d. before meals to start today as ordered. We will also increase the overnight basal insulin with Levemir to be given as 28 units subcu at bedtime daily as given. We will titrate incrementally as indicated to optimize metabolic control. We will follow and advise accordingly. Dorcas Galvin MD
[2018-01-08 10:17] LABS: PROTHROMBIN TIME 44.6 SECONDS (9.4-12.5)
[2018-01-08 10:18] LABS: INR 3.77 (0.93-1.08)
--- NOTE | 2018-01-08 10:49 | CP.PCM.CON ---
History of Present Illness - History of Present Illness History of Present Illness: Palliative consult requested by Dr Kylah Ngo Reason: Goals of care 67 year old female with history of metastatic breast cancer, ascites who was optionally admitted to acute care with sepsis, peritonitis,LLE cellulitis. She has since been transitioned to [facility] for completion of antibiotic therapy and deconditoning. PMHx: metastatic breast cancer s/p on chemotherapy, DM, HTN, PE on wafarin, hypothyroid, B/L Lower extremity edema/cellulitis, ascites. PSHx: mastectomy,open appendectomy, R port a cath Social History:Non smoker, no alcohol or drug use. Lives with her son Simone. Family History: Non contributory. Advance Care Planning: The patient has a POLST:DNR/DNI Review of Systems: She is complaining of generalized weakness, difficulty speaking, disorientation, visual changes. She denies pain, nausea, vomiting, chills, headache, dizziness. Past Patient History - Infectious Disease Hx of Infectious Diseases: None - Past Medical History & Family History Past Medical History?: Yes - Past Social History Smoking Status: Never Smoked - CARDIAC Hx Hypertension: Yes - PULMONARY Hx Respiratory Disorders: Yes Hx Pulmonary Embolism: Yes - NEUROLOGICAL Hx Neurological Disorder: No - HEENT Hx HEENT Problems: Yes Other/Comment: glasses - RENAL Hx Chronic Kidney Disease: No - ENDOCRINE/METABOLIC Hx Hypothyroidism: Yes - HEMATOLOGICAL/ONCOLOGICAL Hx Cancer: Yes (breast cancer, dx 11/2016) Hx Chemotherapy: Yes (last chemo 2 wks ago) Hx Cirrhosis: Yes (ascites) Other/Comment: peritoneal drain to right abd for ascites, drained 2x's a week at infusion center - INTEGUMENTARY Hx Dermatological Problems: No - MUSCULOSKELETAL/RHEUMATOLOGICAL Hx Falls: No - GASTROINTESTINAL Hx Gastrointestinal Disorders: Yes (cirrhosis , ascites ) Other/Comment: Ascitis - GENITOURINARY/GYNECOLOGICAL Hx Reproductive Disorders: No - PSYCHIATRIC Hx Substance Use: No - SURGICAL HISTORY Hx Appendectomy: Yes (open ) Other/Comment: Port in R chest, - ANESTHESIA Hx Anesthesia Reactions: No Hx Malignant Hyperthermia: No Meds Allergies/Adverse Reactions: Allergies Allergy/AdvReac Type Severity Reaction Status Date / Time banana Allergy Severe RASH Verified 01/04/18 02:53 - Medications Medications: Current Medications Acetaminophen (Tylenol 325mg Tab) 650 mg PO Q4H PRN; Protocol PRN Reason: Pain, Mild (1-3) Aspirin (Ecotrin) 81 mg PO 0800 [facility] PRN Reason: Protocol Last Admin: 01/07/18 09:00 Dose: 81 mg Atorvastatin Calcium (Lipitor) 20 mg PO HS [facility] Last Admin: 01/07/18 21:42 Dose: 20 mg Gabapentin (Neurontin) 300 mg PO HS [facility] PRN Reason: Protocol Last Admin: 01/07/18 21:43 Dose: 300 mg Ibuprofen (Motrin Tab) 600 mg PO Q6H PRN; Protocol PRN Reason: Pain, moderate (4-7) Insulin Detemir (Levemir) 28 unit SC HS [facility] PRN Reason: Protocol Last Admin: 01/07/18 21:44 Dose: 28 unit Insulin Human Lispro (Humalog Low) 0 units SC ACHS [facility] PRN Reason: Protocol Last Admin: 01/08/18 08:04 Dose: Not Given Insulin Human Lispro (Humalog) 14 units SC AC [facility] PRN Reason: Protocol Last Admin: 01/08/18 08:05 Dose: Not Given Levothyroxine Sodium (Synthroid) 75 mcg PO 0600 [facility] PRN Reason: Protocol Last Admin: 01/08/18 05:42 Dose: 75 mcg Loperamide HCl (Imodium) 2 mg PO Q4H PRN PRN Reason: Diarrhea Last Admin: 01/07/18 06:58 Dose: 2 mg Ondansetron HCl (Zofran Inj) 4 mg IVP Q4H PRN; Protocol PRN Reason: Nausea/Vomiting Last Admin: 01/07/18 21:46 Dose: 4 mg Sodium Bicarbonate (Sodium Bicarbonate Tab) 650 mg PO BID [facility] PRN Reason: Protocol Last Admin: 01/07/18 17:53 Dose: 650 mg Tramadol HCl (Ultram) 25 mg PO Q6H PRN; Protocol PRN Reason: Pain, severe (8-10) Vancomycin HCl (Vancocin 25 Mg/Ml (Oral Use)) 250 mg PO QID [facility] PRN Reason: Protocol Stop: 01/19/18 18:01 Last Admin: 01/07/18 21:42 Dose: 250 mg Physical Exam - Constitutional Appears: Chronically Ill - Head Exam Head Exam: NORMOCEPHALIC - Eye Exam Additional comments: delayed accommodation - ENT Exam ENT Exam: Mucous Membranes Moist, Normal Oropharynx - Respiratory Exam Respiratory Exam: Decreased Breath Sounds, NORMAL BREATHING PATTERN - Cardiovascular Exam Cardiovascular Exam: REGULAR RHYTHM, +S1, +S2 - GI/Abdominal Exam GI & Abdominal Exam: Distended, Normal Bowel Sounds, Soft - Extremities Exam Additional comments: weakness of right upper extremity - Back Exam Back exam: NORMAL INSPECTION - Neurological Exam Neurological exam: Altered Additional comments: lethargic oriented to palce and self - Skin Skin Exam: Dry, Pallor - Additional Findings Additional findings: Palliative performance scale rating 30 % Results - Vital Signs Recent Vital Signs: Last Vital Signs Temp 97.8 F 01/07/18 17:51 Pulse 93 H 01/07/18 17:51 Resp 20 01/07/18 17:51 BP 86/54 L 01/07/18 17:51 Pulse Ox 98 01/07/18 17:51 - Labs Result Diagrams: 01/09/18 07:00 01/09/18 07:00 Labs: Laboratory Results - last 24 hr 01/07/18 01/07/18 01/07/18 11:11 16:36 21:21 WBC RBC Hgb Hct MCV MCH MCHC RDW Plt Count MPV Gran % Lymph % (Auto) [place] % (Auto) Eos % (Auto) Baso % (Auto) Gran # Lymph # (Auto) [place] # (Auto) Eos # (Auto) Baso # (Auto) PT INR Sodium Potassium Chloride Carbon Dioxide Anion Gap BUN Creatinine Est GFR ( Amer) Est GFR (Non-Af Amer) POC Glucose (mg/dL) 203 H 194 H 170 H Random Glucose Calcium Total Bilirubin AST ALT Alkaline Phosphatase Troponin I Total Protein Albumin Globulin Albumin/Globulin Ratio 01/08/18 01/08/18 01/08/18 06:09 07:00 07:00 WBC 8.1 D RBC 3.97 Hgb 11.7 L Hct 34.6 L MCV 87.2 MCH 29.5 MCHC 33.8 RDW 15.0 H Plt Count 96 L MPV 11.2 H Gran % 83.0 H Lymph % (Auto) 7.[address] [place] % (Auto) 9.2 H Eos % (Auto) 0.5 L Baso % (Auto) 0.2 Gran # 6.75 H Lymph # (Auto) 0.[address] [place] # (Auto) 0.8 H Eos # (Auto) 0.0 Baso # (Auto) 0.02 PT INR Sodium 131 L Potassium 4.6 Chloride 109 H Carbon Dioxide 15 L Anion Gap 13 BUN 93 H Creatinine 2.1 H Est GFR ( Amer) 28 Est GFR (Non-Af Amer) 23 POC Glucose (mg/dL) 216 H Random Glucose 134 H Calcium 7.5 L Total Bilirubin 0.5 AST 87 H ALT 75 H Alkaline Phosphatase 231 H Troponin I 0.02 D Total Protein 5.2 L Albumin 1.9 L Globulin 3.2 Albumin/Globulin Ratio 0.6 L 01/08/18 09:45 WBC RBC Hgb Hct MCV MCH MCHC RDW Plt Count MPV Gran % Lymph % (Auto) [place] % (Auto) Eos % (Auto) Baso % (Auto) Gran # Lymph # (Auto) [place] # (Auto) Eos # (Auto) Baso # (Auto) PT 44.6 H INR 3.77 H* Sodium Potassium Chloride Carbon Dioxide Anion Gap BUN Creatinine Est GFR ( Amer) Est GFR (Non-Af Amer) POC Glucose (mg/dL) Random Glucose Calcium Total Bilirubin AST ALT Alkaline Phosphatase Troponin I Total Protein Albumin Globulin Albumin/Globulin Ratio Assessment & Plan - Assessment and Plan (Free Text) Assessment: 67 year old female with history metastatic breast cancer, ascites and LLE cellulitis who is seen in [facility] where she is completing antibiotic and deconditioning therapy. The patient is lethargic, able to follow simple command. States she is feeling weak, also complaining of visual disturbance. Denies pain, other symptoms. CT of head showed no acute intracranial abnormality, diffuse cerebral atrophy and chronic microvascular white matter changes. Ammonia level 56. I contacted patients son Simone in order to discus goals of care. Simone is expected to meet with me later this afternoon. Plan: Palliative support in establishing goals of care
[2018-01-08] MEDS: Vancomycin 25 MG/ML PO SCH ×4 (11:04→22:10)
--- NOTE | 2018-01-08 11:53 | PN ---
DATE: 01/08/2018 SUBJECTIVE: The patient has no complaints of any chest pain, shortness of breath or headache. She says she has involved with physical therapy. PHYSICAL EXAMINATION: VITAL SIGNS: Temperature is 97.8, pulse of 93, blood pressure 86/54, respirations 20. GENERAL: The patient is lying in bed, flat, comfortable. HEENT: No oral lesion. Anicteric sclerae. Moist mucosa. NECK: No JVD, adenopathy, or thyromegaly. CARDIOVASCULAR: S1 and S2, regular. No murmurs, rubs, or gallops. LUNGS: Clear to auscultation bilaterally. No wheeze, rales, or rhonchi. ABDOMEN: Bowel sounds are positive, soft, nontender and nondistended. EXTREMITIES: no cyanosis, clubbing or edema. DIAGNOSTIC DATA: She had an ultrasound of the lower extremity that shows relatively normal . ASSESSMENT: 1. Leukocytosis. 2. Diabetes type 2, controlled. 3. Metabolic acidosis secondary to chronic kidney disease. 4. Chronic kidney disease, stage 3-4. 5. Cirrhosis. 6. Thrombocytopenia. 7. Osteoarthritis. 8. Ascites with chronic catheter in place for drainage. 9. Breast cancer. 10. Left leg deep venous thrombosis on anticoagulation. 11. Hypertension. 12. Port-A-Cath. 13. Do not resuscitate/do not intubate. PLAN: The patient is currently comfortable. She is getting physical therapy. She had C. diff that was positive for antigen. The patient is being followed by Surgery for her local wound care. The patient is currently receiving aspirin. She is receiving Lipitor for dyslipidemia. She is on Neurontin for neuropathy. She is on Synthroid for her hypothyroidism. She is on vancomycin for her C. diff. She had an INR that was elevated. Her Coumadin has been placed on hold. She want a repeat INR check tomorrow. Her white count has improved significantly. Overall, prognosis is guarded. Rangel Ngo MD
--- NOTE | 2018-01-08 14:03 | CP.PCM.PN ---
Subjective - Date & Time of Evaluation Date of Evaluation: 01/08/18 Time of Evaluation: 11:20 - Subjective Subjective: Comfortable, no fevers. Objective - Vital Signs/Intake and Output Vital Signs (last 24 hours): Temp Pulse Resp BP Pulse Ox 97.8 F 93 H 20 86/54 L 98 01/07/18 17:51 01/07/18 17:51 01/07/18 17:51 01/07/18 17:51 01/07/18 17:51 - Medications Medications: Current Medications Acetaminophen (Tylenol 325mg Tab) 650 mg PO Q4H PRN; Protocol PRN Reason: Pain, Mild (1-3) Aspirin (Ecotrin) 81 mg PO 0800 [facility] PRN Reason: Protocol Last Admin: 01/07/18 09:00 Dose: 81 mg Atorvastatin Calcium (Lipitor) 20 mg PO HS [facility] Last Admin: 01/07/18 21:42 Dose: 20 mg Gabapentin (Neurontin) 300 mg PO HS [facility] PRN Reason: Protocol Last Admin: 01/07/18 21:43 Dose: 300 mg Ibuprofen (Motrin Tab) 600 mg PO Q6H PRN; Protocol PRN Reason: Pain, moderate (4-7) Insulin Detemir (Levemir) 28 unit SC HS [facility] PRN Reason: Protocol Last Admin: 01/07/18 21:44 Dose: 28 unit Insulin Human Lispro (Humalog Low) 0 units SC ACHS [facility] PRN Reason: Protocol Last Admin: 01/08/18 08:04 Dose: Not Given Insulin Human Lispro (Humalog) 14 units SC AC [facility] PRN Reason: Protocol Last Admin: 01/08/18 08:05 Dose: Not Given Levothyroxine Sodium (Synthroid) 75 mcg PO 0600 [facility] PRN Reason: Protocol Last Admin: 01/08/18 05:42 Dose: 75 mcg Loperamide HCl (Imodium) 2 mg PO Q4H PRN PRN Reason: Diarrhea Last Admin: 01/07/18 06:58 Dose: 2 mg Ondansetron HCl (Zofran Inj) 4 mg IVP Q4H PRN; Protocol PRN Reason: Nausea/Vomiting Last Admin: 01/07/18 21:46 Dose: 4 mg Sodium Bicarbonate (Sodium Bicarbonate Tab) 650 mg PO BID [facility] PRN Reason: Protocol Last Admin: 02/06/18 17:53 Dose: 650 mg Tramadol HCl (Ultram) 25 mg PO Q6H PRN; Protocol PRN Reason: Pain, severe (8-10) Vancomycin HCl (Vancocin 25 Mg/Ml (Oral Use)) 250 mg PO QID [facility] PRN Reason: Protocol Stop: 01/19/18 18:01 Last Admin: 01/07/18 21:42 Dose: 250 mg - Labs Labs: 01/08/18 07:00 01/08/18 07:00 PT 76.4 SECONDS (9.4-12.5) H 01/06/18 09:30 INR 6.40 (0.93-1.08) H* 01/06/18 09:30 - Constitutional Appears: Chronically Ill - Head Exam Head Exam: NORMAL INSPECTION - Respiratory Exam Respiratory Exam: Decreased Breath Sounds - Cardiovascular Exam Cardiovascular Exam: +S1, +S2 - GI/Abdominal Exam GI & Abdominal Exam: Soft. absent: Tenderness Assessment and Plan - Assessment and Plan (Free Text) Plan: Assessment sepsis due to C. diff. associated diarrhea S/P left breast and left leg cellulitis history of severe sepsis with leukopenia and acute renal failure, consider due to acute enteritis, less likely acute cholecystitis R/O spontaneous bacterial peritonitis HTN DM breast cancer with last chemotherapy session on April 24, 2017 S/P right port-a-cath placement obesity with BMI 39 Plan continue PO Vancomycin day 4 to complete 10-14 days of therapy
--- NOTE | 2018-01-08 16:01 | CARD ---
APPROVED REPORT EKG Measurement Heart [id number] <Conclusion> Normal sinus rhythm Left axis deviation Low voltage QRS Cannot rule out Anteroseptal infarct, age undetermined Abnormal ECG
--- NOTE | 2018-01-08 21:42 | PN ---
DATE: 01/08/2018 SUBJECTIVE: This is a 67-year-old diabetic seen in for multiple leg ulcers. Patient is seen at bedside. Family is with her. Patient did have her arterial Dopplers done. The report shows that patient has some hardening of the arteries, but no occlusion. The ankle and metatarsal waveforms were relatively normal. Patient's lower extremities were examined. She has contusion under the second toenail which is old and the hematoma is dry. The nail plate is still firmly attached. There are multiple eschars and fibrotic small ulcerations on the left lower extremity. At this time, they are all drying without any signs of infection. She has fissures with necrosis of both heels, one on each heel specifically neither one of them are ulcerated or infected. ASSESSMENT: Diabetic with multiple stage II ulcerations to the left lower extremity and heel fissures. PLAN OF TREATMENT: Legs were cleansed with Betadine mix and dry sterile dressing was placed on just to keep them clean, especially during therapy hours. cream was applied to both heels under occlusion with socks and she will be seen and followed as needed. I believe Saturday, Saturday, and Saturday would be a good schedule for Podiatry followup. Ginny Maravilla DPM
[2018-01-08] MEDS: Insulin Detemir 100 units/ml Vial (Levemir) SC SCH (22:09)
--- NOTE | 2018-01-08 22:34 | PN ---
DATE: ENDOCRINOLOGY FOLLOWUP NOTE SUBJECTIVE: This is a 67-year-old female with recent uncontrolled type 2 insulin-requiring diabetes, now being followed closely for metabolic management. Her glycemic levels are fluctuating, but improved and the latest glucose levels have ranged from 170-216 mg/dL. Her latest chemistry showed a BUN of 93, sodium 131, potassium 4.6, chloride 109, CO2 15, glucose 134 and creatinine 2.1. So at this time, we will continue the same basal and bolus insulin regimen to allow for dose equilibration and keep her on the Humalog given as 14 units subcu t.i.d. before meals as ordered. We will also continue the Levemir at a higher dose of 30 units subcu at bedtime daily as given. We will titrate incrementally as indicated to optimize metabolic control. We will obtain serial chemistries and supplement accordingly as needed. We will follow. Dorcas Galvin MD
[2018-01-09] MEDS: Levothyroxine 75 MCG TAB PO SCH (05:44)
[2018-01-09] MEDS: Insulin Lispro (humaLOG) LOW Coverage SC SCH ×4 (06:44→22:42)
[2018-01-09] MEDS: Insulin Lispro 1 UNITS/0.01 ML SC SCH ×3 (06:45→17:58)
[2018-01-09 07:23] LABS: HEMOGLOBIN 11.3 g/dL (12.0-16.0); INR 2.77 (0.93-1.08); MEAN CELL VOLUME 87.6 fl (80.0-105.0); MEAN CORPUSCULAR HEMOGLOBIN 29.1 pg (25.0-35.0); MEAN CORPUSCULAR HGB CONC 33.2 g/dl (31.0-37.0); MEAN PLATELET VOLUME 12.4 fl (7.0-11.0); PROTHROMBIN TIME 32.5 SECONDS (9.4-12.5); RBC 3.88 10^6/uL (3.5-6.1); RED CELL DISTRIBUTION WIDTH 15.2 % (11.5-14.5); WHITE BLOOD COUNT 7.7 10^3/ul (4.5-11.0)
[2018-01-09 07:40] LABS: ALB/GLOB RATIO 0.6 (1.1-1.8); ALBUMIN 1.9 g/dL (3.0-4.8); CALCIUM 7.9 mg/dL (8.4-10.5)
[2018-01-09] MEDS: Vancomycin 25 MG/ML PO SCH ×4 (09:59→21:48)
--- NOTE | 2018-01-09 11:28 | CON ---
DATE: 01/08/2018 REASON FOR CONSULTATION: Change in mental status, elevated ammonia level, hepatic encephalopathy. HISTORY OF PRESENT ILLNESS: This 67-year-old patient with chronic liver disease; decompensated cirrhosis; ascites; ovarian cyst; history of breast cancer, on chemotherapy; history of diabetes mellitus; hypertension; history of DVT/ PE, on anticoagulation admitted with weakness, status post paracentesis, drainage of the fluid. Patient is being treated for cellulitis of the foot, also found to have uncontrolled diabetes. Patient is now in the TCU for deconditioning. Patient was found to have change of mental status with elevated ammonia level. GI consult was requested to evaluate this. No history of vomiting blood. No melena. PAST MEDICAL HISTORY: Other past medical history is significant as above, history of left breast CA. PAST SURGICAL HISTORY: Significant for appendicectomy, Port-A-Cath placement, and left breast lumpectomy. ALLERGIES: NO KNOWN DRUG ALLERGY. SOCIAL HISTORY: Denies smoking or alcohol. REVIEW OF SYSTEMS: Positive as above. Other systems reviewed. PHYSICAL EXAMINATION GENERAL: Patient is lying on the bed, not in acute distress. VITAL SIGNS: Temperature is 97.9, pulse 86,, respirations 20, oxygen saturation 99. HEENT: Anicteric. NECK: Supple. HEART: S1, S2 heard. LUNGS: Bilateral air entry present, slightly reduced at the base. ABDOMEN: Soft, distended. Ascites present. There is a peritoneal drainage catheter present. EXTREMITIES: Edema present in the left leg, left foot dressing present. NEUROLOGIC: Alert, oriented. Moves all the extremities. LABORATORY DATA: AST 87, ALT 75, alkaline phosphatase 231, ammonia level 56, albumin 1.9. WBC count 8.1 that has come down from 21 on 01/04/2018. Hematocrit 34.6, platelets 96,000. INR 3.7. IMPRESSION: This 67-year-old patient with decompensated cirrhosis, ascites with a history of breast cancer, on chemotherapy, admitted with cellulitis, diet controlled diabetes mellitus, now change of mental status. Clinically, it is more suggestive of hepatic encephalopathy. Patient did receive a dose of lactulose. Would recommend once. The other comorbidities include ovarian cystic lesion; hypertension; deep venous thrombosis; pulmonary embolism, on Coumadin. RECOMMENDATIONS: Would recommend: 1. We will start the patient on Xifaxan 550 mg twice daily. 2. Follow up of the INR. 3. Follow up of the electrolytes. We will consider adding lactulose as needed based on the clinical course. Patient does have episodes of diarrhea with the increased diarrhea. With lactulose, we will consider adding it in addition to the Xifaxan if needed. Thank you very much for allowing us to participate in the care of your patient. We will continue to closely follow up her care and suggest further management based on the clinical course. Lea Prieto MD MTDD
--- NOTE | 2018-01-09 12:48 | CP.PCM.PN ---
<Wicho Currie - Last Filed: 01/09/18 12:44> Subjective - Date & Time of Evaluation Date of Evaluation: 01/09/18 Time of Evaluation: 12:45 - Subjective Subjective: 67 year old female patient with PMHx of Left breast CA currently on chemotherapy , DM, HTN, PE on wafarin, hypothyroid, B/L Lower extremity edema, ascites was seen and evaluated at bedside for diffuse blisters and left 2nd digit subungual hematoma. Patient reports that she is feeling weak today. Denies of any acute overnight events. Denies of any overnight F/N/V/C/SOB/CP/headache. Denies of having any pain in her extremity today. No new complains. Objective - Vital Signs/Intake and Output Vital Signs (last 24 hours): Temp Pulse Resp BP Pulse Ox 98.3 F 100 H 18 92/58 L 98 01/09/18 10:19 01/09/18 10:19 01/09/18 10:19 01/09/18 10:19 01/09/18 10:19 Intake and Output: 01/09/18 01/09/18 06:59 18:59 Intake Total 380 Balance 380 - Medications Medications: Current Medications Acetaminophen (Tylenol 325mg Tab) 650 mg PO Q4H PRN; Protocol PRN Reason: Pain, Mild (1-3) Aspirin (Ecotrin) 81 mg PO 0800 [facility] PRN Reason: Protocol Last Admin: 01/09/18 09:58 Dose: 81 mg Atorvastatin Calcium (Lipitor) 20 mg PO HS [facility] Last Admin: 01/08/18 22:09 Dose: 20 mg Gabapentin (Neurontin) 300 mg PO HS [facility] PRN Reason: Protocol Last Admin: 01/08/18 22:09 Dose: 300 mg Ibuprofen (Motrin Tab) 600 mg PO Q6H PRN; Protocol PRN Reason: Pain, moderate (4-7) Insulin Detemir (Levemir) 30 unit SC HS [facility] PRN Reason: Protocol Last Admin: 01/08/18 22:09 Dose: 30 unit Insulin Human Lispro (Humalog Low) 0 units SC ACHS [facility] PRN Reason: Protocol Last Admin: 01/09/18 12:14 Dose: Not Given Insulin Human Lispro (Humalog) 14 units SC AC [facility] PRN Reason: Protocol Last Admin: 01/09/18 12:14 Dose: 14 units Lactulose (Enulose) 20 gm PO BID [facility] Last Admin: 01/09/18 12:13 Dose: 20 gm Levothyroxine Sodium (Synthroid) 75 mcg PO 0600 [facility] PRN Reason: Protocol Last Admin: 01/09/18 05:44 Dose: 75 mcg Loperamide HCl (Imodium) 2 mg PO Q4H PRN PRN Reason: Diarrhea Last Admin: 01/07/18 06:58 Dose: 2 mg Ondansetron HCl (Zofran Inj) 4 mg IVP Q4H PRN; Protocol PRN Reason: Nausea/Vomiting Last Admin: 01/07/18 21:46 Dose: 4 mg Rifaximin (Xifaxan) 550 mg PO BID [facility] PRN Reason: Protocol Last Admin: 01/09/18 09:59 Dose: 550 mg Sodium Bicarbonate (Sodium Bicarbonate Tab) 650 mg PO BID [facility] PRN Reason: Protocol Last Admin: 01/09/18 09:58 Dose: 650 mg Tramadol HCl (Ultram) 25 mg PO Q6H PRN; Protocol PRN Reason: Pain, severe (8-10) Vancomycin HCl (Vancocin 25 Mg/Ml (Oral Use)) 250 mg PO QID [facility] PRN Reason: Protocol Stop: 01/19/18 18:01 Last Admin: 01/09/18 09:59 Dose: 250 mg - Labs Labs: 01/09/18 07:00 01/09/18 07:00 PT 32.5 SECONDS (9.4-12.5) H 01/09/18 07:00 INR 2.77 (0.93-1.08) H 01/09/18 07:00 - Constitutional Appears: Well, Non-toxic, No Acute Distress - Extremities Exam Additional comments: Bilateral LE Exam: VASC: DP and PT pulses are non-palpable b/l, temperature gradient warm to cool from proximal to distal, Cap refill time: <3 seconds to digits, +2 pitting edema noted on the distal medial leg as well as the dorsum of the foot b/l Derm: posterior lateral heel fissure noted on the left heel with multiple diffusly blisters with fibrotic slough in the wound bed noted on the legs bilaterally, no erythema, no clinical suspicion of active infection, subungual hematoma noted on the left foot second digit Neuro: gross and protective sensation diminished bilaterally Ortho: no pain with palpation to the LE, mild tenderness on palpation of the left heel, no pain with calf squeeze - Neurological Exam Neurological Exam: Alert, Awake, Oriented x3 - Psychiatric Exam Psychiatric exam: Normal Affect, Normal Mood Assessment and Plan - Assessment and Plan (Free Text) Assessment: 67 year old female patient evaluated for 1). left foot 2nd digit hematoma 2). Posterior heel fissures with diffuse healing blisters on LLE Plan: Patient seen and evaluated Plan discussed with attending Dr. Maravilla Labs, vital, charts reviewed - afebrile, WBC @ 7.7 Arterial duplex reviewed Multipodus boots ordered - to be worn at all times while in bed Optifoam applied to the left heel, betadine and DSD applied to the distal leg blisters Silvadine ordered Podiatry will follow patient while in-house <Ginny Maravilla - Last Filed: 01/13/18 14:57> Objective - Vital Signs/Intake and Output Vital Signs (last 24 hours): Temp Pulse Resp BP Pulse Ox 97.3 F L 97 H 20 77/43 L 94 L 01/10/18 17:22 01/10/18 17:22 01/10/18 17:22 01/10/18 17:22 01/10/18 17:22 - Labs Labs: 01/09/18 07:00 01/11/18 06:30 PT 32.5 SECONDS (9.4-12.5) H 01/09/18 07:00 INR 2.77 (0.93-1.08) H 01/09/18 07:00 Attending/Attestation - Attestation I have personally seen and examined this patient.: Yes I have fully participated in the care of the patient.: Yes I have reviewed all pertinent clinical information, including history, physical exam and plan: Yes
[2018-01-09] MEDS: Silver Sulfadiazine 1% Cream (25 gm) TP SCH (13:19)
--- NOTE | 2018-01-09 15:18 | CP.PCM.PN ---
Subjective - Date & Time of Evaluation Date of Evaluation: 01/09/18 Time of Evaluation: 15:00 - Subjective Subjective: Alert, offers no complaints Objective - Vital Signs/Intake and Output Vital Signs (last 24 hours): Temp Pulse Resp BP Pulse Ox 98.3 F 100 H 18 92/58 L 98 01/09/18 10:19 01/09/18 10:19 01/09/18 10:19 01/09/18 10:19 01/09/18 10:19 Intake and Output: 01/09/18 01/09/18 06:59 18:59 Intake Total 380 Balance 380 - Medications Medications: Current Medications Acetaminophen (Tylenol 325mg Tab) 650 mg PO Q4H PRN; Protocol PRN Reason: Pain, Mild (1-3) Aspirin (Ecotrin) 81 mg PO 0800 [facility] PRN Reason: Protocol Last Admin: 01/09/18 09:58 Dose: 81 mg Atorvastatin Calcium (Lipitor) 20 mg PO HS [facility] Last Admin: 01/08/18 22:09 Dose: 20 mg Gabapentin (Neurontin) 300 mg PO HS [facility] PRN Reason: Protocol Last Admin: 01/08/18 22:09 Dose: 300 mg Ibuprofen (Motrin Tab) 600 mg PO Q6H PRN; Protocol PRN Reason: Pain, moderate (4-7) Insulin Detemir (Levemir) 30 unit SC HS [facility] PRN Reason: Protocol Last Admin: 01/08/18 22:09 Dose: 30 unit Insulin Human Lispro (Humalog Low) 0 units SC ACHS [facility] PRN Reason: Protocol Last Admin: 01/09/18 12:14 Dose: Not Given Insulin Human Lispro (Humalog) 14 units SC AC [facility] PRN Reason: Protocol Last Admin: 01/09/18 12:14 Dose: 14 units Lactulose (Enulose) 20 gm PO BID [facility] Last Admin: 01/09/18 12:13 Dose: 20 gm Levothyroxine Sodium (Synthroid) 75 mcg PO 0600 [facility] PRN Reason: Protocol Last Admin: 01/09/18 05:44 Dose: 75 mcg Loperamide HCl (Imodium) 2 mg PO Q4H PRN PRN Reason: Diarrhea Last Admin: 01/07/18 06:58 Dose: 2 mg Ondansetron HCl (Zofran Inj) 4 mg IVP Q4H PRN; Protocol PRN Reason: Nausea/Vomiting Last Admin: 01/07/18 21:46 Dose: 4 mg Rifaximin (Xifaxan) 550 mg PO BID [facility] PRN Reason: Protocol Last Admin: 01/09/18 09:59 Dose: 550 mg Silver Sulfadiazine (Silvadene 1% 25 Gm) 1 gm TP DAILY [facility] Last Admin: 01/09/18 13:19 Dose: Not Given Sodium Bicarbonate (Sodium Bicarbonate Tab) 650 mg PO BID [facility] PRN Reason: Protocol Last Admin: 01/09/18 09:58 Dose: 650 mg Tramadol HCl (Ultram) 25 mg PO Q6H PRN; Protocol PRN Reason: Pain, severe (8-10) Vancomycin HCl (Vancocin 25 Mg/Ml (Oral Use)) 250 mg PO QID [facility] PRN Reason: Protocol Stop: 01/19/18 18:01 Last Admin: 01/09/18 13:17 Dose: 250 mg - Labs Labs: 01/09/18 07:00 01/09/18 07:00 PT 32.5 SECONDS (9.4-12.5) H 01/09/18 07:00 INR 2.77 (0.93-1.08) H 01/09/18 07:00 - Constitutional Appears: No Acute Distress, Chronically Ill - Head Exam Head Exam: NORMOCEPHALIC - Eye Exam Eye Exam: Normal appearance, PERRL - ENT Exam ENT Exam: Mucous Membranes Moist, Normal Oropharynx - Neck Exam Neck Exam: Normal Inspection - Respiratory Exam Respiratory Exam: Clear to Ausculation Bilateral, NORMAL BREATHING PATTERN - Cardiovascular Exam Cardiovascular Exam: REGULAR RHYTHM, +S1, +S2 - GI/Abdominal Exam GI & Abdominal Exam: Distended, Soft, Normal Bowel Sounds - Extremities Exam Additional comments: RUE weakness improved, LLE cellulitis - Back Exam Back Exam: NORMAL INSPECTION - Neurological Exam Neurological Exam: Alert, Oriented x3 - Skin Skin Exam: Dry, Pallor Assessment and Plan - Assessment and Plan (Free Text) Assessment: 67 year old female with history of metastatic breast cancer, LLE cellulitis, ascites who is admitted to [facility] for completion of antibiotic and deconditioning therapy. CODY Price and I had meeting with patient and her son Simone. Lengthy discussion regarding patients understanding of her medical condition and expectation for goals of care. Explained that with her comorbidities and new development of elevated ammonia level/ hepatic encephalopathy that chemotherapy was not possible. Also explained that prognosis was guarded. Patient states she understands that things are" not good". Son also expressed understanding of situation. Options for [facility] with transition to palliative care vs hospice offered. Options explained in detail. Questions answered. Patient would like to try [facility] at this point in time. Psychosocial support given. Time spent with patient and son in goals of care and end of life discussion, 45 minutes Plan: Palliative support in establishing goals of care
--- NOTE | 2018-01-09 17:07 | CP.PCM.PN ---
<Lindsay Macedo - Last Filed: 01/09/18 17:04> Subjective - Date & Time of Evaluation Date of Evaluation: 01/09/18 Time of Evaluation: 10:15 - Subjective Subjective: Seen and examined at the bedside earlier today, chart review.patient reported to have a moderate bowel movement yesterday no reports of any melena or bright red blood. Patient had 2 doses of lactulose last night. Patient is awake, no reports of nausea, vomiting/hematemesis or abdominal pain. Patient is noted to have left hand asterixis/flapping. Ammonia level this morning increased to 87, yesterday 56. Was started on Xifaxan last night. Objective - Vital Signs/Intake and Output Vital Signs (last 24 hours): Temp Pulse Resp BP Pulse Ox 97.5 F L 96 H 18 89/57 L 98 01/09/18 16:27 01/09/18 16:27 01/09/18 16:27 01/09/18 16:27 01/09/18 16:27 Intake and Output: 01/09/18 01/09/18 06:59 18:59 Intake Total 380 Balance 380 - Medications Medications: Current Medications Acetaminophen (Tylenol 325mg Tab) 650 mg PO Q4H PRN; Protocol PRN Reason: Pain, Mild (1-3) Aspirin (Ecotrin) 81 mg PO 0800 [facility] PRN Reason: Protocol Last Admin: 01/09/18 09:58 Dose: 81 mg Atorvastatin Calcium (Lipitor) 20 mg PO HS [facility] Last Admin: 01/08/18 22:09 Dose: 20 mg Gabapentin (Neurontin) 300 mg PO HS [facility] PRN Reason: Protocol Last Admin: 01/08/18 22:09 Dose: 300 mg Ibuprofen (Motrin Tab) 600 mg PO Q6H PRN; Protocol PRN Reason: Pain, moderate (4-7) Insulin Detemir (Levemir) 30 unit SC HS [facility] PRN Reason: Protocol Last Admin: 01/08/18 22:09 Dose: 30 unit Insulin Human Lispro (Humalog Low) 0 units SC ACHS [facility] PRN Reason: Protocol Last Admin: 01/09/18 12:14 Dose: Not Given Insulin Human Lispro (Humalog) 14 units SC AC [facility] PRN Reason: Protocol Last Admin: 01/09/18 12:14 Dose: 14 units Lactulose (Enulose) 20 gm PO BID [facility] Last Admin: 01/09/18 12:13 Dose: 20 gm Levothyroxine Sodium (Synthroid) 75 mcg PO 0600 [facility] PRN Reason: Protocol Last Admin: 01/09/18 05:44 Dose: 75 mcg Loperamide HCl (Imodium) 2 mg PO Q4H PRN PRN Reason: Diarrhea Last Admin: 01/07/18 06:58 Dose: 2 mg Ondansetron HCl (Zofran Inj) 4 mg IVP Q4H PRN; Protocol PRN Reason: Nausea/Vomiting Last Admin: 01/07/18 21:46 Dose: 4 mg Rifaximin (Xifaxan) 550 mg PO BID [facility] PRN Reason: Protocol Last Admin: 01/09/18 09:59 Dose: 550 mg Silver Sulfadiazine (Silvadene 1% 25 Gm) 1 gm TP DAILY [facility] Last Admin: 01/09/18 13:19 Dose: Not Given Sodium Bicarbonate (Sodium Bicarbonate Tab) 650 mg PO BID [facility] PRN Reason: Protocol Last Admin: 01/09/18 09:58 Dose: 650 mg Tramadol HCl (Ultram) 25 mg PO Q6H PRN; Protocol PRN Reason: Pain, severe (8-10) Vancomycin HCl (Vancocin 25 Mg/Ml (Oral Use)) 250 mg PO QID [facility] PRN Reason: Protocol Stop: 01/19/18 18:01 Last Admin: 01/09/18 13:17 Dose: 250 mg - Labs Labs: 01/09/18 07:00 01/09/18 07:00 PT 32.5 SECONDS (9.4-12.5) H 01/09/18 07:00 INR 2.77 (0.93-1.08) H 01/09/18 07:00 - Constitutional Appears: No Acute Distress (the) - Eye Exam Eye Exam: Normal appearance - ENT Exam ENT Exam: Mucous Membranes Moist - Neck Exam Neck Exam: Normal Inspection - Respiratory Exam Respiratory Exam: NORMAL BREATHING PATTERN. absent: Respiratory Distress - Cardiovascular Exam Cardiovascular Exam: +S1 (1), +S2 - GI/Abdominal Exam GI & Abdominal Exam: Soft, Normal Bowel Sounds. absent: Guarding, Tenderness, Rebound - Extremities Exam Extremities Exam: absent: Calf Tenderness - Neurological Exam Neurological Exam: Awake Additional comments: positive asterixis noted, left hand flapping. - Skin Skin Exam: Dry, Warm Assessment and Plan - Assessment and Plan (Free Text) Assessment: Assessment: Hepatic encephalopathy decompensated liver cirrhosis, ascites History of breast cancer on chemotherapy Cellulitis Diabetes mellitus C. difficile colitis Plan: Lactulose 20 g today X2 doses Continue Xifaxan Monitor electrolytes and recheck ammonia in a.m. On oral vancomycin Diet as tolerated Discussed with nursing staff at bedside. Seen and discussed with Dr. Prieto. <Lea Prieto V - Last Filed: 01/09/18 20:15> Objective - Vital Signs/Intake and Output Vital Signs (last 24 hours): Temp Pulse Resp BP Pulse Ox 97.5 F L 96 H 18 89/57 L 98 01/09/18 16:27 01/09/18 16:27 01/09/18 16:27 01/09/18 16:27 01/09/18 16:27 - Medications Medications: Current Medications Acetaminophen (Tylenol 325mg Tab) 650 mg PO Q4H PRN; Protocol PRN Reason: Pain, Mild (1-3) Aspirin (Ecotrin) 81 mg PO 0800 [facility] PRN Reason: Protocol Last Admin: 01/09/18 09:58 Dose: 81 mg Atorvastatin Calcium (Lipitor) 20 mg PO HS [facility] Last Admin: 01/08/18 22:09 Dose: 20 mg Gabapentin (Neurontin) 300 mg PO HS [facility] PRN Reason: Protocol Last Admin: 01/08/18 22:09 Dose: 300 mg Ibuprofen (Motrin Tab) 600 mg PO Q6H PRN; Protocol PRN Reason: Pain, moderate (4-7) Insulin Detemir (Levemir) 30 unit SC HS [facility] PRN Reason: Protocol Last Admin: 01/08/18 22:09 Dose: 30 unit Insulin Human Lispro (Humalog Low) 0 units SC ACHS [facility] PRN Reason: Protocol Last Admin: 01/09/18 17:58 Dose: Not Given Insulin Human Lispro (Humalog) 14 units SC AC [facility] PRN Reason: Protocol Last Admin: 01/09/18 17:58 Dose: 14 units Levothyroxine Sodium (Synthroid) 75 mcg PO 0600 [facility] PRN Reason: Protocol Last Admin: 01/09/18 05:44 Dose: 75 mcg Loperamide HCl (Imodium) 2 mg PO Q4H PRN PRN Reason: Diarrhea Last Admin: 01/07/18 06:58 Dose: 2 mg Ondansetron HCl (Zofran Inj) 4 mg IVP Q4H PRN; Protocol PRN Reason: Nausea/Vomiting Last Admin: 01/07/18 21:46 Dose: 4 mg Rifaximin (Xifaxan) 550 mg PO BID [facility] PRN Reason: Protocol Last Admin: 01/09/18 18:00 Dose: 550 mg Silver Sulfadiazine (Silvadene 1% 25 Gm) 1 gm TP DAILY [facility] Last Admin: 01/09/18 13:19 Dose: Not Given Sodium Bicarbonate (Sodium Bicarbonate Tab) 650 mg PO BID [facility] PRN Reason: Protocol Last Admin: 01/09/18 17:59 Dose: 650 mg Tramadol HCl (Ultram) 25 mg PO Q6H PRN; Protocol PRN Reason: Pain, severe (8-10) Vancomycin HCl (Vancocin 25 Mg/Ml (Oral Use)) 250 mg PO QID [facility] PRN Reason: Protocol Stop: 01/19/18 18:01 Last Admin: 01/09/18 17:59 Dose: 250 mg - Labs Labs: 01/09/18 07:00 01/09/18 07:00 PT 32.5 SECONDS (9.4-12.5) H 01/09/18 07:00 INR 2.77 (0.93-1.08) H 01/09/18 07:00 Attending/Attestation - Attestation I have personally seen and examined this patient.: Yes I have fully participated in the care of the patient.: Yes I have reviewed all pertinent clinical information, including history, physical exam and plan: Yes Notes (Text): This is an addendum to GI progress report dictated by Lindsay Macedo APN.The patient was seen and examined earlier. Medical records, lab studies, imagings were reviewed. Last 24 hours events reviewed. Agreed with the above treatment plan as outlined in Lindsay Macedo APN's notes the with the addition of the following Patient more alert On a level has increased Patient is on xifaxan We'll review stat doses of lactulose Follow-up electrolytes closely and ammonia levels 01/09/18 20:14
--- NOTE | 2018-01-09 20:03 | CP.PCM.PN ---
Subjective - Date & Time of Evaluation Date of Evaluation: 01/09/18 Time of Evaluation: 11:15 - Subjective Subjective: No more diarrhea, no fevers. Objective - Vital Signs/Intake and Output Vital Signs (last 24 hours): Temp Pulse Resp BP Pulse Ox 97.5 F L 96 H 18 89/57 L 98 01/09/18 16:27 01/09/18 16:27 01/09/18 16:27 01/09/18 16:27 01/09/18 16:27 - Medications Medications: Current Medications Acetaminophen (Tylenol 325mg Tab) 650 mg PO Q4H PRN; Protocol PRN Reason: Pain, Mild (1-3) Aspirin (Ecotrin) 81 mg PO 0800 [facility] PRN Reason: Protocol Last Admin: 01/09/18 09:58 Dose: 81 mg Atorvastatin Calcium (Lipitor) 20 mg PO HS [facility] Last Admin: 01/08/18 22:09 Dose: 20 mg Gabapentin (Neurontin) 300 mg PO HS [facility] PRN Reason: Protocol Last Admin: 01/08/18 22:09 Dose: 300 mg Ibuprofen (Motrin Tab) 600 mg PO Q6H PRN; Protocol PRN Reason: Pain, moderate (4-7) Insulin Detemir (Levemir) 30 unit SC HS [facility] PRN Reason: Protocol Last Admin: 01/08/18 22:09 Dose: 30 unit Insulin Human Lispro (Humalog Low) 0 units SC ACHS [facility] PRN Reason: Protocol Last Admin: 01/09/18 17:58 Dose: Not Given Insulin Human Lispro (Humalog) 14 units SC AC [facility] PRN Reason: Protocol Last Admin: 01/09/18 17:58 Dose: 14 units Levothyroxine Sodium (Synthroid) 75 mcg PO 0600 [facility] PRN Reason: Protocol Last Admin: 01/09/18 05:44 Dose: 75 mcg Loperamide HCl (Imodium) 2 mg PO Q4H PRN PRN Reason: Diarrhea Last Admin: 01/07/18 06:58 Dose: 2 mg Ondansetron HCl (Zofran Inj) 4 mg IVP Q4H PRN; Protocol PRN Reason: Nausea/Vomiting Last Admin: 01/07/18 21:46 Dose: 4 mg Rifaximin (Xifaxan) 550 mg PO BID [facility] PRN Reason: Protocol Last Admin: 01/09/18 18:00 Dose: 550 mg Silver Sulfadiazine (Silvadene 1% 25 Gm) 1 gm TP DAILY [facility] Last Admin: 01/09/18 13:19 Dose: Not Given Sodium Bicarbonate (Sodium Bicarbonate Tab) 650 mg PO BID [facility] PRN Reason: Protocol Last Admin: 01/09/18 17:59 Dose: 650 mg Tramadol HCl (Ultram) 25 mg PO Q6H PRN; Protocol PRN Reason: Pain, severe (8-10) Vancomycin HCl (Vancocin 25 Mg/Ml (Oral Use)) 250 mg PO QID [facility] PRN Reason: Protocol Stop: 01/19/18 18:01 Last Admin: 01/09/18 17:59 Dose: 250 mg - Labs Labs: 01/09/18 07:00 01/09/18 07:00 PT 32.5 SECONDS (9.4-12.5) H 01/09/18 07:00 INR 2.77 (0.93-1.08) H 01/09/18 07:00 - Constitutional Appears: Non-toxic, Chronically Ill - Head Exam Head Exam: NORMAL INSPECTION - Neck Exam Neck Exam: absent: Meningismus - Respiratory Exam Respiratory Exam: Decreased Breath Sounds - Cardiovascular Exam Cardiovascular Exam: +S1, +S2 - GI/Abdominal Exam GI & Abdominal Exam: Soft. absent: Tenderness Assessment and Plan - Assessment and Plan (Free Text) Plan: Assessment sepsis due to C. diff. associated diarrhea S/P left breast and left leg cellulitis history of severe sepsis with leukopenia and acute renal failure, consider due to acute enteritis, less likely acute cholecystitis R/O spontaneous bacterial peritonitis HTN DM breast cancer with last chemotherapy session on April 24, 2017 S/P right port-a-cath placement obesity with BMI 39 Plan continue PO Vancomycin day 5 to complete 10-14 days of therapy
--- NOTE | 2018-01-09 22:29 | PN ---
DATE: ENDOCRINOLOGY FOLLOWUP NOTE LOCATION: In room 315. SUBJECTIVE: This is a 67-year-old female with recent uncontrolled type 2 insulin requiring diabetes, now being followed closely for metabolic management. Her glycemic levels are fluctuating as noted and the glucose values today have ranged from 237 to 269 mg/dL. The latest chemistry shows a BUN of 95, sodium 132, potassium 4.6, chloride 109, CO2 15, glucose 187 and creatinine 2.0. So at this time, we will modify once again her basal and bolus insulin regimen and increase the Humalog to 14 units subcu at bedtime daily to start today. We will also continue the basal insulin, just modify to a dose of Levemir at 30 units subcu at bedtime daily as ordered. We will continue the low dose correction scale using Humalog insulin as given. We will titrate incrementally as indicated to optimize metabolic control. We will followup with you. Dorcas Galvin MD
[2018-01-09] MEDS: Insulin Detemir 100 units/ml Vial (Levemir) SC SCH (22:43)
--- NOTE | 2018-01-09 23:08 | PN ---
DATE: SUBJECTIVE: Patient has no complaints of any chest pain, shortness of breath. No headache or dizziness. She is much more awake and alert than yesterday. PHYSICAL EXAMINATION: VITAL SIGNS: Temperature is 97.5, pulse of 96, blood pressure is 89/55. GENERAL: The patient is lying in bed, flat, comfortable. HEENT: No oral lesion. Anicteric sclerae. Moist mucosa. NECK: No JVD, adenopathy, or thyromegaly. CARDIOVASCULAR: S1 and S2, regular. No murmurs, rubs, or gallops. LUNGS: Clear to auscultation bilaterally. No wheeze, rales, or rhonchi. ABDOMEN: Bowel sounds are positive, soft, nontender, and nondistended. EXTREMITIES: No cyanosis, clubbing, or edema. LABORATORY DATA: Creatinine is 2.0, white count is 7.7, hemoglobin 11.3. ASSESSMENT: 1. Hepatic encephalopathy, improving. 2. Leukocytosis, improving. 3. Diabetes type 2, controlled. 4. Metabolic acidosis secondary to chronic kidney disease. 5. Chronic kidney disease, stage III/IV. 6. Cirrhosis. 7. Thrombocytopenia. 8. Osteoarthritis. 9. Ascites with chronic draining catheter. 10. Breast cancer. 11. Left leg deep venous thrombosis, on anticoagulation. 12. Hypertension. 13. Port-A-Cath. 14. Do not resuscitate/do not intubate. PLAN: The patient's status is better than yesterday. Her Coumadin is on hold; her INR is 2.7. She is on aspirin. She is going to continue with insulin for diabetes. She is on Levemir for her diabetes as well as Lipitor for dyslipidemia. She is on Neurontin for neuropathy. She is on sodium bicarb. She is on Synthroid for hypothyroidism. She is on Ultram. She is going to continue with the Xifaxan. She is on a carbohydrate-consistent diet. She will need to restart her Coumadin. She is being followed by GI. I did speak to Dr. Cook. The patient's overall prognosis is poor. The patient is also being followed by . I did see the patient's two sons yesterday, gave them an update. Yue Dubois from palliative care has also been involved. The patient may need to go to subacute rehab as she may not be independent enough to go home. Overall, prognosis is poor. Rangel Ngo MD
[2018-01-10] MEDS: Levothyroxine 75 MCG TAB PO SCH (05:49)
[2018-01-10] MEDS: Insulin Lispro 1 UNITS/0.01 ML SC SCH ×3 (07:08→17:41)
[2018-01-10] MEDS: Insulin Lispro (humaLOG) LOW Coverage SC SCH ×4 (07:09→22:04)
[2018-01-10 07:22] LABS: ALB/GLOB RATIO 0.6 (1.1-1.8); ALBUMIN 1.9 g/dL (3.0-4.8); CALCIUM 7.9 mg/dL (8.4-10.5)
--- NOTE | 2018-01-10 09:51 | CP.PCM.PN ---
Subjective - Date & Time of Evaluation Date of Evaluation: 01/10/18 Time of Evaluation: 07:00 - Subjective Subjective: Patient seen and examined at bedside, no adverse events overnight. Patient states that she has continued pain in the left axilla. She denies fevers or chills but complains of right hand numbness and weakness as well as generalized malaise Objective - Vital Signs/Intake and Output Vital Signs (last 24 hours): Temp Pulse Resp BP Pulse Ox 97.5 F L 96 H 18 89/57 L 98 01/09/18 16:27 01/09/18 16:27 01/09/18 16:27 01/09/18 16:27 01/09/18 16:27 Intake and Output: 01/10/18 01/10/18 06:59 18:59 Intake Total 420 Output Total 150 Balance 270 - Medications Medications: Current Medications Acetaminophen (Tylenol 325mg Tab) 650 mg PO Q4H PRN; Protocol PRN Reason: Pain, Mild (1-3) Aspirin (Ecotrin) 81 mg PO 0800 [facility] PRN Reason: Protocol Last Admin: 01/10/18 07:58 Dose: 81 mg Atorvastatin Calcium (Lipitor) 20 mg PO HS [facility] Last Admin: 01/09/18 21:47 Dose: 20 mg Gabapentin (Neurontin) 300 mg PO HS [facility] PRN Reason: Protocol Last Admin: 01/09/18 21:48 Dose: 300 mg Ibuprofen (Motrin Tab) 600 mg PO Q6H PRN; Protocol PRN Reason: Pain, moderate (4-7) Insulin Detemir (Levemir) 30 unit SC HS [facility] PRN Reason: Protocol Last Admin: 01/09/18 22:43 Dose: 30 unit Insulin Human Lispro (Humalog Low) 0 units SC ACHS [facility] PRN Reason: Protocol Last Admin: 01/10/18 07:09 Dose: Not Given Insulin Human Lispro (Humalog) 14 units SC AC [facility] PRN Reason: Protocol Last Admin: 01/10/18 07:08 Dose: 14 units Levothyroxine Sodium (Synthroid) 75 mcg PO 0600 [facility] PRN Reason: Protocol Last Admin: 01/10/18 05:49 Dose: 75 mcg Loperamide HCl (Imodium) 2 mg PO Q4H PRN PRN Reason: Diarrhea Last Admin: 01/07/18 06:58 Dose: 2 mg Ondansetron HCl (Zofran Inj) 4 mg IVP Q4H PRN; Protocol PRN Reason: Nausea/Vomiting Last Admin: 01/07/18 21:46 Dose: 4 mg Rifaximin (Xifaxan) 550 mg PO BID [facility] PRN Reason: Protocol Last Admin: 01/09/18 18:00 Dose: 550 mg Silver Sulfadiazine (Silvadene 1% 25 Gm) 1 gm TP DAILY [facility] Last Admin: 01/09/18 13:19 Dose: Not Given Sodium Bicarbonate (Sodium Bicarbonate Tab) 650 mg PO BID [facility] PRN Reason: Protocol Last Admin: 01/09/18 17:59 Dose: 650 mg Tramadol HCl (Ultram) 25 mg PO Q6H PRN; Protocol PRN Reason: Pain, severe (8-10) Vancomycin HCl (Vancocin 25 Mg/Ml (Oral Use)) 250 mg PO QID [facility] PRN Reason: Protocol Stop: 01/19/18 18:01 Last Admin: 01/09/18 21:48 Dose: 250 mg - Labs Labs: 01/09/18 07:00 01/10/18 06:40 PT 32.5 SECONDS (9.4-12.5) H 01/09/18 07:00 INR 2.77 (0.93-1.08) H 01/09/18 07:00 - Constitutional Appears: Well, Non-toxic, No Acute Distress - Head Exam Head Exam: NORMAL INSPECTION - Eye Exam Eye Exam: Normal appearance. absent: Conjunctival injection, Scleral icterus - ENT Exam ENT Exam: Mucous Membranes Moist, Normal Oropharynx - Respiratory Exam Respiratory Exam: NORMAL BREATHING PATTERN. absent: Accessory Muscle Use, Respiratory Distress - Cardiovascular Exam Cardiovascular Exam: RRR - Neurological Exam Neurological Exam: Alert, Awake, Oriented x3 - Psychiatric Exam Psychiatric exam: Normal Affect, Normal Mood - Skin Additional comments: Skin excoriation over left breast with areas of dark necrotic tissue smaller than before. Some exudate with beefy red tissue beneath. 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 Spoke to nurse to clarify that the nursing is to perform this. PRN pain medication--consider increasing gabapentin dose OOBTC--PT Current medical management per primary Discussed with Dr. Mack Jackson, PGY2
[2018-01-10] MEDS: Silver Sulfadiazine 1% Cream (25 gm) TP SCH (10:25)
[2018-01-10] MEDS: Vancomycin 25 MG/ML PO SCH ×4 (10:29→22:06)
[2018-01-10 11:04] VITALS: RESP 20
--- NOTE | 2018-01-10 11:48 | CP.PCM.PN ---
<[email or web address] - Last Filed: 01/10/18 11:45> Subjective - Date & Time of Evaluation Date of Evaluation: 01/10/18 Time of Evaluation: 11:45 - Subjective Subjective: 67 year old female patient with PMHx of Left breast CA currently on chemotherapy , DM, HTN, PE on wafarin, hypothyroid, B/L Lower extremity edema, ascites was seen and evaluated at bedside for diffuse blisters and left 2nd digit subungual hematoma. Patient reports that she is feeling better today. Denies of any acute overnight events. Denies of any overnight F/N/V/C/SOB/CP/headache. Denies of having any pain in her extremity today. No new complains. Objective - Vital Signs/Intake and Output Vital Signs (last 24 hours): Temp Pulse Resp BP Pulse Ox 98.1 F 96 H 20 76/50 L 98 01/10/18 11:03 01/10/18 11:03 01/10/18 11:03 01/10/18 11:03 01/10/18 11:03 Intake and Output: 01/10/18 01/10/18 06:59 18:59 Intake Total 420 Output Total 150 Balance 270 - Medications Medications: Current Medications Acetaminophen (Tylenol 325mg Tab) 650 mg PO Q4H PRN; Protocol PRN Reason: Pain, Mild (1-3) Aspirin (Ecotrin) 81 mg PO 0800 [facility] PRN Reason: Protocol Last Admin: 01/10/18 07:58 Dose: 81 mg Atorvastatin Calcium (Lipitor) 20 mg PO HS [facility] Last Admin: 01/09/18 21:47 Dose: 20 mg Gabapentin (Neurontin) 300 mg PO HS [facility] PRN Reason: Protocol Last Admin: 01/09/18 21:48 Dose: 300 mg Ibuprofen (Motrin Tab) 600 mg PO Q6H PRN; Protocol PRN Reason: Pain, moderate (4-7) Insulin Detemir (Levemir) 30 unit SC HS [facility] PRN Reason: Protocol Last Admin: 01/09/18 22:43 Dose: 30 unit Insulin Human Lispro (Humalog Low) 0 units SC ACHS [facility] PRN Reason: Protocol Last Admin: 01/10/18 07:09 Dose: Not Given Insulin Human Lispro (Humalog) 14 units SC AC [facility] PRN Reason: Protocol Last Admin: 01/10/18 07:08 Dose: 14 units Levothyroxine Sodium (Synthroid) 75 mcg PO 0600 [facility] PRN Reason: Protocol Last Admin: 01/10/18 05:49 Dose: 75 mcg Loperamide HCl (Imodium) 2 mg PO Q4H PRN PRN Reason: Diarrhea Last Admin: 01/07/18 06:58 Dose: 2 mg Ondansetron HCl (Zofran Inj) 4 mg IVP Q4H PRN; Protocol PRN Reason: Nausea/Vomiting Last Admin: 01/07/18 21:46 Dose: 4 mg Rifaximin (Xifaxan) 550 mg PO BID [facility] PRN Reason: Protocol Last Admin: 01/10/18 10:26 Dose: 550 mg Silver Sulfadiazine (Silvadene 1% 25 Gm) 1 gm TP DAILY [facility] Last Admin: 01/10/18 10:25 Dose: 1 gm Sodium Bicarbonate (Sodium Bicarbonate Tab) 650 mg PO BID [facility] PRN Reason: Protocol Last Admin: 01/10/18 10:25 Dose: 650 mg Tramadol HCl (Ultram) 25 mg PO Q6H PRN; Protocol PRN Reason: Pain, severe (8-10) Vancomycin HCl (Vancocin 25 Mg/Ml (Oral Use)) 250 mg PO QID [facility] PRN Reason: Protocol Stop: 01/19/18 18:01 Last Admin: 01/10/18 10:29 Dose: 250 mg - Labs Labs: 01/09/18 07:00 01/10/18 06:40 PT 32.5 SECONDS (9.4-12.5) H 01/09/18 07:00 INR 2.77 (0.93-1.08) H 01/09/18 07:00 - Constitutional Appears: Well, Non-toxic, No Acute Distress - Extremities Exam Additional comments: Bilateral LE Exam: VASC: DP and PT pulses are non-palpable b/l, temperature gradient warm to cool from proximal to distal, Cap refill time: <3 seconds to digits, +2 pitting edema noted on the distal medial leg as well as the dorsum of the foot b/l Derm: posterior lateral heel fissure noted on the left heel with multiple diffusly blisters with fibrotic slough in the wound bed noted on the legs bilaterally, no erythema, no clinical suspicion of active infection, subungual hematoma noted on the left foot second digit Neuro: gross and protective sensation diminished bilaterally Ortho: no pain with palpation to the LE, mild tenderness on palpation of the left heel, no pain with calf squeeze - Neurological Exam Neurological Exam: Alert, Awake, Oriented x3 - Psychiatric Exam Psychiatric exam: Normal Affect, Normal Mood Assessment and Plan - Assessment and Plan (Free Text) Assessment: 67 year old female patient evaluated for 1). left foot 2nd digit hematoma 2). Posterior heel fissures with diffuse healing blisters on LLE Plan: Patient seen and evaluated Plan discussed with attending Dr. Meza Labs, vital, charts reviewed - afebrile, WBC @ 7.7 as of yesterday Arterial duplex reviewed Multipodus boots ordered - to be worn at all times while in bed Optifoam applied to the left heel, Silvadine and DSD applied to the distal leg blisters Podiatry will follow patient while in-house <Kyler Meza - Last Filed: 01/11/18 08:16> Objective - Vital Signs/Intake and Output Vital Signs (last 24 hours): Temp Pulse Resp BP Pulse Ox 97.3 F L 97 H 20 77/43 L 94 L 01/10/18 17:22 01/10/18 17:22 01/10/18 17:22 01/10/18 17:22 01/10/18 17:22 Intake and Output: 01/11/18 01/11/18 06:59 18:59 Intake Total 520 Output Total 500 Balance 20 - Medications Medications: Current Medications Acetaminophen (Tylenol 325mg Tab) 650 mg PO Q4H PRN; Protocol PRN Reason: Pain, Mild (1-3) Aspirin (Ecotrin) 81 mg PO 0800 [facility] PRN Reason: Protocol Last Admin: 01/10/18 07:58 Dose: 81 mg Atorvastatin Calcium (Lipitor) 20 mg PO HS [facility] Last Admin: 01/10/18 22:06 Dose: 20 mg Gabapentin (Neurontin) 300 mg PO HS [facility] PRN Reason: Protocol Last Admin: 01/10/18 22:06 Dose: 300 mg Ibuprofen (Motrin Tab) 600 mg PO Q6H PRN; Protocol PRN Reason: Pain, moderate (4-7) Insulin Detemir (Levemir) 30 unit SC HS [facility] PRN Reason: Protocol Last Admin: 01/10/18 22:05 Dose: 30 unit Insulin Human Lispro (Humalog Low) 0 units SC ACHS [facility] PRN Reason: Protocol Last Admin: 01/11/18 06:32 Dose: Not Given Insulin Human Lispro (Humalog) 14 units SC AC [facility] PRN Reason: Protocol Last Admin: 01/11/18 06:38 Dose: 14 units Levothyroxine Sodium (Synthroid) 75 mcg PO 0600 [facility] PRN Reason: Protocol Last Admin: 01/11/18 05:27 Dose: 75 mcg Loperamide HCl (Imodium) 2 mg PO Q4H PRN PRN Reason: Diarrhea Last Admin: 01/07/18 06:58 Dose: 2 mg Ondansetron HCl (Zofran Inj) 4 mg IVP Q4H PRN; Protocol PRN Reason: Nausea/Vomiting Last Admin: 01/07/18 21:46 Dose: 4 mg Rifaximin (Xifaxan) 550 mg PO BID [facility] PRN Reason: Protocol Last Admin: 01/10/18 17:42 Dose: 550 mg Silver Sulfadiazine (Silvadene 1% 25 Gm) 1 gm TP DAILY [facility] Last Admin: 01/10/18 10:25 Dose: 1 gm Sodium Bicarbonate (Sodium Bicarbonate Tab) 650 mg PO BID [facility] PRN Reason: Protocol Last Admin: 01/10/18 17:42 Dose: 650 mg Tramadol HCl (Ultram) 25 mg PO Q6H PRN; Protocol PRN Reason: Pain, severe (8-10) Vancomycin HCl (Vancocin 25 Mg/Ml (Oral Use)) 250 mg PO QID [facility] PRN Reason: Protocol Stop: 01/19/18 18:01 Last Admin: 01/10/18 22:06 Dose: 250 mg - Labs Labs: 01/09/18 07:00 01/11/18 06:30 PT 32.5 SECONDS (9.4-12.5) H 01/09/18 07:00 INR 2.77 (0.93-1.08) H 01/09/18 07:00 Attending/Attestation - Attestation I have personally seen and examined this patient.: Yes I have fully participated in the care of the patient.: Yes I have reviewed all pertinent clinical information, including history, physical exam and plan: Yes
[2018-01-10 17:23] VITALS: BP 77/43; PULSE 97; TEMP 97.3; O2SAT 94
--- NOTE | 2018-01-10 18:01 | CP.PCM.PN ---
Subjective - Date & Time of Evaluation Date of Evaluation: 01/10/18 Time of Evaluation: 11:15 - Subjective Subjective: No diarrhea, no fevers. Objective - Vital Signs/Intake and Output Vital Signs (last 24 hours): Temp Pulse Resp BP Pulse Ox 97.5 F L 96 H 18 89/57 L 98 01/09/18 16:27 01/09/18 16:27 01/09/18 16:27 01/09/18 16:27 01/09/18 16:27 Intake and Output: 01/10/18 01/10/18 06:59 18:59 Intake Total 420 Output Total 150 Balance 270 - Medications Medications: Current Medications Acetaminophen (Tylenol 325mg Tab) 650 mg PO Q4H PRN; Protocol PRN Reason: Pain, Mild (1-3) Aspirin (Ecotrin) 81 mg PO 0800 [facility] PRN Reason: Protocol Last Admin: 01/10/18 07:58 Dose: 81 mg Atorvastatin Calcium (Lipitor) 20 mg PO HS [facility] Last Admin: 01/09/18 21:47 Dose: 20 mg Gabapentin (Neurontin) 300 mg PO [facility] PRN Reason: Protocol Last Admin: 01/09/18 21:48 Dose: 300 mg Ibuprofen (Motrin Tab) 600 mg PO Q6H PRN; Protocol PRN Reason: Pain, moderate (4-7) Insulin Detemir (Levemir) 30 unit SC HS [facility] PRN Reason: Protocol Last Admin: 01/09/18 22:43 Dose: 30 unit Insulin Human Lispro (Humalog Low) 0 units SC ACHS [facility] PRN Reason: Protocol Last Admin: 01/10/18 07:09 Dose: Not Given Insulin Human Lispro (Humalog) 14 units SC AC [facility] PRN Reason: Protocol Last Admin: 01/10/18 07:08 Dose: 14 units Levothyroxine Sodium (Synthroid) 75 mcg PO 0600 [facility] PRN Reason: Protocol Last Admin: 01/10/18 05:49 Dose: 75 mcg Loperamide HCl (Imodium) 2 mg PO Q4H PRN PRN Reason: Diarrhea Last Admin: 01/07/18 06:58 Dose: 2 mg Ondansetron HCl (Zofran Inj) 4 mg IVP Q4H PRN; Protocol PRN Reason: Nausea/Vomiting Last Admin: 01/07/18 21:46 Dose: 4 mg Rifaximin (Xifaxan) 550 mg PO BID [facility] PRN Reason: Protocol Last Admin: 01/09/18 18:00 Dose: 550 mg Silver Sulfadiazine (Silvadene 1% 25 Gm) 1 gm TP DAILY [facility] Last Admin: 01/09/18 13:19 Dose: Not Given Sodium Bicarbonate (Sodium Bicarbonate Tab) 650 mg PO BID [facility] PRN Reason: Protocol Last Admin: 01/09/18 17:59 Dose: 650 mg Tramadol HCl (Ultram) 25 mg PO Q6H PRN; Protocol PRN Reason: Pain, severe (8-10) Vancomycin HCl (Vancocin 25 Mg/Ml (Oral Use)) 250 mg PO QID [facility] PRN Reason: Protocol Stop: 01/19/18 18:01 Last Admin: 01/09/18 21:48 Dose: 250 mg - Labs Labs: 01/09/18 07:00 01/10/18 06:40 PT 32.5 SECONDS (9.4-12.5) H 01/09/18 07:00 INR 2.77 (0.93-1.08) H 01/09/18 07:00 - Constitutional Appears: Chronically Ill - Head Exam Head Exam: NORMAL INSPECTION - Neck Exam Neck Exam: absent: Meningismus - Respiratory Exam Respiratory Exam: Decreased Breath Sounds - Cardiovascular Exam Cardiovascular Exam: +S1, +S2 - GI/Abdominal Exam GI & Abdominal Exam: Soft. absent: Tenderness Assessment and Plan - Assessment and Plan (Free Text) Plan: Assessment sepsis due to C. diff. associated diarrhea S/P left breast and left leg cellulitis history of severe sepsis with leukopenia and acute renal failure, consider due to acute enteritis, less likely acute cholecystitis R/O spontaneous bacterial peritonitis HTN DM inflammatory breast cancer with last chemotherapy session on April 24, 2017 S/P right port-a-cath placement obesity with BMI 39 Plan continue PO Vancomycin day 6 to complete 10-14 days of therapy
[2018-01-10] MEDS: Insulin Detemir 100 units/ml Vial (Levemir) SC SCH (22:05)
[2018-01-11] MEDS: Levothyroxine 75 MCG TAB PO SCH (05:27)
[2018-01-11] MEDS: Insulin Lispro (humaLOG) LOW Coverage SC SCH ×2 (06:32→13:08)
[2018-01-11] MEDS: Insulin Lispro 1 UNITS/0.01 ML SC SCH ×2 (06:38→12:00)
[2018-01-11 07:23] LABS: ALB/GLOB RATIO 0.6 (1.1-1.8); CALCIUM 7.7 mg/dL (8.4-10.5)
--- NOTE | 2018-01-11 09:48 | CP.PCM.PN ---
Subjective - Date & Time of Evaluation Date of Evaluation: 01/11/18 Time of Evaluation: 09:41 - Subjective Subjective: Podiatry Progress Note- Dr. Meza 67 year old female patient with PMHx of Left breast CA currently on chemotherapy , DM, HTN, PE on wafarin, hypothyroid, B/L Lower extremity edema, ascites was seen and evaluated at bedside for diffuse blisters and left 2nd digit subungual hematoma. Patient reports that she is feeling better today. Denies of any acute overnight events. Denies of any overnight F/N/V/C/SOB/CP/headache. Denies of having any pain in her extremity today. No new complains. Objective - Vital Signs/Intake and Output Vital Signs (last 24 hours): Temp Pulse Resp BP Pulse Ox 97.3 F L 97 H 20 77/43 L 94 L 01/10/18 17:22 01/10/18 17:22 01/10/18 17:22 01/10/18 17:22 01/10/18 17:22 Intake and Output: 01/11/18 01/11/18 06:59 18:59 Intake Total 520 Output Total 500 Balance 20 - Medications Medications: Current Medications Acetaminophen (Tylenol 325mg Tab) 650 mg PO Q4H PRN; Protocol PRN Reason: Pain, Mild (1-3) Aspirin (Ecotrin) 81 mg PO 0800 [facility] PRN Reason: Protocol Last Admin: 01/11/18 08:16 Dose: 81 mg Atorvastatin Calcium (Lipitor) 20 mg PO HS [facility] Last Admin: 01/10/18 22:06 Dose: 20 mg Gabapentin (Neurontin) 300 mg PO HS [facility] PRN Reason: Protocol Last Admin: 01/10/18 22:06 Dose: 300 mg Ibuprofen (Motrin Tab) 600 mg PO Q6H PRN; Protocol PRN Reason: Pain, moderate (4-7) Insulin Detemir (Levemir) 30 unit SC HS [facility] PRN Reason: Protocol Last Admin: 01/10/18 22:05 Dose: 30 unit Insulin Human Lispro (Humalog Low) 0 units SC ACHS [facility] PRN Reason: Protocol Last Admin: 01/11/18 06:32 Dose: Not Given Insulin Human Lispro (Humalog) 14 units SC AC [facility] PRN Reason: Protocol Last Admin: 01/11/18 06:38 Dose: 14 units Levothyroxine Sodium (Synthroid) 75 mcg PO 0600 [facility] PRN Reason: Protocol Last Admin: 01/11/18 05:27 Dose: 75 mcg Loperamide HCl (Imodium) 2 mg PO Q4H PRN PRN Reason: Diarrhea Last Admin: 01/07/18 06:58 Dose: 2 mg Ondansetron HCl (Zofran Inj) 4 mg IVP Q4H PRN; Protocol PRN Reason: Nausea/Vomiting Last Admin: 01/07/18 21:46 Dose: 4 mg Rifaximin (Xifaxan) 550 mg PO BID [facility] PRN Reason: Protocol Last Admin: 01/10/18 17:42 Dose: 550 mg Silver Sulfadiazine (Silvadene 1% 25 Gm) 1 gm TP DAILY [facility] Last Admin: 01/10/18 10:25 Dose: 1 gm Sodium Bicarbonate (Sodium Bicarbonate Tab) 650 mg PO BID [facility] PRN Reason: Protocol Last Admin: 01/10/18 17:42 Dose: 650 mg Tramadol HCl (Ultram) 25 mg PO Q6H PRN; Protocol PRN Reason: Pain, severe (8-10) Vancomycin HCl (Vancocin 25 Mg/Ml (Oral Use)) 250 mg PO QID [facility] PRN Reason: Protocol Stop: 01/19/18 18:01 Last Admin: 01/10/18 22:06 Dose: 250 mg - Labs Labs: 01/09/18 07:00 01/11/18 06:30 PT 32.5 SECONDS (9.4-12.5) H 01/09/18 07:00 INR 2.77 (0.93-1.08) H 01/09/18 07:00 - Constitutional Appears: Well, Non-toxic, No Acute Distress - Extremities Exam Extremities Exam: absent: Calf Tenderness Additional comments: Bilateral LE Exam: VASC: DP and PT pulses are non-palpable b/l, temperature gradient warm to cool from proximal to distal, Cap refill time: <3 seconds to digits, +2 pitting edema noted on the distal medial leg as well as the dorsum of the foot b/l Derm: posterior lateral heel fissure noted on the left heel with multiple diffusly blisters with fibrotic slough in the wound bed noted on the legs bilaterally, no erythema, no clinical suspicion of active infection, subungual hematoma noted on the left foot second digit Post debridement of posteral lateral heel fissure shows superficial ulceration; mild erythema, no purulence, no odor, no streaking, no tunneling or tracking. No clinical signs of infection Neuro: gross and protective sensation diminished bilaterally Ortho: no pain with palpation to the LE, mild tenderness on palpation of the left heel, no pain with calf squeeze - Psychiatric Exam Psychiatric exam: Normal Affect, Normal Mood Assessment and Plan - Assessment and Plan (Free Text) Assessment: 67 year old female patient evaluated for 1) left foot 2nd digit nail plate subungal hematoma 2) Posterior heel fissures 3) diffuse blisters on LLE -all stable and healing Plan: Patient seen and evaluated Plan discussed with attending Dr. Meza Labs, vital, charts reviewed - afebrile, WBC 7.7 (01/09/19) Arterial duplex reviewed LE cleansed with saline solution Optifoam applied to the left heel, Silvadine and DSD applied to the distal leg blisters Callused, xerotic skin at posterior heel fissures debrided down until the level of healthy epithelial skin is exposed using a #15 blade. No complications. No incident. Patient tolerated the procedure well. Superficial ulceration noted under callus post debridement- no clinical signs of infection. Cleansed with saline and dressed with silvadene and dsd. Multipodus boots ordered - to be worn at all times while in bed Podiatry will follow patient while in-house
[2018-01-11] MEDS: Vancomycin 25 MG/ML PO SCH ×2 (10:01→14:25)
[2018-01-11] MEDS: Silver Sulfadiazine 1% Cream (25 gm) TP SCH (10:01)
--- NOTE | 2018-01-11 17:37 | PN ---
DATE: ENDOCRINOLOGY FOLLOWUP NOTE LOCATION: Room 315. SUBJECTIVE: This is a 67-year-old female with recent uncontrolled type 2 insulin-requiring diabetes, now being followed closely for metabolic management. Her glycemic fluctuations are improving as noted overnight and the glucose values have ranged from 172 to 182 mg/dL. Her bedtime glucose was still elevated at 266 mg/dL. Her latest chemistry showed a BUN of 105, sodium 128, potassium 5.1, chloride 105, CO2 of 15, glucose 173, and creatinine 2.3. So, at this time, we will modify once again her basal and bolus insulin regimen and increase the Levemir to 32 units subcu at bedtime daily to start tonight. We will also continue the low-dose correction scale using Humalog insulin as given. We will also continue the Humalog given as 14 units subcu t.i.d. before meals as ordered. We will obtain serial chemistries and supplement accordingly as needed. We will follow. Dorcas Galvin MD
[2018-01-11] MEDS ORDERED: Insulin Detemir 100 units/ml Vial (Levemir) SC SCH (22:00)
--- NOTE | 2018-01-12 | PN ---
DATE: LOCATION: Patient is in 315. SUBJECTIVE: The patient was seen early this morning. She felt she was weak, and had no energy. PHYSICAL EXAMINATION: VITAL SIGNS: Temperature 97, blood pressure is 77/40, respiratory rate of 20, heart rate of 90. HEENT: Unremarkable. NECK: Supple. LUNGS: Have decreased breath sounds. HEART: Normal S1 and S2. ABDOMEN: Soft. LABORATORY DATA: Reveals a white count of 7.7, hemoglobin 11. Chemistries reveals a BUN of 105, creatinine of 2.3. Coagulation is noted. Microbiology reveals blood cultures, there are no growth. Stool for C. diff is positive antigen, negative toxin. ASSESSMENT AND PLAN: A 67-year-old female who was seen early this morning in room 315. Overall in poor condition. Inflammatory breast cancer, last chemotherapy in April, status post Port-A-Cath placement, obesity, body mass index of 39, on p.o. vancomycin day #7, would complete in 10 to 14 days. Overall prognosis is poor. Arnaldo Crum MD
--- NOTE | 2018-01-12 01:55 | PN ---
DATE: 01/11/2018 SUBJECTIVE: This patient was seen and evaluated earlier today. The patient's son was at bedside. The patient's ammonia level has gone up. The patient is alert, oriented. PHYSICAL EXAMINATION VITAL SIGNS: Stable. Temperature is 97.3, blood pressure is 76/50, respirations 20, O2 saturations 94%. HEENT: Atraumatic, anicteric. NECK: Supple. HEART: S1 and S2 heard. LUNGS: Bilateral air entry present. ABDOMEN: Soft, softly distended. EXTREMITIES: Mild edema present. NEUROLOGIC: Alert. LABORATORY DATA: Hemoglobin 11.3, hematocrit 34, WBC 7.7, platelets 103. LFT shows total bilirubin 0.7, alkaline phosphatase 238, ammonia level is increased to 101. IMPRESSION: This is a 67-year-old patient with breast carcinoma, ascites, decompensated cirrhosis, ovarian cyst, has hepatic encephalopathy, increased ammonia level. The patient has been on Xifaxan 550 mg twice daily. The patient was only on a p.r.n. doses of lactulose with the ammonia level is significantly increased. The patient is due to be transferred to the retirement. The patient is more alert. Even though the ammonia level is high, but clinically appears more oriented, alert, it is a reasonable thing to start the lactulose again with the close followup of the levels. I discussed with the patient's son who was also at bedside. Thank you very much for allowing us to participate in the care of the patient. Lea Prieto MD
--- NOTE | 2018-01-12 06:34 | DS ---
SUBJECTIVE: The patient has no complaints of any chest pain. No shortness of breath. No headaches or dizziness. PHYSICAL EXAMINATION: VITAL SIGNS: Temperature is 97.3, pulse is 97, blood pressure is 77/43, and respirations 20. GENERAL: The patient is lying in bed, flat, comfortable. HEENT: No oral lesion. Anicteric sclerae. Moist mucosa. NECK: No JVD, adenopathy, or thyromegaly. CARDIOVASCULAR: S1 and S2, regular. No murmurs, rubs, or gallops. LUNGS: Clear to auscultation bilaterally. No wheeze, rales, or rhonchi. ABDOMEN: Bowel sounds are positive, soft, nontender and nondistended. EXTREMITIES: no cyanosis, clubbing or edema. LABORATORY DATA: Sodium is 128 and potassium is 5.1. ASSESSMENT: 1. Cirrhosis. 2. Hepatic encephalopathy. 3. Leukocytosis. 4. Hyponatremia. 5. Diabetes type 2. 6. Metabolic acidosis secondary to chronic kidney disease. 7. Chronic kidney disease, stage III/IV. 8. Thrombocytopenia. 9. Osteoarthritis. 10. Ascites with chronic draining catheter. 11. Breast cancer. 12. Left leg deep venous thrombosis, on anticoagulation. 13. Hypertension. 14. Tfwu-U-Ijxfhfux. 15. Hs-tjl-eiqhpomv/ta-gjl-hdafuzzxwlb. PLAN: The patient is on insulin for diabetes. She is on aspirin. She is going to continue with Lipitor for dyslipidemia. The patient's sodium is low. She does have cirrhosis. She is on gabapentin for neuropathy. She is on bicarbonate for her metabolic acidosis. She is on Synthroid for hypothyroidism. She is on Xifaxan. She is on a carbohydrate-consistent diet. She is going to be discharged to a subacute rehabilitation at [facility]. CONDITION: Stable. ACTIVITIES: Increase as tolerated. Rangel Ngo MD
--- NOTE | 2018-01-13 10:08 | PN ---
DATE: 01/10/2018 ENDOCRINOLOGY FOLLOWUP NOTE LOCATION: Room 315, [facility]. SUBJECTIVE: This is a 67-year-old female with recent uncontrolled type 2 insulin-requiring diabetes, now being followed closely for metabolic management. Her glycemic profile has improved, but that is still fluctuating, ranging from 183-203 mg/dL. Her latest chemistry showed a BUN of 96, sodium 132, potassium 5.1, chloride 108, CO2 of 17, glucose 188 and creatinine 2.3. So at this time, we will continue the same basal and bolus insulin regimen to allow for dose equilibration and keep her on the Humalog given as 14 units subcu t.i.d. before meals as ordered. We will continue also the Levemir given as basal insulin at 30 units subcu at bedtime daily as given. We will titrate incrementally as indicated to optimize metabolic control. We will follow. Dorcas Galvin MD
== END 2018-01-11 15:49 | DRG 871 ==
LOC: TRCU 21:24
PROVIDERS: ADMIT Internal Medicine Nephrology; ATTEND Internal Medicine Nephrology
PROC: F08Z1ZZ Dressing Techniques Treatment (ICD-10-PCS; 2018-01-03)
PROC: F08Z2ZZ Grooming/Personal Hygiene Treatment (ICD-10-PCS; 2018-01-03)
PROC: F07Z9FZ Gait Training/Functional Ambulation Treatment using Assistive, Adaptive, Supportive or Protective Equipment (ICD-10-PCS; principal; 2018-01-04)
PROC: F07M6ZZ Therapeutic Exercise Treatment of Musculoskeletal System - Whole Body (ICD-10-PCS; 2018-01-04)
DX: A41.4 Sepsis due to anaerobes (principal); I26.99 Other pulmonary embolism without acute cor pulmonale; D69.6 Thrombocytopenia, unspecified; E11.22 Type 2 diabetes mellitus with diabetic chronic kidney disease; E11.622 Type 2 diabetes mellitus with other skin ulcer; A04.72 Enterocolitis due to Clostridium difficile, not specified as recurrent; E87.2 Acidosis; I82.402 Acute embolism and thrombosis of unspecified deep veins of left lower extremity; N18.4 Chronic kidney disease, stage 4 (severe); E11.65 Type 2 diabetes mellitus with hyperglycemia; L03.116 Cellulitis of left lower limb; E87.1 Hypo-osmolality and hyponatremia; L97.929 Non-pressure chronic ulcer of unspecified part of left lower leg with unspecified severity; R18.8 Other ascites; C50.912 Malignant neoplasm of unspecified site of left female breast; E03.9 Hypothyroidism, unspecified; I12.9 Hypertensive chronic kidney disease with stage 1 through stage 4 chronic kidney disease, or unspecified chronic kidney disease; N61.0 Mastitis without abscess; K74.60 Unspecified cirrhosis of liver; K72.90 Hepatic failure, unspecified without coma; E66.9 Obesity, unspecified; Z68.39 Body mass index [BMI] 39.0-39.9, adult; Z66 Do not resuscitate; Z79.4 Long term (current) use of insulin; Z85.3 Personal history of malignant neoplasm of breast; M19.90 Unspecified osteoarthritis, unspecified site; N83.209 Unspecified ovarian cyst, unspecified side; Z86.711 Personal history of pulmonary embolism; Z86.718 Personal history of other venous thrombosis and embolism; Z90.49 Acquired absence of other specified parts of digestive tract

== ENCOUNTER 2018-01-30 09:11 | Inpatient (IN) | payer MEDICARE, OTHER ==
[2018-01-30 09:20] VITALS: BMI 33.6
[2018-01-30] MEDS ORDERED: Piperacill/Tazo 4.5gm in NS 4.5 GM/100 ML BAG IVPB STA ×2 (09:29→10:44)
[2018-01-30] MEDS ORDERED: Vancomycin 1gm in NS 250ml 1 GM/250 ML BAG IVPB STA (09:31)
[2018-01-30] MEDS ORDERED: Sodium Chloride 0.9% 500 ML IV STA ×2 (09:32→12:21)
--- NOTE | 2018-01-30 09:35 | ED PDOC ---
Arrival/HPI - General Time Seen by Provider: 01/30/18 09:16 Historian: Patient, Mcc, EMS - History of Present Illness Narrative History of Present Illness (Text): 01/30/18 09:30 67 year old female, whose past medical history includes diabetes, hypertension, hypothyroidism, ascites, breast CA, CKD, cirrhosis, and hepatic encephalopathy, who is brought in to the emergency department from [facility] due to AMS. Per EMS, patient was unresponsive, lethargic, and hypotensive and with an oxy saturation of 100% on 3L of oxygen. On the way here, patient vomited, and appeared green. Patient currently is arousable to voice and answers limited questions. She also complaints of upper abdominal pain and is coughing. No other complaints were made. Patient is DNR/DNI. Time/Duration: Prior to Arrival Symptom Onset: Sudden Symptom Course: Unchanged Activities at Onset: Rest Context: Home Past Medical History - Provider Review Nursing Documentation Reviewed: Yes - Infectious Disease Hx of Infectious Diseases: None - Cardiac Hx Hypertension: Yes - Pulmonary Hx Respiratory Disorders: Yes Hx Pulmonary Embolism: Yes - Neurological Hx Neurological Disorder: No - HEENT Hx HEENT Disorder: Yes Other/Comment: glasses - Renal Hx Renal Disorder: No - Endocrine/Metabolic Hx Hypothyroidism: Yes - Hematological/Oncological Hx Cancer: Yes (breast cancer, dx 11/2016) Hx Chemotherapy: Yes (last chemo 2 wks ago) Hx Cirrhosis: Yes (ascites) Other/Comment: peritoneal drain to right abd for ascites, drained 2x's a week at infusion center - Integumentary Hx Dermatological Disorder: No - Musculoskeletal/Rheumatological Hx Falls: No - Gastrointestinal Hx Gastrointestinal Disorders: Yes (cirrhosis , ascites ) Other/Comment: Ascitis - Genitourinary/Gynecological Hx Reproductive Disorders: No - Psychiatric Hx Substance Use: No - Surgical History Hx Appendectomy: Yes (open ) Other/Comment: Port in R chest, - Anesthesia Hx Anesthesia Reactions: No Hx Malignant Hyperthermia: No - Suicidal Assessment Feels Threatened In Home Enviroment: No Family/Social History - Physician Review Nursing Documentation Reviewed: Yes Family/Social History: Unknown Family HX Smoking Status: Never Smoked Hx Alcohol Use: No Hx Substance Use: No Allergies/Home Meds Allergies/Adverse Reactions: Allergies banana Allergy (Severe, Verified 01/30/18 09:19) RASH Home Medications: Home Meds Medication Instructions Recorded Confirmed Aspirin [Ecotrin] 81 mg PO DAILY 12/05/16 01/30/18 Amino Acids/Protein Hydrolys 30 ml PO DAILY 01/30/18 01/30/18 [Pro-Stat Profile Liquid Packet] Insulin Detemir [Levemir] 32 unit SC HS 01/30/18 01/30/18 Lactulose [Enulose] 20 gm PO DAILY 01/30/18 01/30/18 Multivitamin [Daily Lakesha] 1 tab PO DAILY 01/30/18 01/30/18 Silver Sulfadiazine 1% [Silvadene 1 applic TP DAILY 01/30/18 01/30/18 1%] Review of Systems - Review of Systems Systems not reviewed;Unavailable: Other (lethargic) Respiratory: Cough (in the the Emergency department ) Gastrointestinal: Abdominal Pain (upper region ) Physical Exam Vital Signs Reviewed: Yes Vital Signs Temp Pulse Resp BP Pulse Ox 01/30/18 16:43 89 17 102/63 100 01/30/18 16:00 97.5 F L 01/30/18 15:51 81 16 101/68 100 01/30/18 14:52 84 16 98/72 L 100 01/30/18 13:29 79 17 100/65 100 01/30/18 12:45 75 17 115/69 100 01/30/18 12:20 80 17 95/58 L 100 01/30/18 12:16 78 17 95/58 L 100 01/30/18 11:45 80 17 100/60 100 01/30/18 10:31 96.0 F L 88 16 101/65 100 01/30/18 09:21 97.6 F 89 16 90/62 L 100 Temperature: Afebrile Blood Pressure: Hypotensive Pulse: Regular Respiratory Rate: Normal Appearance: Positive for: Comfortable, Ill-Appearing Pain Distress: None Mental Status: Positive for: Alert and Oriented X 3 Finger Stick Blood Glucose: 71 - Systems Exam Head: Present: Atraumatic, Normocephalic Pupils: Present: PERRL Extroacular Muscles: Present: EOMI Conjunctiva: Present: Normal Mouth: Present: Dry Respiratory/Chest: Present: Clear to Auscultation, Good Air Exchange. No: Respiratory Distress, Accessory Muscle Use, Wheezes, Rales, Retracting, Rhonchi Cardiovascular: Present: Regular Rate and Rhythm, Normal S1, S2. No: Murmurs Abdomen: Present: Tenderness (epigastric region ), Normal Bowel Sounds, Other ( chronic draining cathetor; Ascites +). No: Distention, Peritoneal Signs, Rebound, Guarding Breast/Axillary: Present: Erythema, Other (left breast wound with warmth and erythema. flower cutter: Marissa Ana) Lower Extremity: Present: Edema, Normal ROM. No: Normal Inspection Neurological: Present: GCS=15, CN II-XII Intact. No: Speech Normal Skin: Present: Warm, Dry, Normal Color. No: Rashes Psychiatric: Present: Alert, Normal Insight, Normal Concentration, Other ( drowsiness). No: Oriented x 3 (oriented X 2) Medical Decision Making ED Course and Treatment: 01/30/18 Impression: 67 year old female with epigastric tenderness, right lower pec tube, left breast wound with erythema, and warmth, Differential Diagnosis included but are not limited to: Sepsis vs. Hyponatremia vs. Ascites/Hepatic Encephalopathy Plan: -- EKG -- Chest X-ray -- Labs -- Urinalysis -- Vanomycin, Zosyn, and Sodium Chloride -- Reassess and disposition Progress Notes: EKG: Ordered, reviewed, and independently interpreted the EKG. Rate : 89 BPM Rhythm : NSR Interpretation : LAD. Non-specific ST-segment elevations or depressions, no T- wave inversions, normal intervals. Comparison : 01/08/2018 01/30/18 10:13 Chest X-ray read by me is negative. Patient has port on chest wall. 01/30/18 10:37 Code Sepsis was called due to hypothermia, leukocytosis and worsening and increased creatitine. 01/30/18 11:07 Simone Florez, her son is at bedside. I discussed end of life care for his mother. There is a note in the chart from 05/09/17 completed by Yue Dubois with son's signature Simone Florez. I showed him this documentaion and he agrees that she is DNR/DNI> I discussed the case with Dr. Ngo who agrees with plan of care and recommends Dr. Crum and Dr. Prieto on consult. Patient's blood pressure improved. She was placed on isolation and treated with IV antibiotics. Patient given lactulose AR for elevated ammonia. - Critical Care Critical Care Minutes: 60 minutes - Lab Interpretations Microbiology Results: Microbiology Results 01/30/18 10:20 Blood Blood Culture - Preliminary NO GROWTH AFTER 4 DAYS 01/30/18 10:00 Blood Blood Culture - Preliminary NO GROWTH AFTER 4 DAYS Lab Results: 01/30/18 09:30 01/30/18 09:30 Lab Results 01/30/18 10:25: Ammonia 226 H* 01/30/18 09:30: Sodium 126 L, Chloride 99, Potassium 5.2 H, Carbon Dioxide 14 L , Anion Gap 19, BUN 175 H*, Creatinine 4.2 H, Est GFR ( Amer) 13, Est GFR (Non-Af Amer) 11, Random Glucose 68 L, Calcium 6.9 L*, Phosphorus 9.7 H, Magnesium 2.5 H, Total Bilirubin 0.7, AST 73 H, ALT 76 H, Alkaline Phosphatase 371 H D, Troponin I 0.03 D, NT-Pro-B Natriuret Pep 946 H, Total Protein 6.3, Albumin 2.2 L, Globulin 4.0, Albumin/Globulin Ratio 0.5 L 01/30/18 09:30: pO2 67 H, VBG pH 7.27 L, VBG pCO2 32.0 L, VBG HCO3 14.7 L, VBG Total CO2 15.7 L, VBG O2 Sat (Calc) 95.5 H, VBG Base Excess -11.0 L, VBG Potassium 5.3 H, Sodium 123.0 L, Chloride 97.0 L, Glucose 67, Lactate 1.6, FiO2 21.0, Venous Blood Potassium 5.3 H 01/30/18 09:30: PT 15.2 H, INR 1.31 H, APTT 31.7 01/30/18 09:30: Procalcitonin 1.97 H 01/30/18 09:30: WBC 13.9 H D, RBC 3.71, Hgb 11.2 L, Hct 32.7 L, MCV 88.1, MCH 30.2, MCHC 34.3, RDW 15.9 H, Plt Count 157, MPV 10.6, Gran % 90.7 H, Lymph % ( Auto) 4.5 L, [place] % (Auto) 4.3, Eos % (Auto) 0.4 L, Baso % (Auto) 0.1, Gran # 12.63 H, Lymph # (Auto) 0.6 L, [place] # (Auto) 0.6, Eos # (Auto) 0.1, Baso # (Auto ) 0.01, Neutrophils % (Manual) 92 H, Lymphocytes % (Manual) 3 L, Monocytes % ( Manual) 5 Calcium 6.9 treated with Calcium IV. I have reviewed the lab results: Yes - RAD Interpretation Radiology Orders: 01/30/18 09:29 CHEST PORTABLE [RAD] Stat Plumber Apprentice: Radiologist - EKG Interpretation Interpreted by ED Physician: Yes Type: 12 lead EKG Comparison: Similar to previous EKG - Medication Orders Current Medication Orders: Discontinued Medications Vancomycin HCl (Vancomycin 1gm) 1 gm in 250 mls @ 167 mls/hr IVPB STAT STA PRN Reason: Protocol Stop: 01/30/18 11:00 Last Admin: 01/30/18 11:52 Dose: 167 mls/hr eMAR Start Stop Document 01/30/18 11:52 SF (Rec: 01/30/18 11:52 SF [id number]) Intravenous Solution Start Date 01/30/18 Start Time 11:52 End Date 01/30/18 End time 13:30 Total Infusion Time 98 Sodium Chloride (Sodium Chloride 0.9%) 500 mls @ 999 mls/hr IV .Q31M STA Stop: 01/30/18 10:02 Last Admin: 01/30/18 10:52 Dose: 999 mls/hr eMAR Start Stop Document 01/30/18 10:52 SF (Rec: 01/30/18 10:52 SF [id number]) Intravenous Solution Start Date 01/30/18 Start Time 09:40 End Date 01/30/18 End time 10:10 Total Infusion Time 30 Calcium Gluconate 1,000 mg/ (Sodium Chloride) 110 mls @ 110 mls/hr IV ONCE ONE Stop: 01/30/18 11:44 Last Admin: 01/30/18 11:51 Dose: 110 mls/hr eMAR Start Stop Document 01/30/18 11:51 SF (Rec: 01/30/18 11:51 SF [id number]) Intravenous Solution Start Date 01/30/18 Start Time 11:30 End Date 01/30/18 End time 12:30 Total Infusion Time 60 Piperacillin Sod/Tazobactam Sod (Zosyn 4.5 Gm In Ns 100ml) 4.5 gm in 100 mls @ 200 mls/hr IVPB STAT STA PRN Reason: Protocol Stop: 01/30/18 11:13 Last Admin: 01/30/18 10:54 Dose: 200 mls/hr eMAR Start Stop Document 01/30/18 10:54 SF (Rec: 01/30/18 10:54 SF [id number]) Intravenous Solution Start Date 01/30/18 Start Time 10:54 End Date 01/30/18 End time 11:25 Total Infusion Time 31 Sodium Chloride (Sodium Chloride 0.9%) 500 mls @ 999 mls/hr IV .Q31M STA Stop: 01/30/18 12:51 Last Admin: 01/30/18 13:21 Dose: 999 mls/hr eMAR Start Stop Document 01/30/18 13:21 SF (Rec: 01/30/18 13:21 SF [id number]) Intravenous Solution Start Date 01/30/18 Start Time 13:21 End Date 01/30/18 End time 13:51 Total Infusion Time 30 Sodium Chloride (Sodium Chloride 0.9%) 1,000 mls @ 100 mls/hr IV .Q10H MARTHA Stop: 01/31/18 03:59 Last Admin: 01/30/18 19:23 Dose: 100 mls/hr eMAR Start Stop Document 01/30/18 19:23 VS (Rec: 01/30/18 19:23 VS [id number]) Intravenous Solution Start Date 01/30/18 Start Time 19:23 End Date 01/30/18 Meropenem 500 mg/ Sodium (Chloride) 100 mls @ 100 mls/hr IVPB Q12H MARTHA PRN Reason: Protocol Stop: 02/07/18 06:16 Meropenem 500 mg/ Sodium (Chloride) 50 mls @ 100 mls/hr IVPB Q12H MARTHA PRN Reason: Protocol Stop: 02/07/18 06:16 Last Admin: 02/03/18 06:54 Dose: 100 mls/hr eMAR Start Stop Document 02/03/18 06:54 RM (Rec: 02/03/18 06:55 RM [id number]) Intravenous Solution Start Date 02/03/18 Start Time 06:55 End Date 02/03/18 End time 07:25 Total Infusion Time 30 Sodium Chloride (Sodium Chloride 0.9%) 1,000 mls @ 100 mls/hr IV .Q10H MARTHA Stop: 02/01/18 04:29 Last Admin: 02/03/18 09:23 Dose: 100 mls/hr eMAR Start Stop Document 02/03/18 09:23 BIR (Rec: 02/03/18 09:23 BIR [id number]) Intravenous Solution Start Date 02/03/18 Start Time 09:23 Vancomycin HCl 2 gm/ Sodium (Chloride) 500 mls @ 170 mls/hr IVPB ONCE ONE PRN Reason: Protocol Stop: 01/31/18 12:09 Last Admin: 01/31/18 10:15 Dose: 170 mls/hr eMAR Start Stop Document 01/31/18 10:15 BIR (Rec: 01/31/18 10:15 BIR [id number]) Intravenous Solution Start Date 01/31/18 Start Time 11:00 End Date 01/31/18 End time 14:00 Total Infusion Time 180 Sodium Chloride (Sodium Chloride 0.9%) 1,000 mls @ 60 mls/hr IV .[id number] [facility] Last Admin: 02/01/18 16:36 Dose: 60 mls/hr eMAR Start Stop Document 02/01/18 16:36 SOUSV (Rec: 02/01/18 16:36 SOUSV [id number]) Intravenous Solution Start Date 02/01/18 Start Time 16:36 Sodium Chloride (Sodium Chloride 0.9%) 500 mls @ 250 mls/hr IV .Q2H MARTHA Stop: 02/02/18 07:59 Last Admin: 02/02/18 06:41 Dose: 250 mls/hr eMAR Start Stop Document 02/02/18 06:41 RM (Rec: 02/02/18 06:41 RM [id number]) Intravenous Solution Start Date 02/02/18 Start Time 06:00 End Date 02/02/18 End time 08:00 Total Infusion Time 120 Sodium Chloride (Sodium Chloride 0.9%) 1,000 mls @ 100 mls/hr IV .Q10H MARTHA Last Admin: 02/02/18 17:36 Dose: 100 mls/hr eMAR Start Stop Document 02/02/18 17:36 SOUSV (Rec: 02/02/18 17:36 SHEILA [id number]) Intravenous Solution Start Date 02/02/18 Start Time 17:36 Sodium Chloride (Sodium Chloride 0.9%) 1,000 mls @ 50 mls/hr IV .Q20H MARTHA Last Admin: 02/03/18 11:53 Dose: 50 mls/hr eMAR Start Stop Document 02/03/18 11:53 BIR (Rec: 02/03/18 11:53 FLORES [id number]) Intravenous Solution Start Date 02/03/18 Start Time 11:53 Insulin Human NPH (Humulin N) 7 units SC ONCE ONE Stop: 02/03/18 08:46 Last Admin: 02/03/18 08:49 Dose: 7 units Subcutaneous Administrations Document 02/03/18 08:49 BIR (Rec: 02/03/18 08:49 BIR [id number]) Charges for Administration # of Subcutaneous Administrations 1 Insulin Human Regular (Humulin R Med) 0 units SC ACHS MARTHA PRN Reason: Protocol Last Admin: 02/03/18 08:01 Dose: 8 units MAR Blood Glucose Document 02/03/18 08:01 BIR (Rec: 02/03/18 08:01 BIR [id number]) Blood Glucose Finger Stick Blood Glucose (70-120) 384 Subcutaneous Administrations Document 02/03/18 08:01 BIR (Rec: 02/03/18 08:01 BIR [id number]) Charges for Administration # of Subcutaneous Administrations 1 Insulin Human Regular (Humulin R High) 0 units SC ACHS MARTHA PRN Reason: Protocol Last Admin: 02/03/18 11:53 Dose: 7 units MAR Blood Glucose Document 02/03/18 11:53 BIR (Rec: 02/03/18 11:53 [id number] Blood Glucose Finger Stick Blood Glucose (70-120) 356 Subcutaneous Administrations Document 02/03/18 11:53 BIR (Rec: 02/03/18 11:53 BIR [id number]) Charges for Administration # of Subcutaneous Administrations 1 Lactulose (Generlac) 200 gm AR ONCE ONE Stop: 01/30/18 11:19 Last Admin: 01/30/18 13:20 Dose: 10 gm Lactulose (Enulose) 10 gm PO Q6 MARTHA Last Admin: 02/03/18 11:51 Dose: 10 gm Morphine Sulfate (Morphine) 2 mg IVP Q4H PRN PRN Reason: Pain, severe (8-10) Last Admin: 02/03/18 00:29 Dose: 2 mg MAR Pain Assessment Document 02/03/18 00:29 RM (Rec: 02/03/18 00:30 RM [id number]) Pain Reassessment Is this a pain reassessment? No Sleep Is patient sleeping during reassessment? No Presence of Pain Presence of Pain Yes Pain Scale Used Pain Scale Used [facility] IVP Administration Document 02/03/18 00:29 RM (Rec: 02/03/18 00:30 RM [id number]) Charges for Administration # of IVP Administrations 1 Oxycodone/Acetaminophen (Percocet 5/325 Mg Tab) 1 tab PO Q4H PRN PRN Reason: Pain, moderate (4-7) Stop: 02/03/18 08:23 Sodium Polystyrene Sulfonate (Kayexalate Susp) 30 gm PO ONCE ONE Stop: 02/01/18 09:28 Last Admin: 02/01/18 10:00 Dose: 30 gm Sodium Polystyrene Sulfonate (Kayexalate Susp) 30 gm PO ONCE ONE Stop: 02/02/18 14:21 Last Admin: 02/02/18 15:18 Dose: 30 gm - Scribe Statement The provider has reviewed the documentation as recorded by the Varsha Perez Provider Scribe Attestation: All medical record entries made by the Varsha were at my direction and personally dictated by me. I have reviewed the chart and agree that the record accurately reflects my personal performance of the history, physical exam, medical decision making, and the department course for this patient. I have also personally directed, reviewed, and agree with the discharge instructions and disposition. Disposition/Present on Arrival - Present on Arrival Any Indicators Present on Arrival: No History of DVT/PE: No History of Uncontrolled Diabetes: No Urinary Catheter: No History Surgical Site Infection Following: None - Disposition Have Diagnosis and Disposition been Completed?: Yes Diagnosis: Sepsis, Acute renal failure, Ascites, Hepatic encephalopathy Disposition: HOSPITALIZED Disposition Time: 11:12 Patient Plan: Admission Condition: GUARDED
[2018-01-30 10:01] LABS: VENOUS BLOOD GAS PO2 67 mm/Hg (30-55); VENOUS BLOOD PH 7.27 (7.32-7.43)
[2018-01-30 10:05] LABS: BASO # 0.01 K/mm3 (0.0-2.0); BASO % 0.1 % (0.0-3.0); EOS # 0.1 (0.0-0.7); EOS % 0.4 % (1.5-5.0); GRAN # 12.63 (1.4-6.5); GRAN % 90.7 % (50.0-68.0); HEMOGLOBIN 11.2 g/dL (12.0-16.0); LYMPH # 0.6 (1.2-3.4); LYMPH % 4.5 % (22.0-35.0); MEAN CELL VOLUME 88.1 fl (80.0-105.0); MEAN CORPUSCULAR HEMOGLOBIN 30.2 pg (25.0-35.0); MEAN CORPUSCULAR HGB CONC 34.3 g/dl (31.0-37.0); MEAN PLATELET VOLUME 10.6 fl (7.0-11.0); MONO # 0.6 (0.1-0.6); MONO % 4.3 % (1.0-6.0); PLATELET COUNT 157 10^3/uL (120.0-450.0); RBC 3.71 10^6/uL (3.5-6.1); RED CELL DISTRIBUTION WIDTH 15.9 % (11.5-14.5); WHITE BLOOD COUNT 13.9 10^3/ul (4.5-11.0)
--- NOTE | 2018-01-30 10:09 | RAD ---
HISTORY: Sepsis Patient COMPARISON: 12/30/2017. FINDINGS: The right MediPort terminates in the right atrium. LUNGS: There is subsegmental atelectasis in the right lower lobe. The left lung is clear. PLEURA: No significant pleural effusion identified, no pneumothorax apparent. CARDIOVASCULAR: Normal. OSSEOUS STRUCTURES: No significant abnormalities. VISUALIZED UPPER ABDOMEN: Normal. OTHER FINDINGS: None. IMPRESSION: No active pulmonary disease.
[2018-01-30 10:17] LABS: INR 1.31 (0.93-1.08); PARTIAL THROMBOPLASTIN TIME 31.7 Seconds (25.1-36.5); PROTHROMBIN TIME 15.2 SECONDS (9.4-12.5)
[2018-01-30 10:21] LABS: TROPONIN I 0.03 ng/mL
[2018-01-30 10:24] LABS: CALCIUM 6.9 mg/dL (8.4-10.5); MAGNESIUM 2.5 mg/dL (1.7-2.2)
[2018-01-30 10:25] LABS: ALB/GLOB RATIO 0.5 (1.1-1.8); ALBUMIN 2.2 g/dL (3.0-4.8)
[2018-01-30 10:37] LABS: LYMPHOCYTE 3 % (22.0-35.0); MONOCYTE 5 % (1.0-6.0); NEUTROPHIL 92 % (50.0-70.0)
[2018-01-30] MEDS ORDERED: Lactulose 10 gm/15 ml (Rectal Use) PR ONE (11:18)
--- NOTE | 2018-01-30 13:08 | CP.PCM.CON ---
History of Present Illness - History of Present Illness History of Present Illness: palliative consult requested Dr Marie Copied to Dr Kylah Ngo 67 year old female with history of metastatic breast cancer, PRO, ascites who was sent form [facility] rehab with altered mental status, The patient is extremely lethargic, no verbal. Labs; NA 126, BUN 175, Creat. 5.2, Calcium 6.9, ammonia 226. PMHx: metastatic breast cancer, DM, PRO, ascites, sepsis, DVT, HTN , DM. Family History: Non contributory. Social History:Non smoker, no alcahol or drug use. Lives with son. Advance Care Planning: POLST DNR/DNI. Review of Systems: As per HPI, obtunded non verbal Past Patient History - Infectious Disease Hx of Infectious Diseases: None - Past Medical History & Family History Past Medical History?: Yes - Past Social History Smoking Status: Never Smoked - CARDIAC Hx Hypertension: Yes - PULMONARY Hx Respiratory Disorders: Yes Hx Pulmonary Embolism: Yes - NEUROLOGICAL Hx Neurological Disorder: No - HEENT Hx HEENT Problems: Yes Other/Comment: glasses - RENAL Hx Chronic Kidney Disease: No - ENDOCRINE/METABOLIC Hx Hypothyroidism: Yes - HEMATOLOGICAL/ONCOLOGICAL Hx Cancer: Yes (breast cancer, dx 11/2016) Hx Chemotherapy: Yes (last chemo 2 wks ago) Hx Cirrhosis: Yes (ascites) Other/Comment: peritoneal drain to right abd for ascites, drained 2x's a week at infusion center - INTEGUMENTARY Hx Dermatological Problems: No - MUSCULOSKELETAL/RHEUMATOLOGICAL Hx Falls: No - GASTROINTESTINAL Hx Gastrointestinal Disorders: Yes (cirrhosis , ascites ) Other/Comment: Ascitis - GENITOURINARY/GYNECOLOGICAL Hx Reproductive Disorders: No - PSYCHIATRIC Hx Substance Use: No - SURGICAL HISTORY Hx Appendectomy: Yes (open ) Other/Comment: Port in R chest, - ANESTHESIA Hx Anesthesia Reactions: No Hx Malignant Hyperthermia: No Meds Allergies/Adverse Reactions: Allergies Allergy/AdvReac Type Severity Reaction Status Date / Time banana Allergy Severe RASH Verified 01/30/18 09:19 Physical Exam - Constitutional Appears: Chronically Ill - Head Exam Head Exam: NORMAL INSPECTION - ENT Exam ENT Exam: Mucous Membranes Moist - Neck Exam Neck exam: Positive for: Normal Inspection - Respiratory Exam Respiratory Exam: Decreased Breath Sounds, NORMAL BREATHING PATTERN - Cardiovascular Exam Cardiovascular Exam: REGULAR RHYTHM, +S1, +S2 - GI/Abdominal Exam GI & Abdominal Exam: Diminished Bowel Sounds, Distended, Firm - Back Exam Back exam: NORMAL INSPECTION - Neurological Exam Additional comments: obtunded - Skin Skin Exam: Dry, Pallor - Additional Findings Additional findings: palliative performance scale rating 20% Results - Vital Signs Recent Vital Signs: Last Vital Signs Temp 96.0 F L 01/30/18 10:31 Pulse 75 01/30/18 12:45 Resp 17 01/30/18 12:45 BP 115/69 01/30/18 12:45 Pulse Ox 100 01/30/18 12:45 - Labs Result Diagrams: 01/30/18 09:30 01/30/18 09:30 Assessment & Plan - Assessment and Plan (Free Text) Assessment: 67 year old female with history of metastatic breasts cancer, PRO, DVT, cellulitis sepsis who aniya admitted with altered mental status, elevated ammonia level, hyponatremia, hypocalcemia, AFUA, ascites The patient is known to me from previous admission. The pateint and I completed POLST: DNR/DNI. Patients son/POA states that patient remains DNR/ DNI. Son a expressed that he wants all other medical treatments/interventions to be provided. He is not ready to consider hospice care at this time Plan: POLST DNR/DNI Goals of care
[2018-01-30 15:10] LABS: URINE BILIRUBIN NEGATIVE (NEGATIVE); URINE BLOOD TRACE-INTACT (NEGATIVE); URINE GLUCOSE (UA) NEGATIVE (NEGATIVE); URINE LEUKOCYTE ESTERASE SMALL Leu/uL (NEGATIVE); URINE NITRATE NEGATIVE (NEGATIVE); URINE PROTEIN NEGATIVE mg/dL (<30 mg/dL); URINE UROBILINOGEN 0.2 E.U./dL (<1 E.U./dL)
[2018-01-30 15:16] LABS: URINE APPEARANCE CLEAR (CLEAR); URINE COLOR YELLOW (YELLOW)
[2018-01-30 15:30] LABS: URINE BACTERIA TRACE (NEG); URINE EPITHELIAL CELLS 0 - 2 /hpf (0-5); URINE RBC 0 - 2 /hpf (0-2); URINE WBC 0 - 2 /hpf (0-6)
[2018-01-30] MEDS ORDERED: Sodium Chloride 0.9% 1,000 ML IV SCH (18:00)
--- NOTE | 2018-01-30 19:07 | PCM.SEPTIC ---
Sepsis Progress Note - Reassessment Type Date of Evaluation: 01/30/18 Time of Evaluation: 15:30 Reassessment Type: Non-invasive reassessment - Non Invasive Reassessment Were the most recent vital sign reviewed: Yes Vital Sign (Latest): Temp Pulse Resp BP Pulse Ox 97.5 F L 89 17 102/63 100 01/30/18 16:00 01/30/18 16:43 01/30/18 16:43 01/30/18 16:43 01/30/18 16:43 Cardiovascular: Yes: Regular Rate, Rhythm Respiratory: Yes: Normal Breath Sounds Capillary Refill: Normal (Less than 2 sec) Skin: Warm
--- NOTE | 2018-01-30 20:53 | CP.PCM.PN ---
Subjective - Date & Time of Evaluation Date of Evaluation: 01/30/18 Time of Evaluation: 20:45 - Subjective Subjective: Surgery: DR. Arellano Patient unable to take medication by mouth due to encephalopathy. Dobhoff feeding tube placed at bedside through right nare. Secured at 65cm. Confirmation of placement with CXR. Dobhoff near GE junction on film. Advanced 5 cm. Confirmed advancement with auscultation. Ok to use Dobhoff. further recs per Dr. Arellano JGomez PGY2 Objective - Vital Signs/Intake and Output Vital Signs (last 24 hours): Temp Pulse Resp BP Pulse Ox 97.4 F L 87 20 100/58 L 100 01/30/18 19:11 01/30/18 19:11 01/30/18 19:11 01/30/18 19:11 01/30/18 16:43 - Medications Medications: Current Medications Sodium Chloride (Sodium Chloride 0.9%) 1,000 mls @ 100 mls/hr IV .Q10H MARTHA Stop: 01/31/18 03:59 Last Admin: 01/30/18 19:23 Dose: 100 mls/hr Insulin Human Regular (Humulin R Med) 0 units SC ACHS MARTHA PRN Reason: Protocol Lactulose (Enulose) 10 gm PO Q6 MARTHA - Labs Labs: PT 15.2 SECONDS (9.4-12.5) H 01/30/18 09:30 INR 1.31 (0.93-1.08) H 01/30/18 09:30 APTT 31.7 Seconds (25.1-36.5) 01/30/18 09:30
[2018-01-30] MEDS: Insulin Reg-MEDIUM-Coverage SC SCH (22:16)
[2018-01-31] MEDS ORDERED: Meropenem 500 MG in Sodium Chloride 0.9% 100 ML IVPB SCH (06:15)
[2018-01-31 07:10] LABS: HEMOGLOBIN 10.8 g/dL (12.0-16.0); MEAN CELL VOLUME 87.8 fl (80.0-105.0); MEAN CORPUSCULAR HEMOGLOBIN 29.3 pg (25.0-35.0); MEAN CORPUSCULAR HGB CONC 33.4 g/dl (31.0-37.0); MEAN PLATELET VOLUME 10.3 fl (7.0-11.0); RBC 3.68 10^6/uL (3.5-6.1); RED CELL DISTRIBUTION WIDTH 15.9 % (11.5-14.5); WHITE BLOOD COUNT 14.2 10^3/ul (4.5-11.0)
[2018-01-31 07:35] LABS: ALB/GLOB RATIO 0.5 (1.1-1.8); ALBUMIN 2.1 g/dL (3.0-4.8); CALCIUM 7.6 mg/dL (8.4-10.5)
--- NOTE | 2018-01-31 08:07 | RAD ---
HISTORY: dobhoff placement COMPARISON: 01/30/2018. FINDINGS: The right IJV line terminates in the right atrium. The nasogastric tube terminates in the stomach. LUNGS: There is low lung volume on the right. There is right basilar atelectasis. The left lung is clear. There is a small calcified granuloma in the left upper lobe. PLEURA: No significant pleural effusion identified, no pneumothorax apparent. CARDIOVASCULAR: Normal. OSSEOUS STRUCTURES: No significant abnormalities. VISUALIZED UPPER ABDOMEN: Normal. OTHER FINDINGS: There is elevation of the left hemidiaphragm. IMPRESSION: Nasogastric tube terminates in the stomach. No acute findings.
[2018-01-31] MEDS ORDERED: Oxycodone/Acetaminophen 5/325 mg Tab PO PRN (08:22)
[2018-01-31] MEDS ORDERED: Vancomycin 2 GM in Sodium Chloride 0.9% 500 ML IVPB ONE (09:13)
--- NOTE | 2018-01-31 09:39 | CARD ---
APPROVED REPORT EKG Measurement Heart [id number] [id number] [id number] <Conclusion> Normal sinus rhythm Left axis deviation Low voltage QRS Poor R Progression in V Leads.
[2018-01-31] MEDS: Insulin Reg-MEDIUM-Coverage SC SCH ×4 (10:13→21:37)
[2018-01-31] MEDS: Meropenem 500 MG in Sodium Chloride 0.9% 50 ML IVPB SCH ×2 (10:14→17:46)
[2018-01-31] MEDS: Sodium Chloride 0.9% 1,000 ML IV SCH (10:15)
[2018-01-31] MEDS: Morphine 2 mg/ml ISec IVP PRN (10:30)
--- NOTE | 2018-01-31 10:32 | PN ---
DATE: The patient has hepatic encephalopathy and feeding tube was placed by . X-rays are pending. I am unable to see them myself. Tyrone Arellano MD
--- NOTE | 2018-01-31 14:59 | CON ---
DATE: ONCOLOGY CONSULTATION HISTORY OF PRESENT ILLNESS: This is a 67-year-old woman with 2 major problems, #1 metastatic breast cancer to her left chest wall (nodules in her chest wall). We tried to give her chemotherapy and her last chemotherapy was held and that has got to be about a month or two ago. At the same time, she also has cirrhosis with hepatic failure and this is manifested as recurrent ascites. She developed a massive amount of ascites and we have been able to arrange for her to get 5 liters of ascites removed twice a week as an outpatient. It has been going on now for probably six months. She has been in [facility] most recently and the liver precludes us from giving further chemotherapy. She is simply too weak. PHYSICAL EXAMINATION SKIN: No petechiae. No bruises. HEENT: Anicteric. NODES: None palpable. LUNGS: Clear at present. She is able to lie flat. HEART: S1, S2. ABDOMEN: Shows a massive amount of ascites. There is got to be 50 liters in there. EXTREMITIES: Trace edema. NEUROLOGIC: There is no focal findings. She knows me. She is aware of me. She is able to speak to me. LABORATORY DATA: Her blood counts show hemoglobin of 11.2 and the INR is 1.3. Her sodium is 126, BUN 175 with a creatinine of 4.2. She is massively dehydrated and this is from the ascites that we were removing. Phosphorus is 9.5, magnesium 2.5. The liver function tests were elevated. The ammonia level is 226. So, so she has a lot of electrolyte imbalances here, so again supportive care. She is a do not resuscitate. I will talk to the son. He calls me periodically, but I have told him that I cannot treat the cancer because of the liver. In the liver, we cannot do much about. She acknowledged for second opinions at [facility] as well for both problems quite frankly. So at this point, for symptom control, I would advise taking 5 liters of fluid out twice a week; however, also giving an IV for her fluids. Garrett Cook MD
--- NOTE | 2018-01-31 16:28 | CP.PCM.CON ---
<Lindsay Macedo - Last Filed: 01/31/18 16:32> History of Present Illness - History of Present Illness History of Present Illness: S&E at bedside, chart reviewed. Request for GI consult is for altered mental status, hepatic encephalopathy. This is a 67-year-old female with a past medical history of metastatic breast cancer, decompensated liver cirrhosis with ascites came from [facility] and with altered mental status. The patient was reported to be extremely lethargic and nonverbal yesterday. The patient is known to our service from previous admissions. Patient was recently discharged from [facility] [place] last month in TCU with elevated ammonia level/hepatic encephalopathy. On this admission the patient's ammonia level was 226. A Dobbhoff tube was inserted as the patient was very lethargic and received lactulose with reports of multiple bowel movements. This morning the patient is awake and verbally responsive but confused. No reports of nausea, vomiting, or abdominal pain. No reports of overt GI bleed. Past medical history: Diabetes mellitus, metastatic breast cancer, [place], ascites has a severe catheter, sepsis DVT/PE, hypertension, cellulitis of foot. Ovarian cystic lesion Past surgical history: Appendectomy, Port-A-Cath placement, left breast lumpectomy, peritoneal drainage catheter Family history: Noncontributory Social history: Nonsmoker, no history of alcohol or drugs Allergies: No known drug allergies Medications: Reviewed as per MAR ROS: Systems reviewed with positive findings the HPI.he Past Patient History - Infectious Disease Hx of Infectious Diseases: None - Past Medical History & Family History Past Medical History?: Yes - Past Social History Smoking Status: Former Smoker - CARDIAC Hx Hypertension: Yes - PULMONARY Hx Respiratory Disorders: Yes - NEUROLOGICAL Hx Neurological Disorder: No - HEENT Hx HEENT Problems: Yes Other/Comment: glasses - RENAL Hx Chronic Kidney Disease: No - ENDOCRINE/METABOLIC Hx Hypothyroidism: Yes - HEMATOLOGICAL/ONCOLOGICAL Hx Cancer: Yes (breast cancer, dx 11/2016) Hx Chemotherapy: Yes (last chemo 2 wks ago) Hx Cirrhosis: Yes (ascites) Other/Comment: peritoneal drain to right abd for ascites, drained 2x's a week at infusion center - INTEGUMENTARY Hx Dermatological Problems: No - MUSCULOSKELETAL/RHEUMATOLOGICAL Hx Falls: No - GASTROINTESTINAL Hx Gastrointestinal Disorders: Yes (cirrhosis , ascites ) Other/Comment: Ascitis - GENITOURINARY/GYNECOLOGICAL Hx Incontinence: Yes - PSYCHIATRIC Hx Emotional Abuse: No Hx Physical Abuse: No - SURGICAL HISTORY Hx Appendectomy: Yes (open ) Other/Comment: Port in R chest, - ANESTHESIA Hx Anesthesia Reactions: No Hx Malignant Hyperthermia: No Meds Allergies/Adverse Reactions: Allergies Allergy/AdvReac Type Severity Reaction Status Date / Time banana Allergy Severe RASH Verified 02/03/18 16:52 - Medications Medications: Current Medications Meropenem 500 mg/ Sodium (Chloride) 50 mls @ 100 mls/hr IVPB Q12H MARTHA PRN Reason: Protocol Stop: 02/07/18 06:16 Last Admin: 01/31/18 10:14 Dose: 100 mls/hr Sodium Chloride (Sodium Chloride 0.9%) 1,000 mls @ 100 mls/hr IV .Q10H [facility] Stop: 02/01/18 04:29 Last Admin: 01/31/18 10:15 Dose: 100 mls/hr Insulin Human Regular (Humulin R Med) 0 units SC ACHS MARTHA PRN Reason: Protocol Last Admin: 01/31/18 12:36 Dose: Not Given Lactulose (Enulose) 10 gm PO Q6 MARTHA Last Admin: 01/31/18 12:35 Dose: 10 gm Morphine Sulfate (Morphine) 2 mg IVP Q4H PRN PRN Reason: Pain, severe (8-10) Last Admin: 01/31/18 10:30 Dose: 2 mg Oxycodone/Acetaminophen (Percocet 5/325 Mg Tab) 1 tab PO Q4H PRN PRN Reason: Pain, moderate (4-7) Stop: 02/03/18 08:23 Physical Exam - Constitutional Appears: No Acute Distress, Confused - Head Exam Head Exam: NORMOCEPHALIC - Eye Exam Eye Exam: Normal appearance. absent: Scleral icterus - ENT Exam ENT Exam: Mucous Membranes Dry - Neck Exam Neck exam: Positive for: Normal Inspection - Respiratory Exam Respiratory Exam: NORMAL BREATHING PATTERN. absent: Respiratory Distress - Cardiovascular Exam Cardiovascular Exam: +S1, +S2 - GI/Abdominal Exam GI & Abdominal Exam: Distended, Normal Bowel Sounds, Soft. absent: Guarding, Rebound, Tenderness Additional comments: peritoneal catheter drainage present - Extremities Exam Extremities exam: Positive for: pedal edema, pedal pulses present. Negative for : calf tenderness - Neurological Exam Neurological exam: Altered (awake but confused) Additional comments: positive asterixis - Skin Skin Exam: Dry, Warm Results - Vital Signs Recent Vital Signs: Last Vital Signs Temp 97.3 F L 01/31/18 08:31 Pulse 92 H 01/31/18 08:31 Resp 20 01/31/18 08:31 BP 105/56 L 01/31/18 08:31 Pulse Ox 99 01/31/18 08:31 - Labs Result Diagrams: 01/31/18 06:18 01/31/18 06:18 Labs: Laboratory Results - last 24 hr 01/30/18 01/30/18 01/31/18 14:50 21:42 06:18 WBC 14.2 H RBC 3.68 Hgb 10.8 L Hct 32.3 L MCV 87.8 MCH 29.3 MCHC 33.4 RDW 15.9 H Plt Count 155 MPV 10.3 Sodium Potassium Chloride Carbon Dioxide Anion Gap BUN Creatinine Est GFR ( Amer) Est GFR (Non-Af Amer) POC Glucose (mg/dL) 62 L Random Glucose Calcium Total Bilirubin AST ALT Alkaline Phosphatase Ammonia Total Protein Albumin Globulin Albumin/Globulin Ratio Urine Color Yellow Urine Appearance Clear Urine pH 6.0 Ur Specific [place] 1.010 Urine Protein Negative Urine Glucose (UA) Negative Urine Ketones Negative Urine Blood Trace-intact H Urine Nitrate Negative Urine Bilirubin Negative Urine Urobilinogen 0.2 Ur Leukocyte Esterase Small H Urine RBC 0 - 2 Urine WBC 0 - 2 Ur Epithelial Cells 0 - 2 Urine Bacteria Trace 01/31/18 01/31/18 01/31/18 06:18 07:09 10:50 WBC RBC Hgb Hct MCV MCH MCHC RDW Plt Count MPV Sodium 128 L Potassium 5.1 H Chloride 102 Carbon Dioxide 15 L Anion Gap 17 BUN 175 H* Creatinine 4.1 H Est GFR ( Amer) 13 Est GFR (Non-Af Amer) 11 POC Glucose (mg/dL) 82 Random Glucose 64 L Calcium 7.6 L Total Bilirubin 0.8 AST 60 H ALT 62 H Alkaline Phosphatase 316 H Ammonia 95 H Total Protein 5.9 Albumin 2.1 L Globulin 3.9 Albumin/Globulin Ratio 0.5 L Urine Color Urine Appearance Urine pH Ur Specific [place] Urine Protein Urine Glucose (UA) Urine Ketones Urine Blood Urine Nitrate Urine Bilirubin Urine Urobilinogen Ur Leukocyte Esterase Urine RBC Urine WBC Ur Epithelial Cells Urine Bacteria 01/31/18 11:01 WBC RBC Hgb Hct MCV MCH MCHC RDW Plt Count MPV Sodium Potassium Chloride Carbon Dioxide Anion Gap BUN Creatinine Est GFR ( Amer) Est GFR (Non-Af Amer) POC Glucose (mg/dL) 85 Random Glucose Calcium Total Bilirubin AST ALT Alkaline Phosphatase Ammonia Total Protein Albumin Globulin Albumin/Globulin Ratio Urine Color Urine Appearance Urine pH Ur Specific [place] Urine Protein Urine Glucose (UA) Urine Ketones Urine Blood Urine Nitrate Urine Bilirubin Urine Urobilinogen Ur Leukocyte Esterase Urine RBC Urine WBC Ur Epithelial Cells Urine Bacteria Assessment & Plan - Assessment and Plan (Free Text) Assessment: Assessment: Decompensated liver cirrhosis with hepatic encephalopathy, ascites Luekocytosis Breast cancer Ovarian cystic lesion History of DVT/PE Diabetes mellitus Plan: Repeat ammonia level Continue lactulose Monitor electrolytes NPO, continue IVF for hydration,Request for swallow evaluation, pateint is more alert requesting to eat. On IV antibiotics Consider Xifaxan when patient tolerate by mouth intake SCD Thank you for this consult and for allowing us to participate in your patient's care. Further recommendations upon clinical course. Seen and discussed with Dr. Prieto. <Lea Prieto V - Last Filed: 02/05/18 16:15> Meds - Medications Medications: Current Medications Meropenem 500 mg/ Sodium (Chloride) 50 mls @ 100 mls/hr IVPB Q12H MARTHA PRN Reason: Protocol Stop: 02/07/18 06:16 Last Admin: 01/31/18 17:46 Dose: 100 mls/hr Sodium Chloride (Sodium Chloride 0.9%) 1,000 mls @ 100 mls/hr IV .Q10H [facility] Stop: 02/01/18 04:29 Last Admin: 01/31/18 10:15 Dose: 100 mls/hr Insulin Human Regular (Humulin R Med) 0 units SC ACHS MARTHA PRN Reason: Protocol Last Admin: 01/31/18 21:37 Dose: Not Given Lactulose (Enulose) 10 gm PO Q6 MARTHA Last Admin: 01/31/18 17:19 Dose: 10 gm Morphine Sulfate (Morphine) 2 mg IVP Q4H PRN PRN Reason: Pain, severe (8-10) Last Admin: 01/31/18 10:30 Dose: 2 mg Oxycodone/Acetaminophen (Percocet 5/325 Mg Tab) 1 tab PO Q4H PRN PRN Reason: Pain, moderate (4-7) Stop: 02/03/18 08:23 Results - Vital Signs Recent Vital Signs: Last Vital Signs Temp 97.5 F L 01/31/18 16:00 Pulse 97 H 01/31/18 16:00 Resp 18 01/31/18 16:00 BP 96/43 L 01/31/18 16:00 Pulse Ox 99 01/31/18 16:00 - Labs Result Diagrams: 02/03/18 06:30 02/03/18 06:30 Labs: Laboratory Results - last 24 hr 01/31/18 01/31/18 01/31/18 06:18 06:18 07:09 WBC 14.2 H RBC 3.68 Hgb 10.8 L Hct 32.3 L MCV 87.8 MCH 29.3 MCHC 33.4 RDW 15.9 H Plt Count 155 MPV 10.3 Sodium 128 L Potassium 5.1 H Chloride 102 Carbon Dioxide 15 L Anion Gap 17 BUN 175 H* Creatinine 4.1 H Est GFR ( Amer) 13 Est GFR (Non-Af Amer) 11 POC Glucose (mg/dL) 82 Random Glucose 64 L Calcium 7.6 L Total Bilirubin 0.8 AST 60 H ALT 62 H Alkaline Phosphatase 316 H Ammonia Total Protein 5.9 Albumin 2.1 L Globulin 3.9 Albumin/Globulin Ratio 0.5 L 01/31/18 01/31/18 01/31/18 10:50 11:01 15:41 WBC RBC Hgb Hct MCV MCH MCHC RDW Plt Count MPV Sodium Potassium Chloride Carbon Dioxide Anion Gap BUN Creatinine Est GFR ( Amer) Est GFR (Non-Af Amer) POC Glucose (mg/dL) 85 85 Random Glucose Calcium Total Bilirubin AST ALT Alkaline Phosphatase Ammonia 95 H Total Protein Albumin Globulin Albumin/Globulin Ratio 01/31/18 21:11 WBC RBC Hgb Hct MCV MCH MCHC RDW Plt Count MPV Sodium Potassium Chloride Carbon Dioxide Anion Gap BUN Creatinine Est GFR ( Amer) Est GFR (Non-Af Amer) POC Glucose (mg/dL) 98 Random Glucose Calcium Total Bilirubin AST ALT Alkaline Phosphatase Ammonia Total Protein Albumin Globulin Albumin/Globulin Ratio Attending/Attestation - Attestation I have personally seen and examined this patient.: Yes I have fully participated in the care of the patient.: Yes I have reviewed all pertinent clinical information: Yes Notes (Text): This is an addendum to GI progress report dictated by Lindsay Macedo APN.The patient was seen and examined earlier. Medical records, lab studies, imagings were reviewed. Last 24 hours events reviewed. Agreed with the above treatment plan as outlined in Lindsay Macedo APN's notes the with the addition of the following: Patient was seen and examined, patient more alert today than yesterday. Status post stop off for administration of lactulose, patient reported to have multiple bowel movements. No reports of overt GI bleed. Patient positive asterixis. Requesting oral intake, will request for swallowing evaluation. Continue lactulose. Monitor electrolytes and replace as necessary. Continue to follow closely.
--- NOTE | 2018-01-31 18:43 | CP.PCM.CON ---
History of Present Illness - History of Present Illness History of Present Illness: 67 year old female with PMH of HTN, DM, breast cancer with last chemotherapy session on April 24, 2017, S/P right port-a-cath placement, obesity with BMI 33 was brought in to [facility] [place] from the custodial because of lethargy and decreased responsiveness. The patient is also noted to have decreased PO intake. There is no note of fever, no loss of consciousness, no convulsions, no diarrhea, no vomiting. In the ED, patient is noted to be hyponatremic, elevated BUN/Crea and very elevated ammonia levels. Patient is also noted to have leukocytosis. Infectious Diseases consult is requested to further evaluate and manage. Review of Systems - Review of Systems Systems not reviewed;Unavailable: Altered Mental Status Past Patient History - Infectious Disease Hx of Infectious Diseases: None - Past Medical History & Family History Past Medical History?: Yes - Past Social History Smoking Status: Former Smoker - CARDIAC Hx Hypertension: Yes - PULMONARY Hx Respiratory Disorders: Yes - NEUROLOGICAL Hx Neurological Disorder: No - HEENT Hx HEENT Problems: Yes Other/Comment: glasses - RENAL Hx Chronic Kidney Disease: No - ENDOCRINE/METABOLIC Hx Hypothyroidism: Yes - HEMATOLOGICAL/ONCOLOGICAL Hx Cancer: Yes (breast cancer, dx 11/2016) Hx Chemotherapy: Yes (last chemo 2 wks ago) Hx Cirrhosis: Yes (ascites) Other/Comment: peritoneal drain to right abd for ascites, drained 2x's a week at infusion center - INTEGUMENTARY Hx Dermatological Problems: No - MUSCULOSKELETAL/RHEUMATOLOGICAL Hx Falls: No - GASTROINTESTINAL Hx Gastrointestinal Disorders: Yes (cirrhosis , ascites ) Other/Comment: Ascitis - GENITOURINARY/GYNECOLOGICAL Hx Incontinence: Yes - PSYCHIATRIC Hx Emotional Abuse: No Hx Physical Abuse: No - SURGICAL HISTORY Hx Appendectomy: Yes (open ) Other/Comment: Port in R chest, - ANESTHESIA Hx Anesthesia Reactions: No Hx Malignant Hyperthermia: No Meds Allergies/Adverse Reactions: Allergies Allergy/AdvReac Type Severity Reaction Status Date / Time banana Allergy Severe RASH Verified 01/30/18 09:19 - Medications Medications: Current Medications Insulin Human Regular (Humulin R Med) 0 units SC ACHS MARTHA PRN Reason: Protocol Last Admin: 01/30/18 22:16 Dose: Not Given Lactulose (Enulose) 10 gm PO Q6 [facility] Last Admin: 01/30/18 23:56 Dose: 10 gm Physical Exam - Constitutional Appears: Chronically Ill, Other (lethargic) - Head Exam Head Exam: NORMAL INSPECTION - Respiratory Exam Respiratory Exam: Decreased Breath Sounds Additional comments: mediport in place - Cardiovascular Exam Cardiovascular Exam: +S1, +S2 - GI/Abdominal Exam GI & Abdominal Exam: Soft. absent: Tenderness Results - Vital Signs Recent Vital Signs: Last Vital Signs Temp 97.4 F L 01/30/18 19:11 Pulse 87 01/30/18 19:11 Resp 20 01/30/18 19:11 BP 100/58 L 01/30/18 19:11 Pulse Ox 100 01/30/18 16:43 - Labs Result Diagrams: 01/31/18 06:18 01/31/18 06:18 Labs: Laboratory Results - last 24 hr 01/30/18 01/30/18 14:50 21:42 POC Glucose (mg/dL) 62 L Urine Color Yellow Urine Appearance Clear Urine pH 6.0 Ur Specific [place] 1.010 Urine Protein Negative Urine Glucose (UA) Negative Urine Ketones Negative Urine Blood Trace-intact H Urine Nitrate Negative Urine Bilirubin Negative Urine Urobilinogen 0.2 Ur Leukocyte Esterase Small H Urine RBC 0 - 2 Urine WBC 0 - 2 Ur Epithelial Cells 0 - 2 Urine Bacteria Trace Assessment & Plan - Assessment and Plan (Free Text) Plan: Assessment Systemic Inflammatory Response Syndrome, R/O sepsis source to be determined hepatic encephalopathy history of sepsis due to C. diff. associated diarrhea S/P left breast and left leg cellulitis history of severe sepsis with leukopenia and acute renal failure, consider due to acute enteritis, less likely acute cholecystitis R/O spontaneous bacterial peritonitis HTN DM inflammatory breast cancer with last chemotherapy session on April 24, 2017 S/P right port-a-cath placement obesity with BMI 33 Plan started the patient on a dose of IV Vancomycin and Merrem pending blood, urine cx, PCT; CXR does not show infiltrates will monitor clinically overall prognosis is poor
[2018-02-01 05:45] LABS: HEMOGLOBIN 10.5 g/dL (12.0-16.0); MEAN CELL VOLUME 88.1 fl (80.0-105.0); MEAN CORPUSCULAR HEMOGLOBIN 29.8 pg (25.0-35.0); MEAN CORPUSCULAR HGB CONC 33.9 g/dl (31.0-37.0); MEAN PLATELET VOLUME 10.5 fl (7.0-11.0); RBC 3.52 10^6/uL (3.5-6.1); RED CELL DISTRIBUTION WIDTH 16.1 % (11.5-14.5); WHITE BLOOD COUNT 19.7 10^3/ul (4.5-11.0)
[2018-02-01] MEDS: Meropenem 500 MG in Sodium Chloride 0.9% 50 ML IVPB SCH ×2 (06:00→18:39)
[2018-02-01 06:32] LABS: ALB/GLOB RATIO 0.5 (1.1-1.8); CALCIUM 8.1 mg/dL (8.4-10.5)
[2018-02-01] MEDS: Insulin Reg-MEDIUM-Coverage SC SCH ×4 (08:48→22:40)
[2018-02-01] MEDS ORDERED: Sod Polystyrene Sulf 15 gm/60 ml Susp PO ONE (09:27)
--- NOTE | 2018-02-01 13:39 | PN ---
DATE: SUBJECTIVE: The patient is 67-year- old, seen and examined. She is lethargic, pale, nasogastric tube in place, hardly open eye on verbal commands. PHYSICAL EXAMINATION VITAL SIGNS: She is afebrile, pulse 108, respirations 22, blood pressure 98/44. HEENT: She has icteric sclerae, pale conjunctivae. LUNGS: Bilateral soft crackles in upper lung region. Poor respiratory effort. ABDOMEN: Distended with fluid thrill. EXTREMITIES: Bilateral legs, +4 edema. LABORATORY DATA: WBC was 19.7, hemoglobin 10.5, hematocrit 31.0, platelet 171,000. Chemistry: Sodium 128, potassium is 5.9, chloride 104, CO2 10, BUN 184, creatinine 4.8, blood sugar of 167. Blood culture, urine cultures are negative. ASSESSMENT 1. Hepatic encephalopathy. 2. Cirrhosis of liver. 3. Non-insulin dependent diabetes. 4. History of hypertension. 5. Sepsis. 6. History of carcinoma of breast, last chemotherapy in 04/2017. 7. History of Clostridium difficile. 8. Acute renal failure. 9. Hyperkalemia. PLAN: I will give her one dose of Kayexalate. She is already on lactulose. Blood sugar is being monitored. She is on meropenem. Prognosis is guarded. The patient is DNR. Josee Rivas MD
--- NOTE | 2018-02-01 15:56 | CP.PCM.PN ---
Subjective - Date & Time of Evaluation Date of Evaluation: 02/01/18 Time of Evaluation: 12:05 - Subjective Subjective: Patient continues to be lethargic, no fevers. Objective - Vital Signs/Intake and Output Vital Signs (last 24 hours): Temp Pulse Resp BP Pulse Ox 97.5 F L 97 H 18 96/43 L 99 01/31/18 16:00 01/31/18 16:00 01/31/18 16:00 01/31/18 16:00 01/31/18 16:00 Intake and Output: 01/31/18 01/31/18 06:59 18:59 Intake Total 60 0 Output Total 600 Balance 60 -600 - Medications Medications: Current Medications Meropenem 500 mg/ Sodium (Chloride) 50 mls @ 100 mls/hr IVPB Q12H [facility]THA PRN Reason: Protocol Stop: 02/07/18 06:16 Last Admin: 01/31/18 17:46 Dose: 100 mls/hr Sodium Chloride (Sodium Chloride 0.9%) 1,000 mls @ 100 mls/hr IV .Q10H [facility]THA Stop: 02/01/18 04:29 Last Admin: 01/31/18 10:15 Dose: 100 mls/hr Insulin Human Regular (Humulin R Med) 0 units SC ACHS MARTHA PRN Reason: Protocol Last Admin: 01/31/18 17:20 Dose: Not Given Lactulose (Enulose) 10 gm PO Q6 MARTHA Last Admin: 01/31/18 17:19 Dose: 10 gm Morphine Sulfate (Morphine) 2 mg IVP Q4H PRN PRN Reason: Pain, severe (8-10) Last Admin: 01/31/18 10:30 Dose: 2 mg Oxycodone/Acetaminophen (Percocet 5/325 Mg Tab) 1 tab PO Q4H PRN PRN Reason: Pain, moderate (4-7) Stop: 02/03/18 08:23 - Labs Labs: 01/31/18 06:18 01/31/18 06:18 PT 15.2 SECONDS (9.4-12.5) H 01/30/18 09:30 INR 1.31 (0.93-1.08) H 01/30/18 09:30 APTT 31.7 Seconds (25.1-36.5) 01/30/18 09:30 - Constitutional Appears: Chronically Ill - Neck Exam Neck Exam: absent: Meningismus - Respiratory Exam Respiratory Exam: Decreased Breath Sounds - Cardiovascular Exam Cardiovascular Exam: +S1, +S2 - GI/Abdominal Exam GI & Abdominal Exam: Soft. absent: Tenderness Assessment and Plan - Assessment and Plan (Free Text) Plan: Assessment Systemic Inflammatory Response Syndrome, R/O sepsis source to be determined hepatic encephalopathy history of sepsis due to C. diff. associated diarrhea S/P left breast and left leg cellulitis history of severe sepsis with leukopenia and acute renal failure, consider due to acute enteritis, less likely acute cholecystitis R/O spontaneous bacterial peritonitis HTN DM inflammatory breast cancer with last chemotherapy session on April 24, 2017 S/P right port-a-cath placement obesity with BMI 33 Plan given a dose of IV Vancomycin and continue Merrem day 2 pending final blood, urine cx results; CXR does not show infiltrates will continue monitor clinically overall prognosis is poor
[2018-02-01] MEDS ORDERED: Sodium Chloride 0.9% 1,000 ML IV SCH (16:30)
--- NOTE | 2018-02-02 01:19 | PN ---
DATE: 02/01/2018 SUBJECTIVE: This patient was seen and evaluated earlier today. The patient's family was at bedside. The patient appears more lethargic. Has NG tube in place. The patient has been getting feeding at that time, only 20 mL per hour. Tolerating. The patient is also getting lactulose via the Dobhoff tubing. PHYSICAL EXAMINATION: VITAL SIGNS: Temperature is 98.2, blood pressure 98/44, pulse 108, respirations 22, O2 saturation 100%. HEENT: Atraumatic, anicteric. NECK: Supple. HEART: S1 and S2 heard. LUNGS: Bilateral air entry present, reduced at the bases. ABDOMEN: Distended. peritoneal drainage catheter Aspira catheter in place. EXTREMITIES: Mild edema present. NEUROLOGIC: The patient appears more lethargic. Hardly responds to verbal stimuli. LABORATORY DATA: Hemoglobin 10.5, hematocrit 31, WBC 19.7, and platelets 171. BUN 184 and creatinine 4.8. There are no ammonia levels ordered today, yesterday it came down to 95. IMPRESSION: This 67-year-old patient with advanced breast cancer, metastatic to the chest wall, status post chemo before, decompensated cirrhosis, ovarian cyst. The patient has Aspira catheter for drainage of the ascitic fluid, was transferred for worsening of change in mental status and more lethargic. The patient was found to have acute kidney injury on top of chronic kidney disease and hepatic encephalopathy with an elevated ammonia level of 226. Her other comorbidities include increased WBC count, rule out sepsis, rule out Clostridium difficile, rule out spontaneous bacterial peritonitis. The patient is on antibiotics of vancomycin and Merrem. White cell count has increased now. RECOMMENDATIONS: We will increase the Dobhoff/NG feeding to 30 mL per hour. Repeat an ammonia level. At the present time, we will hold off giving po We will use only Dobhoff tube for feeding and medications. Dr Cook"s Oncology consult reviewed and appreciated. The patient is presently DNR/DNI. Overall, prognosis of this patient is guarded. We would request for stool for Clostridium difficile and ascitic fluid for culture. Continue the lactulose. Patient is DNR/DNI and prognosis is poor Thank you very much for allowing us to participate in the care of the patient. Lea Prieto MD [facility] # [id number] [facility]Mary
[2018-02-02] MEDS: Meropenem 500 MG in Sodium Chloride 0.9% 50 ML IVPB SCH ×2 (05:37→17:36)
[2018-02-02] MEDS ORDERED: Sodium Chloride 0.9% 500 ML IV SCH (06:00)
[2018-02-02 07:01] LABS: ALB/GLOB RATIO 0.5 (1.1-1.8); ALBUMIN 1.8 g/dL (3.0-4.8)
[2018-02-02] MEDS: Insulin Reg-MEDIUM-Coverage SC SCH ×4 (08:44→22:03)
[2018-02-02] MEDS: Morphine 2 mg/ml ISec IVP PRN (10:45)
[2018-02-02] MEDS ORDERED: Sod Polystyrene Sulf 15 gm/60 ml Susp PO ONE (14:20)
--- NOTE | 2018-02-02 14:49 | PN ---
DATE: SUBJECTIVE: The patient is 67 years old, seen and examined, looks pale. NGT in place. Has shallow breathing, lethargic, not responding to verbal command. PHYSICAL EXAMINATION: VITAL SIGNS: She is afebrile, pulse 105, respirations 20, blood pressure 95/54. LUNGS: Bilateral fair airflow. Diffusely decreased breath sound at bases. HEART: S1 and S2 audible. ABDOMEN: Soft, but has a ascites. EXTREMITIES: Bilateral leg, +2 edema. LABORATORY DATA: WBC is 19.7, hemoglobin 10.5, hematocrit 31, platelet 171. Chemistry: Sodium 132, potassium 5.2, chloride 106, CO2 of 11, BUN 190, creatinine 5.3, blood sugar of 338. ASSESSMENT: 1. Cirrhosis of liver. 2. Cirrhotic ascites. 3. Hepatic encephalopathy. 4. Cancer of breast, status post chemotherapy. 5. Ooc-wlnlftv-atilqiypa diabetes. 6. Hypotension. 7. Acute renal failure. 8. Hyperkalemia. PLAN: Prognosis is poor. Her overall condition is guarded. The patient should be in the hospice care. However, we will continue lactulose. Give her small dose of IV fluid. Give her a dose of Kayexalate through nasogastric tube. Josee Rivas MD
[2018-02-02] MEDS ORDERED: Sodium Chloride 0.9% 1,000 ML IV SCH (17:02)
--- NOTE | 2018-02-02 17:06 | CP.PCM.PN ---
Subjective - Date & Time of Evaluation Date of Evaluation: 02/02/18 Time of Evaluation: 10:00 - Subjective Subjective: Patient is lethargic, in some distress. Objective - Vital Signs/Intake and Output Vital Signs (last 24 hours): Temp Pulse Resp BP Pulse Ox 98.2 F 108 H 22 98/44 L 99 02/01/18 06:00 02/01/18 06:00 02/01/18 06:00 02/01/18 06:00 02/01/18 06:00 Intake and Output: 02/01/18 02/01/18 06:59 18:59 Intake Total 0 Output Total 50 Balance -50 - Medications Medications: Current Medications Meropenem 500 mg/ Sodium (Chloride) 50 mls @ 100 mls/hr IVPB Q12H MARTHA PRN Reason: Protocol Stop: 02/07/18 06:16 Last Admin: 02/01/18 06:00 Dose: 100 mls/hr Insulin Human Regular (Humulin R Med) 0 units SC ACHS MARTHA PRN Reason: Protocol Last Admin: 02/01/18 12:48 Dose: Not Given Lactulose (Enulose) 10 gm PO Q6 MARTHA Last Admin: 02/01/18 13:11 Dose: 10 gm Morphine Sulfate (Morphine) 2 mg IVP Q4H PRN PRN Reason: Pain, severe (8-10) Last Admin: 01/31/18 10:30 Dose: 2 mg Oxycodone/Acetaminophen (Percocet 5/325 Mg Tab) 1 tab PO Q4H PRN PRN Reason: Pain, moderate (4-7) Stop: 02/03/18 08:23 - Labs Labs: 02/01/18 05:15 02/01/18 05:15 PT 15.2 SECONDS (9.4-12.5) H 01/30/18 09:30 INR 1.31 (0.93-1.08) H 01/30/18 09:30 APTT 31.7 Seconds (25.1-36.5) 01/30/18 09:30 - Constitutional Appears: Chronically Ill - Head Exam Head Exam: NORMAL INSPECTION - Respiratory Exam Respiratory Exam: Decreased Breath Sounds - Cardiovascular Exam Cardiovascular Exam: +S1, +S2 - GI/Abdominal Exam GI & Abdominal Exam: Soft. absent: Tenderness Assessment and Plan - Assessment and Plan (Free Text) Plan: Assessment Systemic Inflammatory Response Syndrome, R/O sepsis source to be determined hepatic encephalopathy history of sepsis due to C. diff. associated diarrhea S/P left breast and left leg cellulitis history of severe sepsis with leukopenia and acute renal failure, consider due to acute enteritis, less likely acute cholecystitis R/O spontaneous bacterial peritonitis HTN DM inflammatory breast cancer with last chemotherapy session on April 24, 2017 S/P right port-a-cath placement obesity with BMI 33 Plan given a dose of IV Vancomycin and continue Merrem day 3 pending final blood, urine cx results; CXR does not show infiltrates - if cultures continue to be negative, will d/c antibiotics will continue monitor clinically overall prognosis is poor - should consider hospice evaluation
--- NOTE | 2018-02-02 19:48 | PN ---
DATE: 02/02/2018 SUBJECTIVE: This patient was seen and evaluated earlier today. The patient's daughter was at bedside. The patient was not responsive to verbal commands. PHYSICAL EXAMINATION: VITAL SIGNS: The patient's temperature is 97.7, blood pressure 95/54, pulse 105, respirations 20, O2 saturation 98%. HEENT: Atraumatic, anicteric. NECK: Supple. HEART: S1 and S2 heard. LUNGS: Bilateral air entry present, slightly reduced at the base. ABDOMEN: Soft. Aspira catheter in place. EXTREMITIES: Mild edema present. NEUROLOGIC: Not responsive to verbal commands. LABORATORY DATA: WBC count has gone up to 19.7, hemoglobin 10.5, hematocrit 31, platelets 171. BUN 190, creatinine 5.3, alkaline phosphatase 334. IMPRESSION: This is a 67-year-old patient with advanced breast cancer, metastatic to the chest wall, status post chemo, decompensated cirrhosis, history of ovarian cyst. The patient has recurrent large ascites, status post Aspira catheter placed and drainage of ascitic fluid. The patient was transferred [facility] for change of mental status, found to have a significantly elevated ammonia level. The patient did receive lactulose enema, presently on Dobhoff feeding tube and getting lactulose every 6 hourly. The patient has hepatic encephlopathy, worsening of the renal function,AFUA on chronic kidney injury, ascites, status post Aspira catheter placement. r/o sepsis, history of Clostridium difficile before. RECOMMENDATION: 1. Overall prognosis of the patient is poor. We will continue the antibiotics as per ID. 2. We will send the ascitic fluid for culture again. We will consider getting a CT of the abdomen and pelvis, with no contrast to further evaluate. 3.Continue the NG tube feeding. 4. Contunue lactulose Thank you very much for allowing us to participate in the care of the patient. Lea Prieto MD B[facility]JAMIN
[2018-02-03] MEDS: Morphine 2 mg/ml ISec IVP PRN (00:29)
[2018-02-03] MEDS: Insulin Reg-MEDIUM-Coverage SC SCH ×3 (02:12→08:01)
[2018-02-03 04:59] VITALS: TEMP 97.5
[2018-02-03] MEDS: Meropenem 500 MG in Sodium Chloride 0.9% 50 ML IVPB SCH (06:54)
[2018-02-03 07:05] LABS: EOS % 0.1 % (1.5-5.0); GRAN # 19.29 (1.4-6.5); GRAN % 93.4 % (50.0-68.0); HEMOGLOBIN 10.9 g/dL (12.0-16.0); LYMPH # 0.8 (1.2-3.4); LYMPH % 3.9 % (22.0-35.0); MEAN CELL VOLUME 89.4 fl (80.0-105.0); MEAN CORPUSCULAR HEMOGLOBIN 29.7 pg (25.0-35.0); MEAN CORPUSCULAR HGB CONC 33.2 g/dl (31.0-37.0); MEAN PLATELET VOLUME 11.2 fl (7.0-11.0); MONO # 0.5 (0.1-0.6); MONO % 2.6 % (1.0-6.0); PLATELET COUNT 121 10^3/uL (120.0-450.0); RBC 3.67 10^6/uL (3.5-6.1); RED CELL DISTRIBUTION WIDTH 16.4 % (11.5-14.5); WHITE BLOOD COUNT 20.7 10^3/ul (4.5-11.0)
[2018-02-03 07:25] LABS: ALB/GLOB RATIO 0.5 (1.1-1.8); ALBUMIN 1.8 g/dL (3.0-4.8); CALCIUM 7.7 mg/dL (8.4-10.5)
--- NOTE | 2018-02-03 07:37 | HP ---
CHIEF COMPLAINT AND HISTORY OF PRESENT ILLNESS: This is a 67-year-old female who is coming from [facility] because of changes in her mental status. The patient has past medical history of cirrhosis with hepatic encephalopathy, hypertension, diabetes type 2, hypothyroidism, metastatic blood cancer, malignant ascites patient was difficult to arouse. She was hypotensive, and so she was brought into the hospital for further evaluation. The patient did have an episode of vomiting prior to coming to the hospital. She was not able to communicate and answer much questions. She was given lactulose in the ER. This morning when I evaluated the patient, she was much more awake and alert, but still remains confused. It is difficult to get a full history from the patient. REVIEW OF SYMPTOMS: Limited because of the patient's underlying confusion. HOME MEDICATIONS: Has been reviewed on the [facility]. ALLERGIES: TO BANANAS. PAST MEDICAL HISTORY: 1. Cirrhosis. 2. Hepatic encephalopathy. 3. Hyponatremia. 4. Diabetes type 2. 5. Metabolic acidosis secondary to chronic kidney disease. 6. Chronic kidney disease stage III-IV. 7. Thrombocytopenia. 8. Osteoarthritis. 9. Malignant ascites with chronic draining catheter. 10. Breast cancer with metastatic disease. 11. Left leg DVT on anticoagulation. 12. Hypertension. 13. Port-A-cath. SOCIAL HISTORY: She does not smoke. She denies drugs or alcohol abuse. FAMILY HISTORY: Noncontributory. PHYSICAL EXAMINATION: VITAL SIGNS: She has a temperature of 97.4, her pulse is 87. The patient's blood pressure on admission was 90/62. Height is 5 feet 3 inches, weight is 190 pounds, BMI is 33.7. GENERAL: The patient lying in bed, uncomfortable, and in no acute distress. HEENT: Atraumatic and normocephalic. Anicteric sclerae. Moist mucosa. [place] conjunctivae. No oral lesions. NECK: No JVD, anterior and posterior adenopathy, thyromegaly, or bruits. CARDIOVASCULAR: S1 and S2 regular. No murmur, rubs, or gallop. LUNGS: Clear to auscultation bilaterally. No wheezes, rales, or rhonchi. BREASTS: Exam deferred. ABDOMEN: Bowel sounds are positive. Soft, nontender and nondistended. No hepatosplenomegaly. No rebound and no guarding EXTREMITIES: No cyanosis, clubbing, or edema. NEUROLOGIC: Alert, awake and oriented x1. Patient has no facial asymmetry. Tongue is midline. No uvula deviation. PSYCHIATRIC: Patient focus on question, she is confused from her baseline. GENITOURINARY: No CVA tenderness. VASCULAR: 2+ pulses in the carotid pulses and pedal pulses. SKIN: No erythema or nodules SPINE: Shows normal curvature. DIAGNOSTICS: Her EKG shows heart rate of 89, sinus rhythm, QTc is 450. Chest x-ray done shows no active disease. LABORATORY DATA: Labs have been reviewed. White count is 13.9, hemoglobin 11.2. Repeat white count is 14.2. Patient has an INR of 1.3. Blood gas done shows a pH of 7.27, with the VBG showing pCO2 of 32. Chemistry shows anion gap of 17, sodium is 128, potassium is 5.1. AST and ALT . Patient's urine shows blood that is trace, nitrites are negative, bilirubin is negative. ASSESSMENT: 1. Delirium secondary to hepatic encephalopathy. 2. Cirrhosis. 3. Leukocytosis. 4. Metastatic breast cancer. 5. Hyponatremia. 6. Acute kidney injury. 7. Diabetes type 2. 8. Chronic kidney disease, stage III-IV. 9. Thrombocytopenia. 10. Metabolic acidosis secondary to chronic kidney disease. 11. Osteoarthritis. 12. Ascites with chronic draining catheter. 13. Breast cancer with metastasis. 14. Left leg deep venous thrombosis, on anticoagulation. 15. Hypertension. 16. Port-A-Cath. 17. Do not resuscitate/do not intubate. PLAN: The patient is currently improving. The initial ammonia level was significantly elevated at 226, she was confused. She had a creatinine that was elevated. The patient IV fluids. The patient was seen by Dr. Cook. I did speak to him myself. The patient's son is aware that no cancer treatment can be given because of the patient's advanced liver disease. The patient is going to be continued on lactulose. The patient is on meropenem for antibiotics; cultures have been sent. The patient is going to be on Percocet for mild pain. Patient is on IV fluids. He is n.p.o. because of confusion. We will repeat the patient's blood work tomorrow. Overall prognosis is poor. End of life care discussions have been ongoing. Yue Dubois from palliative care has also been involved. I talked to the family. The patient is being seen by Dr. Prieto as well. Rangel Ngo MD
[2018-02-03] MEDS ORDERED: Sodium Chloride 0.9% 1,000 ML IV SCH (08:21)
[2018-02-03 08:22] LABS: ATYPICAL LYMPHOCYTE 0 % (0.0-0.0); BAND 0 % (0-2); LYMPHOCYTE 5 % (22.0-35.0); MONOCYTE 2 % (1.0-6.0); NEUTROPHIL 93 % (50.0-70.0)
[2018-02-03 08:23] LABS: HYPOCHROMIA 1+; PLATELET ESTIMATE NORMAL (NORMAL); ROULEAU 2+; TOXIC GRANULATION 1+
[2018-02-03] MEDS ORDERED: Insulin Human NPH 1 UNITS/0.01 ML SC ONE (08:45)
[2018-02-03 09:03] VITALS: BP 100/62; PULSE 100; RESP 20; O2SAT 99
[2018-02-03] MEDS: Sodium Chloride 0.9% 1,000 ML IV SCH (09:23)
--- NOTE | 2018-02-03 10:27 | CP.PCM.PN ---
Subjective - Date & Time of Evaluation Date of Evaluation: 02/03/18 Time of Evaluation: 09:00 - Subjective Subjective: Somnolent. Irregular breathing pattern. Moaning. Objective - Vital Signs/Intake and Output Vital Signs (last 24 hours): Temp Pulse Resp BP Pulse Ox 97.5 F L 100 H 20 100/62 99 02/03/18 09:02 02/03/18 09:02 02/03/18 09:02 02/03/18 09:02 02/03/18 09:02 Intake and Output: 02/03/18 02/03/18 06:59 18:59 Intake Total 0 Output Total 50 Balance -50 - Medications Medications: Current Medications Meropenem 500 mg/ Sodium (Chloride) 50 mls @ 100 mls/hr IVPB Q12H MARTHA PRN Reason: Protocol Stop: 02/07/18 06:16 Last Admin: 02/03/18 06:54 Dose: 100 mls/hr Sodium Chloride (Sodium Chloride 0.9%) 1,000 mls @ 50 mls/hr IV .Q20H MARTHA Insulin Human Regular (Humulin R High) 0 units SC ACHS MARTHA PRN Reason: Protocol Lactulose (Enulose) 10 gm PO Q6 MARTHA Last Admin: 02/03/18 06:55 Dose: 10 gm Morphine Sulfate (Morphine) 2 mg IVP Q4H PRN PRN Reason: Pain, severe (8-10) Last Admin: 02/03/18 00:29 Dose: 2 mg - Labs Labs: 02/03/18 06:30 02/03/18 06:30 PT 15.2 SECONDS (9.4-12.5) H 01/30/18 09:30 INR 1.31 (0.93-1.08) H 01/30/18 09:30 APTT 31.7 Seconds (25.1-36.5) 01/30/18 09:30 - Constitutional Appears: Chronically Ill - Head Exam Head Exam: NORMAL INSPECTION - Eye Exam Eye Exam: Normal appearance, PERRL - ENT Exam ENT Exam: Mucous Membranes Moist - Respiratory Exam Respiratory Exam: Accessory Muscle Use, Decreased Breath Sounds Additional comments: irregular - Cardiovascular Exam Cardiovascular Exam: +S1, +S2 - GI/Abdominal Exam GI & Abdominal Exam: Distended, Diminished Bowel Sounds - Exam Additional comments: oliguria - Extremities Exam Additional comments: 2+ bilateral lower extremity edema - Neurological Exam Neurological Exam: Alert - Skin Skin Exam: Pallor Assessment and Plan - Assessment and Plan (Free Text) Assessment: 68 year old female with history of metastatic beast cancer, PRO, renal insufficiency who is admitted with hepatorenal failure, metastatic breast cancer , resolving elevated ammonia level, intractable pain. Patient is somnolent, moaning. Irregular breathing pattern. I spoke with patients son/TAIWO Nichols. He is aware of his mother's medical situation and prognosis. Lengthy discussion regarding goals if care ensued. Son is inserted in pursuing hospice care. Hospice services explained in detail. Questions answered. Family met with [place] freight checker and agreed for GIP services. Consents signed by family. Time spent with family in goals of care and end of life discussions, 45 minutes Plan: Hospice evaluation Pain management: Morphine 2 mg every 3 hours ad needed. Would transition to continuos dosing when on hospice care Restless /agitation/ seizure: Ativan 1 mg IV every 8 hours
[2018-02-03] MEDS ORDERED: Insulin Reg-HIGH-Coverage SC SCH (11:30)
--- NOTE | 2018-02-03 13:06 | PN ---
DATE: SUBJECTIVE: The patient is confused, obtunded, and not able to ask the questions. PHYSICAL EXAMINATION VITAL SIGNS: Temperature is 97.5, pulse of 102, blood pressure is 98/52, respirations 18. GENERAL: The patient is lying in bed, flat, comfortable. HEENT: No oral lesion. Anicteric sclerae. Moist mucosa. NECK: No JVD, adenopathy, or thyromegaly. CARDIOVASCULAR: S1 and S2, regular. No murmurs, rubs, or gallops. LUNGS: Clear to auscultation bilaterally. No wheeze, rales, or rhonchi. ABDOMEN: Bowel sounds are positive. Soft, nontender and nondistended. EXTREMITIES: She has 1+ edema in the arms and 2+ edema in the legs. LABORATORY DATA: White count is 20.7, hemoglobin is 10.9, creatinine is 5.7. BUN is 202. ASSESSMENT 1. Acute kidney injury, most likely hepatorenal syndrome. 2. Cirrhosis. 3. Hepatic encephalopathy. 4. Diabetes type 2, uncontrolled. 5. Metabolic acidosis secondary to chronic kidney disease, stage III-IV. 6. Thrombocytopenia. 7. Osteoarthritis. 8. Malignant ascites with chronic draining catheter. 9. Breast cancer with metastatic disease. 10. Left leg deep venous thrombosis, on anticoagulation. 11. . 12. Port-A-cath. 13. Delirium. PLAN: The patient is currently doing poorly. Blood cultures, urine cultures have been negative. She is to receive significant amount of fluid without much improvement with her acute kidney injury. The patient is going to be on lactulose. She is not improved with lactulose as well. She had an initial improvement, but now it is better. The patient is on IV antibiotics with meropenem. She is on IV morphine for pain. The patient is n.p.o. I did speak to the patient's son this morning, Simone. I did give him an update. Overall prognosis is poor. She may need dialysis. I did speak to the patient's son about dialysis although it is not a good option as she will continue to go in to multiorgan failure because of the poor prognosis from her multiple comorbidities. I also spoke with Yue Dubois from Palliative care. She will also speak to the patient. They will let me know later today whether dialysis is something that they are interested in. The patient is DNR/DNI. The patient's best option at this point is to go into hospice and comfort care. The patient continues to have elevated white count. The patient's BUN and creatinine continues to increase. She remains n.p.o. Rangel Ngo MD
--- NOTE | 2018-02-04 15:06 | PQF SEPSIS ---
This form is a permanent part of the medical record DR. CRAIG, Please verify if Sepsis is ruled in or ruled out. No sepsis Clarification of your documentation is requested to better reflect the severity of illness and intensity of treatment of your patient. Indicators present [] Temp < 96.8 or > 100.4 [] WBC count > 12,000/mm3 or <000/mm3 or 10% immature neutrophils [] Heart Rate > 90 [] Respiratory Rate > 20 [] Fever or hypothermia [] Chills [] Positive blood cultures [] Hypotension [] Metabolic acidosis (Elevated lactate level, anion gap or reduced blood pH) [] Acute confusion /Altered Mental Status [] Shock [] Other: [] Location in the medical record that reflects the above clinical findings: [] Treatment Provided: [] PHYSICIAN'S RESPONSE Based on your medical judgment of the clinical indicators outlined above, are you treating this patient for a known or suspected: [] Sepsis / Septicemia Please specify organism if known [] [] SIRS (Systemic Inflammatory Response Syndrome) [] Severe Sepsis (Sepsis with Associated Organ Dysfunction) [] Fever of Unknown Origin [] Other, please indicate: [] [] If Unable to Determine, please check the box, sign and date. Present On Admission (POA) Indicator: [] Present at the time of admission [] Not present at the time of admission [] Clinically Undetermined In responding to this query, please exercise your independent professional judgment. The fact that a question is asked does not imply that any particular answer is desired or expected. Thank you for your clarification on this documentation. If you have any questions please call:[ ] * Thank you, [X ] ADA SHEARERlease examiner BENJAMIN
== END 2018-02-03 12:27 | disposition hospice, inpatient (51) | DRG 441 ==
LOC: ED 09:11 → ERH 11:13 → 3RNO 17:37
PROVIDERS: ADMIT Internal Medicine Nephrology; ATTEND Internal Medicine Nephrology
DX: K72.90 Hepatic failure, unspecified without coma (principal); K76.7 Hepatorenal syndrome; N17.9 Acute kidney failure, unspecified; R18.0 Malignant ascites; E87.2 Acidosis; D69.6 Thrombocytopenia, unspecified; E83.51 Hypocalcemia; C79.89 Secondary malignant neoplasm of other specified sites; E87.1 Hypo-osmolality and hyponatremia; N18.4 Chronic kidney disease, stage 4 (severe); E11.22 Type 2 diabetes mellitus with diabetic chronic kidney disease; K74.60 Unspecified cirrhosis of liver; E03.9 Hypothyroidism, unspecified; E87.5 Hyperkalemia; Z66 Do not resuscitate; I12.9 Hypertensive chronic kidney disease with stage 1 through stage 4 chronic kidney disease, or unspecified chronic kidney disease; Z51.5 Encounter for palliative care; N83.209 Unspecified ovarian cyst, unspecified side; E66.9 Obesity, unspecified; Z68.33 Body mass index [BMI] 33.0-33.9, adult; Z79.84 Long term (current) use of oral hypoglycemic drugs; Z86.718 Personal history of other venous thrombosis and embolism; Z85.3 Personal history of malignant neoplasm of breast; Z86.711 Personal history of pulmonary embolism; Z79.01 Long term (current) use of anticoagulants; Z92.21 Personal history of antineoplastic chemotherapy; Z87.891 Personal history of nicotine dependence

== ENCOUNTER 2018-02-03 12:32 | Inpatient (IN) | payer OTHER ==
[2018-02-03] MEDS ORDERED: Morphine 2 mg/ml ISec IVP STA (12:53)
[2018-02-03] MEDS: Morphine PCA 1 mg/ml (30ml) 30 ML IV PRN (15:38)
[2018-02-03 16:31] VITALS: BP 101/82; PULSE 93; RESP 18; TEMP 97.2; O2SAT 83
[2018-02-03] MEDS ORDERED: Influenza Vaccine 60 mcg/0.5 mL SYR (4YR UP) IM ONE (19:28)
[2018-02-03] MEDS ORDERED: Pneumococcal 23-Valent Vaccine IM ONE (19:28)
[2018-02-03 19:29] VITALS: BMI 34.5
[2018-02-04] MEDS: Morphine PCA 1 mg/ml (30ml) 30 ML IV PRN ×2 (06:42→21:33)
--- NOTE | 2018-02-04 11:51 | HP ---
HISTORY OF PRESENT ILLNESS: This is a 68-year-old female who is coming into the hospital because of confusion and low blood pressure. The patient was admitted to the hospital and given IV fluids, lactulose. She initially had improvement in her encephalopathy, but then declined. She has continued to decline and is going into multiorgan failure. Yesterday, when I evaluated the patient, she was obtunded, not arousable. Her kidney function had worsened significantly and was not improving. She was becoming edematous. The patient had discussions with myself and Yue Dubois from Palliative Care and the family decided to make the patient comfortable under hospice care. The patient is currently terminal, given her multiple comorbidities. She had been started on morphine drip. The patient is on scopolamine patch. She is on Ativan. REVIEW OF SYMPTOMS: Unable to get review of symptoms. PAST MEDICAL HISTORY 1. Cirrhosis. 2. Hepatic encephalopathy. 3. Metastatic breast cancer. 4. Acute kidney injury. 5. Diabetes type 2. 6. CKD, stage III-IV. 7. Thrombocytopenia. 8. Metabolic acidosis secondary to CKD. 9. Osteoarthritis. 10. Malignant ascites with chronic draining catheter. 11. Left leg DVT, on anticoagulation. 12. Hypertension. 13. Port-A-Cath. 14. DNI. SOCIAL HISTORY: She does not smoke. She denies drugs or alcohol. FAMILY HISTORY: Noncontributory. MEDICATIONS: Have been reviewed on the [facility]. ALLERGIES: TO BANANAS. PHYSICAL EXAMINATION VITAL SIGNS: Temperature is 97.2, pulse of 93, blood pressure is 101/82, respirations 18, O2 saturation is 83%. GENERAL: The patient lying in bed, uncomfortable, and in no acute distress. HEENT: Atraumatic and normocephalic. Anicteric sclerae. Moist mucosa. [place] conjunctivae. No oral lesions. NECK: No JVD, anterior and posterior adenopathy, thyromegaly, or bruits. CARDIOVASCULAR: S1 and S2 regular. No murmur, rubs, or gallop. LUNGS: Clear to auscultation bilaterally. No wheezes, rales, or rhonchi. ABDOMEN: Bowel sounds are positive. Soft, nontender and nondistended. No hepatosplenomegaly. No rebound and no guarding EXTREMITIES: No cyanosis, clubbing, or edema. NEUROLOGIC: No facial asymmetry. Tongue is midline. No uvula deviation. Power is 5/5 upper extremity and lower extremity. Sensation intact in upper extremity and lower extremity. PSYCHIATRIC: She is awake, alert and oriented x3. No anxiety or depression. She has normal affect. GENITOURINARY: No CVA tenderness. VASCULAR: 2+ pulses in the carotid pulses and pedal pulses. SKIN: No erythema or nodules SPINE: Shows normal curvature. LABS: No new labs. ASSESSMENT 1. Delirium secondary to hepatic encephalopathy. 2. Cirrhosis. 3. Metastatic breast cancer. 4. Acute kidney injury. 5. Diabetes type 2. 6. Chronic kidney disease stage III-IV. 7. Thrombocytopenia. 8. Metabolic acidosis secondary to chronic kidney disease. 9. Osteoarthritis. 10. Malignant ascites with chronic draining catheter. 11. Left leg deep venous thrombosis. 12. Hypertension. 13. Port-A-Cath. 14. Do not resuscitate/Do not intubate/Comfort care. PLAN: The patient is currently on Ativan for agitation. She is on morphine for pain. The patient is on scopolamine patch. She is on Tylenol as needed. The patient is not able to take p.o. She is DNR/DNI and under hospice. Overall prognosis is poor. The family is aware. We will continue to provide supportive care. Rangel Ngo MD
--- NOTE | 2018-02-05 06:11 | CP.PCM.PRO ---
Pronouncement of Note - Clinical Findings Physical Exam: No Response Verbal/Painful Stimuli, Absent Peripheral Pulses{ Carotid & Femoral}, Absent Heart & Breath Sounds, No Pupillary Light Reflex, No Corneal Reflex, Pupils Fixed & Dilated (Pupils are fixed,mid dilated), Absence of Vital Signs - Pronouncement Time Time of Pronouncement of : 05:35 (pt at 5:30 ) - Notifications Pronouncement Notifications: Family Notified, Atending Notified Exterminator Termite Notified: No - Autopsy Autopsy Requested: No - [place] [id number] Additional Comments: Total time spent on this pt is 25 mins
--- NOTE | 2018-02-06 11:34 | DS ---
HISTORY OF PRESENT ILLNESS: This is a 68-year-old female who had come into the hospital after she was found to have hepatic encephalopathy. She was in renal failure and was declining. She had metastatic breast cancer and cirrhosis. She was made comfort care and placed on inpatient hospice. The patient this morning. The patient's daughter was at the bedside. DISCHARGE DIAGNOSES: 1. Hepatic encephalopathy. 2. Cirrhosis. 3. Metastatic breast cancer. 4. Acute kidney injury. 5. Diabetes type 2. 6. Chronic kidney disease, stage III-IV. 7. Thrombocytopenia. 8. Metabolic acidosis secondary to chronic kidney disease. 9. Osteoarthritis. 10. Malignant ascites with chronic draining catheter. 11. Left leg deep venous thrombosis. 12. Hypertension. 13. Port-A-Cath. 14. Do not resuscitate/do not intubate/hospice. The patient . Family is informed. Rangel Ngo MD
== END 2018-02-05 05:35 | DRG 442 ==
LOC: 3RNO 12:32
PROVIDERS: ADMIT Internal Medicine Nephrology; ATTEND Internal Medicine Nephrology
DX: K72.90 Hepatic failure, unspecified without coma (principal); Z51.5 Encounter for palliative care; N17.9 Acute kidney failure, unspecified; N18.4 Chronic kidney disease, stage 4 (severe); R18.0 Malignant ascites; E87.2 Acidosis; C79.9 Secondary malignant neoplasm of unspecified site; F05 Delirium due to known physiological condition; Z66 Do not resuscitate; I12.9 Hypertensive chronic kidney disease with stage 1 through stage 4 chronic kidney disease, or unspecified chronic kidney disease; E11.22 Type 2 diabetes mellitus with diabetic chronic kidney disease; D69.6 Thrombocytopenia, unspecified; K74.60 Unspecified cirrhosis of liver; M19.90 Unspecified osteoarthritis, unspecified site; Z85.3 Personal history of malignant neoplasm of breast; Z86.718 Personal history of other venous thrombosis and embolism; Z79.4 Long term (current) use of insulin; Z79.01 Long term (current) use of anticoagulants